=== PATIENT | male | born 1960 | race African-American/Black ===

== ENCOUNTER 2017-02-21 19:24 | Emergency (ER) | payer MEDICAID ==
[~2017-02-21] VITALS: Ht 185.4 cm; Wt 75.0 kg
[~2017-02-21 19:24] MED LIST: AMLO5TAB88 PO; ASPI-1079 PO; HYDR-4133 PO; MULT-1146 PO
[2017-02-21 20:48] LABS: EOSINOPHILS % 2.3 % (0.0-5.0); HEMATOCRIT. 28.4 % (42.0-52.0); HEMOGLOBIN. 9.7 g/dL (14.0-18.0); LYMPHOCYTES % 13.9 % (20.0-50.0); MEAN CORPUSCULAR HEMOGLOBIN 29.9 pg (28.0-32.0); MEAN CORPUSCULAR HGB CONC 34.1 g/dL (31.0-37.0); MEAN CORPUSCULAR VOLUME 87.5 fL (80.0-94.0); MEAN PLATELET VOLUME 8.8 fl (7.4-10.4); MONOCYTES % 6.6 % (2.0-8.0); NEUTROPHILS % 76.2 % (40.0-76.0); PLATELET 187 x1000/uL (130-400); RED BLOOD CELL COUNT 3.24 mill/uL (4.7-6.1); RED CELL DISTRIBUTION WIDTH 12.9 % (11.6-14.6)
[2017-02-21 20:55] LABS: INR 1.1; PARTIAL THROMBOPLASTIN TIME 27.8 sec (24.0-34.0); PROTHROMBIN TIME 11.1 sec
[2017-02-21 20:58] LABS: CALCIUM 8.8 mg/dL (8.5-10.1)
[2017-02-21 22:46] LABS: CLARITY URINE CLEAR (CLEAR); COLOR URINE RED (YELLOW); GLUCOSE URINE NEGATIVE (NEGATIVE); KETONES URINE NEGATIVE (NEGATIVE); LEUKOCYTE ESTERASE URINE 1+ (NEGATIVE); NITRITE URINE NEGATIVE (NEGATIVE); OCCULT BLOOD URINE 3+ (NEGATIVE); PH URINE 6.5 (4.5-8.0); PROTEIN URINE 1+ (NEGATIVE); SPECIFIC GRAVITY URINE 1.008 (1.005-1.030); UROBILINOGEN URINE 0.2 E.U./dL (0.2-1.0)
[2017-02-21 23:00] LABS: BACTERIA URINE TRACE; RBC URINE TNTC /hpf (0-2); SQUAMOUS EPITHELIAL CELL URINE RARE /lpf (RARE/1+)
[2017-02-22 04:00] VITALS: BP 118/69
== END 2017-02-22 04:54 | disposition home or self-care (01) ==
LOC: ER 19:24
DX: Q61.3 Polycystic kidney, unspecified (principal); R31.9 Hematuria, unspecified; I10 Essential (primary) hypertension; Z88.0 Allergy status to penicillin; Z79.82 Long term (current) use of aspirin; Z98.890 Other specified postprocedural states; Z88.8 Allergy status to other drugs, medicaments and biological substances
CPT/HCPCS: 36415; 80048; 81001; 85025; 85610; 85730; 99284; Z7610

== ENCOUNTER 2017-03-02 16:37 | Emergency (ER) | payer MEDICAID ==
[~2017-03-02] VITALS: Ht 180.3 cm; Wt 81.0 kg
[2017-03-02] MEDS ORDERED: ACETAMINOPHEN 325MG TABLET PO ONE (20:15)
[2017-03-02 23:56] VITALS: BP 140/90
== END 2017-03-02 23:57 | disposition home or self-care (01) ==
LOC: ER 16:38
DX: M79.642 Pain in left hand (principal); M25.532 Pain in left wrist; M79.632 Pain in left forearm; I12.9 Hypertensive chronic kidney disease with stage 1 through stage 4 chronic kidney disease, or unspecified chronic kidney disease; N18.9 Chronic kidney disease, unspecified; H40.9 Unspecified glaucoma; Z85.9 Personal history of malignant neoplasm, unspecified; Z88.0 Allergy status to penicillin; Z88.8 Allergy status to other drugs, medicaments and biological substances; W22.8XXA Striking against or struck by other objects, initial encounter; Y93.89 Activity, other specified; Y92.89 Other specified places as the place of occurrence of the external cause
CPT/HCPCS: 29130; 73090; 73110; 73130; 99284

== ENCOUNTER 2018-06-06 11:25 | Emergency (ER) | payer MEDICAID ==
[~2018-06-06] VITALS: Ht 172.7 cm; Wt 70.0 kg
[2018-06-06 12:38] LABS: BASOPHILS % 0.9 % (0.0-2.0); EOSINOPHILS % 1.9 % (0.0-5.0); HEMATOCRIT. 31.5 % (42.0-52.0); HEMOGLOBIN. 10.5 g/dL (14.0-18.0); LYMPHOCYTES % 17.2 % (20.0-50.0); MEAN CORPUSCULAR HEMOGLOBIN 29.7 pg (28.0-32.0); MEAN CORPUSCULAR VOLUME 88.6 fL (80.0-94.0); MEAN PLATELET VOLUME 9.2 fl (7.4-10.4); MONOCYTES % 6.3 % (2.0-8.0); NEUTROPHILS % 73.7 % (40.0-76.0); PLATELET 189 x1000/uL (130-400); RED BLOOD CELL COUNT 3.55 mill/uL (4.7-6.1); RED CELL DISTRIBUTION WIDTH 13.3 % (11.6-14.6)
[2018-06-06 13:14] VITALS: BP 136/86
== END 2018-06-06 13:26 | disposition home or self-care (01) ==
LOC: ER 11:25
DX: R53.1 Weakness (principal); I12.9 Hypertensive chronic kidney disease with stage 1 through stage 4 chronic kidney disease, or unspecified chronic kidney disease; N18.9 Chronic kidney disease, unspecified; D63.1 Anemia in chronic kidney disease; H40.9 Unspecified glaucoma; Z85.9 Personal history of malignant neoplasm, unspecified; Z88.8 Allergy status to other drugs, medicaments and biological substances; Z88.0 Allergy status to penicillin
CPT/HCPCS: 36415; 71045; 80048; 85025; 99285

== ENCOUNTER 2018-08-02 11:54 | Emergency (ER) | payer MEDICAID ==
[~2018-08-02] VITALS: Ht 182.9 cm; Wt 90.0 kg
[2018-08-02] MEDS ORDERED: FLUORESCEIN SODIUM 1MG/STRIP OP ONE (12:30)
[2018-08-02] MEDS ORDERED: TETRACAINE 0.5% OPHTH DROPS 4ML OP ONE (12:30)
[2018-08-02] MEDS ORDERED: ONDANSETRON HCL 4MG/2ML INJ IV STA (12:33)
[2018-08-02] MEDS ORDERED: MORPHINE SULFATE 4 MG/ML CPJ (NOT FOR IM USE) IV STA (12:33)
[2018-08-02 13:01] LABS: CHLORIDE 104 mEq/L (98-107)
[2018-08-02 13:06] LABS: EOSINOPHILS % 2.1 % (0.0-5.0); HEMATOCRIT. 32.2 % (42.0-52.0); HEMOGLOBIN. 10.8 g/dL (14.0-18.0); LYMPHOCYTES % 17.8 % (20.0-50.0); MEAN CORPUSCULAR HEMOGLOBIN 29.9 pg (28.0-32.0); MEAN CORPUSCULAR VOLUME 89.3 fL (80.0-94.0); MEAN PLATELET VOLUME 9.5 fl (7.4-10.4); MONOCYTES % 5.6 % (2.0-8.0); NEUTROPHILS % 73.5 % (40.0-76.0); PLATELET 172 x1000/uL (130-400); RED CELL DISTRIBUTION WIDTH 13.1 % (11.6-14.6)
[2018-08-02] MEDS ORDERED: OFLOXACIN 0.3% OPHTH SOLN 5ML LEFTEYE SCH (15:00)
[2018-08-02 20:22] VITALS: BP 129/66
== END 2018-08-02 20:43 | disposition home or self-care (01) ==
LOC: ER 11:54 → CANBEDREQ 20:52
DX: I62.00 Nontraumatic subdural hemorrhage, unspecified (principal); H10.9 Unspecified conjunctivitis; R07.2 Precordial pain; I10 Essential (primary) hypertension; H40.9 Unspecified glaucoma; Z88.0 Allergy status to penicillin; Z88.8 Allergy status to other drugs, medicaments and biological substances; Z79.82 Long term (current) use of aspirin
CPT/HCPCS: 36415; 70450; 71045; 80053; 83880; 84484; 85025; 93005; 99285; Z7610; J2270; J2405

== ENCOUNTER 2020-06-01 14:08 | Inpatient (IN) | payer MEDICAID ==
[~2020-06-01] VITALS: Ht 182.9 cm; Wt 74.8 kg
[2020-06-01] MEDS ORDERED: ONDANSETRON HCL 4MG/2ML INJ IV STA (14:35)
[2020-06-01 15:06] LABS: HEMOGLOBIN. 10.7 g/dL (14.0-18.0); MEAN CORPUSCULAR HEMOGLOBIN 30.3 pg (28.0-32.0); MEAN CORPUSCULAR VOLUME 90.9 fL (80.0-94.0); PLATELET 245 x1000/uL (130-400); RED BLOOD CELL COUNT 3.53 mill/uL (4.7-6.1)
[2020-06-01 15:11] LABS: CHLORIDE 111 mEq/L (98-107)
[2020-06-01 15:15] LABS: ETHANOL BLOOD < 10 mg/dL
[2020-06-01 15:20] LABS: PROTHROMBIN TIME 10.8 sec (9.6-11.0)
[2020-06-01 15:23] LABS: CLARITY URINE CLEAR (CLEAR); COLOR URINE YELLOW (YELLOW); KETONES URINE NEGATIVE (NEGATIVE); LEUKOCYTE ESTERASE URINE NEGATIVE (NEGATIVE); NITRITE URINE NEGATIVE (NEGATIVE); OCCULT BLOOD URINE 1+ (NEGATIVE); PH URINE 5.5 (4.5-8.0); PROTEIN URINE 2+ (NEGATIVE); SPECIFIC GRAVITY URINE 1.012 (1.005-1.030); UROBILINOGEN URINE 0.2 E.U./dL (0.2-1.0)
[2020-06-01 15:39] LABS: PLATELET ESTIMATE NORMAL
[2020-06-01 20:00] VITALS: BP 161/98
[2020-06-01 20:01] VITALS: BP 161/98
[2020-06-01] MEDS ORDERED: DIPHENHYDRAMINE 50MG/ML VIAL IV PRN (22:00)
[2020-06-01] MEDS ORDERED: MAGNESIUM/ALUMINUM HYDROXIDE/SIMETHICONE 30ML UDC PO PRN (22:00)
[2020-06-01] MEDS ORDERED: NA PHOS,M-B/NA PHOS,DI-BA ENEMA 118ML PR PRN (22:00)
[2020-06-01] MEDS ORDERED: DOCUSATE SODIUM 100MG CAPSULE PO PRN (22:00)
[2020-06-01] MEDS ORDERED: CLONIDINE 0.1MG TABLET PO PRN (22:00)
[2020-06-01] MEDS ORDERED: GUAIFENESIN 200MG/10ML SUGAR FREE UDC PO PRN (22:00)
[2020-06-01] MEDS ORDERED: ACETAMINOPHEN 325MG TABLET PO PRN (22:00)
[2020-06-01] MEDS: SODIUM CHLORIDE 0.45% 1,000 ML IV SCH (23:20)
[2020-06-01] MEDS: AMLODIPINE 10MG TABLET PO SCH (23:21)
[2020-06-01] MEDS: CEFTRIAXONE 1,000 MG in DEXTROSE 5% WATER 50 ML IV SCH (23:22)
[2020-06-02] VITALS: BP 155/92
[2020-06-02 00:54] LABS: PHOSPHORUS 6.7 mg/dL (2.5-4.9)
[2020-06-02 04:00] VITALS: BP 141/96
[2020-06-02 07:06] LABS: BASOPHILS % 0.6 % (0.0-2.0); HEMATOCRIT. 32.8 % (42.0-52.0); HEMOGLOBIN. 10.9 g/dL (14.0-18.0); LYMPHOCYTES % 10.2 % (20.0-50.0); MEAN CORPUSCULAR HEMOGLOBIN 30.3 pg (28.0-32.0); MEAN CORPUSCULAR VOLUME 91.4 fL (80.0-94.0); MEAN PLATELET VOLUME 8.4 fl (7.4-10.4); MONOCYTES % 8.8 % (2.0-8.0); NEUTROPHILS % 78.4 % (40.0-76.0); PLATELET 224 x1000/uL (130-400); RED BLOOD CELL COUNT 3.59 mill/uL (4.7-6.1); RED CELL DISTRIBUTION WIDTH 13.6 % (11.6-14.6)
[2020-06-02 07:19] LABS: CHLORIDE 111 mEq/L (98-107)
[2020-06-02 07:27] LABS: LDL CHOLESTEROL 67 mg/dL (5-100)
[2020-06-02 07:29] LABS: HDL CHOLESTEROL 44 mg/dL (40-59)
[2020-06-02 08:00] VITALS: BP 157/96
[2020-06-02 08:23] LABS: *AMPHETAMINES SCREEN URINE NEGATIVE (NEGATIVE); *BARBITURATES SCREEN URINE NEGATIVE (NEGATIVE); *BENZODIAZEPINES SCREEN URINE NEGATIVE (NEGATIVE); *COCAINE SCREEN URINE NEGATIVE (NEGATIVE); METHADONE URINE SCREEN NEGATIVE (NEGATIVE); OPIATES URINE SCREEN NEGATIVE (NEGATIVE)
[2020-06-02 08:24] LABS: CANNABINOID URINE SCREEN NEGATIVE (NEGATIVE); PHENCYCLIDINE URINE SCREEN NEGATIVE (NEGATIVE)
[2020-06-02] MEDS: AMLODIPINE 10MG TABLET PO SCH (10:11)
[2020-06-02 10:48] LABS: T4 FREE 0.86 ng/dL (0.76-1.46)
[2020-06-02] MEDS: SODIUM CHLORIDE 0.45% 1,000 ML IV SCH (11:49)
[2020-06-02 12:00] VITALS: BP 136/83
[2020-06-02] MEDS ORDERED: AMLODIPINE 5MG TABLET PO SCH (12:45)
[2020-06-02] MEDS: HYDRALAZINE HCL 100MG TABLET PO SCH ×2 (13:35→20:38)
[2020-06-02] MEDS: CALCIUM ACETATE 667MG CAPSULE PO SCH ×2 (13:35→18:07)
[2020-06-02] MEDS: ASPIRIN 81MG TABLET PO SCH (13:35)
[2020-06-02] MEDS: ONDANSETRON HCL 4MG/2ML INJ IV PRN (15:30)
[2020-06-02 16:00] VITALS: BP 128/76
[2020-06-02 20:00] VITALS: BP 128/75
[2020-06-02] MEDS: ACETAMINOPHEN 325MG TABLET PO PRN (20:37)
[2020-06-02] MEDS: CEFTRIAXONE 1,000 MG in DEXTROSE 5% WATER 50 ML IV SCH (20:38)
[2020-06-03] VITALS: BP 132/85
[2020-06-03] MEDS: SODIUM CHLORIDE 0.45% 1,000 ML IV SCH ×2 (00:19→14:25)
[2020-06-03] MEDS: ONDANSETRON HCL 4MG/2ML INJ IV PRN ×2 (00:27→08:40)
[2020-06-03 04:00] VITALS: BP 135/92
[2020-06-03 07:31] LABS: CHLORIDE 108 mEq/L (98-107)
[2020-06-03 07:33] LABS: HEMATOCRIT. 32.4 % (42.0-52.0); HEMOGLOBIN. 10.7 g/dL (14.0-18.0); MEAN CORPUSCULAR HEMOGLOBIN 29.8 pg (28.0-32.0); MEAN CORPUSCULAR VOLUME 90.5 fL (80.0-94.0); MEAN PLATELET VOLUME 8.9 fl (7.4-10.4); PLATELET 242 x1000/uL (130-400); RED BLOOD CELL COUNT 3.58 mill/uL (4.7-6.1); RED CELL DISTRIBUTION WIDTH 13.9 % (11.6-14.6)
[2020-06-03 07:38] LABS: PHOSPHORUS 5.4 mg/dL (2.5-4.9)
[2020-06-03 08:00] VITALS: BP 141/91
[2020-06-03] MEDS: CALCIUM ACETATE 667MG CAPSULE PO SCH ×3 (08:40→17:12)
[2020-06-03] MEDS: AMLODIPINE 10MG TABLET PO SCH (08:41)
[2020-06-03] MEDS: ASPIRIN 81MG TABLET PO SCH (08:41)
[2020-06-03] MEDS: HYDRALAZINE HCL 100MG TABLET PO SCH ×2 (08:42→20:45)
[2020-06-03] MEDS: ACETAMINOPHEN 325MG TABLET PO PRN ×2 (08:42→15:58)
[2020-06-03] MEDS ORDERED: CALC667C PO (10:55)
[2020-06-03] MEDS ORDERED: AMLO10TA80 PO (10:55)
[2020-06-03] MEDS ORDERED: METO5TAB2 PO (10:56)
[2020-06-03 12:00] VITALS: BP 148/96
[2020-06-03] MEDS: METOCLOPRAMIDE HCL 5MG TABLET PO SCH ×2 (12:04→17:12)
[2020-06-03 12:46] LABS: TOTAL IRON BINDING CAPACITY 216 ug/dL (250-450)
[2020-06-03 16:00] VITALS: BP 139/88
[2020-06-03 19:12] LABS: PLATELET ESTIMATE NORMAL
[2020-06-03 20:00] VITALS: BP 141/84
[2020-06-03] MEDS: CEFTRIAXONE 1,000 MG in DEXTROSE 5% WATER 50 ML IV SCH (20:46)
[2020-06-04] VITALS: BP 129/72
[2020-06-04] MEDS: ACETAMINOPHEN 325MG TABLET PO PRN (00:36)
[2020-06-04] MEDS: METOCLOPRAMIDE HCL 5MG TABLET PO SCH ×5 (00:36→21:27)
[2020-06-04] MEDS: SODIUM CHLORIDE 0.45% 1,000 ML IV SCH ×2 (03:17→16:54)
[2020-06-04 04:00] VITALS: BP 135/86
[2020-06-04 06:38] LABS: CHLORIDE 108 mEq/L (98-107)
[2020-06-04 06:43] LABS: BASOPHILS % 0.5 % (0.0-2.0); EOSINOPHILS % 0.3 % (0.0-5.0); HEMATOCRIT. 32.9 % (42.0-52.0); HEMOGLOBIN. 10.8 g/dL (14.0-18.0); LYMPHOCYTES % 8.6 % (20.0-50.0); MEAN CORPUSCULAR HEMOGLOBIN 29.7 pg (28.0-32.0); MEAN CORPUSCULAR VOLUME 90.9 fL (80.0-94.0); MEAN PLATELET VOLUME 8.8 fl (7.4-10.4); MONOCYTES % 5.1 % (2.0-8.0); NEUTROPHILS % 85.5 % (40.0-76.0); PLATELET 252 x1000/uL (130-400); RED BLOOD CELL COUNT 3.62 mill/uL (4.7-6.1); RED CELL DISTRIBUTION WIDTH 13.7 % (11.6-14.6)
[2020-06-04 06:47] LABS: PHOSPHORUS 5.3 mg/dL (2.5-4.9)
[2020-06-04 08:00] VITALS: BP 146/91
[2020-06-04] MEDS: ONDANSETRON HCL 4MG/2ML INJ IV PRN ×2 (08:06→23:58)
[2020-06-04] MEDS: CALCIUM ACETATE 667MG CAPSULE PO SCH ×3 (08:50→17:55)
[2020-06-04] MEDS: AMLODIPINE 10MG TABLET PO SCH (09:17)
[2020-06-04] MEDS: ASPIRIN 81MG TABLET PO SCH (09:17)
[2020-06-04] MEDS: HYDRALAZINE HCL 100MG TABLET PO SCH ×2 (09:17→21:28)
[2020-06-04 12:00] VITALS: BP 147/88
[2020-06-04 16:00] VITALS: BP 148/92
[2020-06-04] MEDS: SODIUM BICARBONATE 650 MG TABLET PO SCH ×2 (17:55→21:27)
[2020-06-04 20:00] VITALS: BP 149/90
[2020-06-04] MEDS: CEFTRIAXONE 1,000 MG in DEXTROSE 5% WATER 50 ML IV SCH (21:27)
[2020-06-04] MEDS: PANTOPRAZOLE SODIUM 40 MG/VIAL IV SCH (21:28)
[2020-06-04] MEDS ORDERED: LACTULOSE 20G/30ML UDC PO NR (21:30)
[2020-06-05] VITALS: BP 137/86
[2020-06-05 04:00] VITALS: BP 156/99
[2020-06-05] MEDS: SODIUM CHLORIDE 0.45% 1,000 ML IV SCH (05:35)
[2020-06-05] MEDS: METOCLOPRAMIDE HCL 5MG TABLET PO SCH ×2 (05:35→12:00)
[2020-06-05 06:47] LABS: CHLORIDE 109 mEq/L (98-107)
[2020-06-05 06:50] LABS: PARTIAL THROMBOPLASTIN TIME 30.9 sec (23.4-31.0); PROTHROMBIN TIME 10.9 sec (9.6-11.0)
[2020-06-05 06:54] LABS: PHOSPHORUS 4.7 mg/dL (2.5-4.9)
[2020-06-05 06:57] LABS: BASOPHILS % 0.8 % (0.0-2.0); EOSINOPHILS % 0.3 % (0.0-5.0); HEMATOCRIT. 31.7 % (42.0-52.0); HEMOGLOBIN. 10.3 g/dL (14.0-18.0); MEAN CORPUSCULAR HEMOGLOBIN 29.4 pg (28.0-32.0); MEAN CORPUSCULAR VOLUME 90.3 fL (80.0-94.0); MEAN PLATELET VOLUME 8.8 fl (7.4-10.4); MONOCYTES % 6.7 % (2.0-8.0); NEUTROPHILS % 84.2 % (40.0-76.0); PLATELET 232 x1000/uL (130-400); RED BLOOD CELL COUNT 3.51 mill/uL (4.7-6.1); RED CELL DISTRIBUTION WIDTH 13.8 % (11.6-14.6)
[2020-06-05 08:00] VITALS: BP 133/89
[2020-06-05] MEDS: SODIUM BICARBONATE 650 MG TABLET PO SCH ×2 (09:00→15:20)
[2020-06-05] MEDS: ASPIRIN 81MG TABLET PO SCH (09:00)
[2020-06-05] MEDS: CALCIUM ACETATE 667MG CAPSULE PO SCH ×2 (09:51→15:20)
[2020-06-05] MEDS: PANTOPRAZOLE SODIUM 40 MG/VIAL IV SCH (09:51)
[2020-06-05] MEDS: HYDRALAZINE HCL 100MG TABLET PO SCH (09:51)
[2020-06-05] MEDS: AMLODIPINE 10MG TABLET PO SCH (09:51)
[2020-06-05] MEDS ORDERED: MIDAZOLAM HCL 5 MG/5 ML VIAL ONE (11:06)
[2020-06-05] MEDS ORDERED: FENTANYL CITRATE/PF 50MCG/ML 2ML VIAL ONE (11:06)
[2020-06-05] MEDS ORDERED: MIDAZOLAM HCL 5 MG/5 ML VIAL IV ONE (11:15)
[2020-06-05] MEDS ORDERED: FENTANYL CITRATE/PF 50MCG/ML 2ML VIAL IV ONE (11:16)
[2020-06-05 12:00] VITALS: BP 106/64
[2020-06-05 16:00] VITALS: BP 120/73
[2020-06-05 17:24] VITALS: BP 120/73
[2020-06-05] MEDS ORDERED: PANT40SU MT (18:06)
[2020-06-06] MEDS ORDERED: OMEPRAZOLE 20MG CAPSULE EXTENDED RELEASE PO SCH (07:20)
== END 2020-06-05 18:35 | disposition home or self-care (01) | DRG 241 ==
LOC: ER 14:08 → 6EST 18:16 → EDBEDREQ 18:24 → EDBEDREQSVC 18:24 → ENRESERV 19:05 → 6EST 22:04
PROVIDERS: ADMIT Family Medicine; ATTEND Family Medicine
PROC: 0DB68ZX Excision of Stomach, Via Natural or Artificial Opening Endoscopic, Diagnostic (ICD-10-PCS; principal; 2020-06-05)
DX: K29.90 Gastroduodenitis, unspecified, without bleeding (principal); N17.9 Acute kidney failure, unspecified; Q61.3 Polycystic kidney, unspecified; K76.89 Other specified diseases of liver; I12.0 Hypertensive chronic kidney disease with stage 5 chronic kidney disease or end stage renal disease; D64.9 Anemia, unspecified; E03.9 Hypothyroidism, unspecified; E86.0 Dehydration; K57.90 Diverticulosis of intestine, part unspecified, without perforation or abscess without bleeding; E87.2 Acidosis; E21.3 Hyperparathyroidism, unspecified; C18.9 Malignant neoplasm of colon, unspecified; K80.20 Calculus of gallbladder without cholecystitis without obstruction; K59.04 Chronic idiopathic constipation; Z88.9 Allergy status to unspecified drugs, medicaments and biological substances; Q44.6 Cystic disease of liver; Z82.49 Family history of ischemic heart disease and other diseases of the circulatory system; Z82.71 Family history of polycystic kidney; Z88.0 Allergy status to penicillin; Z88.8 Allergy status to other drugs, medicaments and biological substances; Z79.82 Long term (current) use of aspirin; Z79.899 Other long term (current) drug therapy; Z85.038 Personal history of other malignant neoplasm of large intestine; N18.5 Chronic kidney disease, stage 5
CPT/HCPCS: 36415; 71045; 74018; 74176; 76705; 76770; 80053; 80061; 80305; 80320; 81003; 82270; 82570; 82728; 83540; 83550; 83735; 83935; 83970; 84100; 84156; 84439; 84443; 84484; 85025; 86677; 88305; 88313; 93005; 96374; 99285; C9113; J0696; J2250; J2405; J3010; J7060; J8597; G0480

== ENCOUNTER 2020-09-11 12:00 | Inpatient (IN) | payer MEDICAID ==
[~2020-09-11] VITALS: Ht 185.4 cm; Wt 69.9 kg
[~2020-09-11 12:00] MED LIST changes: +AMLO10TA80 PO; -AMLO5TAB88 PO; +CALC667C PO; -HYDR-4133 PO; +METO5TAB2 PO; +PANT40SU MT
[2020-09-11] MEDS ORDERED: ONDANSETRON HCL 4MG/2ML INJ IV STA (13:23)
[2020-09-11] MEDS ORDERED: FAMOTIDINE 20MG/2ML VIAL IV STA (13:23)
[2020-09-11] MEDS ORDERED: SODIUM CHLORIDE 0.9% 1,000 ML IV ONE (13:30)
[2020-09-11 15:09] LABS: HEMOGLOBIN. 10.7 g/dL (14.0-18.0); MEAN CORPUSCULAR VOLUME 86.5 fL (80.0-94.0); MEAN PLATELET VOLUME 10.1 fl (7.4-10.4); PLATELET 160 x1000/uL (130-400); RED CELL DISTRIBUTION WIDTH 14.4 % (11.6-14.6)
[2020-09-11 15:11] LABS: CHLORIDE 102 mEq/L (98-107)
[2020-09-11 15:28] LABS: PROTHROMBIN TIME 10.9 sec (9.6-11.0)
[2020-09-11 16:12] LABS: PLATELET ESTIMATE NORMAL
[2020-09-11] MEDS ORDERED: METRONIDAZOLE 500 MG PREMIX 100 ML IV ONE (17:30)
[2020-09-11] MEDS ORDERED: LEVOFLOXACIN 750MG PREMIX 150 ML IV ONE (17:30)
[2020-09-11] MEDS ORDERED: ZOLPIDEM TARTRATE 5MG TABLET PO PRN (18:30)
[2020-09-11] MEDS ORDERED: DOCUSATE SODIUM 100MG CAPSULE PO PRN (18:30)
[2020-09-11] MEDS ORDERED: IPRATROPIUM/ALBUTEROL 0.5-3(2.5)MG/3ML NEB NEB PRN (18:30)
[2020-09-11] MEDS ORDERED: MAGNESIUM/ALUMINUM HYDROXIDE/SIMETHICONE 30ML UDC PO PRN (18:30)
[2020-09-11] MEDS ORDERED: ACETAMINOPHEN 325MG TABLET PO PRN (18:30)
[2020-09-11] MEDS ORDERED: GUAIFENESIN 200MG/10ML SUGAR FREE UDC PO PRN (18:30)
[2020-09-11 19:54] LABS: FOLIC ACID (FOLATE) SERUM >20 ng/mL ng/mL (>5.38)
[2020-09-11] MEDS ORDERED: LEVOFLOXACIN 500MG PREMIX 100 ML IV NR (20:00)
[2020-09-11 20:05] LABS: VITAMIN B12 SERUM 1284 pg/mL (211-911)
[2020-09-11] MEDS: ONDANSETRON HCL 4MG/2ML INJ IV PRN (20:37)
[2020-09-11] MEDS: SODIUM CHLORIDE 0.9% 1,000 ML IV SCH (20:50)
[2020-09-11 22:06] VITALS: BP 128/97
[2020-09-11] MEDS: ASCORBIC ACID 500 MG TABLET PO SCH (22:37)
[2020-09-11] MEDS: ENOXAPARIN 30MG/0.3ML SYR SUBCUT SCH (22:38)
[2020-09-11] MEDS: METRONIDAZOLE 500 MG PREMIX 100 ML IV SCH (22:39)
[2020-09-12] VITALS (17 sets, daily range): BP systolic 130–189; BP diastolic 79–103
[2020-09-12 06:48] LABS: HEMATOCRIT. 31.7 % (42.0-52.0); HEMOGLOBIN. 10.6 g/dL (14.0-18.0); MEAN CORPUSCULAR HEMOGLOBIN 29.1 pg (28.0-32.0); MEAN PLATELET VOLUME 10.6 fl (7.4-10.4); PLATELET 156 x1000/uL (130-400); RED BLOOD CELL COUNT 3.65 mill/uL (4.7-6.1); RED CELL DISTRIBUTION WIDTH 14.7 % (11.6-14.6)
[2020-09-12 06:57] LABS: CHLORIDE 102 mEq/L (98-107)
[2020-09-12] MEDS: SODIUM CHLORIDE 0.9% 1,000 ML IV SCH ×2 (07:50→12:46)
[2020-09-12 08:36] LABS: PHOSPHORUS 9.6 mg/dL (2.5-4.9)
[2020-09-12] MEDS: PANTOPRAZOLE SODIUM 40 MG/VIAL IV SCH (09:47)
[2020-09-12] MEDS: TRAMADOL 50MG TABLET PO PRN ×2 (09:48→21:49)
[2020-09-12] MEDS: SEVELAMER CARBONATE 800 MG TABLET PO SCH ×3 (09:48→18:15)
[2020-09-12] MEDS: ZINC SULFATE 220 MG ( 50 ) CAPSULE PO SCH (09:49)
[2020-09-12] MEDS: ASCORBIC ACID 500 MG TABLET PO SCH ×2 (09:49→22:29)
[2020-09-12] MEDS: METRONIDAZOLE 500 MG PREMIX 100 ML IV SCH ×2 (10:00→11:32)
[2020-09-12] MEDS: FOLIC ACID/VITAMIN B COMP W-C TABLET PO SCH (12:45)
[2020-09-12 13:28] LABS: BG BASE EXCESS -13.2 mmol/L (-2.0-2.0); BG CARBOXYHEMOGLOBIN 0.3 % (0.5-1.5); BG DEOXYHEMOGLOBIN 3.1 % (0.0-5.0); BG FRACTION INSPIRED OXYGEN 21; BG HCO3 ACT 11.3 mmol/L (22.0-26.0); BG METHEMOGLOBIN 0.3 % (0.0-1.5); BG OXYGEN SATURATION 96.9 % (92.0-98.5); BG OXYHEMOGLOBIN 96.3 % (94.0-97.0); BG PH 7.308 (7.350-7.450); BG SAMPLE SITE RIGHT BRACHIAL; BG TOTAL HEMOGLOBIN 11.2 g/dL (12.0-18.0); BG VENT MODE ROOM AIR
[2020-09-12] MEDS ORDERED: LIDOCAINE HCL/EPINEPHRINE 1%-EPI 1:100,000 20 ML VIAL ONE (13:29)
[2020-09-12] MEDS ORDERED: LIDOCAINE HCL 1% 20ML VIAL (Pyxis) INJ ONE (13:29)
[2020-09-12] MEDS ORDERED: SODIUM BICARBONATE 4% (2.4MEQ) 5ML VIAL IV ONE (13:29)
[2020-09-12] MEDS ORDERED: FENTANYL CITRATE/PF 50MCG/ML 2ML VIAL ONE (14:03)
[2020-09-12] MEDS ORDERED: FENTANYL CITRATE/PF 50MCG/ML 2ML VIAL IV ONE (14:30)
[2020-09-12] MEDS ORDERED: IOHEXOL-300 50 ML BOTTLE IV ONE (14:46)
[2020-09-12 18:06] LABS: PLATELET ESTIMATE NORMAL
[2020-09-12] MEDS: ONDANSETRON HCL 4MG/2ML INJ IV PRN (21:09)
[2020-09-12] MEDS: LEVOFLOXACIN 250MG PREMIX 50ML IV SCH (22:16)
[2020-09-12] MEDS: ENOXAPARIN 30MG/0.3ML SYR SUBCUT SCH (22:32)
[2020-09-13] MEDS: METRONIDAZOLE 500 MG PREMIX 100 ML IV SCH ×3 (00:09→21:00)
[2020-09-13] MEDS: CLONIDINE 0.1MG TABLET PO PRN (00:20)
[2020-09-13 00:39] VITALS: BP 142/102
[2020-09-13 04:00] VITALS: BP 146/100
[2020-09-13 06:32] LABS: HEMATOCRIT. 31.5 % (42.0-52.0); HEMOGLOBIN. 10.7 g/dL (14.0-18.0); MEAN CORPUSCULAR HEMOGLOBIN 29.3 pg (28.0-32.0); MEAN CORPUSCULAR VOLUME 86.3 fL (80.0-94.0); MEAN PLATELET VOLUME 10.6 fl (7.4-10.4); PLATELET 159 x1000/uL (130-400); RED BLOOD CELL COUNT 3.65 mill/uL (4.7-6.1); RED CELL DISTRIBUTION WIDTH 14.5 % (11.6-14.6)
[2020-09-13 06:47] LABS: PHOSPHORUS 8.8 mg/dL (2.5-4.9)
[2020-09-13 08:00] VITALS: BP 140/99
[2020-09-13] MEDS: ZINC SULFATE 220 MG ( 50 ) CAPSULE PO SCH (08:50)
[2020-09-13] MEDS: TRAMADOL 50MG TABLET PO PRN ×2 (08:50→17:08)
[2020-09-13] MEDS: ASCORBIC ACID 500 MG TABLET PO SCH ×2 (08:50→21:00)
[2020-09-13] MEDS: FOLIC ACID/VITAMIN B COMP W-C TABLET PO SCH (08:50)
[2020-09-13] MEDS: SEVELAMER CARBONATE 800 MG TABLET PO SCH ×3 (08:50→16:55)
[2020-09-13] MEDS: PANTOPRAZOLE SODIUM 40 MG/VIAL IV SCH (08:50)
[2020-09-13] MEDS: SODIUM CHLORIDE 0.9% 1,000 ML IV SCH (09:58)
[2020-09-13] MEDS ORDERED: DIATR MEGLU/DIATRIZOATE SOLN 120ML ONE (11:44)
[2020-09-13 12:00] VITALS: BP 173/90
[2020-09-13 13:29] LABS: PLATELET ESTIMATE NORMAL
[2020-09-13 16:00] VITALS: BP 122/79
[2020-09-13] MEDS ORDERED: SODIUM CHLORIDE 0.9% 250 ML IV ONE (19:00)
[2020-09-13 20:00] VITALS: BP 154/98
[2020-09-13] MEDS: ENOXAPARIN 30MG/0.3ML SYR SUBCUT SCH (20:59)
[2020-09-14] VITALS: BP 147/99
[2020-09-14] MEDS: ONDANSETRON HCL 4MG/2ML INJ IV PRN (02:45)
[2020-09-14 04:00] VITALS: BP 145/99
[2020-09-14] MEDS: SODIUM CHLORIDE 0.9% 1,000 ML IV SCH (05:37)
[2020-09-14 05:58] LABS: HEMATOCRIT. 31.2 % (42.0-52.0); HEMOGLOBIN. 10.6 g/dL (14.0-18.0); MEAN CORPUSCULAR HEMOGLOBIN 29.3 pg (28.0-32.0); MEAN CORPUSCULAR VOLUME 86.6 fL (80.0-94.0); MEAN PLATELET VOLUME 10.7 fl (7.4-10.4); PLATELET 159 x1000/uL (130-400); RED BLOOD CELL COUNT 3.61 mill/uL (4.7-6.1); RED CELL DISTRIBUTION WIDTH 14.3 % (11.6-14.6)
[2020-09-14 06:08] LABS: CHLORIDE 104 mEq/L (98-107)
[2020-09-14 06:53] LABS: PHOSPHORUS 8.2 mg/dL (2.5-4.9)
[2020-09-14 08:00] VITALS: BP 141/98
[2020-09-14] MEDS: FOLIC ACID/VITAMIN B COMP W-C TABLET PO SCH (08:21)
[2020-09-14] MEDS: PANTOPRAZOLE SODIUM 40 MG/VIAL IV SCH (08:21)
[2020-09-14] MEDS: ASCORBIC ACID 500 MG TABLET PO SCH ×2 (08:21→20:21)
[2020-09-14] MEDS: SEVELAMER CARBONATE 800 MG TABLET PO SCH ×3 (08:21→17:00)
[2020-09-14] MEDS: METRONIDAZOLE 500 MG PREMIX 100 ML IV SCH ×2 (08:21→21:14)
[2020-09-14] MEDS: ZINC SULFATE 220 MG ( 50 ) CAPSULE PO SCH (08:21)
[2020-09-14] MEDS ORDERED: ALBUMIN HUMAN 25GM/100ML (25%) IV SCH (10:00)
[2020-09-14] MEDS: DILTIAZEM HCL 60MG TABLET PO SCH ×3 (10:27→17:00)
[2020-09-14 12:00] VITALS: BP 145/96
[2020-09-14 12:35] LABS: HEPATITIS B SURFACE ANTIGEN NEGATIVE
[2020-09-14 13:05] LABS: HEPATITIS A AB IGM NEGATIVE (NEGATIVE)
[2020-09-14 13:42] LABS: PLATELET ESTIMATE NORMAL
[2020-09-14 16:00] VITALS: BP 137/95
[2020-09-14] MEDS: TRAMADOL 50MG TABLET PO PRN (17:08)
[2020-09-14 20:00] VITALS: BP 140/90
[2020-09-14] MEDS: ENOXAPARIN 30MG/0.3ML SYR SUBCUT SCH (20:21)
[2020-09-14] MEDS: LEVOFLOXACIN 250MG PREMIX 50ML IV SCH (20:21)
[2020-09-15] VITALS: BP 129/87
[2020-09-15] MEDS: DILTIAZEM HCL 60MG TABLET PO SCH ×4 (00:11→17:02)
[2020-09-15 04:00] VITALS: BP 146/83
[2020-09-15 06:30] LABS: HEMATOCRIT. 31.1 % (42.0-52.0); HEMOGLOBIN. 10.4 g/dL (14.0-18.0); MEAN CORPUSCULAR HEMOGLOBIN 29.2 pg (28.0-32.0); MEAN CORPUSCULAR VOLUME 87.9 fL (80.0-94.0); MEAN PLATELET VOLUME 9.9 fl (7.4-10.4); PLATELET 155 x1000/uL (130-400); RED BLOOD CELL COUNT 3.54 mill/uL (4.7-6.1); RED CELL DISTRIBUTION WIDTH 14.3 % (11.6-14.6)
[2020-09-15 07:30] LABS: PHOSPHORUS 9.5 mg/dL (2.5-4.9)
[2020-09-15 08:00] VITALS: BP 129/89
[2020-09-15] MEDS: SEVELAMER CARBONATE 800 MG TABLET PO SCH ×3 (08:49→17:02)
[2020-09-15] MEDS: ZINC SULFATE 220 MG ( 50 ) CAPSULE PO SCH (08:49)
[2020-09-15] MEDS: METRONIDAZOLE 500 MG PREMIX 100 ML IV SCH ×2 (08:49→20:14)
[2020-09-15] MEDS: ASCORBIC ACID 500 MG TABLET PO SCH ×2 (08:49→20:14)
[2020-09-15] MEDS: FOLIC ACID/VITAMIN B COMP W-C TABLET PO SCH (08:49)
[2020-09-15] MEDS: PANTOPRAZOLE SODIUM 40 MG/VIAL IV SCH (08:53)
[2020-09-15] MEDS ORDERED: DESMOPRESSIN ACETATE 4MCG/ML AMP IV ONE (09:00)
[2020-09-15] MEDS: ONDANSETRON HCL 4MG/2ML INJ IV PRN ×2 (09:30→20:26)
[2020-09-15 10:13] LABS: PLATELET ESTIMATE NORMAL
[2020-09-15] MEDS ORDERED: DESMOPRESSIN ACETATE 20 MCG in SODIUM CHLORIDE 0.9% 50 ML IV SCH (11:00)
[2020-09-15 12:00] VITALS: BP 123/82
[2020-09-15 16:00] VITALS: BP 126/86
[2020-09-15 20:00] VITALS: BP 109/79
[2020-09-15] MEDS: TRAMADOL 50MG TABLET PO PRN (20:14)
[2020-09-15] MEDS: ENOXAPARIN 30MG/0.3ML SYR SUBCUT SCH (20:15)
[2020-09-16] VITALS (14 sets, daily range): BP systolic 72–99; BP diastolic 44–70
[2020-09-16] MEDS ORDERED: SODIUM CHLORIDE 0.9% 500 ML IV ONE (04:30)
[2020-09-16] MEDS: DILTIAZEM HCL 60MG TABLET PO SCH ×4 (05:00→18:07)
[2020-09-16 06:17] LABS: HEMATOCRIT. 33.5 % (42.0-52.0); MEAN CORPUSCULAR HEMOGLOBIN 28.6 pg (28.0-32.0); PLATELET 231 x1000/uL (130-400); RED BLOOD CELL COUNT 3.85 mill/uL (4.7-6.1); RED CELL DISTRIBUTION WIDTH 13.7 % (11.6-14.6)
[2020-09-16] MEDS: ZINC SULFATE 220 MG ( 50 ) CAPSULE PO SCH (08:25)
[2020-09-16] MEDS: SEVELAMER CARBONATE 800 MG TABLET PO SCH ×3 (08:25→17:23)
[2020-09-16] MEDS: FOLIC ACID/VITAMIN B COMP W-C TABLET PO SCH (08:25)
[2020-09-16] MEDS: PANTOPRAZOLE SODIUM 40 MG/VIAL IV SCH (08:25)
[2020-09-16] MEDS: ASCORBIC ACID 500 MG TABLET PO SCH ×2 (08:25→20:57)
[2020-09-16] MEDS: METRONIDAZOLE 500 MG PREMIX 100 ML IV SCH (08:34)
[2020-09-16 11:46] LABS: NUCLEATED RED BLOOD CELLS 1 /100 WBC; PLATELET ESTIMATE NORMAL
[2020-09-16] MEDS: MIDODRINE HCL 2.5MG TABLET PO SCH ×2 (13:03→17:24)
[2020-09-16] MEDS: DEXT 5%/0.9% NACL 1,000 ML IV SCH (19:06)
[2020-09-16] MEDS: ENOXAPARIN 30MG/0.3ML SYR SUBCUT SCH (20:57)
[2020-09-17] VITALS: BP 102/61
[2020-09-17 04:00] VITALS: BP 117/77
[2020-09-17] MEDS: DEXT 5%/0.9% NACL 1,000 ML IV SCH ×2 (05:09→15:20)
[2020-09-17] MEDS: DILTIAZEM HCL 60MG TABLET PO SCH ×4 (06:00→17:18)
[2020-09-17 06:16] LABS: HEMATOCRIT. 29.4 % (42.0-52.0); HEMOGLOBIN. 9.9 g/dL (14.0-18.0); MEAN CORPUSCULAR HEMOGLOBIN 29.8 pg (28.0-32.0); MEAN CORPUSCULAR VOLUME 88.8 fL (80.0-94.0); MEAN PLATELET VOLUME 9.8 fl (7.4-10.4); PLATELET 214 x1000/uL (130-400); RED BLOOD CELL COUNT 3.31 mill/uL (4.7-6.1); RED CELL DISTRIBUTION WIDTH 13.8 % (11.6-14.6)
[2020-09-17 07:01] LABS: PHOSPHORUS 4.4 mg/dL (2.5-4.9)
[2020-09-17 07:56] VITALS: BP 114/78
[2020-09-17] MEDS: FOLIC ACID/VITAMIN B COMP W-C TABLET PO SCH (09:25)
[2020-09-17] MEDS: PANTOPRAZOLE SODIUM 40 MG/VIAL IV SCH (09:25)
[2020-09-17] MEDS: ASCORBIC ACID 500 MG TABLET PO SCH ×2 (09:25→20:49)
[2020-09-17] MEDS: ONDANSETRON HCL 4MG/2ML INJ IV PRN ×2 (09:25→17:27)
[2020-09-17] MEDS: MIDODRINE HCL 2.5MG TABLET PO SCH ×3 (09:26→17:19)
[2020-09-17] MEDS: ZINC SULFATE 220 MG ( 50 ) CAPSULE PO SCH (09:29)
[2020-09-17] MEDS: SEVELAMER CARBONATE 800 MG TABLET PO SCH ×3 (09:29→17:18)
[2020-09-17 11:53] VITALS: BP 114/71
[2020-09-17 13:06] LABS: PLATELET ESTIMATE NORMAL
[2020-09-17 16:18] VITALS: BP 131/87
[2020-09-17 20:00] VITALS: BP 123/85
[2020-09-17] MEDS: ENOXAPARIN 30MG/0.3ML SYR SUBCUT SCH (20:49)
[2020-09-18] VITALS (39 sets, daily range): BP systolic 73–143; BP diastolic 53–103
[2020-09-18] MEDS: DILTIAZEM HCL 60MG TABLET PO SCH ×5 (00:15→23:27)
[2020-09-18] MEDS: DEXT 5%/0.9% NACL 1,000 ML IV SCH ×3 (00:15→16:55)
[2020-09-18 07:27] LABS: PHOSPHORUS 8.1 mg/dL (2.5-4.9)
[2020-09-18] MEDS: FOLIC ACID/VITAMIN B COMP W-C TABLET PO SCH (08:34)
[2020-09-18] MEDS: ASCORBIC ACID 500 MG TABLET PO SCH ×2 (08:34→20:18)
[2020-09-18] MEDS: SEVELAMER CARBONATE 800 MG TABLET PO SCH ×3 (08:34→16:51)
[2020-09-18] MEDS: MIDODRINE HCL 2.5MG TABLET PO SCH ×3 (08:35→16:51)
[2020-09-18] MEDS: ZINC SULFATE 220 MG ( 50 ) CAPSULE PO SCH (08:35)
[2020-09-18] MEDS: PANTOPRAZOLE SODIUM 40 MG/VIAL IV SCH (08:35)
[2020-09-18 09:37] LABS: HEMATOCRIT. 26.3 % (42.0-52.0); HEMOGLOBIN. 8.7 g/dL (14.0-18.0); MEAN CORPUSCULAR HEMOGLOBIN 29.5 pg (28.0-32.0); MEAN CORPUSCULAR VOLUME 88.9 fL (80.0-94.0); MEAN PLATELET VOLUME 9.3 fl (7.4-10.4); PLATELET 196 x1000/uL (130-400); RED BLOOD CELL COUNT 2.96 mill/uL (4.7-6.1); RED CELL DISTRIBUTION WIDTH 13.4 % (11.6-14.6)
[2020-09-18 10:37] LABS: PLATELET ESTIMATE NORMAL
[2020-09-18] MEDS ORDERED: FENTANYL CITRATE/PF 50MCG/ML 2ML VIAL ONE (11:30)
[2020-09-18] MEDS ORDERED: MIDAZOLAM HCL 2 MG/2 ML VIAL ONE ×2 (11:30→12:58)
[2020-09-18] MEDS ORDERED: ETOMIDATE 2MG/ML 10ML VIAL IV ONE (11:30)
[2020-09-18] MEDS ORDERED: LIDOCAINE HCL 1% 20ML VIAL (Pyxis) INJ ONE ×2 (11:31→15:21)
[2020-09-18] MEDS ORDERED: LEVOFLOXACIN 500MG PREMIX 100 ML IV ONE (11:34)
[2020-09-18] MEDS ORDERED: METRONIDAZOLE 500 MG PREMIX 100 ML IV ONE (11:34)
[2020-09-18] MEDS ORDERED: SUCCINYLCHOLINE CHLORIDE 200MG/10ML IV ONE (11:36)
[2020-09-18] MEDS ORDERED: ROCURONIUM BROMIDE 10MG/ML VIAL 5ML IV ONE (11:36)
[2020-09-18] MEDS ORDERED: PHENYLEPHRINE HCL 10 MG/ML 1ML (IV VIAL) IV ONE (11:59)
[2020-09-18] MEDS ORDERED: NOREPINEPHRINE BITARTRATE 1MG/ML 4ML IV ONE (12:10)
[2020-09-18] MEDS ORDERED: SODIUM BICARBONATE 8.4% 1 MEQ/ML 50ML SYR IV ONE ×2 (12:10→12:23)
[2020-09-18] MEDS ORDERED: NOREPINEPHRINE 8 MG in DEXTROSE 5% WATER 250 ML IV PRN (12:15)
[2020-09-18] MEDS ORDERED: ALBUMIN HUMAN 12.5GM/50ML (25%) IV ONE (12:43)
[2020-09-18] MEDS ORDERED: ALBUMIN HUMAN 12.5G/250ML (5%) IV ONE (12:43)
[2020-09-18 13:02] LABS: BG BASE EXCESS -1.6 mmol/L (-2.0-2.0); BG CARBOXYHEMOGLOBIN 0.2 % (0.5-1.5); BG DEOXYHEMOGLOBIN 0.9 % (0.0-5.0); BG FRACTION INSPIRED OXYGEN 100; BG HCO3 ACT 22.5 mmol/L (22.0-26.0); BG METHEMOGLOBIN 0.4 % (0.0-1.5); BG OXYGEN SATURATION 99.1 % (92.0-98.5); BG OXYHEMOGLOBIN 98.5 % (94.0-97.0); BG PCO2 35.5 mmHg (35.0-45.0); BG PO2 419.5 mmHg (75.0-100.0); BG SAMPLE SITE ALINE; BG TOTAL HEMOGLOBIN 10.8 g/dL (12.0-18.0)
[2020-09-18] MEDS ORDERED: SODIUM BICARBONATE 4% (2.4MEQ) 5ML VIAL IV ONE (15:20)
[2020-09-18 15:55] LABS: BG BASE EXCESS -4.4 mmol/L (-2.0-2.0); BG CARBOXYHEMOGLOBIN 0.3 % (0.5-1.5); BG DEOXYHEMOGLOBIN 0.7 % (0.0-5.0); BG FRACTION INSPIRED OXYGEN 100; BG HCO3 ACT 21.4 mmol/L (22.0-26.0); BG METHEMOGLOBIN 0.6 % (0.0-1.5); BG OXYGEN SATURATION 99.3 % (92.0-98.5); BG OXYHEMOGLOBIN 98.4 % (94.0-97.0); BG PCO2 42.3 mmHg (35.0-45.0); BG PH 7.321 (7.350-7.450); BG PO2 453.4 mmHg (75.0-100.0); BG SAMPLE SITE ALINE; BG TOTAL HEMOGLOBIN 9.3 g/dL (12.0-18.0); BG TOTAL RESPIRATORY RATE 20 b/min; BG VENT MODE VENT - AC
[2020-09-18] MEDS: PHENYLEPHRINE 50 MG in DEXT 5% WATER 245 ML IV PRN ×2 (16:56→23:27)
[2020-09-18] MEDS: MIDAZOLAM HCL 100 MG in DEXT 5% WATER 80 ML IV PRN (16:57)
[2020-09-18] MEDS: FENTANYL CITRATE/PF 1,000 MCG in SODIUM CHLORIDE 0.9% 80 ML IV PRN (16:57)
[2020-09-18] MEDS ORDERED: ALBUMIN HUMAN 25GM/100ML (25%) IV NR (18:45)
[2020-09-18] MEDS: IPRATROPIUM/ALBUTEROL 0.5-3(2.5)MG/3ML NEB HHN SCH (20:09)
[2020-09-18] MEDS: ENOXAPARIN 30MG/0.3ML SYR SUBCUT SCH (20:18)
[2020-09-18] MEDS: VASOPRESSIN 20 UNIT in SODIUM CHLORIDE 0.9% 99 ML IV PRN (20:20)
[2020-09-19] VITALS (66 sets, daily range): BP systolic 88–145; BP diastolic 56–106
[2020-09-19] MEDS: IPRATROPIUM/ALBUTEROL 0.5-3(2.5)MG/3ML NEB HHN SCH ×6 (00:27→20:31)
[2020-09-19] MEDS: PHENYLEPHRINE 50 MG in DEXT 5% WATER 245 ML IV PRN ×4 (04:02→18:33)
[2020-09-19] MEDS: VASOPRESSIN 20 UNIT in SODIUM CHLORIDE 0.9% 99 ML IV PRN (04:03)
[2020-09-19 05:40] LABS: HEMATOCRIT. 24.4 % (42.0-52.0); MEAN CORPUSCULAR HEMOGLOBIN 29.8 pg (28.0-32.0); MEAN CORPUSCULAR VOLUME 90.4 fL (80.0-94.0); MEAN PLATELET VOLUME 9.4 fl (7.4-10.4); PLATELET 194 x1000/uL (130-400); RED CELL DISTRIBUTION WIDTH 13.7 % (11.6-14.6)
[2020-09-19] MEDS: DILTIAZEM HCL 60MG TABLET PO SCH ×4 (06:00→23:21)
[2020-09-19] MEDS: DEXT 5%/0.9% NACL 1,000 ML IV SCH ×2 (06:21→17:04)
[2020-09-19 06:40] LABS: PHOSPHORUS 9.3 mg/dL (2.5-4.9)
[2020-09-19 07:41] LABS: PLATELET ESTIMATE NORMAL
[2020-09-19] MEDS: SEVELAMER CARBONATE 800 MG TABLET PO SCH ×3 (08:20→17:04)
[2020-09-19] MEDS: ASCORBIC ACID 500 MG TABLET PO SCH ×2 (09:00→20:32)
[2020-09-19] MEDS: MIDODRINE HCL 2.5MG TABLET PO SCH (09:00)
[2020-09-19] MEDS: PANTOPRAZOLE SODIUM 40 MG/VIAL IV SCH (09:00)
[2020-09-19] MEDS: FOLIC ACID/VITAMIN B COMP W-C TABLET PO SCH (09:00)
[2020-09-19] MEDS: ZINC SULFATE 220 MG ( 50 ) CAPSULE PO SCH (09:00)
[2020-09-19] MEDS: FENTANYL CITRATE/PF 1,000 MCG in SODIUM CHLORIDE 0.9% 80 ML IV PRN (09:23)
[2020-09-19 10:03] LABS: BG BASE EXCESS -3.3 mmol/L (-2.0-2.0); BG CARBOXYHEMOGLOBIN 0.2 % (0.5-1.5); BG DEOXYHEMOGLOBIN 0.8 % (0.0-5.0); BG FRACTION INSPIRED OXYGEN 50; BG HCO3 ACT 21.3 mmol/L (22.0-26.0); BG METHEMOGLOBIN 0.6 % (0.0-1.5); BG OXYGEN SATURATION 99.2 % (92.0-98.5); BG OXYHEMOGLOBIN 98.4 % (94.0-97.0); BG PO2 219.3 mmHg (75.0-100.0); BG SAMPLE SITE ALINE; BG TOTAL HEMOGLOBIN 7.2 g/dL (12.0-18.0); BG VENT MODE VENT - AC
[2020-09-19] MEDS: MIDODRINE HCL 5MG TABLET PO SCH ×2 (12:21→17:04)
[2020-09-19 19:06] LABS: HEMATOCRIT. 21.6 % (42.0-52.0); MEAN CORPUSCULAR HEMOGLOBIN 29.2 pg (28.0-32.0); MEAN CORPUSCULAR VOLUME 89.2 fL (80.0-94.0); MEAN PLATELET VOLUME 8.8 fl (7.4-10.4); PLATELET 169 x1000/uL (130-400); RED BLOOD CELL COUNT 2.42 mill/uL (4.7-6.1); RED CELL DISTRIBUTION WIDTH 13.6 % (11.6-14.6)
[2020-09-19 19:43] LABS: PLATELET ESTIMATE NORMAL
[2020-09-19] MEDS: ENOXAPARIN 30MG/0.3ML SYR SUBCUT SCH (20:32)
[2020-09-20] VITALS (93 sets, daily range): BP systolic 89–178; BP diastolic 52–104
[2020-09-20] MEDS: IPRATROPIUM/ALBUTEROL 0.5-3(2.5)MG/3ML NEB HHN SCH ×6 (00:16→20:29)
[2020-09-20] MEDS: DEXT 5%/0.9% NACL 1,000 ML IV SCH ×3 (03:34→22:18)
[2020-09-20] MEDS: MIDAZOLAM HCL 100 MG in DEXT 5% WATER 80 ML IV PRN (03:55)
[2020-09-20] MEDS: PHENYLEPHRINE 50 MG in DEXT 5% WATER 245 ML IV PRN (03:58)
[2020-09-20 05:29] LABS: HEMATOCRIT. 22.2 % (42.0-52.0); HEMOGLOBIN. 7.2 g/dL (14.0-18.0); MEAN CORPUSCULAR HEMOGLOBIN 29.5 pg (28.0-32.0); MEAN CORPUSCULAR VOLUME 90.3 fL (80.0-94.0); PLATELET 150 x1000/uL (130-400); RED BLOOD CELL COUNT 2.45 mill/uL (4.7-6.1); RED CELL DISTRIBUTION WIDTH 13.6 % (11.6-14.6)
[2020-09-20 05:45] LABS: PHOSPHORUS 7.2 mg/dL (2.5-4.9)
[2020-09-20] MEDS: DILTIAZEM HCL 60MG TABLET PO SCH (06:00)
[2020-09-20] MEDS: FENTANYL CITRATE/PF 1,000 MCG in SODIUM CHLORIDE 0.9% 80 ML IV PRN (06:29)
[2020-09-20 07:22] LABS: PLATELET ESTIMATE NORMAL
[2020-09-20] MEDS: ZINC SULFATE 220 MG ( 50 ) CAPSULE PO SCH (09:49)
[2020-09-20] MEDS: ASCORBIC ACID 500 MG TABLET PO SCH ×2 (09:49→20:49)
[2020-09-20] MEDS: PANTOPRAZOLE SODIUM 40 MG/VIAL IV SCH (09:49)
[2020-09-20] MEDS: SEVELAMER CARBONATE 800 MG TABLET PO SCH ×3 (09:50→18:06)
[2020-09-20] MEDS: MIDODRINE HCL 5MG TABLET PO SCH ×3 (09:50→17:00)
[2020-09-20] MEDS: FOLIC ACID/VITAMIN B COMP W-C TABLET PO SCH (09:50)
[2020-09-20] MEDS ORDERED: AMIODARONE HCL 900 MG in DEXT 5% WATER 482 ML IV PRN (10:30)
[2020-09-20 16:47] LABS: HEMATOCRIT 25.8 % (42.0-52.0); HEMOGLOBIN 8.5 g/dL (14.0-18.0)
[2020-09-20 17:02] LABS: INR 1.2; PROTHROMBIN TIME 12.5 sec (9.6-11.0)
[2020-09-20] MEDS: ENOXAPARIN 30MG/0.3ML SYR SUBCUT SCH (20:00)
[2020-09-21] VITALS (78 sets, daily range): BP systolic 121–195; BP diastolic 67–104
[2020-09-21] MEDS: IPRATROPIUM/ALBUTEROL 0.5-3(2.5)MG/3ML NEB HHN SCH ×6 (00:20→20:10)
[2020-09-21] MEDS: FENTANYL CITRATE/PF 1,000 MCG in SODIUM CHLORIDE 0.9% 80 ML IV PRN (08:18)
[2020-09-21] MEDS: PANTOPRAZOLE SODIUM 40 MG/VIAL IV SCH (08:39)
[2020-09-21] MEDS: ASCORBIC ACID 500 MG TABLET PO SCH ×2 (08:40→21:02)
[2020-09-21] MEDS: FOLIC ACID/VITAMIN B COMP W-C TABLET PO SCH (08:40)
[2020-09-21] MEDS: SEVELAMER CARBONATE 800 MG TABLET PO SCH ×3 (08:40→17:33)
[2020-09-21] MEDS: ZINC SULFATE 220 MG ( 50 ) CAPSULE PO SCH (08:40)
[2020-09-21] MEDS: MIDODRINE HCL 5MG TABLET PO SCH ×3 (08:41→17:00)
[2020-09-21] MEDS: DEXT 5%/0.9% NACL 1,000 ML IV SCH ×2 (08:41→17:34)
[2020-09-21] MEDS ORDERED: CARVEDILOL 3.125 MG TABLET PO SCH (09:00)
[2020-09-21 09:44] LABS: HEMATOCRIT. 26.9 % (42.0-52.0); HEMOGLOBIN. 8.9 g/dL (14.0-18.0); MEAN CORPUSCULAR HEMOGLOBIN 30.2 pg (28.0-32.0); MEAN PLATELET VOLUME 8.4 fl (7.4-10.4); PLATELET 116 x1000/uL (130-400); RED BLOOD CELL COUNT 2.96 mill/uL (4.7-6.1); RED CELL DISTRIBUTION WIDTH 14.1 % (11.6-14.6)
[2020-09-21] MEDS: CLONIDINE 0.1MG TABLET PO PRN (10:29)
[2020-09-21] MEDS: METOPROLOL TARTRATE 50MG TABLET PO SCH ×2 (12:21→21:00)
[2020-09-21 13:32] LABS: BG CARBOXYHEMOGLOBIN 0.3 % (0.5-1.5); BG DEOXYHEMOGLOBIN 1.7 % (0.0-5.0); BG FRACTION INSPIRED OXYGEN 40; BG HCO3 ACT 20.6 mmol/L (22.0-26.0); BG METHEMOGLOBIN 0.3 % (0.0-1.5); BG OXYGEN SATURATION 98.3 % (92.0-98.5); BG OXYHEMOGLOBIN 97.7 % (94.0-97.0); BG PCO2 35.3 mmHg (35.0-45.0); BG PH 7.383 (7.350-7.450); BG PO2 120.3 mmHg (75.0-100.0); BG TOTAL HEMOGLOBIN 9.4 g/dL (12.0-18.0); BG TOTAL RESPIRATORY RATE 13 b/min; BG VENT MODE VENT - CPAP
[2020-09-21 13:53] LABS: PLATELET ESTIMATE SLIGHTLY DECREASED
[2020-09-21] MEDS ORDERED: HYDRALAZINE 20MG/ML VIAL IV PRN (14:45)
[2020-09-21] MEDS: ACETAMINOPHEN 325MG TABLET PO PRN (17:38)
[2020-09-21] MEDS: ENOXAPARIN 30MG/0.3ML SYR SUBCUT SCH (21:00)
[2020-09-22] VITALS (21 sets, daily range): BP systolic 121–152; BP diastolic 82–110
[2020-09-22] MEDS: IPRATROPIUM/ALBUTEROL 0.5-3(2.5)MG/3ML NEB HHN SCH ×6 (00:34→21:06)
[2020-09-22] MEDS: ACETAMINOPHEN 325MG TABLET PO PRN (05:00)
[2020-09-22 05:49] LABS: HEMATOCRIT. 32.4 % (42.0-52.0); HEMOGLOBIN. 10.7 g/dL (14.0-18.0); MEAN CORPUSCULAR HEMOGLOBIN 30.6 pg (28.0-32.0); MEAN CORPUSCULAR VOLUME 92.6 fL (80.0-94.0); MEAN PLATELET VOLUME 8.1 fl (7.4-10.4); PLATELET 127 x1000/uL (130-400); RED CELL DISTRIBUTION WIDTH 14.1 % (11.6-14.6)
[2020-09-22 05:53] LABS: PHOSPHORUS 6.2 mg/dL (2.5-4.9)
[2020-09-22] MEDS ORDERED: MORPHINE SULFATE 2 MG/ML CPJ (NOT FOR IM USE) IV PRN (09:00)
[2020-09-22] MEDS: PANTOPRAZOLE SODIUM 40 MG/VIAL IV SCH (09:04)
[2020-09-22] MEDS: FOLIC ACID/VITAMIN B COMP W-C TABLET PO SCH (09:04)
[2020-09-22] MEDS: METOPROLOL TARTRATE 50MG TABLET PO SCH ×2 (09:05→20:29)
[2020-09-22] MEDS: ZINC SULFATE 220 MG ( 50 ) CAPSULE PO SCH (09:05)
[2020-09-22] MEDS: ASCORBIC ACID 500 MG TABLET PO SCH ×2 (09:05→20:29)
[2020-09-22 10:15] LABS: PLATELET ESTIMATE SLIGHTLY DECREASED
[2020-09-22] MEDS ORDERED: DEXTROSE 50% WATER 50ML SYRINGE IV NR (12:15)
[2020-09-22] MEDS ORDERED: INSULIN REGULAR (HUMULIN R) 300UNITS/3ML VIAL IV NR (12:15)
[2020-09-22] MEDS: MORPHINE SULFATE 2 MG/ML CPJ (NOT FOR IM USE) IV PRN ×2 (12:40→17:31)
[2020-09-22] MEDS: DEXT 5%/0.9% NACL 1,000 ML IV SCH (13:19)
[2020-09-22] MEDS: AMLODIPINE 2.5MG TABLET PO SCH (20:28)
[2020-09-22] MEDS: ENOXAPARIN 30MG/0.3ML SYR SUBCUT SCH (20:29)
[2020-09-23] VITALS (12 sets, daily range): BP systolic 127–156; BP diastolic 90–112
[2020-09-23] MEDS: IPRATROPIUM/ALBUTEROL 0.5-3(2.5)MG/3ML NEB HHN SCH ×6 (00:50→21:02)
[2020-09-23] MEDS: CLONIDINE 0.1MG TABLET PO PRN ×2 (03:40→10:39)
[2020-09-23 05:58] LABS: HEMATOCRIT. 29.1 % (42.0-52.0); HEMOGLOBIN. 9.4 g/dL (14.0-18.0); MEAN CORPUSCULAR HEMOGLOBIN 29.5 pg (28.0-32.0); MEAN CORPUSCULAR VOLUME 91.7 fL (80.0-94.0); MEAN PLATELET VOLUME 8.3 fl (7.4-10.4); RED BLOOD CELL COUNT 3.17 mill/uL (4.7-6.1); RED CELL DISTRIBUTION WIDTH 14.1 % (11.6-14.6)
[2020-09-23 07:48] LABS: PHOSPHORUS 7.4 mg/dL (2.5-4.9)
[2020-09-23] MEDS: METOPROLOL TARTRATE 50MG TABLET PO SCH ×2 (08:01→20:40)
[2020-09-23] MEDS: ASCORBIC ACID 500 MG TABLET PO SCH ×2 (08:01→20:40)
[2020-09-23] MEDS: ZINC SULFATE 220 MG ( 50 ) CAPSULE PO SCH (08:01)
[2020-09-23] MEDS: FOLIC ACID/VITAMIN B COMP W-C TABLET PO SCH (08:02)
[2020-09-23] MEDS: AMLODIPINE 2.5MG TABLET PO SCH (08:02)
[2020-09-23] MEDS: PANTOPRAZOLE SODIUM 40 MG/VIAL IV SCH (08:04)
[2020-09-23] MEDS: DEXT 5%/0.9% NACL 1,000 ML IV SCH (08:07)
[2020-09-23] MEDS: ENOXAPARIN 30MG/0.3ML SYR SUBCUT SCH (20:40)
[2020-09-24] VITALS (12 sets, daily range): BP systolic 128–144; BP diastolic 93–109
[2020-09-24] MEDS: IPRATROPIUM/ALBUTEROL 0.5-3(2.5)MG/3ML NEB HHN SCH ×6 (00:14→21:25)
[2020-09-24] MEDS: CLONIDINE 0.1MG TABLET PO PRN ×2 (04:03→12:23)
[2020-09-24] MEDS: DEXT 5%/0.9% NACL 1,000 ML IV SCH (06:03)
[2020-09-24 06:50] LABS: HEMATOCRIT. 28.1 % (42.0-52.0); HEMOGLOBIN. 9.2 g/dL (14.0-18.0); MEAN CORPUSCULAR HEMOGLOBIN 29.9 pg (28.0-32.0); MEAN CORPUSCULAR VOLUME 91.3 fL (80.0-94.0); MEAN PLATELET VOLUME 8.3 fl (7.4-10.4); PLATELET 135 x1000/uL (130-400); RED BLOOD CELL COUNT 3.08 mill/uL (4.7-6.1); RED CELL DISTRIBUTION WIDTH 13.8 % (11.6-14.6)
[2020-09-24] MEDS: PANTOPRAZOLE SODIUM 40 MG/VIAL IV SCH (08:11)
[2020-09-24] MEDS: AMLODIPINE 2.5MG TABLET PO SCH (08:12)
[2020-09-24] MEDS: FOLIC ACID/VITAMIN B COMP W-C TABLET PO SCH (08:13)
[2020-09-24] MEDS: ZINC SULFATE 220 MG ( 50 ) CAPSULE PO SCH (08:14)
[2020-09-24] MEDS: METOPROLOL TARTRATE 50MG TABLET PO SCH ×2 (08:14→20:46)
[2020-09-24] MEDS: ASCORBIC ACID 500 MG TABLET PO SCH ×2 (08:15→20:46)
[2020-09-24 12:57] LABS: PLATELET ESTIMATE NORMAL
[2020-09-24 12:59] LABS: PLATELET 139 x1000/uL (130-400)
[2020-09-24 16:33] LABS: PLATELET ESTIMATE NORMAL
[2020-09-24] MEDS: ENOXAPARIN 30MG/0.3ML SYR SUBCUT SCH (20:46)
[2020-09-24] MEDS ORDERED: TOTAL PARENTERAL NUTRITION 1,000 ML IV SCH (21:00)
[2020-09-25] VITALS (12 sets, daily range): BP systolic 128–155; BP diastolic 81–108
[2020-09-25] MEDS: IPRATROPIUM/ALBUTEROL 0.5-3(2.5)MG/3ML NEB HHN SCH ×6 (01:19→22:03)
[2020-09-25] MEDS: DEXT 5%/0.9% NACL 1,000 ML IV SCH (02:15)
[2020-09-25 08:15] LABS: PHOSPHORUS 2.8 mg/dL (2.5-4.9)
[2020-09-25 08:20] LABS: HEMATOCRIT. 26.9 % (42.0-52.0); HEMOGLOBIN. 8.8 g/dL (14.0-18.0); MEAN CORPUSCULAR HEMOGLOBIN 29.8 pg (28.0-32.0); MEAN PLATELET VOLUME 8.6 fl (7.4-10.4); PLATELET 135 x1000/uL (130-400); RED BLOOD CELL COUNT 2.95 mill/uL (4.7-6.1)
[2020-09-25] MEDS: FOLIC ACID/VITAMIN B COMP W-C TABLET PO SCH (10:28)
[2020-09-25] MEDS: ASCORBIC ACID 500 MG TABLET PO SCH ×2 (10:29→22:06)
[2020-09-25] MEDS: AMLODIPINE 2.5MG TABLET PO SCH (10:29)
[2020-09-25] MEDS: ZINC SULFATE 220 MG ( 50 ) CAPSULE PO SCH (10:29)
[2020-09-25] MEDS: METOPROLOL TARTRATE 50MG TABLET PO SCH ×2 (10:29→22:06)
[2020-09-25] MEDS: PANTOPRAZOLE SODIUM 40 MG/VIAL IV SCH (10:30)
[2020-09-25 16:40] LABS: PLATELET ESTIMATE NORMAL
[2020-09-25] MEDS ORDERED: TOTAL PARENTERAL NUTRITION 1,200 ML IV SCH (21:00)
[2020-09-25] MEDS: ENOXAPARIN 30MG/0.3ML SYR SUBCUT SCH (22:05)
[2020-09-26] VITALS (12 sets, daily range): BP systolic 132–165; BP diastolic 95–113
[2020-09-26] MEDS: IPRATROPIUM/ALBUTEROL 0.5-3(2.5)MG/3ML NEB HHN SCH ×6 (01:58→21:27)
[2020-09-26 06:35] LABS: HEMATOCRIT. 28.1 % (42.0-52.0); HEMOGLOBIN. 9.1 g/dL (14.0-18.0); MEAN CORPUSCULAR HEMOGLOBIN 29.7 pg (28.0-32.0); MEAN CORPUSCULAR VOLUME 91.4 fL (80.0-94.0); MEAN PLATELET VOLUME 8.5 fl (7.4-10.4); PLATELET 165 x1000/uL (130-400); RED BLOOD CELL COUNT 3.08 mill/uL (4.7-6.1); RED CELL DISTRIBUTION WIDTH 13.8 % (11.6-14.6)
[2020-09-26 06:59] LABS: PHOSPHORUS 5.5 mg/dL (2.5-4.9)
[2020-09-26] MEDS: FOLIC ACID/VITAMIN B COMP W-C TABLET PO SCH (09:58)
[2020-09-26] MEDS: ZINC SULFATE 220 MG ( 50 ) CAPSULE PO SCH (09:58)
[2020-09-26] MEDS: PANTOPRAZOLE SODIUM 40 MG/VIAL IV SCH (09:58)
[2020-09-26] MEDS: ASCORBIC ACID 500 MG TABLET PO SCH ×2 (09:58→20:40)
[2020-09-26] MEDS: METOPROLOL TARTRATE 50MG TABLET PO SCH ×2 (09:59→20:41)
[2020-09-26] MEDS: AMLODIPINE 2.5MG TABLET PO SCH (09:59)
[2020-09-26 10:48] LABS: PLATELET ESTIMATE NORMAL
[2020-09-26] MEDS ORDERED: MORPHINE SULFATE 4 MG/ML CPJ (NOT FOR IM USE) IV PRN (13:08)
[2020-09-26] MEDS: ENOXAPARIN 30MG/0.3ML SYR SUBCUT SCH (20:40)
[2020-09-26] MEDS ORDERED: TOTAL PARENTERAL NUTRITION 1,600 ML IV SCH (21:00)
[2020-09-27] VITALS (11 sets, daily range): BP systolic 133–151; BP diastolic 78–105
[2020-09-27] MEDS: IPRATROPIUM/ALBUTEROL 0.5-3(2.5)MG/3ML NEB HHN SCH ×6 (01:04→21:08)
[2020-09-27 08:19] LABS: HEMATOCRIT. 27.1 % (42.0-52.0); HEMOGLOBIN. 8.9 g/dL (14.0-18.0); MEAN CORPUSCULAR HEMOGLOBIN 29.8 pg (28.0-32.0); MEAN PLATELET VOLUME 7.7 fl (7.4-10.4); PLATELET 169 x1000/uL (130-400); RED BLOOD CELL COUNT 2.98 mill/uL (4.7-6.1); RED CELL DISTRIBUTION WIDTH 13.5 % (11.6-14.6)
[2020-09-27] MEDS: PANTOPRAZOLE SODIUM 40 MG/VIAL IV SCH (08:25)
[2020-09-27] MEDS: ZINC SULFATE 220 MG ( 50 ) CAPSULE PO SCH (08:26)
[2020-09-27] MEDS: FOLIC ACID/VITAMIN B COMP W-C TABLET PO SCH (08:26)
[2020-09-27] MEDS: METOPROLOL TARTRATE 50MG TABLET PO SCH (08:26)
[2020-09-27] MEDS: AMLODIPINE 2.5MG TABLET PO SCH (08:26)
[2020-09-27] MEDS: ASCORBIC ACID 500 MG TABLET PO SCH ×2 (08:26→20:43)
[2020-09-27 08:42] LABS: PHOSPHORUS 5.9 mg/dL (2.5-4.9)
[2020-09-27 10:48] LABS: PLATELET ESTIMATE NORMAL
[2020-09-27] MEDS: ENOXAPARIN 30MG/0.3ML SYR SUBCUT SCH (19:53)
[2020-09-27] MEDS ORDERED: TOTAL PARENTERAL NUTRITION 1,600 ML IV SCH (21:00)
[2020-09-28] VITALS (12 sets, daily range): BP systolic 130–147; BP diastolic 80–104
[2020-09-28] MEDS: METOPROLOL TARTRATE 50MG TABLET PO SCH ×3 (00:39→20:57)
[2020-09-28] MEDS: IPRATROPIUM/ALBUTEROL 0.5-3(2.5)MG/3ML NEB HHN SCH ×6 (00:45→20:15)
[2020-09-28 06:35] LABS: HEMATOCRIT. 28.8 % (42.0-52.0); HEMOGLOBIN. 9.2 g/dL (14.0-18.0); MEAN CORPUSCULAR VOLUME 90.7 fL (80.0-94.0); MEAN PLATELET VOLUME 8.2 fl (7.4-10.4); PLATELET 187 x1000/uL (130-400); RED BLOOD CELL COUNT 3.18 mill/uL (4.7-6.1); RED CELL DISTRIBUTION WIDTH 13.4 % (11.6-14.6)
[2020-09-28 06:36] LABS: PHOSPHORUS 4.5 mg/dL (2.5-4.9)
[2020-09-28] MEDS: FOLIC ACID/VITAMIN B COMP W-C TABLET PO SCH (08:45)
[2020-09-28] MEDS: ASCORBIC ACID 500 MG TABLET PO SCH ×2 (08:45→20:56)
[2020-09-28] MEDS: PANTOPRAZOLE SODIUM 40 MG/VIAL IV SCH (08:45)
[2020-09-28] MEDS: AMLODIPINE 2.5MG TABLET PO SCH (08:45)
[2020-09-28] MEDS: ZINC SULFATE 220 MG ( 50 ) CAPSULE PO SCH (08:45)
[2020-09-28 14:23] LABS: PLATELET ESTIMATE NORMAL
[2020-09-28] MEDS: ENOXAPARIN 30MG/0.3ML SYR SUBCUT SCH (20:56)
[2020-09-28] MEDS ORDERED: TOTAL PARENTERAL NUTRITION 1,600 ML IV SCH (21:00)
[2020-09-29] VITALS (12 sets, daily range): BP systolic 118–145; BP diastolic 70–100
[2020-09-29] MEDS: IPRATROPIUM/ALBUTEROL 0.5-3(2.5)MG/3ML NEB HHN SCH ×6 (00:25→20:44)
[2020-09-29] MEDS: ONDANSETRON HCL 4MG/2ML INJ IV PRN (06:54)
[2020-09-29] MEDS: ACETAMINOPHEN 325MG TABLET PO PRN ×2 (06:54→17:52)
[2020-09-29] MEDS: ASCORBIC ACID 500 MG TABLET PO SCH ×2 (08:46→20:29)
[2020-09-29] MEDS: ZINC SULFATE 220 MG ( 50 ) CAPSULE PO SCH (08:46)
[2020-09-29] MEDS: PANTOPRAZOLE SODIUM 40 MG/VIAL IV SCH (08:47)
[2020-09-29] MEDS: AMLODIPINE 2.5MG TABLET PO SCH (08:47)
[2020-09-29] MEDS: FOLIC ACID/VITAMIN B COMP W-C TABLET PO SCH (08:47)
[2020-09-29] MEDS: METOPROLOL TARTRATE 50MG TABLET PO SCH ×2 (08:47→20:29)
[2020-09-29] MEDS: ENOXAPARIN 30MG/0.3ML SYR SUBCUT SCH (20:30)
[2020-09-29] MEDS ORDERED: TOTAL PARENTERAL NUTRITION 1,600 ML IV SCH (21:00)
[2020-09-30] VITALS (13 sets, daily range): BP systolic 108–142; BP diastolic 70–96
[2020-09-30] MEDS: IPRATROPIUM/ALBUTEROL 0.5-3(2.5)MG/3ML NEB HHN SCH ×6 (04:36→20:50)
[2020-09-30 07:10] LABS: HEMATOCRIT. 25.3 % (42.0-52.0); HEMOGLOBIN. 8.2 g/dL (14.0-18.0); MEAN CORPUSCULAR HEMOGLOBIN 29.6 pg (28.0-32.0); MEAN CORPUSCULAR VOLUME 91.1 fL (80.0-94.0); MEAN PLATELET VOLUME 8.5 fl (7.4-10.4); PLATELET 214 x1000/uL (130-400); RED BLOOD CELL COUNT 2.78 mill/uL (4.7-6.1); RED CELL DISTRIBUTION WIDTH 13.5 % (11.6-14.6)
[2020-09-30 08:38] LABS: PHOSPHORUS 4.8 mg/dL (2.5-4.9)
[2020-09-30] MEDS: PANTOPRAZOLE SODIUM 40 MG/VIAL IV SCH (09:13)
[2020-09-30] MEDS: FOLIC ACID/VITAMIN B COMP W-C TABLET PO SCH (09:14)
[2020-09-30] MEDS: ZINC SULFATE 220 MG ( 50 ) CAPSULE PO SCH (09:14)
[2020-09-30] MEDS: ASCORBIC ACID 500 MG TABLET PO SCH ×2 (09:14→20:51)
[2020-09-30] MEDS: AMLODIPINE 2.5MG TABLET PO SCH (09:15)
[2020-09-30] MEDS: METOPROLOL TARTRATE 50MG TABLET PO SCH ×2 (09:15→20:51)
[2020-09-30] MEDS: ACETAMINOPHEN 325MG TABLET PO PRN (11:19)
[2020-09-30 17:49] LABS: PLATELET ESTIMATE NORMAL
[2020-09-30] MEDS: ENOXAPARIN 30MG/0.3ML SYR SUBCUT SCH (20:50)
[2020-10-01] VITALS (9 sets, daily range): BP systolic 125–144; BP diastolic 83–100
[2020-10-01] MEDS: IPRATROPIUM/ALBUTEROL 0.5-3(2.5)MG/3ML NEB HHN SCH ×6 (01:00→20:43)
[2020-10-01] MEDS: AMLODIPINE 2.5MG TABLET PO SCH (08:02)
[2020-10-01] MEDS: PANTOPRAZOLE SODIUM 40 MG/VIAL IV SCH (08:02)
[2020-10-01] MEDS: ZINC SULFATE 220 MG ( 50 ) CAPSULE PO SCH (08:02)
[2020-10-01] MEDS: FOLIC ACID/VITAMIN B COMP W-C TABLET PO SCH (08:02)
[2020-10-01] MEDS: ASCORBIC ACID 500 MG TABLET PO SCH ×2 (08:03→22:00)
[2020-10-01] MEDS: METOPROLOL TARTRATE 50MG TABLET PO SCH ×2 (08:03→22:00)
[2020-10-01] MEDS ORDERED: HYDRALAZINE 10 MG in SODIUM CHLORIDE 0.9% 49.5 ML IV PRN (11:00)
[2020-10-01] MEDS: ACETAMINOPHEN 325MG TABLET PO PRN (14:20)
[2020-10-01] MEDS: ENOXAPARIN 30MG/0.3ML SYR SUBCUT SCH (22:00)
[2020-10-02] VITALS: BP 131/92
[2020-10-02] MEDS: IPRATROPIUM/ALBUTEROL 0.5-3(2.5)MG/3ML NEB HHN SCH ×6 (00:30→20:54)
[2020-10-02 04:00] VITALS: BP 145/92
[2020-10-02 06:25] LABS: HEMATOCRIT. 26.2 % (42.0-52.0); HEMOGLOBIN. 8.7 g/dL (14.0-18.0); MEAN CORPUSCULAR HEMOGLOBIN 29.8 pg (28.0-32.0); MEAN CORPUSCULAR VOLUME 89.9 fL (80.0-94.0); MEAN PLATELET VOLUME 8.4 fl (7.4-10.4); PLATELET 292 x1000/uL (130-400); RED BLOOD CELL COUNT 2.92 mill/uL (4.7-6.1); RED CELL DISTRIBUTION WIDTH 13.4 % (11.6-14.6)
[2020-10-02 06:59] LABS: PHOSPHORUS 4.6 mg/dL (2.5-4.9)
[2020-10-02] MEDS: PANTOPRAZOLE SODIUM 40 MG/VIAL IV SCH (08:44)
[2020-10-02] MEDS: METOPROLOL TARTRATE 50MG TABLET PO SCH ×2 (08:44→23:05)
[2020-10-02] MEDS: AMLODIPINE 2.5MG TABLET PO SCH (08:45)
[2020-10-02] MEDS: ASCORBIC ACID 500 MG TABLET PO SCH ×2 (08:45→20:58)
[2020-10-02] MEDS: ZINC SULFATE 220 MG ( 50 ) CAPSULE PO SCH (08:45)
[2020-10-02] MEDS: FOLIC ACID/VITAMIN B COMP W-C TABLET PO SCH (08:45)
[2020-10-02 10:26] LABS: PLATELET ESTIMATE NORMAL
[2020-10-02 20:00] VITALS: BP 122/83
[2020-10-02] MEDS: ENOXAPARIN 30MG/0.3ML SYR SUBCUT SCH (20:59)
[2020-10-03] VITALS: BP 123/81
[2020-10-03] MEDS: IPRATROPIUM/ALBUTEROL 0.5-3(2.5)MG/3ML NEB HHN SCH ×5 (00:55→20:28)
[2020-10-03 04:00] VITALS: BP 127/90
[2020-10-03] MEDS: FOLIC ACID/VITAMIN B COMP W-C TABLET PO SCH (08:46)
[2020-10-03] MEDS: PANTOPRAZOLE SODIUM 40 MG/VIAL IV SCH (08:46)
[2020-10-03] MEDS: ZINC SULFATE 220 MG ( 50 ) CAPSULE PO SCH (08:47)
[2020-10-03] MEDS: AMLODIPINE 2.5MG TABLET PO SCH (08:48)
[2020-10-03] MEDS: METOPROLOL TARTRATE 50MG TABLET PO SCH ×2 (08:49→20:33)
[2020-10-03] MEDS: ASCORBIC ACID 500 MG TABLET PO SCH ×2 (08:49→20:33)
[2020-10-03] MEDS: ONDANSETRON HCL 4MG/2ML INJ IV PRN (15:53)
[2020-10-03] MEDS: ACETAMINOPHEN 325MG TABLET PO PRN (15:53)
[2020-10-03 20:00] VITALS: BP 112/79
[2020-10-03] MEDS: ENOXAPARIN 30MG/0.3ML SYR SUBCUT SCH (20:35)
[2020-10-04] VITALS: BP 119/85
[2020-10-04] MEDS: IPRATROPIUM/ALBUTEROL 0.5-3(2.5)MG/3ML NEB HHN SCH ×6 (00:35→21:00)
[2020-10-04 04:00] VITALS: BP 129/86
[2020-10-04] MEDS: ACETAMINOPHEN 325MG TABLET PO PRN ×2 (06:11→17:11)
[2020-10-04 08:00] VITALS: BP 125/84
[2020-10-04 08:35] LABS: BASOPHILS % 0.5 % (0.0-2.0); EOSINOPHILS % 2.5 % (0.0-5.0); HEMATOCRIT. 24.5 % (42.0-52.0); HEMOGLOBIN. 8.1 g/dL (14.0-18.0); LYMPHOCYTES % 7.3 % (20.0-50.0); MEAN CORPUSCULAR HEMOGLOBIN 29.9 pg (28.0-32.0); MEAN CORPUSCULAR VOLUME 90.6 fL (80.0-94.0); MEAN PLATELET VOLUME 8.2 fl (7.4-10.4); MONOCYTES % 8.4 % (2.0-8.0); NEUTROPHILS % 81.3 % (40.0-76.0); PLATELET 340 x1000/uL (130-400); RED CELL DISTRIBUTION WIDTH 13.7 % (11.6-14.6)
[2020-10-04 08:50] LABS: PHOSPHORUS 4.5 mg/dL (2.5-4.9)
[2020-10-04] MEDS: ASCORBIC ACID 500 MG TABLET PO SCH ×2 (08:52→21:53)
[2020-10-04] MEDS: ZINC SULFATE 220 MG ( 50 ) CAPSULE PO SCH (08:52)
[2020-10-04] MEDS: PANTOPRAZOLE SODIUM 40 MG/VIAL IV SCH (08:52)
[2020-10-04] MEDS: FOLIC ACID/VITAMIN B COMP W-C TABLET PO SCH (08:52)
[2020-10-04] MEDS: METOPROLOL TARTRATE 50MG TABLET PO SCH ×2 (08:54→21:53)
[2020-10-04] MEDS: AMLODIPINE 2.5MG TABLET PO SCH (08:55)
[2020-10-04 12:00] VITALS: BP 134/91
[2020-10-04 16:00] VITALS: BP 132/93
[2020-10-04 20:00] VITALS: BP 113/79
[2020-10-04] MEDS: ENOXAPARIN 30MG/0.3ML SYR SUBCUT SCH (21:55)
[2020-10-05] VITALS: BP 120/85
[2020-10-05 04:00] VITALS: BP 126/79
[2020-10-05] MEDS: IPRATROPIUM/ALBUTEROL 0.5-3(2.5)MG/3ML NEB HHN SCH ×5 (04:31→21:12)
[2020-10-05 08:00] VITALS: BP 134/85
[2020-10-05] MEDS: AMLODIPINE 2.5MG TABLET PO SCH (10:20)
[2020-10-05] MEDS: ASCORBIC ACID 500 MG TABLET PO SCH ×2 (10:20→22:23)
[2020-10-05] MEDS: FOLIC ACID/VITAMIN B COMP W-C TABLET PO SCH (10:20)
[2020-10-05] MEDS: ZINC SULFATE 220 MG ( 50 ) CAPSULE PO SCH (10:20)
[2020-10-05] MEDS: PANTOPRAZOLE SODIUM 40 MG/VIAL IV SCH (10:21)
[2020-10-05] MEDS: METOPROLOL TARTRATE 50MG TABLET PO SCH ×2 (10:21→22:22)
[2020-10-05 12:00] VITALS: BP 131/86
[2020-10-05 16:00] VITALS: BP 134/92
[2020-10-05] MEDS: ACETAMINOPHEN 325MG TABLET PO PRN (18:14)
[2020-10-05 20:00] VITALS: BP 128/87
[2020-10-05] MEDS: ENOXAPARIN 30MG/0.3ML SYR SUBCUT SCH (22:22)
[2020-10-06] VITALS: BP 129/89
[2020-10-06] MEDS: IPRATROPIUM/ALBUTEROL 0.5-3(2.5)MG/3ML NEB HHN SCH ×6 (00:49→21:05)
[2020-10-06 04:00] VITALS: BP 141/91
[2020-10-06 08:00] VITALS: BP_SYST 132; BP_SYST 142; BP_DIAS 80; BP_DIAS 86
[2020-10-06] MEDS: FOLIC ACID/VITAMIN B COMP W-C TABLET PO SCH (08:29)
[2020-10-06] MEDS: ZINC SULFATE 220 MG ( 50 ) CAPSULE PO SCH (08:30)
[2020-10-06] MEDS: AMLODIPINE 2.5MG TABLET PO SCH (08:30)
[2020-10-06] MEDS: METOPROLOL TARTRATE 50MG TABLET PO SCH ×2 (08:30→23:00)
[2020-10-06] MEDS: ASCORBIC ACID 500 MG TABLET PO SCH (08:30)
[2020-10-06] MEDS: PANTOPRAZOLE SODIUM 40 MG/VIAL IV SCH (08:32)
[2020-10-06] MEDS: ACETAMINOPHEN 325MG TABLET PO PRN (09:48)
[2020-10-06 12:00] VITALS: BP 140/90
[2020-10-06 16:00] VITALS: BP 130/90
[2020-10-06 20:00] VITALS: BP 128/84
[2020-10-06] MEDS: ENOXAPARIN 30MG/0.3ML SYR SUBCUT SCH (22:00)
[2020-10-07] VITALS: BP 134/92
[2020-10-07] MEDS: IPRATROPIUM/ALBUTEROL 0.5-3(2.5)MG/3ML NEB HHN SCH ×5 (00:47→21:10)
[2020-10-07 04:00] VITALS: BP 135/92
[2020-10-07 07:05] LABS: HEMATOCRIT. 25.9 % (42.0-52.0); HEMOGLOBIN. 8.3 g/dL (14.0-18.0); MEAN CORPUSCULAR HEMOGLOBIN 29.1 pg (28.0-32.0); MEAN CORPUSCULAR VOLUME 91.3 fL (80.0-94.0); MEAN PLATELET VOLUME 8.3 fl (7.4-10.4); PLATELET 427 x1000/uL (130-400); RED BLOOD CELL COUNT 2.84 mill/uL (4.7-6.1); RED CELL DISTRIBUTION WIDTH 14.1 % (11.6-14.6)
[2020-10-07 07:11] LABS: PHOSPHORUS 4.6 mg/dL (2.5-4.9)
[2020-10-07] MEDS: ACETAMINOPHEN 325MG TABLET PO PRN (07:36)
[2020-10-07 08:00] VITALS: BP 145/96
[2020-10-07] MEDS: FOLIC ACID/VITAMIN B COMP W-C TABLET PO SCH (08:48)
[2020-10-07] MEDS: ZINC SULFATE 220 MG ( 50 ) CAPSULE PO SCH (08:48)
[2020-10-07] MEDS: AMLODIPINE 2.5MG TABLET PO SCH (08:49)
[2020-10-07] MEDS: PANTOPRAZOLE SODIUM 40 MG/VIAL IV SCH (08:49)
[2020-10-07] MEDS: METOPROLOL TARTRATE 50MG TABLET PO SCH ×2 (08:49→23:52)
[2020-10-07 13:25] LABS: PLATELET ESTIMATE INCREASED
[2020-10-07 16:00] VITALS: BP 147/98
[2020-10-07 20:00] VITALS: BP 139/95
[2020-10-07] MEDS: ENOXAPARIN 30MG/0.3ML SYR SUBCUT SCH (23:48)
[2020-10-07] MEDS: ASCORBIC ACID 500 MG TABLET PO SCH (23:51)
[2020-10-08] VITALS: BP 135/94
[2020-10-08 04:00] VITALS: BP 139/92
[2020-10-08 07:27] LABS: HEMOGLOBIN. 8.1 g/dL (14.0-18.0); MEAN CORPUSCULAR HEMOGLOBIN 29.6 pg (28.0-32.0); MEAN CORPUSCULAR VOLUME 90.7 fL (80.0-94.0); MEAN PLATELET VOLUME 8.7 fl (7.4-10.4); PLATELET 443 x1000/uL (130-400); RED BLOOD CELL COUNT 2.75 mill/uL (4.7-6.1); RED CELL DISTRIBUTION WIDTH 13.9 % (11.6-14.6)
[2020-10-08 07:32] LABS: PHOSPHORUS 3.1 mg/dL (2.5-4.9)
[2020-10-08] MEDS: IPRATROPIUM/ALBUTEROL 0.5-3(2.5)MG/3ML NEB HHN SCH ×4 (07:58→20:57)
[2020-10-08 08:00] VITALS: BP_SYST 127; BP_SYST 137; BP_DIAS 82; BP_DIAS 95
[2020-10-08] MEDS: PANTOPRAZOLE SODIUM 40 MG/VIAL IV SCH ×2 (09:00→09:04)
[2020-10-08] MEDS: ASCORBIC ACID 500 MG TABLET PO SCH ×2 (09:04→20:58)
[2020-10-08] MEDS: AMLODIPINE 2.5MG TABLET PO SCH (09:04)
[2020-10-08] MEDS: ZINC SULFATE 220 MG ( 50 ) CAPSULE PO SCH (09:04)
[2020-10-08] MEDS: FOLIC ACID/VITAMIN B COMP W-C TABLET PO SCH (09:05)
[2020-10-08] MEDS: METOPROLOL TARTRATE 50MG TABLET PO SCH ×2 (09:07→20:58)
[2020-10-08 12:00] VITALS: BP 127/82
[2020-10-08 16:00] VITALS: BP 126/85
[2020-10-08 20:00] VITALS: BP 131/90
[2020-10-08] MEDS: ENOXAPARIN 30MG/0.3ML SYR SUBCUT SCH (20:57)
[2020-10-08 21:01] LABS: PLATELET ESTIMATE INCREASED
[2020-10-09] VITALS: BP 127/57
[2020-10-09] MEDS: IPRATROPIUM/ALBUTEROL 0.5-3(2.5)MG/3ML NEB HHN SCH ×7 (00:29→23:48)
[2020-10-09 04:00] VITALS: BP 119/62
[2020-10-09 07:18] LABS: HEMATOCRIT. 25.6 % (42.0-52.0); HEMOGLOBIN. 8.3 g/dL (14.0-18.0); MEAN CORPUSCULAR HEMOGLOBIN 29.4 pg (28.0-32.0); MEAN CORPUSCULAR VOLUME 90.9 fL (80.0-94.0); MEAN PLATELET VOLUME 8.5 fl (7.4-10.4); PLATELET 427 x1000/uL (130-400); RED BLOOD CELL COUNT 2.82 mill/uL (4.7-6.1); RED CELL DISTRIBUTION WIDTH 14.3 % (11.6-14.6)
[2020-10-09 07:45] LABS: PHOSPHORUS 3.6 mg/dL (2.5-4.9)
[2020-10-09 08:00] VITALS: BP 134/96
[2020-10-09] MEDS: ZINC SULFATE 220 MG ( 50 ) CAPSULE PO SCH (08:38)
[2020-10-09] MEDS: FOLIC ACID/VITAMIN B COMP W-C TABLET PO SCH (08:38)
[2020-10-09] MEDS: ASCORBIC ACID 500 MG TABLET PO SCH ×2 (08:38→20:44)
[2020-10-09] MEDS: PANTOPRAZOLE SODIUM 40 MG/VIAL IV SCH (08:38)
[2020-10-09] MEDS: AMLODIPINE 2.5MG TABLET PO SCH (08:39)
[2020-10-09] MEDS: METOPROLOL TARTRATE 50MG TABLET PO SCH ×2 (08:39→20:44)
[2020-10-09] MEDS: ACETAMINOPHEN 325MG TABLET PO PRN (17:57)
[2020-10-09 20:00] VITALS: BP 132/85
[2020-10-09] MEDS: ENOXAPARIN 30MG/0.3ML SYR SUBCUT SCH (20:44)
[2020-10-09] MEDS ORDERED: EPOETIN ALFA 10000UNITS/ML VIAL SUBCUT SCH (21:00)
[2020-10-09 21:21] LABS: PLATELET ESTIMATE INCREASED
[2020-10-10] VITALS: BP 135/86
[2020-10-10] MEDS: IPRATROPIUM/ALBUTEROL 0.5-3(2.5)MG/3ML NEB HHN SCH ×5 (03:06→21:00)
[2020-10-10 04:00] VITALS: BP 141/87
[2020-10-10 06:47] LABS: HEMATOCRIT. 24.3 % (42.0-52.0); MEAN CORPUSCULAR HEMOGLOBIN 29.8 pg (28.0-32.0); MEAN PLATELET VOLUME 8.4 fl (7.4-10.4); PLATELET 380 x1000/uL (130-400); RED BLOOD CELL COUNT 2.67 mill/uL (4.7-6.1); RED CELL DISTRIBUTION WIDTH 14.6 % (11.6-14.6)
[2020-10-10 07:05] LABS: PHOSPHORUS 2.9 mg/dL (2.5-4.9)
[2020-10-10] MEDS: PANTOPRAZOLE SODIUM 40 MG/VIAL IV SCH (09:00)
[2020-10-10] MEDS: ZINC SULFATE 220 MG ( 50 ) CAPSULE PO SCH (09:09)
[2020-10-10] MEDS: FOLIC ACID/VITAMIN B COMP W-C TABLET PO SCH (09:09)
[2020-10-10] MEDS: AMLODIPINE 2.5MG TABLET PO SCH (09:10)
[2020-10-10] MEDS: METOPROLOL TARTRATE 50MG TABLET PO SCH ×2 (09:10→20:18)
[2020-10-10 11:19] LABS: PLATELET ESTIMATE NORMAL
[2020-10-10 17:36] LABS: HEMOGLOBIN. 7.8 g/dL (14.0-18.0); MEAN CORPUSCULAR HEMOGLOBIN 29.3 pg (28.0-32.0); MEAN CORPUSCULAR VOLUME 90.9 fL (80.0-94.0); MEAN PLATELET VOLUME 8.3 fl (7.4-10.4); PLATELET 386 x1000/uL (130-400); RED BLOOD CELL COUNT 2.64 mill/uL (4.7-6.1); RED CELL DISTRIBUTION WIDTH 14.4 % (11.6-14.6)
[2020-10-10 17:51] LABS: PHOSPHORUS 3.1 mg/dL (2.5-4.9)
[2020-10-10 18:07] LABS: PLATELET ESTIMATE NORMAL
[2020-10-10 20:00] VITALS: BP 139/91
[2020-10-10] MEDS: ENOXAPARIN 30MG/0.3ML SYR SUBCUT SCH (20:20)
[2020-10-11] VITALS: BP 118/86
[2020-10-11] MEDS: IPRATROPIUM/ALBUTEROL 0.5-3(2.5)MG/3ML NEB HHN SCH ×4 (01:35→20:29)
[2020-10-11 04:00] VITALS: BP 123/86
[2020-10-11 08:00] VITALS: BP 135/99
[2020-10-11] MEDS: METOPROLOL TARTRATE 50MG TABLET PO SCH ×2 (08:59→20:06)
[2020-10-11] MEDS: AMLODIPINE 2.5MG TABLET PO SCH (09:00)
[2020-10-11 12:00] VITALS: BP 131/90
[2020-10-11 16:00] VITALS: BP 134/92
[2020-10-11 20:00] VITALS: BP 137/95
[2020-10-11] MEDS: ENOXAPARIN 30MG/0.3ML SYR SUBCUT SCH (20:06)
[2020-10-11] MEDS: EPOETIN ALFA-EPBX 10,000 UNIT/ML VIAL SUBCUT SCH (20:07)
[2020-10-12] VITALS: BP 124/91
[2020-10-12] MEDS: IPRATROPIUM/ALBUTEROL 0.5-3(2.5)MG/3ML NEB HHN SCH ×6 (00:35→21:37)
[2020-10-12 04:00] VITALS: BP 132/99
[2020-10-12 07:22] LABS: HEMATOCRIT. 23.3 % (42.0-52.0); HEMOGLOBIN. 7.6 g/dL (14.0-18.0); MEAN CORPUSCULAR HEMOGLOBIN 29.5 pg (28.0-32.0); MEAN CORPUSCULAR VOLUME 89.8 fL (80.0-94.0); MEAN PLATELET VOLUME 8.8 fl (7.4-10.4); PLATELET 350 x1000/uL (130-400); RED BLOOD CELL COUNT 2.59 mill/uL (4.7-6.1); RED CELL DISTRIBUTION WIDTH 14.3 % (11.6-14.6)
[2020-10-12 08:00] VITALS: BP 127/91
[2020-10-12] MEDS: AMLODIPINE 2.5MG TABLET PO SCH (09:14)
[2020-10-12] MEDS: METOPROLOL TARTRATE 50MG TABLET PO SCH ×2 (09:15→20:16)
[2020-10-12 12:00] VITALS: BP 127/86
[2020-10-12 16:00] VITALS: BP 129/89
[2020-10-12 20:00] VITALS: BP 133/98
[2020-10-12] MEDS: ENOXAPARIN 30MG/0.3ML SYR SUBCUT SCH (20:15)
[2020-10-12 22:34] LABS: PLATELET ESTIMATE NORMAL
[2020-10-13] VITALS: BP 129/89
[2020-10-13] MEDS: IPRATROPIUM/ALBUTEROL 0.5-3(2.5)MG/3ML NEB HHN SCH ×6 (01:51→20:43)
[2020-10-13 04:00] VITALS: BP 118/88
[2020-10-13 08:00] VITALS: BP 131/81
[2020-10-13] MEDS: AMLODIPINE 2.5MG TABLET PO SCH (09:23)
[2020-10-13] MEDS: METOPROLOL TARTRATE 50MG TABLET PO SCH ×2 (09:23→21:22)
[2020-10-13 12:00] VITALS: BP 118/79
[2020-10-13] MEDS: FERROUS SULFATE 325MG TABLET PO SCH ×2 (13:18→16:55)
[2020-10-13 16:00] VITALS: BP 106/56
[2020-10-13] MEDS: ENOXAPARIN 30MG/0.3ML SYR SUBCUT SCH (21:23)
[2020-10-13 22:43] VITALS: BP 126/90
[2020-10-14] MEDS: IPRATROPIUM/ALBUTEROL 0.5-3(2.5)MG/3ML NEB HHN SCH ×6 (01:03→21:12)
[2020-10-14 01:33] VITALS: BP 141/99
[2020-10-14 07:37] LABS: HEMATOCRIT. 24.2 % (42.0-52.0); HEMOGLOBIN. 7.8 g/dL (14.0-18.0); MEAN CORPUSCULAR HEMOGLOBIN 29.5 pg (28.0-32.0); MEAN CORPUSCULAR VOLUME 91.1 fL (80.0-94.0); MEAN PLATELET VOLUME 8.8 fl (7.4-10.4); PLATELET 344 x1000/uL (130-400); RED BLOOD CELL COUNT 2.65 mill/uL (4.7-6.1); RED CELL DISTRIBUTION WIDTH 14.3 % (11.6-14.6)
[2020-10-14 08:00] VITALS: BP 128/87
[2020-10-14 08:20] LABS: PHOSPHORUS 4.3 mg/dL (2.5-4.9)
[2020-10-14] MEDS: FERROUS SULFATE 325MG TABLET PO SCH ×3 (09:46→18:48)
[2020-10-14] MEDS: METOPROLOL TARTRATE 50MG TABLET PO SCH ×2 (09:46→20:45)
[2020-10-14] MEDS: AMLODIPINE 2.5MG TABLET PO SCH (09:46)
[2020-10-14 12:00] VITALS: BP 133/90
[2020-10-14 13:52] LABS: PLATELET ESTIMATE NORMAL
[2020-10-14 16:00] VITALS: BP 133/92
[2020-10-14] MEDS: ENOXAPARIN 30MG/0.3ML SYR SUBCUT SCH (20:44)
[2020-10-14] MEDS: EPOETIN ALFA-EPBX 10,000 UNIT/ML VIAL SUBCUT SCH (20:45)
[2020-10-14 21:02] VITALS: BP 145/100
[2020-10-14 21:04] VITALS: BP 145/100
[2020-10-15 00:30] VITALS: BP 73/38
[2020-10-15] MEDS: IPRATROPIUM/ALBUTEROL 0.5-3(2.5)MG/3ML NEB HHN SCH ×6 (01:10→21:13)
[2020-10-15 04:00] VITALS: BP 133/98
[2020-10-15 05:58] LABS: HEMATOCRIT. 23.9 % (42.0-52.0); HEMOGLOBIN. 7.8 g/dL (14.0-18.0); MEAN CORPUSCULAR HEMOGLOBIN 29.6 pg (28.0-32.0); MEAN CORPUSCULAR VOLUME 90.6 fL (80.0-94.0); MEAN PLATELET VOLUME 9.3 fl (7.4-10.4); PLATELET 372 x1000/uL (130-400); RED BLOOD CELL COUNT 2.64 mill/uL (4.7-6.1); RED CELL DISTRIBUTION WIDTH 14.6 % (11.6-14.6)
[2020-10-15 06:25] LABS: PHOSPHORUS 4.6 mg/dL (2.5-4.9)
[2020-10-15 08:00] VITALS: BP 139/100
[2020-10-15] MEDS: AMLODIPINE 2.5MG TABLET PO SCH (09:25)
[2020-10-15] MEDS: METOPROLOL TARTRATE 50MG TABLET PO SCH ×2 (09:25→20:21)
[2020-10-15] MEDS: FERROUS SULFATE 325MG TABLET PO SCH ×3 (09:25→17:30)
[2020-10-15 12:00] VITALS: BP 136/91
[2020-10-15 16:00] VITALS: BP 124/80
[2020-10-15 18:18] LABS: PLATELET ESTIMATE NORMAL
[2020-10-15 20:00] VITALS: BP 134/90
[2020-10-15] MEDS: ENOXAPARIN 30MG/0.3ML SYR SUBCUT SCH (20:21)
[2020-10-16] VITALS: BP 135/89
[2020-10-16] MEDS: IPRATROPIUM/ALBUTEROL 0.5-3(2.5)MG/3ML NEB HHN SCH ×4 (00:52→13:04)
[2020-10-16 04:00] VITALS: BP 129/88
[2020-10-16 08:00] VITALS: BP 146/98
[2020-10-16] MEDS: FERROUS SULFATE 325MG TABLET PO SCH ×3 (09:43→17:25)
[2020-10-16] MEDS: METOPROLOL TARTRATE 50MG TABLET PO SCH ×2 (09:43→20:53)
[2020-10-16] MEDS: AMLODIPINE 2.5MG TABLET PO SCH (09:43)
[2020-10-16 12:00] VITALS: BP 136/96
[2020-10-16 20:00] VITALS: BP 139/98
[2020-10-16] MEDS: ENOXAPARIN 30MG/0.3ML SYR SUBCUT SCH (20:52)
[2020-10-17] VITALS: BP 149/93
[2020-10-17 04:00] VITALS: BP 137/81
[2020-10-17 07:45] LABS: HEMATOCRIT. 22.4 % (42.0-52.0); HEMOGLOBIN. 7.4 g/dL (14.0-18.0); MEAN CORPUSCULAR HEMOGLOBIN 29.8 pg (28.0-32.0); MEAN CORPUSCULAR VOLUME 90.9 fL (80.0-94.0); MEAN PLATELET VOLUME 8.3 fl (7.4-10.4); PLATELET 384 x1000/uL (130-400); RED BLOOD CELL COUNT 2.47 mill/uL (4.7-6.1); RED CELL DISTRIBUTION WIDTH 14.6 % (11.6-14.6)
[2020-10-17 08:00] VITALS: BP 132/95
[2020-10-17 08:23] LABS: PHOSPHORUS 4.2 mg/dL (2.5-4.9)
[2020-10-17] MEDS ORDERED: HEPARIN SODIUM 1,000 UNIT/1ML VIAL IV SCH (08:45)
[2020-10-17] MEDS: METOPROLOL TARTRATE 50MG TABLET PO SCH ×2 (09:00→20:41)
[2020-10-17] MEDS: AMLODIPINE 2.5MG TABLET PO SCH (09:00)
[2020-10-17] MEDS: FERROUS SULFATE 325MG TABLET PO SCH ×3 (09:16→17:38)
[2020-10-17] MEDS: IPRATROPIUM/ALBUTEROL 0.5-3(2.5)MG/3ML NEB HHN SCH (09:39)
[2020-10-17 12:00] VITALS: BP 135/66
[2020-10-17 15:03] LABS: PLATELET ESTIMATE NORMAL
[2020-10-17 16:00] VITALS: BP 135/88
[2020-10-17 20:00] VITALS: BP 126/88
[2020-10-17] MEDS: ENOXAPARIN 30MG/0.3ML SYR SUBCUT SCH (20:40)
[2020-10-18] VITALS: BP 129/88
[2020-10-18 04:00] VITALS: BP 149/95
[2020-10-18 07:55] LABS: HEMATOCRIT. 23.4 % (42.0-52.0); HEMOGLOBIN. 7.6 g/dL (14.0-18.0); MEAN CORPUSCULAR HEMOGLOBIN 29.6 pg (28.0-32.0); MEAN CORPUSCULAR VOLUME 91.2 fL (80.0-94.0); MEAN PLATELET VOLUME 8.3 fl (7.4-10.4); PLATELET 380 x1000/uL (130-400); RED BLOOD CELL COUNT 2.56 mill/uL (4.7-6.1)
[2020-10-18 08:00] VITALS: BP 140/92
[2020-10-18] MEDS: FERROUS SULFATE 325MG TABLET PO SCH ×3 (08:14→18:02)
[2020-10-18] MEDS: METOPROLOL TARTRATE 50MG TABLET PO SCH ×2 (08:15→21:42)
[2020-10-18] MEDS: AMLODIPINE 2.5MG TABLET PO SCH (08:15)
[2020-10-18 08:31] LABS: PLATELET ESTIMATE NORMAL
[2020-10-18 12:00] VITALS: BP 129/87
[2020-10-18 16:00] VITALS: BP 146/90
[2020-10-18 20:00] VITALS: BP 140/90
[2020-10-18] MEDS ORDERED: EPOETIN ALFA-EPBX 10,000 UNIT/ML VIAL SUBCUT SCH (21:00)
[2020-10-19] VITALS: BP 136/90
[2020-10-19] MEDS: ENOXAPARIN 30MG/0.3ML SYR SUBCUT SCH ×2 (00:54→20:20)
[2020-10-19 04:00] VITALS: BP 137/100
[2020-10-19 08:00] VITALS: BP 144/98
[2020-10-19] MEDS: FERROUS SULFATE 325MG TABLET PO SCH ×3 (08:53→17:51)
[2020-10-19] MEDS: METOPROLOL TARTRATE 50MG TABLET PO SCH (08:53)
[2020-10-19] MEDS: AMLODIPINE 2.5MG TABLET PO SCH (08:54)
[2020-10-19 09:35] LABS: BASOPHILS % 1.1 % (0.0-2.0); EOSINOPHILS % 1.2 % (0.0-5.0); HEMATOCRIT. 22.9 % (42.0-52.0); HEMOGLOBIN. 7.6 g/dL (14.0-18.0); LYMPHOCYTES % 9.6 % (20.0-50.0); MEAN CORPUSCULAR HEMOGLOBIN 30.2 pg (28.0-32.0); MEAN CORPUSCULAR VOLUME 90.4 fL (80.0-94.0); MEAN PLATELET VOLUME 7.8 fl (7.4-10.4); MONOCYTES % 4.8 % (2.0-8.0); NEUTROPHILS % 83.3 % (40.0-76.0); PLATELET 372 x1000/uL (130-400); RED BLOOD CELL COUNT 2.53 mill/uL (4.7-6.1); RED CELL DISTRIBUTION WIDTH 14.5 % (11.6-14.6)
[2020-10-19 09:46] LABS: PHOSPHORUS 3.5 mg/dL (2.5-4.9)
[2020-10-19] MEDS ORDERED: HEPARIN SODIUM 1,000 UNIT/1ML VIAL IV NR (10:00)
[2020-10-19 12:00] VITALS: BP 127/80
[2020-10-19 16:00] VITALS: BP 132/91
[2020-10-19 20:00] VITALS: BP 133/89
[2020-10-20] VITALS: BP 128/81
[2020-10-20 04:00] VITALS: BP 134/93
[2020-10-20 06:26] LABS: PROTHROMBIN TIME 10.9 sec (9.6-11.0)
[2020-10-20 06:27] LABS: BASOPHILS % 0.8 % (0.0-2.0); EOSINOPHILS % 1.1 % (0.0-5.0); HEMATOCRIT. 22.9 % (42.0-52.0); HEMOGLOBIN. 7.4 g/dL (14.0-18.0); LYMPHOCYTES % 9.1 % (20.0-50.0); MEAN CORPUSCULAR HEMOGLOBIN 29.5 pg (28.0-32.0); MEAN CORPUSCULAR VOLUME 91.1 fL (80.0-94.0); MONOCYTES % 7.3 % (2.0-8.0); NEUTROPHILS % 81.7 % (40.0-76.0); PLATELET 342 x1000/uL (130-400); RED BLOOD CELL COUNT 2.51 mill/uL (4.7-6.1)
[2020-10-20 06:34] LABS: CHLORIDE 106 mEq/L (98-107)
[2020-10-20 06:41] LABS: PHOSPHORUS 3.2 mg/dL (2.5-4.9)
[2020-10-20 08:00] VITALS: BP 138/88
[2020-10-20] MEDS: FERROUS SULFATE 325MG TABLET PO SCH ×3 (08:32→17:28)
[2020-10-20] MEDS ORDERED: AMLODIPINE 5MG TABLET PO SCH (09:00)
[2020-10-20 12:00] VITALS: BP 127/86
[2020-10-20 16:00] VITALS: BP 130/85
[2020-10-20 20:00] VITALS: BP 132/86
[2020-10-20] MEDS: ENOXAPARIN 30MG/0.3ML SYR SUBCUT SCH (21:29)
[2020-10-21] VITALS: BP 140/96
[2020-10-21 04:00] VITALS: BP 143/98
[2020-10-21 07:57] LABS: PHOSPHORUS 3.7 mg/dL (2.5-4.9)
[2020-10-21 08:00] VITALS: BP 146/93
[2020-10-21 08:05] LABS: EOSINOPHILS % 1.3 % (0.0-5.0); HEMATOCRIT. 24.5 % (42.0-52.0); HEMOGLOBIN. 8.1 g/dL (14.0-18.0); LYMPHOCYTES % 8.7 % (20.0-50.0); MEAN PLATELET VOLUME 8.7 fl (7.4-10.4); MONOCYTES % 6.3 % (2.0-8.0); NEUTROPHILS % 82.7 % (40.0-76.0); PLATELET 354 x1000/uL (130-400); RED CELL DISTRIBUTION WIDTH 15.1 % (11.6-14.6)
[2020-10-21] MEDS: FERROUS SULFATE 325MG TABLET PO SCH ×3 (09:01→16:54)
[2020-10-21 12:00] VITALS: BP 131/87
[2020-10-21 16:00] VITALS: BP 135/90
[2020-10-21 20:00] VITALS: BP 142/94
[2020-10-21] MEDS: ENOXAPARIN 30MG/0.3ML SYR SUBCUT SCH (21:07)
[2020-10-22] VITALS: BP 145/99
[2020-10-22 04:00] VITALS: BP 152/95
[2020-10-22 06:43] LABS: BASOPHILS % 1.2 % (0.0-2.0); EOSINOPHILS % 1.2 % (0.0-5.0); HEMATOCRIT. 24.2 % (42.0-52.0); HEMOGLOBIN. 8.3 g/dL (14.0-18.0); MEAN CORPUSCULAR HEMOGLOBIN 30.9 pg (28.0-32.0); MEAN CORPUSCULAR VOLUME 90.5 fL (80.0-94.0); MEAN PLATELET VOLUME 8.1 fl (7.4-10.4); MONOCYTES % 3.9 % (2.0-8.0); NEUTROPHILS % 85.7 % (40.0-76.0); PLATELET 351 x1000/uL (130-400); RED BLOOD CELL COUNT 2.68 mill/uL (4.7-6.1); RED CELL DISTRIBUTION WIDTH 15.6 % (11.6-14.6)
[2020-10-22 07:07] LABS: PHOSPHORUS 4.1 mg/dL (2.5-4.9)
[2020-10-22 07:20] LABS: HEPATITIS B SURFACE ANTIGEN NEGATIVE
[2020-10-22 07:50] LABS: HEPATITIS A AB IGM NEGATIVE (NEGATIVE)
[2020-10-22 08:00] VITALS: BP 131/95
[2020-10-22] MEDS: FERROUS SULFATE 325MG TABLET PO SCH ×3 (08:46→17:04)
[2020-10-22 12:00] VITALS: BP 139/89
[2020-10-22 16:00] VITALS: BP 137/97
[2020-10-22 20:00] VITALS: BP 144/90
[2020-10-22] MEDS: ENOXAPARIN 30MG/0.3ML SYR SUBCUT SCH (20:42)
[2020-10-22] MEDS ORDERED: EPOETIN ALFA-EPBX 10,000 UNIT/ML VIAL SUBCUT SCH (21:00)
[2020-10-23] VITALS: BP 154/97
[2020-10-23 04:00] VITALS: BP_SYST 140; BP_SYST 164; BP_DIAS 66; BP_DIAS 96
[2020-10-23 07:13] LABS: BASOPHILS % 1.1 % (0.0-2.0); EOSINOPHILS % 2.6 % (0.0-5.0); HEMATOCRIT. 23.2 % (42.0-52.0); HEMOGLOBIN. 7.8 g/dL (14.0-18.0); LYMPHOCYTES % 9.5 % (20.0-50.0); MEAN CORPUSCULAR HEMOGLOBIN 30.2 pg (28.0-32.0); MEAN CORPUSCULAR VOLUME 90.5 fL (80.0-94.0); MONOCYTES % 7.6 % (2.0-8.0); NEUTROPHILS % 79.2 % (40.0-76.0); PLATELET 324 x1000/uL (130-400); RED BLOOD CELL COUNT 2.57 mill/uL (4.7-6.1); RED CELL DISTRIBUTION WIDTH 15.3 % (11.6-14.6)
[2020-10-23 08:00] VITALS: BP 108/70
[2020-10-23] MEDS: FERROUS SULFATE 325MG TABLET PO SCH ×2 (09:37→13:39)
[2020-10-23 12:00] VITALS: BP 136/85
[2020-10-23 15:39] VITALS: BP 136/85
[2020-10-23 16:00] VITALS: BP 128/86
[2020-10-23] MEDS ORDERED: EPOETIN ALFA-EPBX 10,000 UNIT/ML VIAL SUBCUT SCH (21:00)
== END 2020-10-23 18:34 | DRG 710 ==
LOC: ER 12:00 → 6WST 18:07 → EDBEDREQTM 18:09 → EDBEDREQ 18:09 → ENRESERV 20:54 → CVICU 09-18 14:36 → 3WST 09-22 18:27 → 6EST 10-01 10:51
PROVIDERS: ADMIT Internal Medicine; ATTEND Internal Medicine
PROC: 0JH63XZ Insertion of Tunneled Vascular Access Device into Chest Subcutaneous Tissue and Fascia, Percutaneous Approach (ICD-10-PCS; 2020-09-12)
PROC: 02HV33Z Insertion of Infusion Device into Superior Vena Cava, Percutaneous Approach (ICD-10-PCS; 2020-09-12)
PROC: B5181ZA Fluoroscopy of Superior Vena Cava using Low Osmolar Contrast, Guidance (ICD-10-PCS; 2020-09-12)
PROC: B548ZZA Ultrasonography of Superior Vena Cava, Guidance (ICD-10-PCS; 2020-09-12)
PROC: B5181ZZ Fluoroscopy of Superior Vena Cava using Low Osmolar Contrast (ICD-10-PCS; 2020-09-12)
PROC: 5A1D70Z Performance of Urinary Filtration, Intermittent, Less than 6 Hours Per Day (ICD-10-PCS; 2020-09-12)
PROC: 5A1D70Z Performance of Urinary Filtration, Intermittent, Less than 6 Hours Per Day (ICD-10-PCS; 2020-09-14)
PROC: 5A1D70Z Performance of Urinary Filtration, Intermittent, Less than 6 Hours Per Day (ICD-10-PCS; 2020-09-15)
PROC: 5A1D70Z Performance of Urinary Filtration, Intermittent, Less than 6 Hours Per Day (ICD-10-PCS; 2020-09-16)
PROC: 0D1N0Z4 Bypass Sigmoid Colon to Cutaneous, Open Approach (ICD-10-PCS; principal; 2020-09-18)
PROC: 0DBE0ZZ Excision of Large Intestine, Open Approach (ICD-10-PCS; 2020-09-18)
PROC: 5A1945Z Respiratory Ventilation, 24-96 Consecutive Hours (ICD-10-PCS; 2020-09-18)
PROC: 5A1D70Z Performance of Urinary Filtration, Intermittent, Less than 6 Hours Per Day (ICD-10-PCS; 2020-09-18)
PROC: 30233N1 Transfusion of Nonautologous Red Blood Cells into Peripheral Vein, Percutaneous Approach (ICD-10-PCS; 2020-09-19)
PROC: 02HV33Z Insertion of Infusion Device into Superior Vena Cava, Percutaneous Approach (ICD-10-PCS; 2020-09-19)
PROC: B548ZZA Ultrasonography of Superior Vena Cava, Guidance (ICD-10-PCS; 2020-09-19)
PROC: 5A1D70Z Performance of Urinary Filtration, Intermittent, Less than 6 Hours Per Day (ICD-10-PCS; 2020-09-20)
PROC: 5A1D70Z Performance of Urinary Filtration, Intermittent, Less than 6 Hours Per Day (ICD-10-PCS; 2020-09-22)
PROC: 5A1D70Z Performance of Urinary Filtration, Intermittent, Less than 6 Hours Per Day (ICD-10-PCS; 2020-09-24)
PROC: 0D9670Z Drainage of Stomach with Drainage Device, Via Natural or Artificial Opening (ICD-10-PCS; 2020-09-25)
PROC: 5A1D70Z Performance of Urinary Filtration, Intermittent, Less than 6 Hours Per Day (ICD-10-PCS; 2020-09-27)
PROC: 5A1D70Z Performance of Urinary Filtration, Intermittent, Less than 6 Hours Per Day (ICD-10-PCS; 2020-09-29)
PROC: 5A1D70Z Performance of Urinary Filtration, Intermittent, Less than 6 Hours Per Day (ICD-10-PCS; 2020-10-02)
PROC: 5A1D70Z Performance of Urinary Filtration, Intermittent, Less than 6 Hours Per Day (ICD-10-PCS; 2020-10-03)
PROC: 5A1D70Z Performance of Urinary Filtration, Intermittent, Less than 6 Hours Per Day (ICD-10-PCS; 2020-10-06)
PROC: 5A1D70Z Performance of Urinary Filtration, Intermittent, Less than 6 Hours Per Day (ICD-10-PCS; 2020-10-08)
PROC: 5A1D70Z Performance of Urinary Filtration, Intermittent, Less than 6 Hours Per Day (ICD-10-PCS; 2020-10-15)
PROC: 5A1D70Z Performance of Urinary Filtration, Intermittent, Less than 6 Hours Per Day (ICD-10-PCS; 2020-10-16)
PROC: 5A1D70Z Performance of Urinary Filtration, Intermittent, Less than 6 Hours Per Day (ICD-10-PCS; 2020-10-18)
PROC: 5A1D70Z Performance of Urinary Filtration, Intermittent, Less than 6 Hours Per Day (ICD-10-PCS; 2020-10-21)
DX: A41.9 Sepsis, unspecified organism (principal); J96.00 Acute respiratory failure, unspecified whether with hypoxia or hypercapnia; R65.21 Severe sepsis with septic shock; N17.0 Acute kidney failure with tubular necrosis; K52.9 Noninfective gastroenteritis and colitis, unspecified; D63.8 Anemia in other chronic diseases classified elsewhere; E83.39 Other disorders of phosphorus metabolism; I12.0 Hypertensive chronic kidney disease with stage 5 chronic kidney disease or end stage renal disease; E87.2 Acidosis; K57.20 Diverticulitis of large intestine with perforation and abscess without bleeding; K56.600 Partial intestinal obstruction, unspecified as to cause; J18.9 Pneumonia, unspecified organism; D62 Acute posthemorrhagic anemia; E03.9 Hypothyroidism, unspecified; E83.41 Hypermagnesemia; E87.5 Hyperkalemia; E86.0 Dehydration; E86.1 Hypovolemia; I31.3 Pericardial effusion (noninflammatory); N25.81 Secondary hyperparathyroidism of renal origin; K56.7 Ileus, unspecified; K65.0 Generalized (acute) peritonitis; Z20.828 Contact with and (suspected) exposure to other viral communicable diseases; N18.6 End stage renal disease; R26.9 Unspecified abnormalities of gait and mobility; Q61.2 Polycystic kidney, adult type; Z85.038 Personal history of other malignant neoplasm of large intestine; Z91.19 Patient's noncompliance with other medical treatment and regimen; Z99.2 Dependence on renal dialysis; Z91.15 Patient's noncompliance with renal dialysis; Z82.49 Family history of ischemic heart disease and other diseases of the circulatory system; Z88.0 Allergy status to penicillin; Z88.8 Allergy status to other drugs, medicaments and biological substances; Z79.899 Other long term (current) drug therapy; Z68.20 Body mass index [BMI] 20.0-20.9, adult; R57.0 Cardiogenic shock; E44.0 Moderate protein-calorie malnutrition
CPT/HCPCS: 36415; 36558; 36600; 71045; 74018; 74176; 74250; 76937; 77001; 80048; 80053; 80061; 80076; 82270; 82375; 82378; 82550; 82607; 82746; 82805; 83036; 83540; 83550; 83605; 83735; 84100; 84132; 84134; 85014; 85018; 85025; 85049; 85384; 86301; 86705; 86706; 86709; 86803; 86850; 86900; 86920; 87070; 87340; 87426; 88305; 88311; 92610; 93005; 93306; 93308; 93970; 97110; 97162; 97164; 97166; 97168; 97530; 97535; 99152; 99153; 99291; C1725; C1750; C1769; C9113; J0282; J0330; J0885; J1642; J1644; J1650; J1956; J2250; J2270; J2370; J2405; J2597; J3010; J3490; J7030; J7040; J7042; J7050; J7060; P9016; P9041; P9047; Q9963; Q9967; G0500

== ENCOUNTER 2020-12-08 13:25 | Inpatient (IN) | payer MEDICAID ==
[~2020-12-08] VITALS: Ht 185.4 cm; Wt 63.5 kg
[2020-12-08] MEDS ORDERED: ONDANSETRON HCL 4MG/2ML INJ IV STA (14:48)
[2020-12-08] MEDS ORDERED: MORPHINE SULFATE 4 MG/ML CPJ (NOT FOR IM USE) IV STA (14:48)
[2020-12-08] MEDS ORDERED: SODIUM CHLORIDE 0.9% 1,000 ML IV ONE (15:00)
[2020-12-08 15:30] LABS: BASOPHILS % 1.2 % (0.0-2.0); EOSINOPHILS % 2.2 % (0.0-5.0); HEMATOCRIT. 35.3 % (42.0-52.0); HEMOGLOBIN. 11.5 g/dL (14.0-18.0); LYMPHOCYTES % 10.1 % (20.0-50.0); MEAN CORPUSCULAR HEMOGLOBIN 30.8 pg (28.0-32.0); MEAN CORPUSCULAR VOLUME 94.3 fL (80.0-94.0); MEAN PLATELET VOLUME 7.9 fl (7.4-10.4); NEUTROPHILS % 80.5 % (40.0-76.0); PLATELET 243 x1000/uL (130-400); RED BLOOD CELL COUNT 3.75 mill/uL (4.7-6.1); RED CELL DISTRIBUTION WIDTH 16.3 % (11.6-14.6)
[2020-12-08 15:36] LABS: CHLORIDE 105 mEq/L (98-107)
[2020-12-08 15:40] LABS: PROTHROMBIN TIME 10.6 sec (9.6-11.0)
[2020-12-08] MEDS ORDERED: SODIUM BICARBONATE 8.4% 1 MEQ/ML 50ML SYR IV ONE (16:00)
[2020-12-08] MEDS ORDERED: DEXTROSE 50% WATER 50ML SYRINGE IV ONE (16:00)
[2020-12-08] MEDS ORDERED: INSULIN REGULAR (HUMULIN R) 300UNITS/3ML VIAL IV ONE (16:00)
[2020-12-08] MEDS ORDERED: ALBUTEROL (0.083%) 2.5MG/3ML NEB HHN ONE (16:00)
[2020-12-08 16:05] LABS: CLARITY URINE CLEAR (CLEAR); COLOR URINE YELLOW (YELLOW); KETONES URINE NEGATIVE (NEGATIVE); LEUKOCYTE ESTERASE URINE NEGATIVE (NEGATIVE); NITRITE URINE NEGATIVE (NEGATIVE); OCCULT BLOOD URINE TRACE (NEGATIVE); PH URINE 6.5 (4.5-8.0); PROTEIN URINE 2+ (NEGATIVE); SPECIFIC GRAVITY URINE 1.013 (1.005-1.030); UROBILINOGEN URINE 0.2 E.U./dL (0.2-1.0)
[2020-12-08] MEDS ORDERED: METRONIDAZOLE 500 MG PREMIX 100 ML IV ONE (17:00)
[2020-12-08] MEDS ORDERED: TRAMADOL 50MG TABLET PO PRN (18:15)
[2020-12-08] MEDS ORDERED: DIPHENHYDRAMINE 50MG/ML VIAL IV PRN (18:15)
[2020-12-08] MEDS ORDERED: MAGNESIUM/ALUMINUM HYDROXIDE/SIMETHICONE 30ML UDC PO PRN (18:15)
[2020-12-08] MEDS ORDERED: GUAIFENESIN 200MG/10ML SUGAR FREE UDC PO PRN (18:15)
[2020-12-08] MEDS ORDERED: IPRATROPIUM/ALBUTEROL 0.5-3(2.5)MG/3ML NEB NEB PRN (18:15)
[2020-12-08] MEDS ORDERED: ONDANSETRON HCL 4MG/2ML INJ IV PRN (18:15)
[2020-12-08] MEDS ORDERED: ACETAMINOPHEN 325MG TABLET PO PRN ×2 (18:15)
[2020-12-08] MEDS ORDERED: ZOLPIDEM TARTRATE 5MG TABLET PO PRN (18:15)
[2020-12-08] MEDS ORDERED: DOCUSATE SODIUM 100MG CAPSULE PO PRN (18:15)
[2020-12-08] MEDS ORDERED: NITROGLYCERIN 0.4MG TABLET SL SL PRN (18:15)
[2020-12-08] MEDS ORDERED: SODIUM POLYSTYRENE SULFONATE 15 G/60 ML BOT PO NR (20:00)
[2020-12-08] MEDS: ENOXAPARIN 30MG/0.3ML SYR SUBCUT SCH (20:57)
[2020-12-08] MEDS: FAMOTIDINE 20MG TABLET PO SCH (21:00)
[2020-12-08] MEDS: ASCORBIC ACID 500 MG TABLET PO SCH (21:00)
[2020-12-08] MEDS: SUCRALFATE 1 G/10 ML UDC PO SCH (21:00)
[2020-12-09 00:30] LABS: CREATINE KINASE 109 IU/L (39-308)
[2020-12-09 00:31] LABS: CREATINE KINASE MB FRACTION 1.9 ng/mL (0.5-3.6)
[2020-12-09 05:18] LABS: BASOPHILS % 0.8 % (0.0-2.0); EOSINOPHILS % 2.7 % (0.0-5.0); HEMATOCRIT. 28.8 % (42.0-52.0); HEMOGLOBIN. 9.5 g/dL (14.0-18.0); LYMPHOCYTES % 15.4 % (20.0-50.0); MEAN CORPUSCULAR VOLUME 94.1 fL (80.0-94.0); MEAN PLATELET VOLUME 8.1 fl (7.4-10.4); MONOCYTES % 8.6 % (2.0-8.0); NEUTROPHILS % 72.5 % (40.0-76.0); PLATELET 203 x1000/uL (130-400); RED BLOOD CELL COUNT 3.07 mill/uL (4.7-6.1); RED CELL DISTRIBUTION WIDTH 16.1 % (11.6-14.6)
[2020-12-09 05:46] LABS: CHLORIDE 112 mEq/L (98-107)
[2020-12-09 05:54] LABS: AMYLASE 435 IU/L (25-115)
[2020-12-09 05:57] LABS: CREATINE KINASE 63 IU/L (39-308)
[2020-12-09 05:58] LABS: CREATINE KINASE MB FRACTION 1.7 ng/mL (0.5-3.6)
[2020-12-09 06:32] LABS: PHOSPHORUS 8.1 mg/dL (2.5-4.9)
[2020-12-09] MEDS: SUCRALFATE 1 G/10 ML UDC PO SCH (08:09)
[2020-12-09] MEDS: SEVELAMER CARBONATE 800 MG TABLET PO SCH (08:10)
[2020-12-09] MEDS: ASPIRIN 325MG EC TABLET PO SCH (09:09)
[2020-12-09] MEDS: AMLODIPINE 10MG TABLET PO SCH (09:10)
[2020-12-09] MEDS: ASCORBIC ACID 500 MG TABLET PO SCH ×2 (09:10→21:50)
[2020-12-09] MEDS: CHOLECALCIFEROL (D3) 1000 UNIT TABLET PO SCH (09:50)
[2020-12-09 20:00] VITALS: BP 138/82
[2020-12-09] MEDS ORDERED: EPOETIN ALFA-EPBX 10,000 UNIT/ML VIAL SUBCUT SCH (21:00)
[2020-12-09] MEDS: ENOXAPARIN 30MG/0.3ML SYR SUBCUT SCH (21:49)
[2020-12-09] MEDS: FAMOTIDINE 20MG TABLET PO SCH (21:50)
[2020-12-10 04:23] VITALS: BP 126/82
[2020-12-10 06:04] LABS: EOSINOPHILS % 5.1 % (0.0-5.0); HEMATOCRIT. 30.5 % (42.0-52.0); HEMOGLOBIN. 10.2 g/dL (14.0-18.0); LYMPHOCYTES % 17.4 % (20.0-50.0); MEAN CORPUSCULAR HEMOGLOBIN 31.2 pg (28.0-32.0); MEAN CORPUSCULAR VOLUME 93.6 fL (80.0-94.0); MEAN PLATELET VOLUME 8.3 fl (7.4-10.4); MONOCYTES % 8.9 % (2.0-8.0); NEUTROPHILS % 67.6 % (40.0-76.0); PLATELET 214 x1000/uL (130-400); RED BLOOD CELL COUNT 3.26 mill/uL (4.7-6.1); RED CELL DISTRIBUTION WIDTH 15.6 % (11.6-14.6)
[2020-12-10 06:30] LABS: PHOSPHORUS 6.5 mg/dL (2.5-4.9)
[2020-12-10] MEDS: SUCRALFATE 1 G/10 ML UDC PO SCH ×5 (07:53→20:57)
[2020-12-10] MEDS: CALCIUM ACETATE 667MG CAPSULE PO SCH ×4 (07:53→17:13)
[2020-12-10] MEDS: SEVELAMER CARBONATE 800 MG TABLET PO SCH ×4 (07:54→17:14)
[2020-12-10 08:00] VITALS: BP 130/84
[2020-12-10 08:17] VITALS: BP 124/81
[2020-12-10] MEDS: CHOLECALCIFEROL (D3) 1000 UNIT TABLET PO SCH (08:58)
[2020-12-10] MEDS: ASPIRIN 325MG EC TABLET PO SCH (08:59)
[2020-12-10] MEDS: AMLODIPINE 10MG TABLET PO SCH (08:59)
[2020-12-10] MEDS: ASCORBIC ACID 500 MG TABLET PO SCH ×2 (08:59→20:49)
[2020-12-10 12:00] VITALS: BP 124/84
[2020-12-10 16:00] VITALS: BP 105/70
[2020-12-10 20:00] VITALS: BP 132/87
[2020-12-10] MEDS: ENOXAPARIN 30MG/0.3ML SYR SUBCUT SCH (20:49)
[2020-12-10] MEDS: FAMOTIDINE 20MG TABLET PO SCH (20:49)
[2020-12-11] VITALS: BP 126/88
[2020-12-11 04:00] VITALS: BP 132/88
[2020-12-11 06:02] LABS: AMYLASE 255 IU/L (25-115)
[2020-12-11] MEDS: CALCIUM ACETATE 667MG CAPSULE PO SCH ×2 (07:40→12:40)
[2020-12-11 09:32] VITALS: BP 154/82
[2020-12-11] MEDS: SUCRALFATE 1 G/10 ML UDC PO SCH ×2 (09:34→14:36)
[2020-12-11] MEDS: AMLODIPINE 10MG TABLET PO SCH (09:34)
[2020-12-11] MEDS: ASPIRIN 325MG EC TABLET PO SCH (09:34)
[2020-12-11] MEDS: ASCORBIC ACID 500 MG TABLET PO SCH (09:34)
[2020-12-11] MEDS: SEVELAMER CARBONATE 800 MG TABLET PO SCH ×2 (09:34→14:36)
[2020-12-11] MEDS ORDERED: HEPARIN SODIUM 1,000 UNIT/1ML VIAL IV ONE (12:45)
[2020-12-11] MEDS: CHOLECALCIFEROL (D3) 1000 UNIT TABLET PO SCH (14:36)
== END 2020-12-11 18:15 | disposition home or self-care (01) | DRG 282 ==
LOC: ER 13:25 → MICUSO 17:39 → 8WST 12-09 18:16
PROVIDERS: ADMIT Internal Medicine; ATTEND Internal Medicine
PROC: 5A1D70Z Performance of Urinary Filtration, Intermittent, Less than 6 Hours Per Day (ICD-10-PCS; 2020-12-09)
PROC: 5A1D70Z Performance of Urinary Filtration, Intermittent, Less than 6 Hours Per Day (ICD-10-PCS; principal; 2020-12-10)
DX: K85.90 Acute pancreatitis without necrosis or infection, unspecified (principal); N18.6 End stage renal disease; E44.0 Moderate protein-calorie malnutrition; I12.0 Hypertensive chronic kidney disease with stage 5 chronic kidney disease or end stage renal disease; E87.5 Hyperkalemia; K57.92 Diverticulitis of intestine, part unspecified, without perforation or abscess without bleeding; D63.8 Anemia in other chronic diseases classified elsewhere; N25.81 Secondary hyperparathyroidism of renal origin; Q61.2 Polycystic kidney, adult type; Z85.038 Personal history of other malignant neoplasm of large intestine; Z90.49 Acquired absence of other specified parts of digestive tract; Z99.2 Dependence on renal dialysis; Z68.1 Body mass index [BMI] 19.9 or less, adult
CPT/HCPCS: 36415; 71045; 74176; 80048; 80053; 80061; 81003; 82150; 82550; 82553; 83036; 83735; 84100; 84484; 85025; 87015; 87045; 87427; 87449; 87493; 93005; 93970; 94640; 96374; 99285; J0885; J1644; J1650; J1815; J2270; J2405; J3490

== ENCOUNTER 2020-12-18 00:39 | Emergency (ER) | payer MEDICAID ==
[~2020-12-18] VITALS: Ht 177.8 cm; Wt 68.0 kg
[2020-12-18] MEDS ORDERED: MORPHINE SULFATE 4 MG/ML CPJ (NOT FOR IM USE) IV STA (01:12)
[2020-12-18] MEDS ORDERED: ONDANSETRON HCL 4MG/2ML INJ IV STA (01:12)
[2020-12-18 01:52] LABS: BASOPHILS % 0.8 % (0.0-2.0); EOSINOPHILS % 3.7 % (0.0-5.0); HEMATOCRIT. 33.9 % (42.0-52.0); HEMOGLOBIN. 10.9 g/dL (14.0-18.0); LYMPHOCYTES % 14.6 % (20.0-50.0); MEAN CORPUSCULAR HEMOGLOBIN 29.7 pg (28.0-32.0); MEAN CORPUSCULAR VOLUME 92.8 fL (80.0-94.0); MEAN PLATELET VOLUME 7.7 fl (7.4-10.4); MONOCYTES % 10.6 % (2.0-8.0); NEUTROPHILS % 70.3 % (40.0-76.0); PLATELET 285 x1000/uL (130-400); RED BLOOD CELL COUNT 3.65 mill/uL (4.7-6.1); RED CELL DISTRIBUTION WIDTH 16.1 % (11.6-14.6)
[2020-12-18 01:55] LABS: CHLORIDE 109 mEq/L (98-107)
[2020-12-18 03:26] VITALS: BP 148/94
[2020-12-18] MEDS ORDERED: HYDROCODONE/ACETAMINOPHEN 10/325MG TABLET PO ONE (03:45)
== END 2020-12-18 03:50 | disposition home or self-care (01) ==
LOC: ER 00:53
DX: K94.09 Other complications of colostomy (principal); G89.29 Other chronic pain; K85.90 Acute pancreatitis without necrosis or infection, unspecified; R19.7 Diarrhea, unspecified; I12.0 Hypertensive chronic kidney disease with stage 5 chronic kidney disease or end stage renal disease; N18.6 End stage renal disease; H40.9 Unspecified glaucoma; Z88.0 Allergy status to penicillin; Z88.8 Allergy status to other drugs, medicaments and biological substances; Z79.82 Long term (current) use of aspirin; Z99.2 Dependence on renal dialysis; Y83.3 Surgical operation with formation of external stoma as the cause of abnormal reaction of the patient, or of later complication, without mention of misadventure at the time of the procedure; Y92.018 Other place in single-family (private) house as the place of occurrence of the external cause
CPT/HCPCS: 36415; 80053; 83690; 84484; 85025; 93005; 96374; 96375; 99284; J2270; J2405

== ENCOUNTER 2020-12-20 01:44 | Emergency (ER) | payer MEDICAID ==
[~2020-12-20] VITALS: Ht 182.9 cm; Wt 69.0 kg
[2020-12-20 04:02] VITALS: BP 137/78
[2020-12-21] MEDS ORDERED: [UNRECOGNIZED DRUG - CODE] MC (16:38)
[2020-12-21] MEDS ORDERED: COLO-487 MC (16:38)
== END 2020-12-20 05:41 | disposition home or self-care (01) ==
LOC: ER 01:44
DX: S63.502A Unspecified sprain of left wrist, initial encounter (principal); I12.0 Hypertensive chronic kidney disease with stage 5 chronic kidney disease or end stage renal disease; M79.642 Pain in left hand; N18.6 End stage renal disease; Z99.2 Dependence on renal dialysis; Z87.891 Personal history of nicotine dependence; Z79.82 Long term (current) use of aspirin; Z79.899 Other long term (current) drug therapy; Z88.0 Allergy status to penicillin; Z93.3 Colostomy status; W18.39XA Other fall on same level, initial encounter; Y93.89 Activity, other specified; Y92.89 Other specified places as the place of occurrence of the external cause; Y99.8 Other external cause status
CPT/HCPCS: 73110; 93005; 99283

== ENCOUNTER 2020-12-21 12:28 | Emergency (ER) | payer MEDICAID ==
[~2020-12-21] VITALS: Ht 180.3 cm; Wt 75.0 kg
[2020-12-21 14:07] LABS: EOSINOPHILS % 2.8 % (0.0-5.0); HEMOGLOBIN. 10.8 g/dL (14.0-18.0); LYMPHOCYTES % 13.2 % (20.0-50.0); MEAN CORPUSCULAR HEMOGLOBIN 30.3 pg (28.0-32.0); MEAN CORPUSCULAR VOLUME 92.7 fL (80.0-94.0); MONOCYTES % 11.5 % (2.0-8.0); NEUTROPHILS % 71.5 % (40.0-76.0); PLATELET 275 x1000/uL (130-400); RED BLOOD CELL COUNT 3.56 mill/uL (4.7-6.1); RED CELL DISTRIBUTION WIDTH 15.7 % (11.6-14.6)
[2020-12-21 14:16] LABS: CHLORIDE 101 mEq/L (98-107)
[2020-12-21 14:17] LABS: PROTHROMBIN TIME 10.7 sec (9.6-11.0)
[2020-12-21 15:40] LABS: CLARITY URINE CLEAR (CLEAR); COLOR URINE YELLOW (YELLOW); KETONES URINE NEGATIVE (NEGATIVE); LEUKOCYTE ESTERASE URINE TRACE (NEGATIVE); NITRITE URINE NEGATIVE (NEGATIVE); OCCULT BLOOD URINE NEGATIVE (NEGATIVE); PH URINE 7.5 (4.5-8.0); PROTEIN URINE 2+ (NEGATIVE); SPECIFIC GRAVITY URINE 1.011 (1.005-1.030); UROBILINOGEN URINE 0.2 E.U./dL (0.2-1.0)
[2020-12-21] MEDS ORDERED: [UNRECOGNIZED DRUG - CODE] MC (16:38)
[2020-12-21] MEDS ORDERED: COLO-487 MC (16:38)
[2020-12-21 16:40] VITALS: BP 121/81
== END 2020-12-21 16:55 | disposition home or self-care (01) ==
LOC: ER 12:28
DX: K94.09 Other complications of colostomy (principal); I12.0 Hypertensive chronic kidney disease with stage 5 chronic kidney disease or end stage renal disease; N18.6 End stage renal disease; Z99.2 Dependence on renal dialysis; Z88.0 Allergy status to penicillin; Z79.82 Long term (current) use of aspirin; Z88.8 Allergy status to other drugs, medicaments and biological substances; Y83.3 Surgical operation with formation of external stoma as the cause of abnormal reaction of the patient, or of later complication, without mention of misadventure at the time of the procedure; Y92.018 Other place in single-family (private) house as the place of occurrence of the external cause
CPT/HCPCS: 36415; 80053; 81003; 84484; 85025; 93005; 99284

== ENCOUNTER 2020-12-23 02:29 | Inpatient (IN) | payer MEDICAID ==
[~2020-12-23] VITALS: Ht 182.9 cm; Wt 63.0 kg
[~2020-12-23 02:29] MED LIST changes: +COLO-487 MC; +[UNRECOGNIZED DRUG - CODE] MC
[2020-12-23 04:48] LABS: BASOPHILS % 0.8 % (0.0-2.0); EOSINOPHILS % 1.5 % (0.0-5.0); HEMATOCRIT. 33.5 % (42.0-52.0); HEMOGLOBIN. 10.6 g/dL (14.0-18.0); LYMPHOCYTES % 9.5 % (20.0-50.0); MEAN CORPUSCULAR HEMOGLOBIN 29.6 pg (28.0-32.0); MEAN CORPUSCULAR VOLUME 93.4 fL (80.0-94.0); MEAN PLATELET VOLUME 8.1 fl (7.4-10.4); NEUTROPHILS % 80.2 % (40.0-76.0); PLATELET 250 x1000/uL (130-400); RED BLOOD CELL COUNT 3.59 mill/uL (4.7-6.1); RED CELL DISTRIBUTION WIDTH 15.6 % (11.6-14.6)
[2020-12-23 04:57] LABS: CHLORIDE 108 mEq/L (98-107)
[2020-12-23 05:03] LABS: PROTHROMBIN TIME 10.7 sec (9.6-11.0)
[2020-12-23 05:29] LABS: CLARITY URINE CLEAR (CLEAR); COLOR URINE YELLOW (YELLOW); KETONES URINE NEGATIVE (NEGATIVE); LEUKOCYTE ESTERASE URINE TRACE (NEGATIVE); NITRITE URINE NEGATIVE (NEGATIVE); OCCULT BLOOD URINE NEGATIVE (NEGATIVE); PH URINE 7.5 (4.5-8.0); PROTEIN URINE 2+ (NEGATIVE); SPECIFIC GRAVITY URINE 1.013 (1.005-1.030); UROBILINOGEN URINE 0.2 E.U./dL (0.2-1.0)
[2020-12-23] MEDS ORDERED: INSULIN REGULAR (HUMULIN R) 300UNITS/3ML VIAL IV ONE (07:45)
[2020-12-23] MEDS ORDERED: DEXTROSE 50% WATER 50ML SYRINGE IV ONE (07:45)
[2020-12-23] MEDS ORDERED: SODIUM POLYSTYRENE SULFONATE 15 G/60 ML BOT PO ONE (07:45)
[2020-12-23] MEDS ORDERED: CALCIUM CHLORIDE 1GM/10ML SYR IV ONE (07:45)
[2020-12-23] MEDS ORDERED: SODIUM BICARBONATE 8.4% 1 MEQ/ML 50ML SYR IV ONE (07:45)
[2020-12-23] MEDS ORDERED: ALBUTEROL (0.083%) 2.5MG/3ML NEB HHN ONE (07:45)
[2020-12-23 16:05] VITALS: BP 144/92
[2020-12-23] MEDS ORDERED: ACETAMINOPHEN 325MG TABLET PO PRN ×2 (18:45)
[2020-12-23] MEDS ORDERED: ONDANSETRON HCL 4MG/2ML INJ IV PRN (18:45)
[2020-12-23] MEDS ORDERED: CLONIDINE 0.1MG TABLET PO PRN (18:45)
[2020-12-23] MEDS ORDERED: DIPHENHYDRAMINE 50MG/ML VIAL IV PRN (18:45)
[2020-12-23] MEDS ORDERED: GUAIFENESIN 200MG/10ML SUGAR FREE UDC PO PRN (18:45)
[2020-12-23 20:00] VITALS: BP 155/100
[2020-12-23] MEDS ORDERED: ENOXAPARIN 40MG/0.4ML SYR SUBCUT SCH (20:30)
[2020-12-23] MEDS ORDERED: ZOLPIDEM TARTRATE 5MG TABLET PO PRN (21:00)
[2020-12-23] MEDS: FAMOTIDINE 20MG TABLET PO SCH (21:31)
[2020-12-23] MEDS: SODIUM CHLORIDE 0.9% INJ 3ML FLUSH IVF SCH (22:00)
[2020-12-24] VITALS: BP 154/85
[2020-12-24 04:00] VITALS: BP 126/84
[2020-12-24] MEDS: SODIUM CHLORIDE 0.9% INJ 3ML FLUSH IVF SCH ×3 (05:50→22:00)
[2020-12-24 08:00] VITALS: BP 152/98
[2020-12-24 12:00] VITALS: BP 120/83
[2020-12-24 16:00] VITALS: BP 138/90
[2020-12-24 20:00] VITALS: BP 128/84
[2020-12-24] MEDS ORDERED: ENOXAPARIN 30MG/0.3ML SYR SUBCUT SCH (20:00)
[2020-12-25] VITALS: BP 129/92
[2020-12-25] MEDS: FAMOTIDINE 20MG TABLET PO SCH (01:41)
[2020-12-25 04:00] VITALS: BP 125/89
[2020-12-25 13:09] LABS: BASOPHILS % 1.1 % (0.0-2.0); EOSINOPHILS % 2.7 % (0.0-5.0); HEMATOCRIT. 33.4 % (42.0-52.0); HEMOGLOBIN. 10.9 g/dL (14.0-18.0); LYMPHOCYTES % 15.6 % (20.0-50.0); MEAN CORPUSCULAR HEMOGLOBIN 29.8 pg (28.0-32.0); MEAN CORPUSCULAR VOLUME 91.6 fL (80.0-94.0); MEAN PLATELET VOLUME 8.7 fl (7.4-10.4); MONOCYTES % 6.4 % (2.0-8.0); NEUTROPHILS % 74.2 % (40.0-76.0); PLATELET 227 x1000/uL (130-400); RED BLOOD CELL COUNT 3.65 mill/uL (4.7-6.1); RED CELL DISTRIBUTION WIDTH 15.4 % (11.6-14.6)
[2020-12-25 16:11] VITALS: BP 141/83
== END 2020-12-25 17:30 | disposition home or self-care (01) | DRG 252 ==
LOC: ER 02:29 → 5WST 09:35 → ENRESERV 14:48
PROVIDERS: ADMIT Internal Medicine; ATTEND Internal Medicine
PROC: 5A1D70Z Performance of Urinary Filtration, Intermittent, Less than 6 Hours Per Day (ICD-10-PCS; principal; 2020-12-23)
PROC: 5A1D70Z Performance of Urinary Filtration, Intermittent, Less than 6 Hours Per Day (ICD-10-PCS; 2020-12-25)
DX: K94.09 Other complications of colostomy (principal); E03.9 Hypothyroidism, unspecified; E78.00 Pure hypercholesterolemia, unspecified; E87.5 Hyperkalemia; I12.0 Hypertensive chronic kidney disease with stage 5 chronic kidney disease or end stage renal disease; Y83.8 Other surgical procedures as the cause of abnormal reaction of the patient, or of later complication, without mention of misadventure at the time of the procedure; Y82.8 Other medical devices associated with adverse incidents; N18.6 End stage renal disease; C18.9 Malignant neoplasm of colon, unspecified; K57.92 Diverticulitis of intestine, part unspecified, without perforation or abscess without bleeding; K86.1 Other chronic pancreatitis; D64.9 Anemia, unspecified; E46 Unspecified protein-calorie malnutrition; N25.81 Secondary hyperparathyroidism of renal origin; Z79.82 Long term (current) use of aspirin; Z79.899 Other long term (current) drug therapy; Z87.891 Personal history of nicotine dependence; Z85.038 Personal history of other malignant neoplasm of large intestine; Q61.2 Polycystic kidney, adult type; Z82.71 Family history of polycystic kidney; Z68.1 Body mass index [BMI] 19.9 or less, adult; Z99.2 Dependence on renal dialysis; M47.9 Spondylosis, unspecified
CPT/HCPCS: 36415; 74176; 80048; 80053; 81003; 82962; 84443; 85025; 96374; 99291; J1650; J1815; J3490

== ENCOUNTER 2020-12-31 00:10 | Emergency (ER) | payer MEDICAID ==
[~2020-12-31] VITALS: Ht 188 cm; Wt 77.0 kg
[2020-12-31] MEDS ORDERED: FAMOTIDINE 20MG/2ML VIAL IV STA (00:49)
[2020-12-31] MEDS ORDERED: MORPHINE SULFATE 4 MG/ML CPJ (NOT FOR IM USE) IV STA (00:49)
[2020-12-31] MEDS ORDERED: ONDANSETRON HCL 4MG/2ML INJ IV STA (00:49)
[2020-12-31] MEDS ORDERED: SODIUM CHLORIDE 0.9% 1,000 ML IV ONE (01:00)
[2020-12-31 01:11] LABS: EOSINOPHILS % 2.5 % (0.0-5.0); HEMATOCRIT. 31.1 % (42.0-52.0); HEMOGLOBIN. 10.1 g/dL (14.0-18.0); MEAN CORPUSCULAR VOLUME 92.6 fL (80.0-94.0); MEAN PLATELET VOLUME 8.5 fl (7.4-10.4); MONOCYTES % 8.5 % (2.0-8.0); PLATELET 242 x1000/uL (130-400); RED BLOOD CELL COUNT 3.36 mill/uL (4.7-6.1); RED CELL DISTRIBUTION WIDTH 15.7 % (11.6-14.6)
[2020-12-31 01:29] LABS: CHLORIDE 105 mEq/L (98-107)
[2020-12-31 03:00] LABS: CLARITY URINE CLEAR (CLEAR); COLOR URINE YELLOW (YELLOW); KETONES URINE NEGATIVE (NEGATIVE); LEUKOCYTE ESTERASE URINE NEGATIVE (NEGATIVE); NITRITE URINE NEGATIVE (NEGATIVE); OCCULT BLOOD URINE TRACE (NEGATIVE); PH URINE 7.5 (4.5-8.0); PROTEIN URINE 2+ (NEGATIVE); SPECIFIC GRAVITY URINE 1.009 (1.005-1.030); UROBILINOGEN URINE 0.2 E.U./dL (0.2-1.0)
[2020-12-31 07:23] VITALS: BP 146/89
== END 2020-12-31 07:35 | disposition home or self-care (01) ==
LOC: ER 00:10
DX: R10.9 Unspecified abdominal pain (principal); I10 Essential (primary) hypertension; Z88.0 Allergy status to penicillin; Z88.8 Allergy status to other drugs, medicaments and biological substances; Z79.82 Long term (current) use of aspirin; Z79.899 Other long term (current) drug therapy; Z93.3 Colostomy status
CPT/HCPCS: 36415; 71045; 74176; 80053; 81003; 83605; 83690; 85025; 93005; 96361; 96374; 96375; 99285; J2270; J2405; J3490; J7030; Z7610

== ENCOUNTER 2021-01-04 08:14 | Inpatient (IN) | payer MEDICAID ==
[~2021-01-04] VITALS: Ht 182.9 cm; Wt 68.5 kg
[2021-01-04] MEDS ORDERED: ONDANSETRON HCL 4MG/2ML INJ IV STA (08:43)
[2021-01-04] MEDS ORDERED: MORPHINE SULFATE 4 MG/ML CPJ (NOT FOR IM USE) IV STA (08:43)
[2021-01-04] MEDS ORDERED: SODIUM CHLORIDE 0.9% 1,000 ML IV ONE (08:45)
[2021-01-04 08:54] LABS: BASOPHILS % 0.8 % (0.0-2.0); HEMATOCRIT. 31.6 % (42.0-52.0); HEMOGLOBIN. 10.5 g/dL (14.0-18.0); LYMPHOCYTES % 11.7 % (20.0-50.0); MEAN CORPUSCULAR HEMOGLOBIN 30.1 pg (28.0-32.0); MEAN CORPUSCULAR VOLUME 90.9 fL (80.0-94.0); MEAN PLATELET VOLUME 7.9 fl (7.4-10.4); NEUTROPHILS % 75.5 % (40.0-76.0); PLATELET 222 x1000/uL (130-400); RED BLOOD CELL COUNT 3.47 mill/uL (4.7-6.1); RED CELL DISTRIBUTION WIDTH 15.3 % (11.6-14.6)
[2021-01-04 09:10] LABS: CHLORIDE 102 mEq/L (98-107)
[2021-01-04 09:12] LABS: PROTHROMBIN TIME 10.8 sec (9.6-11.0)
[2021-01-04 16:00] VITALS: BP 142/92
[2021-01-04] MEDS ORDERED: CLONIDINE 0.1MG TABLET PO PRN (16:45)
[2021-01-04] MEDS ORDERED: DIPHENHYDRAMINE 50MG/ML VIAL IV PRN (16:45)
[2021-01-04] MEDS ORDERED: IPRATROPIUM/ALBUTEROL 0.5-3(2.5)MG/3ML NEB HHN PRN (16:45)
[2021-01-04] MEDS ORDERED: HYDRALAZINE 20MG/ML VIAL IV PRN (16:45)
[2021-01-04] MEDS ORDERED: ONDANSETRON HCL 4MG/2ML INJ IV PRN (16:45)
[2021-01-04] MEDS ORDERED: ACETAMINOPHEN 325MG TABLET PO PRN ×2 (16:45)
[2021-01-04] MEDS ORDERED: LEVO25TA2 MT (16:54)
[2021-01-04] MEDS ORDERED: HYDR-4133 PO (16:54)
[2021-01-04 17:20] VITALS: BP 115/57
[2021-01-04 20:00] VITALS: BP 129/86
[2021-01-04] MEDS ORDERED: ZOLPIDEM TARTRATE 5MG TABLET PO PRN (20:00)
[2021-01-04] MEDS: SODIUM CHLORIDE 0.9% INJ 3ML FLUSH IVF SCH (20:30)
[2021-01-04] MEDS: FAMOTIDINE 20MG/2ML VIAL IV SCH (20:30)
[2021-01-05] VITALS: BP 122/74
[2021-01-05 04:00] VITALS: BP 133/82
[2021-01-05] MEDS: SODIUM CHLORIDE 0.9% INJ 3ML FLUSH IVF SCH ×2 (06:07→15:09)
[2021-01-05 06:55] LABS: BASOPHILS % 1.1 % (0.0-2.0); EOSINOPHILS % 3.2 % (0.0-5.0); HEMATOCRIT. 30.4 % (42.0-52.0); LYMPHOCYTES % 18.5 % (20.0-50.0); MEAN CORPUSCULAR HEMOGLOBIN 29.8 pg (28.0-32.0); MEAN CORPUSCULAR VOLUME 90.4 fL (80.0-94.0); MEAN PLATELET VOLUME 9.3 fl (7.4-10.4); MONOCYTES % 9.1 % (2.0-8.0); NEUTROPHILS % 68.1 % (40.0-76.0); PLATELET 218 x1000/uL (130-400); RED BLOOD CELL COUNT 3.37 mill/uL (4.7-6.1); RED CELL DISTRIBUTION WIDTH 15.1 % (11.6-14.6)
[2021-01-05 08:00] VITALS: BP 128/83
[2021-01-05] MEDS: FAMOTIDINE 20MG/2ML VIAL IV SCH (09:04)
[2021-01-05 12:00] VITALS: BP 113/70
[2021-01-05 16:00] VITALS: BP 97/64
[2021-01-05 16:47] VITALS: BP 97/64
== END 2021-01-05 18:50 | disposition home or self-care (01) | DRG 252 ==
LOC: ER 08:22 → 5WST 13:06 → ENRESERV 13:52
PROVIDERS: ADMIT Internal Medicine; ATTEND Internal Medicine
PROC: 5A1D70Z Performance of Urinary Filtration, Intermittent, Less than 6 Hours Per Day (ICD-10-PCS; principal; 2021-01-04)
PROC: 5A1D70Z Performance of Urinary Filtration, Intermittent, Less than 6 Hours Per Day (ICD-10-PCS; 2021-01-05)
DX: K94.03 Colostomy malfunction (principal); K57.92 Diverticulitis of intestine, part unspecified, without perforation or abscess without bleeding; K76.9 Liver disease, unspecified; C18.9 Malignant neoplasm of colon, unspecified; D64.9 Anemia, unspecified; E03.9 Hypothyroidism, unspecified; E46 Unspecified protein-calorie malnutrition; E78.00 Pure hypercholesterolemia, unspecified; I31.3 Pericardial effusion (noninflammatory); K86.1 Other chronic pancreatitis; N18.6 End stage renal disease; N20.0 Calculus of kidney; N25.81 Secondary hyperparathyroidism of renal origin; Q61.2 Polycystic kidney, adult type; Z82.71 Family history of polycystic kidney; Z85.038 Personal history of other malignant neoplasm of large intestine; Z99.2 Dependence on renal dialysis; Z88.0 Allergy status to penicillin; Z88.8 Allergy status to other drugs, medicaments and biological substances; Z68.20 Body mass index [BMI] 20.0-20.9, adult; E11.22 Type 2 diabetes mellitus with diabetic chronic kidney disease; I50.33 Acute on chronic diastolic (congestive) heart failure; I13.2 Hypertensive heart and chronic kidney disease with heart failure and with stage 5 chronic kidney disease, or end stage renal disease
CPT/HCPCS: 36415; 74176; 80048; 80053; 85025; 93005; 99285; J2270; J2405; J3490; J7030

== ENCOUNTER 2021-01-16 07:40 | Inpatient (IN) | payer MEDICAID ==
[~2021-01-16] VITALS: Ht 185.4 cm; Wt 61.2 kg
[~2021-01-16 07:40] MED LIST changes: +HYDR-4133 PO; +LEVO25TA2 MT
[2021-01-16 08:22] LABS: BASOPHILS % 0.6 % (0.0-2.0); EOSINOPHILS % 2.2 % (0.0-5.0); HEMATOCRIT. 31.1 % (42.0-52.0); HEMOGLOBIN. 10.1 g/dL (14.0-18.0); LYMPHOCYTES % 11.8 % (20.0-50.0); MEAN CORPUSCULAR HEMOGLOBIN 29.8 pg (28.0-32.0); MEAN CORPUSCULAR VOLUME 91.2 fL (80.0-94.0); MEAN PLATELET VOLUME 8.1 fl (7.4-10.4); MONOCYTES % 10.4 % (2.0-8.0); PLATELET 214 x1000/uL (130-400); RED BLOOD CELL COUNT 3.41 mill/uL (4.7-6.1); RED CELL DISTRIBUTION WIDTH 15.5 % (11.6-14.6)
[2021-01-16 08:25] LABS: CHLORIDE 101 mEq/L (98-107)
[2021-01-16] MEDS ORDERED: ONDANSETRON HCL 4MG/2ML INJ IV ONE (12:15)
[2021-01-16] MEDS ORDERED: ACETAMINOPHEN 325MG TABLET PO PRN (14:00)
[2021-01-16] MEDS ORDERED: ONDANSETRON HCL 4MG/2ML INJ IV PRN (14:00)
[2021-01-16] MEDS ORDERED: DIPHENHYDRAMINE 50MG/ML VIAL IV PRN (14:00)
[2021-01-16] MEDS ORDERED: HYDROCODONE/ACETAMINOPHEN 5/325MG TABLET PO PRN (14:00)
[2021-01-16] MEDS ORDERED: MORPHINE SULFATE 2 MG/ML CPJ (NOT FOR IM USE) IV PRN (14:00)
[2021-01-16] MEDS ORDERED: DOCUSATE SODIUM 100MG CAPSULE PO PRN (14:00)
[2021-01-16] MEDS ORDERED: NITROGLYCERIN 0.4MG TABLET SL SL PRN (14:00)
[2021-01-16] MEDS ORDERED: GUAIFENESIN 200MG/10ML SUGAR FREE UDC PO PRN (14:00)
[2021-01-16] MEDS ORDERED: CLONIDINE 0.1MG TABLET PO PRN (14:00)
[2021-01-16] MEDS ORDERED: MAGNESIUM/ALUMINUM HYDROXIDE/SIMETHICONE 30ML UDC PO PRN (14:00)
[2021-01-16] MEDS: AMLODIPINE 10MG TABLET PO SCH (15:00)
[2021-01-16 16:00] VITALS: BP 118/63
[2021-01-16 18:23] VITALS: BP 118/83
[2021-01-16] MEDS ORDERED: PNEUMOCOCCAL 23-VAL P-SAC VAC 0.5 ML IM ONE (19:30)
[2021-01-16 20:00] VITALS: BP 111/59
[2021-01-17] VITALS: BP 121/71
[2021-01-17 04:00] VITALS: BP 105/78
[2021-01-17 06:11] LABS: CHLORIDE 101 mEq/L (98-107)
[2021-01-17 06:20] LABS: LDL CHOLESTEROL 82 mg/dL (5-100)
[2021-01-17 06:22] LABS: HDL CHOLESTEROL 52 mg/dL (40-59)
[2021-01-17 06:36] LABS: BASOPHILS % 0.9 % (0.0-2.0); EOSINOPHILS % 2.3 % (0.0-5.0); HEMATOCRIT. 31.7 % (42.0-52.0); HEMOGLOBIN. 10.5 g/dL (14.0-18.0); LYMPHOCYTES % 16.9 % (20.0-50.0); MEAN CORPUSCULAR HEMOGLOBIN 29.8 pg (28.0-32.0); MEAN CORPUSCULAR VOLUME 90.2 fL (80.0-94.0); MEAN PLATELET VOLUME 9.2 fl (7.4-10.4); MONOCYTES % 8.5 % (2.0-8.0); NEUTROPHILS % 71.4 % (40.0-76.0); PLATELET 215 x1000/uL (130-400); RED BLOOD CELL COUNT 3.52 mill/uL (4.7-6.1); RED CELL DISTRIBUTION WIDTH 15.3 % (11.6-14.6)
[2021-01-17 08:00] VITALS: BP 121/69
[2021-01-17] MEDS ORDERED: ASPIRIN 81MG EC TABLET PO SCH (09:00)
[2021-01-17] MEDS: AMLODIPINE 10MG TABLET PO SCH (09:35)
[2021-01-17 12:00] VITALS: BP 106/62
[2021-01-17 16:00] VITALS: BP 115/60
== END 2021-01-17 18:30 | disposition home or self-care (01) | DRG 203 ==
LOC: ER 07:45 → 8WST 12:30 → ENRESERV 15:42
PROVIDERS: ADMIT Hospitalist; ATTEND Hospitalist
DX: R07.89 Other chest pain (principal); I13.2 Hypertensive heart and chronic kidney disease with heart failure and with stage 5 chronic kidney disease, or end stage renal disease; N18.6 End stage renal disease; I50.33 Acute on chronic diastolic (congestive) heart failure; N25.81 Secondary hyperparathyroidism of renal origin; E11.22 Type 2 diabetes mellitus with diabetic chronic kidney disease; Z99.2 Dependence on renal dialysis; Z93.3 Colostomy status; Z88.8 Allergy status to other drugs, medicaments and biological substances; Z88.0 Allergy status to penicillin; Z79.899 Other long term (current) drug therapy; Z85.038 Personal history of other malignant neoplasm of large intestine
CPT/HCPCS: 36415; 71045; 80053; 80061; 82962; 83880; 84484; 85025; 93005; 93970; 99285; J2405

== ENCOUNTER 2021-01-22 18:33 | Emergency (ER) | payer MEDICAID ==
[~2021-01-22] VITALS: Ht 185.4 cm; Wt 68.0 kg
[2021-01-22 20:00] VITALS: BP 132/90
== END 2021-01-22 20:03 | disposition home or self-care (01) ==
LOC: ER 18:33
DX: Z43.3 Encounter for attention to colostomy (principal); I12.0 Hypertensive chronic kidney disease with stage 5 chronic kidney disease or end stage renal disease; E11.22 Type 2 diabetes mellitus with diabetic chronic kidney disease; N18.6 End stage renal disease; Z99.2 Dependence on renal dialysis; Z88.0 Allergy status to penicillin; Z88.8 Allergy status to other drugs, medicaments and biological substances; Z79.82 Long term (current) use of aspirin
CPT/HCPCS: 99281

== ENCOUNTER 2021-01-23 05:37 | Emergency (ER) | payer MEDICAID ==
[~2021-01-23] VITALS: Ht 185.4 cm; Wt 67.0 kg
[2021-01-23] MEDS ORDERED: MORPHINE SULFATE 4 MG/ML CPJ (NOT FOR IM USE) IV STA (05:52)
[2021-01-23] MEDS ORDERED: SODIUM CHLORIDE 0.9% 1,000 ML IV ONE (06:00)
[2021-01-23] MEDS ORDERED: SODIUM CHLORIDE 0.9% 500 ML IV ONE (06:15)
[2021-01-23 06:26] LABS: BASOPHILS % 0.9 % (0.0-2.0); EOSINOPHILS % 4.6 % (0.0-5.0); HEMATOCRIT. 29.9 % (42.0-52.0); HEMOGLOBIN. 9.9 g/dL (14.0-18.0); LYMPHOCYTES % 13.4 % (20.0-50.0); MEAN CORPUSCULAR HEMOGLOBIN 30.1 pg (28.0-32.0); MEAN CORPUSCULAR VOLUME 91.1 fL (80.0-94.0); MEAN PLATELET VOLUME 7.9 fl (7.4-10.4); MONOCYTES % 10.8 % (2.0-8.0); NEUTROPHILS % 70.3 % (40.0-76.0); PLATELET 200 x1000/uL (130-400); RED BLOOD CELL COUNT 3.28 mill/uL (4.7-6.1)
[2021-01-23 06:30] LABS: CHLORIDE 103 mEq/L (98-107)
[2021-01-23 07:01] LABS: PROTHROMBIN TIME 10.6 sec (9.6-11.0)
[2021-01-23 10:24] VITALS: BP 128/70
== END 2021-01-23 10:31 | disposition home or self-care (01) ==
LOC: ER 05:37
DX: R53.1 Weakness (principal); R42 Dizziness and giddiness; R07.89 Other chest pain; I12.0 Hypertensive chronic kidney disease with stage 5 chronic kidney disease or end stage renal disease; N18.6 End stage renal disease; D63.1 Anemia in chronic kidney disease; Z99.2 Dependence on renal dialysis; Z86.19 Personal history of other infectious and parasitic diseases; Z93.3 Colostomy status; Z79.82 Long term (current) use of aspirin; Z88.0 Allergy status to penicillin
CPT/HCPCS: 36415; 71045; 74176; 80053; 83690; 83880; 84484; 85025; 85610; 93005; 99285; J7030; J7040

== ENCOUNTER 2021-02-03 13:46 | Inpatient (IN) | payer MEDICAID ==
[~2021-02-03] VITALS: Ht 185.4 cm; Wt 63.5 kg
[2021-02-03] MEDS ORDERED: MORPHINE SULFATE 4 MG/ML CPJ (NOT FOR IM USE) IV STA (14:24)
[2021-02-03] MEDS ORDERED: ONDANSETRON HCL 4MG/2ML INJ IV STA (14:24)
[2021-02-03] MEDS ORDERED: SODIUM CHLORIDE 0.9% 1,000 ML IV ONE (14:30)
[2021-02-03 15:04] LABS: HEMATOCRIT. 34.4 % (42.0-52.0); HEMOGLOBIN. 11.4 g/dL (14.0-18.0); MEAN CORPUSCULAR HEMOGLOBIN 29.4 pg (28.0-32.0); MEAN CORPUSCULAR VOLUME 88.4 fL (80.0-94.0); MEAN PLATELET VOLUME 8.2 fl (7.4-10.4); PLATELET 175 x1000/uL (130-400); RED BLOOD CELL COUNT 3.89 mill/uL (4.7-6.1)
[2021-02-03 15:09] LABS: CHLORIDE 93 mEq/L (98-107)
[2021-02-03 16:01] LABS: PLATELET ESTIMATE NORMAL
[2021-02-03 22:46] LABS: CLARITY URINE CLEAR (CLEAR); COLOR URINE YELLOW (YELLOW); KETONES URINE NEGATIVE (NEGATIVE); LEUKOCYTE ESTERASE URINE 2+ (NEGATIVE); NITRITE URINE NEGATIVE (NEGATIVE); OCCULT BLOOD URINE 2+ (NEGATIVE); PH URINE 6.5 (4.5-8.0); PROTEIN URINE 3+ (NEGATIVE); SPECIFIC GRAVITY URINE 1.018 (1.005-1.030); UROBILINOGEN URINE 0.2 E.U./dL (0.2-1.0)
[2021-02-04] VITALS: BP 131/91
[2021-02-04] MEDS: ACETAMINOPHEN 325MG TABLET PO PRN ×3 (00:35→23:33)
[2021-02-04] MEDS: MORPHINE SULFATE 2 MG/ML CPJ (NOT FOR IM USE) IV PRN ×2 (00:36→10:03)
[2021-02-04] MEDS ORDERED: SODIUM CHLORIDE 0.9% 1,000 ML IV SCH (01:00)
[2021-02-04] MEDS ORDERED: PIPERACILLIN/TAZOBACTAM 3.375 G/VIAL IV SCH ×2 (03:00→14:00)
[2021-02-04 04:00] VITALS: BP 118/78
[2021-02-04] MEDS ORDERED: VANCOMYCIN 1 G PREMIX 200 ML IV NR (04:00)
[2021-02-04 05:59] LABS: HEMATOCRIT 30.6 % (42.0-52.0); HEMOGLOBIN 10.3 g/dL (14.0-18.0); MEAN CORPUSCULAR HEMOGLOBIN 30.1 pg (28.0-32.0); MEAN CORPUSCULAR VOLUME 89.6 fL (80.0-94.0); PLATELET 155 x1000/uL (130-400); RED BLOOD CELL COUNT 3.42 mill/uL (4.7-6.1); RED CELL DISTRIBUTION WIDTH 14.8 % (11.6-14.6)
[2021-02-04 06:18] LABS: CHLORIDE 97 mEq/L (98-107)
[2021-02-04 06:28] LABS: AMYLASE 150 IU/L (25-115)
[2021-02-04 08:00] VITALS: BP 114/84
[2021-02-04] MEDS ORDERED: MAGNESIUM HYDROXIDE 400MG/5ML 30ML UDC PO PRN (11:15)
[2021-02-04] MEDS ORDERED: SENNOSIDES/DOCUSATE SOD 8.6/50MG TABLET PO PRN (11:15)
[2021-02-04] MEDS ORDERED: DOCUSATE SODIUM 100MG CAPSULE PO PRN (11:15)
[2021-02-04 12:00] VITALS: BP 111/73
[2021-02-04] MEDS: CEFEPIME 1,000 MG in DEXTROSE 5% WATER 50 ML IV SCH (14:10)
[2021-02-04 16:00] VITALS: BP 90/48
[2021-02-04 17:40] LABS: T4 FREE 0.97 ng/dL (0.76-1.46)
[2021-02-04 20:00] VITALS: BP 103/76
[2021-02-04] MEDS ORDERED: CEFEPIME HCL 1000MG/VIAL INJ IM SCH (21:00)
[2021-02-04] MEDS: HEPARIN 5000 UNITS/ML VIAL SUBCUT SCH (21:23)
[2021-02-05] VITALS: BP 126/87
[2021-02-05 04:00] VITALS: BP 122/83
[2021-02-05 06:57] LABS: HEMATOCRIT. 31.1 % (42.0-52.0); HEMOGLOBIN. 10.3 g/dL (14.0-18.0); MEAN CORPUSCULAR HEMOGLOBIN 29.6 pg (28.0-32.0); MEAN CORPUSCULAR VOLUME 89.4 fL (80.0-94.0); PLATELET 164 x1000/uL (130-400); RED BLOOD CELL COUNT 3.48 mill/uL (4.7-6.1); RED CELL DISTRIBUTION WIDTH 15.3 % (11.6-14.6)
[2021-02-05 08:00] VITALS: BP 125/82
[2021-02-05] MEDS: HEPARIN 5000 UNITS/ML VIAL SUBCUT SCH ×2 (09:14→20:47)
[2021-02-05] MEDS: ACETAMINOPHEN 325MG TABLET PO PRN (09:35)
[2021-02-05 11:48] LABS: PLATELET ESTIMATE NORMAL
[2021-02-05 12:00] VITALS: BP 119/80
[2021-02-05] MEDS ORDERED: VANCOMYCIN 500 MG PREMIX 100 ML IV SCH (14:00)
[2021-02-05] MEDS: CEFEPIME 1,000 MG in DEXTROSE 5% WATER 50 ML IV SCH (15:25)
[2021-02-05 16:00] VITALS: BP 122/86
[2021-02-05 20:00] VITALS: BP 122/87
[2021-02-05] MEDS: ONDANSETRON HCL 4MG/2ML INJ IV PRN (20:55)
[2021-02-05] MEDS: MORPHINE SULFATE 2 MG/ML CPJ (NOT FOR IM USE) IV PRN (20:57)
[2021-02-06] VITALS: BP 120/81
[2021-02-06] MEDS: ACETAMINOPHEN 325MG TABLET PO PRN (03:07)
[2021-02-06 08:00] VITALS: BP 120/80
[2021-02-06] MEDS: HEPARIN 5000 UNITS/ML VIAL SUBCUT SCH ×2 (08:14→20:10)
[2021-02-06 09:13] LABS: HEMATOCRIT. 30.2 % (42.0-52.0); HEMOGLOBIN. 9.9 g/dL (14.0-18.0); MEAN CORPUSCULAR HEMOGLOBIN 28.7 pg (28.0-32.0); MEAN PLATELET VOLUME 8.7 fl (7.4-10.4); PLATELET 174 x1000/uL (130-400); RED BLOOD CELL COUNT 3.43 mill/uL (4.7-6.1); RED CELL DISTRIBUTION WIDTH 14.9 % (11.6-14.6)
[2021-02-06 11:59] LABS: PLATELET ESTIMATE NORMAL
[2021-02-06 12:00] VITALS: BP 105/66
[2021-02-06] MEDS ORDERED: VANCOMYCIN 500 MG PREMIX 100 ML IV SCH (13:00)
[2021-02-06 16:00] VITALS: BP 102/69
[2021-02-06 20:00] VITALS: BP 104/65
[2021-02-07] VITALS: BP 117/73
[2021-02-07 04:00] VITALS: BP 127/89
[2021-02-07] MEDS: MORPHINE SULFATE 2 MG/ML CPJ (NOT FOR IM USE) IV PRN (06:21)
[2021-02-07 06:58] LABS: HEMATOCRIT. 31.5 % (42.0-52.0); HEMOGLOBIN. 10.3 g/dL (14.0-18.0); MEAN CORPUSCULAR HEMOGLOBIN 29.4 pg (28.0-32.0); MEAN CORPUSCULAR VOLUME 89.9 fL (80.0-94.0); MEAN PLATELET VOLUME 8.2 fl (7.4-10.4); PLATELET 189 x1000/uL (130-400)
[2021-02-07 08:00] VITALS: BP 119/61
[2021-02-07] MEDS: HEPARIN 5000 UNITS/ML VIAL SUBCUT SCH ×2 (09:00→21:06)
[2021-02-07 12:00] VITALS: BP 122/87
[2021-02-07 12:02] LABS: PLATELET ESTIMATE NORMAL
[2021-02-07] MEDS ORDERED: LIDOCAINE HCL 1% 20ML VIAL (Pyxis) INJ ONE (13:00)
[2021-02-07 16:00] VITALS: BP 126/80
[2021-02-07 20:00] VITALS: BP 131/83
[2021-02-08] VITALS (7 sets, daily range): BP systolic 107–141; BP diastolic 67–88
[2021-02-08 08:03] LABS: HEMOGLOBIN. 10.1 g/dL (14.0-18.0); MEAN CORPUSCULAR HEMOGLOBIN 28.9 pg (28.0-32.0); MEAN CORPUSCULAR VOLUME 88.7 fL (80.0-94.0); MEAN PLATELET VOLUME 8.5 fl (7.4-10.4); PLATELET 209 x1000/uL (130-400); RED CELL DISTRIBUTION WIDTH 14.7 % (11.6-14.6)
[2021-02-08] MEDS: HEPARIN 5000 UNITS/ML VIAL SUBCUT SCH ×2 (09:00→20:57)
[2021-02-08] MEDS: MORPHINE SULFATE 2 MG/ML CPJ (NOT FOR IM USE) IV PRN ×2 (15:23→20:56)
[2021-02-08 18:44] LABS: PLATELET ESTIMATE NORMAL
[2021-02-09 04:00] VITALS: BP 125/78
[2021-02-09 06:48] LABS: HEMOGLOBIN. 9.5 g/dL (14.0-18.0); MEAN CORPUSCULAR HEMOGLOBIN 29.3 pg (28.0-32.0); MEAN CORPUSCULAR VOLUME 89.4 fL (80.0-94.0); MEAN PLATELET VOLUME 8.2 fl (7.4-10.4); PLATELET 237 x1000/uL (130-400); RED BLOOD CELL COUNT 3.25 mill/uL (4.7-6.1); RED CELL DISTRIBUTION WIDTH 14.6 % (11.6-14.6)
[2021-02-09 08:00] VITALS: BP 115/65
[2021-02-09] MEDS: HEPARIN 5000 UNITS/ML VIAL SUBCUT SCH ×2 (09:00→20:00)
[2021-02-09 12:00] VITALS: BP 124/82
[2021-02-09] MEDS ORDERED: VANCOMYCIN 500 MG PREMIX 100 ML IV NR (15:00)
[2021-02-09 16:00] VITALS: BP 132/86
[2021-02-09 20:40] VITALS: BP 113/69
[2021-02-09 21:25] LABS: PLATELET ESTIMATE NORMAL
[2021-02-10] VITALS: BP 125/82
[2021-02-10 00:07] VITALS: BP 125/82
[2021-02-10 04:00] VITALS: BP 126/88
[2021-02-10] MEDS: HEPARIN 5000 UNITS/ML VIAL SUBCUT SCH ×2 (09:00→22:06)
[2021-02-10 09:22] LABS: HEMATOCRIT. 29.9 % (42.0-52.0); HEMOGLOBIN. 9.7 g/dL (14.0-18.0); MEAN CORPUSCULAR HEMOGLOBIN 28.9 pg (28.0-32.0); MEAN CORPUSCULAR VOLUME 89.2 fL (80.0-94.0); MEAN PLATELET VOLUME 8.1 fl (7.4-10.4); PLATELET 345 x1000/uL (130-400); RED BLOOD CELL COUNT 3.35 mill/uL (4.7-6.1); RED CELL DISTRIBUTION WIDTH 14.5 % (11.6-14.6)
[2021-02-10 09:33] LABS: PROTHROMBIN TIME 11.1 sec (9.6-11.0)
[2021-02-10] MEDS ORDERED: LIDOCAINE HCL 1% 20ML VIAL (Pyxis) INJ ONE (10:13)
[2021-02-10] MEDS ORDERED: HEPARIN 1000 UNITS/ML 10ML ONE (10:13)
[2021-02-10] MEDS ORDERED: IOHEXOL-300 50 ML BOTTLE IV ONE (11:06)
[2021-02-10 11:48] LABS: PLATELET ESTIMATE NORMAL
[2021-02-10 12:00] VITALS: BP 130/83
[2021-02-10] MEDS: ONDANSETRON HCL 4MG/2ML INJ IV PRN ×3 (12:15→23:19)
[2021-02-10] MEDS: ACETAMINOPHEN 325MG TABLET PO PRN ×3 (12:16→22:08)
[2021-02-10 20:00] VITALS: BP 117/78
[2021-02-10] MEDS: EPOETIN ALFA-EPBX 4,000 UNIT/ML VIAL SUBCUT SCH (22:08)
[2021-02-11] VITALS: BP 123/81
[2021-02-11 04:00] VITALS: BP 104/71
[2021-02-11 08:00] VITALS: BP 133/78
[2021-02-11] MEDS: HEPARIN 5000 UNITS/ML VIAL SUBCUT SCH ×2 (09:12→21:42)
[2021-02-11 12:00] VITALS: BP 124/71
[2021-02-11] MEDS: ACETAMINOPHEN 325MG TABLET PO PRN (12:16)
[2021-02-11 12:47] LABS: HEMATOCRIT. 31.6 % (42.0-52.0); HEMOGLOBIN. 9.9 g/dL (14.0-18.0); MEAN CORPUSCULAR HEMOGLOBIN 29.4 pg (28.0-32.0); MEAN PLATELET VOLUME 8.1 fl (7.4-10.4); PLATELET 331 x1000/uL (130-400); RED BLOOD CELL COUNT 3.36 mill/uL (4.7-6.1)
[2021-02-11 14:55] LABS: PLATELET ESTIMATE NORMAL
[2021-02-11 16:00] VITALS: BP 116/74
[2021-02-11 20:00] VITALS: BP 100/67
[2021-02-12] VITALS: BP 137/85
[2021-02-12 04:00] VITALS: BP 130/80
[2021-02-12] MEDS: ONDANSETRON HCL 4MG/2ML INJ IV PRN ×2 (05:03→15:18)
[2021-02-12 08:00] VITALS: BP 140/85
[2021-02-12 08:45] LABS: HEMOGLOBIN. 9.2 g/dL (14.0-18.0); MEAN CORPUSCULAR HEMOGLOBIN 29.8 pg (28.0-32.0); MEAN CORPUSCULAR VOLUME 91.2 fL (80.0-94.0); MEAN PLATELET VOLUME 7.5 fl (7.4-10.4); PLATELET 360 x1000/uL (130-400); RED BLOOD CELL COUNT 3.07 mill/uL (4.7-6.1); RED CELL DISTRIBUTION WIDTH 14.6 % (11.6-14.6)
[2021-02-12] MEDS: HEPARIN 5000 UNITS/ML VIAL SUBCUT SCH ×2 (08:45→20:54)
[2021-02-12 12:00] VITALS: BP 122/65
[2021-02-12] MEDS: ACETAMINOPHEN 325MG TABLET PO PRN (15:18)
[2021-02-12 16:00] VITALS: BP 126/86
[2021-02-12] MEDS ORDERED: VANCOMYCIN 500 MG PREMIX 100 ML IV NR (18:00)
[2021-02-12 20:00] VITALS: BP 128/82
[2021-02-12] MEDS: EPOETIN ALFA-EPBX 4,000 UNIT/ML VIAL SUBCUT SCH (20:53)
[2021-02-12 22:39] LABS: PLATELET ESTIMATE NORMAL
[2021-02-13] VITALS: BP 130/76
[2021-02-13] MEDS: ACETAMINOPHEN 325MG TABLET PO PRN ×3 (02:57→22:39)
[2021-02-13 04:00] VITALS: BP 113/68
[2021-02-13 07:20] LABS: HEMATOCRIT. 28.8 % (42.0-52.0); HEMOGLOBIN. 9.3 g/dL (14.0-18.0); MEAN CORPUSCULAR HEMOGLOBIN 29.8 pg (28.0-32.0); MEAN CORPUSCULAR VOLUME 91.7 fL (80.0-94.0); MEAN PLATELET VOLUME 8.5 fl (7.4-10.4); PLATELET 383 x1000/uL (130-400); RED BLOOD CELL COUNT 3.14 mill/uL (4.7-6.1); RED CELL DISTRIBUTION WIDTH 14.7 % (11.6-14.6)
[2021-02-13 08:00] VITALS: BP 115/82
[2021-02-13] MEDS: HEPARIN 5000 UNITS/ML VIAL SUBCUT SCH ×2 (08:43→21:19)
[2021-02-13 10:05] LABS: PLATELET ESTIMATE NORMAL
[2021-02-13] MEDS: ONDANSETRON HCL 4MG/2ML INJ IV PRN (11:09)
[2021-02-13 12:00] VITALS: BP 89/64
[2021-02-13 16:00] VITALS: BP 120/73
[2021-02-13 20:00] VITALS: BP 122/71
[2021-02-14] VITALS: BP 130/84
[2021-02-14 04:00] VITALS: BP 130/80
[2021-02-14] MEDS: ACETAMINOPHEN 325MG TABLET PO PRN ×2 (06:18→18:33)
[2021-02-14 08:00] VITALS: BP 132/75
[2021-02-14 08:01] LABS: HEMATOCRIT. 29.7 % (42.0-52.0); HEMOGLOBIN. 9.4 g/dL (14.0-18.0); MEAN CORPUSCULAR HEMOGLOBIN 29.1 pg (28.0-32.0); MEAN CORPUSCULAR VOLUME 91.8 fL (80.0-94.0); PLATELET 450 x1000/uL (130-400); RED BLOOD CELL COUNT 3.23 mill/uL (4.7-6.1); RED CELL DISTRIBUTION WIDTH 14.9 % (11.6-14.6)
[2021-02-14 08:11] LABS: CHLORIDE 99 mEq/L (98-107)
[2021-02-14 08:20] LABS: AMYLASE 129 IU/L (25-115)
[2021-02-14] MEDS: HEPARIN 5000 UNITS/ML VIAL SUBCUT SCH (09:03)
[2021-02-14] MEDS: ONDANSETRON HCL 4MG/2ML INJ IV PRN (09:49)
[2021-02-14 12:00] VITALS: BP 131/87
[2021-02-14 16:00] VITALS: BP 141/90
[2021-02-14] MEDS ORDERED: VANCOMYCIN 500 MG PREMIX 100 ML IV SCH (18:00)
[2021-02-15] VITALS: BP 124/84
[2021-02-15] MEDS: HEPARIN 5000 UNITS/ML VIAL SUBCUT SCH ×3 (00:08→20:49)
[2021-02-15] MEDS: EPOETIN ALFA-EPBX 4,000 UNIT/ML VIAL SUBCUT SCH (00:08)
[2021-02-15 00:33] LABS: PLATELET ESTIMATE SLIGHTLY INCREASED
[2021-02-15 04:00] VITALS: BP 121/82
[2021-02-15] MEDS: ACETAMINOPHEN 325MG TABLET PO PRN ×3 (04:46→20:19)
[2021-02-15 07:51] LABS: HEMATOCRIT. 30.4 % (42.0-52.0); HEMOGLOBIN. 9.8 g/dL (14.0-18.0); MEAN CORPUSCULAR HEMOGLOBIN 29.5 pg (28.0-32.0); MEAN CORPUSCULAR VOLUME 91.8 fL (80.0-94.0); MEAN PLATELET VOLUME 8.6 fl (7.4-10.4); PLATELET 391 x1000/uL (130-400); RED BLOOD CELL COUNT 3.31 mill/uL (4.7-6.1); RED CELL DISTRIBUTION WIDTH 14.7 % (11.6-14.6)
[2021-02-15 08:00] VITALS: BP 122/86
[2021-02-15] MEDS ORDERED: IOHEXOL-300 100 ML BOTTLE ONE (10:37)
[2021-02-15 12:00] VITALS: BP 125/81
[2021-02-15 13:50] LABS: PLATELET ESTIMATE NORMAL
[2021-02-15 16:00] VITALS: BP 115/76
[2021-02-15 20:00] VITALS: BP 102/66
[2021-02-15] MEDS: ONDANSETRON HCL 4MG/2ML INJ IV PRN (20:48)
[2021-02-16] VITALS: BP 103/71
[2021-02-16 04:00] VITALS: BP 120/79
[2021-02-16 06:24] LABS: HEMATOCRIT. 29.4 % (42.0-52.0); HEMOGLOBIN. 9.2 g/dL (14.0-18.0); MEAN CORPUSCULAR HEMOGLOBIN 28.7 pg (28.0-32.0); MEAN CORPUSCULAR VOLUME 91.1 fL (80.0-94.0); PLATELET 426 x1000/uL (130-400); RED BLOOD CELL COUNT 3.22 mill/uL (4.7-6.1)
[2021-02-16 08:00] VITALS: BP 104/77
[2021-02-16] MEDS: HEPARIN 5000 UNITS/ML VIAL SUBCUT SCH ×2 (08:34→20:50)
[2021-02-16 10:50] LABS: PLATELET ESTIMATE INCREASED
[2021-02-16 12:00] VITALS: BP 113/80
[2021-02-16] MEDS ORDERED: VANCOMYCIN 500 MG PREMIX 100 ML IV SCH (12:00)
[2021-02-16 16:00] VITALS: BP 99/60
[2021-02-16 20:00] VITALS: BP 112/72
[2021-02-17] VITALS (7 sets, daily range): BP systolic 104–121; BP diastolic 62–82
[2021-02-17] MEDS: ONDANSETRON HCL 4MG/2ML INJ IV PRN ×2 (04:12→11:30)
[2021-02-17] MEDS: ACETAMINOPHEN 325MG TABLET PO PRN ×2 (04:12→11:30)
[2021-02-17 07:27] LABS: AMYLASE 170 IU/L (25-115)
[2021-02-17] MEDS: HEPARIN 5000 UNITS/ML VIAL SUBCUT SCH ×2 (08:48→21:00)
[2021-02-17 16:49] LABS: BASOPHILS % 0.7 % (0.0-2.0); EOSINOPHILS % 1.1 % (0.0-5.0); HEMATOCRIT. 25.9 % (42.0-52.0); HEMOGLOBIN. 8.5 g/dL (14.0-18.0); LYMPHOCYTES % 7.1 % (20.0-50.0); MEAN CORPUSCULAR HEMOGLOBIN 30.6 pg (28.0-32.0); MEAN CORPUSCULAR VOLUME 93.3 fL (80.0-94.0); MONOCYTES % 6.2 % (2.0-8.0); NEUTROPHILS % 84.9 % (40.0-76.0); PLATELET 375 x1000/uL (130-400); RED BLOOD CELL COUNT 2.78 mill/uL (4.7-6.1); RED CELL DISTRIBUTION WIDTH 14.7 % (11.6-14.6)
[2021-02-17] MEDS: LOPERAMIDE HCL 2MG CAPSULE PO PRN (22:26)
[2021-02-18] VITALS: BP 114/75
[2021-02-18 04:00] VITALS: BP 128/86
[2021-02-18 08:00] VITALS: BP 125/88
[2021-02-18] MEDS: HEPARIN 5000 UNITS/ML VIAL SUBCUT SCH ×2 (09:00→23:01)
[2021-02-18] MEDS: ONDANSETRON HCL 4MG/2ML INJ IV PRN (09:07)
[2021-02-18] MEDS: ACETAMINOPHEN 325MG TABLET PO PRN ×2 (09:08→18:55)
[2021-02-18 12:04] VITALS: BP 119/79
[2021-02-18 15:57] LABS: HEMATOCRIT. 25.9 % (42.0-52.0); HEMOGLOBIN. 8.5 g/dL (14.0-18.0); MEAN CORPUSCULAR HEMOGLOBIN 30.2 pg (28.0-32.0); MEAN PLATELET VOLUME 7.6 fl (7.4-10.4); PLATELET 368 x1000/uL (130-400); RED BLOOD CELL COUNT 2.81 mill/uL (4.7-6.1); RED CELL DISTRIBUTION WIDTH 14.8 % (11.6-14.6)
[2021-02-18 16:13] VITALS: BP 119/76
[2021-02-18 17:55] LABS: PLATELET ESTIMATE NORMAL
[2021-02-18] MEDS ORDERED: VANCOMYCIN 500 MG PREMIX 100 ML IV NR (18:00)
[2021-02-18 20:00] VITALS: BP 115/76
[2021-02-19] VITALS: BP 122/82
[2021-02-19] MEDS: LOPERAMIDE HCL 2MG CAPSULE PO PRN (02:07)
[2021-02-19 04:00] VITALS: BP 126/87
[2021-02-19 06:10] LABS: BASOPHILS % 0.9 % (0.0-2.0); EOSINOPHILS % 1.1 % (0.0-5.0); HEMATOCRIT. 28.9 % (42.0-52.0); HEMOGLOBIN. 9.1 g/dL (14.0-18.0); LYMPHOCYTES % 7.1 % (20.0-50.0); MEAN CORPUSCULAR HEMOGLOBIN 29.3 pg (28.0-32.0); MEAN CORPUSCULAR VOLUME 93.1 fL (80.0-94.0); MEAN PLATELET VOLUME 7.3 fl (7.4-10.4); MONOCYTES % 6.2 % (2.0-8.0); NEUTROPHILS % 84.7 % (40.0-76.0); PLATELET 418 x1000/uL (130-400); RED CELL DISTRIBUTION WIDTH 15.5 % (11.6-14.6)
[2021-02-19 08:00] VITALS: BP 123/80
[2021-02-19] MEDS: HEPARIN 5000 UNITS/ML VIAL SUBCUT SCH (09:35)
[2021-02-19 12:00] VITALS: BP 130/86
[2021-02-19 14:37] VITALS: BP 130/95
[2021-02-19] MEDS: ONDANSETRON HCL 4MG/2ML INJ IV PRN (16:20)
[2021-02-19] MEDS: ACETAMINOPHEN 325MG TABLET PO PRN (16:21)
== END 2021-02-19 17:00 | DRG 721 ==
LOC: ER 13:46 → 5WST 17:13 → ENRESERV 21:53
PROVIDERS: ADMIT Family Medicine Adult Medicine; ATTEND Family Medicine Adult Medicine
PROC: 5A1D70Z Performance of Urinary Filtration, Intermittent, Less than 6 Hours Per Day (ICD-10-PCS; 2021-02-04)
PROC: 5A1D70Z Performance of Urinary Filtration, Intermittent, Less than 6 Hours Per Day (ICD-10-PCS; 2021-02-05)
PROC: 0JPT3XZ Removal of Tunneled Vascular Access Device from Trunk Subcutaneous Tissue and Fascia, Percutaneous Approach (ICD-10-PCS; principal; 2021-02-07)
PROC: 05PYX3Z Removal of Infusion Device from Upper Vein, External Approach (ICD-10-PCS; 2021-02-07)
PROC: 5A1D70Z Performance of Urinary Filtration, Intermittent, Less than 6 Hours Per Day (ICD-10-PCS; 2021-02-09)
PROC: 02HV33Z Insertion of Infusion Device into Superior Vena Cava, Percutaneous Approach (ICD-10-PCS; 2021-02-10)
PROC: B5181ZA Fluoroscopy of Superior Vena Cava using Low Osmolar Contrast, Guidance (ICD-10-PCS; 2021-02-10)
PROC: 5A1D70Z Performance of Urinary Filtration, Intermittent, Less than 6 Hours Per Day (ICD-10-PCS; 2021-02-11)
PROC: 5A1D70Z Performance of Urinary Filtration, Intermittent, Less than 6 Hours Per Day (ICD-10-PCS; 2021-02-13)
PROC: 5A1D70Z Performance of Urinary Filtration, Intermittent, Less than 6 Hours Per Day (ICD-10-PCS; 2021-02-15)
PROC: 5A1D70Z Performance of Urinary Filtration, Intermittent, Less than 6 Hours Per Day (ICD-10-PCS; 2021-02-18)
DX: T80.211A Bloodstream infection due to central venous catheter, initial encounter (principal); A41.02 Sepsis due to Methicillin resistant Staphylococcus aureus; I33.0 Acute and subacute infective endocarditis; G93.41 Metabolic encephalopathy; K85.90 Acute pancreatitis without necrosis or infection, unspecified; E44.0 Moderate protein-calorie malnutrition; K81.0 Acute cholecystitis; I12.0 Hypertensive chronic kidney disease with stage 5 chronic kidney disease or end stage renal disease; E87.8 Other disorders of electrolyte and fluid balance, not elsewhere classified; K86.3 Pseudocyst of pancreas; I31.3 Pericardial effusion (noninflammatory); Y83.8 Other surgical procedures as the cause of abnormal reaction of the patient, or of later complication, without mention of misadventure at the time of the procedure; Y92.89 Other specified places as the place of occurrence of the external cause; N18.6 End stage renal disease; K86.1 Other chronic pancreatitis; R65.20 Severe sepsis without septic shock; K75.9 Inflammatory liver disease, unspecified; K59.00 Constipation, unspecified; G89.29 Other chronic pain; D64.9 Anemia, unspecified; E03.9 Hypothyroidism, unspecified; E87.1 Hypo-osmolality and hyponatremia; E87.5 Hyperkalemia; F40.240 Claustrophobia; N28.81 Hypertrophy of kidney; R16.0 Hepatomegaly, not elsewhere classified; R73.9 Hyperglycemia, unspecified; K57.92 Diverticulitis of intestine, part unspecified, without perforation or abscess without bleeding; N25.81 Secondary hyperparathyroidism of renal origin; N39.0 Urinary tract infection, site not specified; D73.4 Cyst of spleen; Z20.822 Contact with and (suspected) exposure to COVID-19; K81.9 Cholecystitis, unspecified; R62.7 Adult failure to thrive; Z79.899 Other long term (current) drug therapy; Q44.6 Cystic disease of liver; Q61.3 Polycystic kidney, unspecified; Z85.038 Personal history of other malignant neoplasm of large intestine; Z87.891 Personal history of nicotine dependence; Z93.3 Colostomy status; Z99.2 Dependence on renal dialysis; Q61.2 Polycystic kidney, adult type; Z88.0 Allergy status to penicillin; Z88.8 Allergy status to other drugs, medicaments and biological substances; Z68.1 Body mass index [BMI] 19.9 or less, adult
CPT/HCPCS: 36415; 36556; 36589; 71045; 74177; 76700; 76937; 77001; 78227; 78806; 80048; 80053; 80061; 80076; 80202; 81003; 82150; 82962; 83605; 83735; 84145; 84439; 84443; 84480; 84484; 85025; 85027; 87077; 87186; 87426; 93005; 93306; 97162; 97166; 97535; 99285; A9537; A9547; C1752; C1769; C1887; C1893; J0692; J0885; J1644; J2270; J2405; J3370; J3490; J7030; J7060; Q9967

== ENCOUNTER 2021-02-27 04:21 | Emergency (ER) | payer MEDICAID ==
[~2021-02-27] VITALS: Ht 185.4 cm; Wt 73.0 kg
[2021-02-27 05:02] LABS: BASOPHILS % 0.8 % (0.0-2.0); EOSINOPHILS % 2.3 % (0.0-5.0); HEMOGLOBIN. 8.1 g/dL (14.0-18.0); LYMPHOCYTES % 11.5 % (20.0-50.0); MEAN CORPUSCULAR HEMOGLOBIN 29.5 pg (28.0-32.0); MEAN CORPUSCULAR VOLUME 91.5 fL (80.0-94.0); MEAN PLATELET VOLUME 7.2 fl (7.4-10.4); MONOCYTES % 8.4 % (2.0-8.0); PLATELET 297 x1000/uL (130-400); RED BLOOD CELL COUNT 2.73 mill/uL (4.7-6.1)
[2021-02-27 05:06] LABS: CHLORIDE 98 mEq/L (98-107)
[2021-02-27] MEDS ORDERED: FUROSEMIDE 20MG/2ML VIAL IVP ONE (05:30)
[2021-02-27] MEDS ORDERED: CALCIUM GLUCONATE 100MG/ML 10ML VIAL IV ONE (05:30)
[2021-02-27 08:38] VITALS: BP 128/72
== END 2021-02-27 08:47 | disposition home or self-care (01) ==
LOC: ER 04:21
DX: K21.9 Gastro-esophageal reflux disease without esophagitis (principal); I12.0 Hypertensive chronic kidney disease with stage 5 chronic kidney disease or end stage renal disease; N18.6 End stage renal disease; H40.9 Unspecified glaucoma; Z99.2 Dependence on renal dialysis; Z93.3 Colostomy status; Z79.82 Long term (current) use of aspirin; Z88.8 Allergy status to other drugs, medicaments and biological substances; Z88.0 Allergy status to penicillin
CPT/HCPCS: 36415; 71045; 80053; 83880; 84484; 85025; 93005; 96374; 96375; 99285; J0610; J1940; Z7610

== ENCOUNTER 2021-02-27 10:16 | Inpatient (IN) | payer MEDICAID ==
[~2021-02-27] VITALS: Ht 185.4 cm; Wt 72.6 kg
[2021-02-27] MEDS ORDERED: HYDROCODONE/ACETAMINOPHEN 5/325MG TABLET PO STA (10:47)
[2021-02-27] MEDS ORDERED: PANTOPRAZOLE 40MG DR TABLET PO ONE (11:00)
[2021-02-27 11:19] LABS: CHLORIDE 99 mEq/L (98-107)
[2021-02-27 11:30] LABS: BASOPHILS % 1.4 % (0.0-2.0); EOSINOPHILS % 2.4 % (0.0-5.0); LYMPHOCYTES % 14.3 % (20.0-50.0); MEAN CORPUSCULAR HEMOGLOBIN 30.1 pg (28.0-32.0); MEAN CORPUSCULAR VOLUME 90.1 fL (80.0-94.0); MEAN PLATELET VOLUME 7.5 fl (7.4-10.4); MONOCYTES % 9.8 % (2.0-8.0); NEUTROPHILS % 72.1 % (40.0-76.0); PLATELET 322 x1000/uL (130-400); RED BLOOD CELL COUNT 2.67 mill/uL (4.7-6.1); RED CELL DISTRIBUTION WIDTH 14.9 % (11.6-14.6)
[2021-02-27 12:00] LABS: CLARITY URINE CLEAR (CLEAR); COLOR URINE YELLOW (YELLOW); KETONES URINE NEGATIVE (NEGATIVE); LEUKOCYTE ESTERASE URINE 1+ (NEGATIVE); NITRITE URINE NEGATIVE (NEGATIVE); OCCULT BLOOD URINE 2+ (NEGATIVE); PH URINE 7.5 (4.5-8.0); PROTEIN URINE 1+ (NEGATIVE); SPECIFIC GRAVITY URINE 1.006 (1.005-1.030); UROBILINOGEN URINE 0.2 E.U./dL (0.2-1.0)
[2021-02-27] MEDS ORDERED: IOHEXOL-300 100 ML BOTTLE ONE (13:09)
[2021-02-27] MEDS ORDERED: LEVOFLOXACIN 750MG PREMIX 150 ML IV ONE (13:45)
[2021-02-27] MEDS ORDERED: MAGNESIUM/ALUMINUM HYDROXIDE/SIMETHICONE 30ML UDC PO PRN (15:30)
[2021-02-27] MEDS ORDERED: CLONIDINE 0.1MG TABLET PO PRN (15:30)
[2021-02-27] MEDS ORDERED: HYDROMORPHONE HCL/PF 2MG/ML CPJ IV PRN (15:30)
[2021-02-27] MEDS ORDERED: DIPHENHYDRAMINE 50MG/ML VIAL IV PRN (15:30)
[2021-02-27] MEDS ORDERED: VANCOMYCIN 1 G PREMIX 200 ML IV NR (16:00)
[2021-02-27] MEDS: AMLODIPINE 10MG TABLET PO SCH (16:13)
[2021-02-27] MEDS: LEVOTHYROXINE SODIUM 25MCG TABLET PO SCH (16:14)
[2021-02-27] MEDS: CALCIUM ACETATE 667MG CAPSULE PO SCH (17:30)
[2021-02-27] MEDS: METOCLOPRAMIDE HCL 5MG TABLET PO SCH (19:15)
[2021-02-27 22:50] VITALS: BP 114/69
[2021-02-28] MEDS: METOCLOPRAMIDE HCL 5MG TABLET PO SCH ×4 (00:33→18:05)
[2021-02-28] MEDS: LEVOTHYROXINE SODIUM 25MCG TABLET PO SCH (06:08)
[2021-02-28 07:11] LABS: HEMATOCRIT. 23.6 % (42.0-52.0); HEMOGLOBIN. 7.8 g/dL (14.0-18.0); LYMPHOCYTES % 8.2 % (20.0-50.0); MEAN CORPUSCULAR HEMOGLOBIN 30.2 pg (28.0-32.0); MEAN CORPUSCULAR VOLUME 91.1 fL (80.0-94.0); MEAN PLATELET VOLUME 7.9 fl (7.4-10.4); MONOCYTES % 8.4 % (2.0-8.0); NEUTROPHILS % 80.4 % (40.0-76.0); PLATELET 323 x1000/uL (130-400); RED BLOOD CELL COUNT 2.59 mill/uL (4.7-6.1); RED CELL DISTRIBUTION WIDTH 14.9 % (11.6-14.6)
[2021-02-28 07:32] LABS: CHLORIDE 102 mEq/L (98-107)
[2021-02-28] MEDS: CALCIUM ACETATE 667MG CAPSULE PO SCH ×3 (07:40→18:05)
[2021-02-28 08:00] VITALS: BP 125/72
[2021-02-28] MEDS: AMLODIPINE 10MG TABLET PO SCH (08:55)
[2021-02-28 12:00] VITALS: BP 120/80
[2021-02-28 16:00] VITALS: BP 121/69
[2021-02-28 20:00] VITALS: BP 105/61
[2021-02-28] MEDS: EPOETIN ALFA-EPBX 10,000 UNIT/ML VIAL SUBCUT SCH (20:36)
[2021-03-01] VITALS: BP 101/64
[2021-03-01] MEDS: METOCLOPRAMIDE HCL 5MG TABLET PO SCH ×4 (00:32→18:48)
[2021-03-01 01:14] VITALS: BP 101/64
[2021-03-01] MEDS: ACETAMINOPHEN 325MG TABLET PO PRN ×2 (05:12→15:19)
[2021-03-01] MEDS: LEVOTHYROXINE SODIUM 25MCG TABLET PO SCH (06:03)
[2021-03-01 08:00] VITALS: BP 110/72
[2021-03-01] MEDS: CALCIUM ACETATE 667MG CAPSULE PO SCH ×3 (08:40→18:48)
[2021-03-01] MEDS: AMLODIPINE 10MG TABLET PO SCH (08:41)
[2021-03-01 11:33] LABS: BASOPHILS % 0.4 % (0.0-2.0); EOSINOPHILS % 1.8 % (0.0-5.0); HEMATOCRIT. 24.6 % (42.0-52.0); HEMOGLOBIN. 8.1 g/dL (14.0-18.0); LYMPHOCYTES % 12.3 % (20.0-50.0); MEAN CORPUSCULAR HEMOGLOBIN 29.8 pg (28.0-32.0); MEAN PLATELET VOLUME 7.2 fl (7.4-10.4); MONOCYTES % 8.9 % (2.0-8.0); NEUTROPHILS % 76.6 % (40.0-76.0); PLATELET 319 x1000/uL (130-400); RED BLOOD CELL COUNT 2.73 mill/uL (4.7-6.1); RED CELL DISTRIBUTION WIDTH 14.7 % (11.6-14.6)
[2021-03-01 12:00] VITALS: BP 109/69
[2021-03-01 16:00] VITALS: BP 110/76
[2021-03-01 20:00] VITALS: BP 125/80
[2021-03-02] VITALS: BP 111/69
[2021-03-02] MEDS: METOCLOPRAMIDE HCL 5MG TABLET PO SCH ×4 (01:02→19:04)
[2021-03-02 04:00] VITALS: BP 110/70
[2021-03-02] MEDS: LEVOTHYROXINE SODIUM 25MCG TABLET PO SCH (06:38)
[2021-03-02 08:00] VITALS: BP 128/78
[2021-03-02] MEDS: CALCIUM ACETATE 667MG CAPSULE PO SCH ×3 (08:57→19:04)
[2021-03-02] MEDS: AMLODIPINE 10MG TABLET PO SCH (08:58)
[2021-03-02] MEDS: ACETAMINOPHEN 325MG TABLET PO PRN (11:49)
[2021-03-02 12:00] VITALS: BP 126/80
[2021-03-02] MEDS ORDERED: ALTEPLASE 2MG/VIAL ITC NR (15:00)
[2021-03-02] MEDS: ONDANSETRON HCL 4MG/2ML INJ IV PRN (15:51)
[2021-03-02 16:00] VITALS: BP 131/79
[2021-03-02] MEDS ORDERED: VANCOMYCIN 500 MG PREMIX 100 ML IV SCH ×2 (16:00→20:00)
[2021-03-02 20:00] VITALS: BP_SYST 116; BP_SYST 121; BP_SYST 125; BP_DIAS 78; BP_DIAS 81; BP_DIAS 85
[2021-03-03] MEDS: METOCLOPRAMIDE HCL 5MG TABLET PO SCH ×4 (00:06→17:23)
[2021-03-03 04:00] VITALS: BP 122/69
[2021-03-03] MEDS: LEVOTHYROXINE SODIUM 25MCG TABLET PO SCH (06:18)
[2021-03-03 08:00] VITALS: BP 127/90
[2021-03-03] MEDS: AMLODIPINE 10MG TABLET PO SCH (09:49)
[2021-03-03] MEDS: CALCIUM ACETATE 667MG CAPSULE PO SCH ×3 (09:49→17:23)
[2021-03-03 12:00] VITALS: BP 123/84
[2021-03-03 16:00] VITALS: BP 97/66
[2021-03-03 16:27] LABS: INR 1.1; PROTHROMBIN TIME 11.4 sec (9.6-11.0)
[2021-03-03 20:00] VITALS: BP_SYST 111; BP_SYST 112; BP_SYST 123; BP_DIAS 78; BP_DIAS 80; BP_DIAS 81
[2021-03-03] MEDS: EPOETIN ALFA-EPBX 10,000 UNIT/ML VIAL SUBCUT SCH (21:38)
[2021-03-03] MEDS: ONDANSETRON HCL 4MG/2ML INJ IV PRN (22:37)
[2021-03-04] VITALS (25 sets, daily range): BP systolic 97–159; BP diastolic 59–97
[2021-03-04] MEDS: METOCLOPRAMIDE HCL 5MG TABLET PO SCH ×4 (00:24→17:48)
[2021-03-04] MEDS: LEVOTHYROXINE SODIUM 25MCG TABLET PO SCH (06:33)
[2021-03-04] MEDS ORDERED: HEPARIN 1000 UNITS/ML 10ML ONE (08:40)
[2021-03-04] MEDS ORDERED: LIDOCAINE HCL 1% 20ML VIAL (Pyxis) INJ ONE (08:41)
[2021-03-04] MEDS: AMLODIPINE 10MG TABLET PO SCH (09:00)
[2021-03-04] MEDS ORDERED: FENTANYL CITRATE/PF 50MCG/ML 2ML VIAL ONE (09:18)
[2021-03-04] MEDS ORDERED: FENTANYL CITRATE/PF 50MCG/ML 2ML VIAL IV ONE (09:45)
[2021-03-04] MEDS: CALCIUM ACETATE 667MG CAPSULE PO SCH ×3 (10:26→17:48)
[2021-03-04] MEDS: ACETAMINOPHEN 325MG TABLET PO PRN ×2 (12:18→17:48)
== END 2021-03-04 19:10 | DRG 282 ==
LOC: ER 10:16 → 8WST 15:05 → EDBEDREQ 15:08 → EDBEDREQTM 15:08 → ENRESERV 20:42
PROVIDERS: ADMIT Hospitalist; ATTEND Hospitalist
PROC: 5A1D70Z Performance of Urinary Filtration, Intermittent, Less than 6 Hours Per Day (ICD-10-PCS; 2021-02-27)
PROC: 5A1D70Z Performance of Urinary Filtration, Intermittent, Less than 6 Hours Per Day (ICD-10-PCS; 2021-03-01)
PROC: 5A1D70Z Performance of Urinary Filtration, Intermittent, Less than 6 Hours Per Day (ICD-10-PCS; 2021-03-03)
PROC: 0JH63XZ Insertion of Tunneled Vascular Access Device into Chest Subcutaneous Tissue and Fascia, Percutaneous Approach (ICD-10-PCS; principal; 2021-03-04)
PROC: 02H633Z Insertion of Infusion Device into Right Atrium, Percutaneous Approach (ICD-10-PCS; 2021-03-04)
PROC: B5181ZA Fluoroscopy of Superior Vena Cava using Low Osmolar Contrast, Guidance (ICD-10-PCS; 2021-03-04)
DX: K85.90 Acute pancreatitis without necrosis or infection, unspecified (principal); I33.0 Acute and subacute infective endocarditis; I13.2 Hypertensive heart and chronic kidney disease with heart failure and with stage 5 chronic kidney disease, or end stage renal disease; E46 Unspecified protein-calorie malnutrition; N18.6 End stage renal disease; E87.5 Hyperkalemia; K57.92 Diverticulitis of intestine, part unspecified, without perforation or abscess without bleeding; K56.7 Ileus, unspecified; Q61.2 Polycystic kidney, adult type; I50.33 Acute on chronic diastolic (congestive) heart failure; K86.1 Other chronic pancreatitis; D63.1 Anemia in chronic kidney disease; E03.9 Hypothyroidism, unspecified; E21.1 Secondary hyperparathyroidism, not elsewhere classified; K76.9 Liver disease, unspecified; B95.62 Methicillin resistant Staphylococcus aureus infection as the cause of diseases classified elsewhere; N39.0 Urinary tract infection, site not specified; E05.90 Thyrotoxicosis, unspecified without thyrotoxic crisis or storm; Z86.14 Personal history of Methicillin resistant Staphylococcus aureus infection; Z90.49 Acquired absence of other specified parts of digestive tract; Z93.3 Colostomy status; Z99.2 Dependence on renal dialysis; Z88.0 Allergy status to penicillin; Z88.8 Allergy status to other drugs, medicaments and biological substances; Z68.21 Body mass index [BMI] 21.0-21.9, adult; Z20.822 Contact with and (suspected) exposure to COVID-19
CPT/HCPCS: 36415; 36558; 71045; 74177; 77001; 80048; 80053; 80202; 81003; 83880; 84484; 85025; 99285; C1750; J0885; J1170; J1644; J1956; J2405; J2997; J3010; J3370; J3490; J8597; Q9967; U0003

== ENCOUNTER 2021-06-02 09:42 | Inpatient (IN) | payer MEDICAID ==
[~2021-06-02] VITALS: Ht 185.4 cm; Wt 69.9 kg
[2021-06-02 12:46] LABS: BASOPHILS % 0.7 % (0.0-2.0); HEMATOCRIT. 30.9 % (42.0-52.0); HEMOGLOBIN. 10.4 g/dL (14.0-18.0); LYMPHOCYTES % 9.5 % (20.0-50.0); MEAN CORPUSCULAR HEMOGLOBIN 31.2 pg (28.0-32.0); MEAN CORPUSCULAR VOLUME 93.1 fL (80.0-94.0); MEAN PLATELET VOLUME 7.6 fl (7.4-10.4); MONOCYTES % 4.6 % (2.0-8.0); NEUTROPHILS % 83.2 % (40.0-76.0); PLATELET 295 x1000/uL (130-400); RED BLOOD CELL COUNT 3.32 mill/uL (4.7-6.1); RED CELL DISTRIBUTION WIDTH 14.7 % (11.6-14.6)
[2021-06-02 13:01] LABS: CHLORIDE 111 mEq/L (98-107)
[2021-06-02] MEDS ORDERED: FUROSEMIDE 100MG/10ML VIAL IV STA (13:11)
[2021-06-02] MEDS ORDERED: CALCIUM CHLORIDE 1GM/10ML SYR IV ONE (13:15)
[2021-06-02] MEDS ORDERED: DEXTROSE 50% WATER 50ML SYRINGE IV ONE (13:15)
[2021-06-02] MEDS ORDERED: SODIUM BICARBONATE 8.4% 1 MEQ/ML 50ML SYR IV ONE (13:15)
[2021-06-02] MEDS ORDERED: INSULIN REGULAR (HUMULIN R) 300UNITS/3ML VIAL IV ONE (13:15)
[2021-06-02] MEDS ORDERED: ALBUTEROL (0.083%) 2.5MG/3ML NEB HHN ONE (13:15)
[2021-06-02] MEDS ORDERED: ALBUTEROL (0.083%) 2.5MG/3ML NEB ONE (13:58)
[2021-06-02 16:57] LABS: HEPATITIS B SURFACE ANTIGEN NEGATIVE
[2021-06-02] MEDS ORDERED: ONDANSETRON HCL 4MG/2ML INJ IV STA (17:08)
[2021-06-02] MEDS ORDERED: MORPHINE SULFATE 4 MG/ML CPJ (NOT FOR IM USE) IV STA (17:08)
[2021-06-02 17:26] LABS: HEPATITIS A AB IGM NEGATIVE (NEGATIVE)
[2021-06-02] MEDS ORDERED: CLONIDINE 0.1MG TABLET PO PRN (17:45)
[2021-06-02] MEDS ORDERED: GUAIFENESIN 200MG/10ML SUGAR FREE UDC PO PRN (17:45)
[2021-06-02] MEDS ORDERED: MAGNESIUM/ALUMINUM HYDROXIDE/SIMETHICONE 30ML UDC PO PRN (17:45)
[2021-06-02] MEDS ORDERED: DOCUSATE SODIUM 100MG CAPSULE PO PRN (17:45)
[2021-06-02] MEDS ORDERED: DIPHENHYDRAMINE 50MG/ML VIAL IV PRN (17:45)
[2021-06-02] MEDS ORDERED: HYDROCODONE/ACETAMINOPHEN 5/325MG TABLET PO PRN (17:45)
[2021-06-02] MEDS ORDERED: ACETAMINOPHEN 325MG TABLET PO PRN (17:45)
[2021-06-02] MEDS ORDERED: LORAZEPAM 2MG/ML CPJ IV PRN (17:45)
[2021-06-02] MEDS: AMLODIPINE 10MG TABLET PO SCH (19:27)
[2021-06-02 22:02] VITALS: BP 160/90
[2021-06-02 22:30] VITALS: BP 160/96
[2021-06-02] MEDS: ONDANSETRON HCL 4MG/2ML INJ IV PRN (23:25)
[2021-06-03] VITALS: BP 154/93
[2021-06-03] MEDS ORDERED: CALC0.253 MT (01:31)
[2021-06-03] MEDS ORDERED: ATOR10TA69 MT (01:40)
[2021-06-03] MEDS ORDERED: FERR324T4 MT (01:44)
[2021-06-03 04:00] VITALS: BP 161/96
[2021-06-03 08:00] VITALS: BP 131/91
[2021-06-03] MEDS: ONDANSETRON HCL 4MG/2ML INJ IV PRN ×2 (09:06→17:12)
[2021-06-03] MEDS: AMLODIPINE 10MG TABLET PO SCH (09:07)
[2021-06-03 11:28] LABS: HEMOGLOBIN. 10.1 g/dL (14.0-18.0); MEAN CORPUSCULAR HEMOGLOBIN 30.1 pg (28.0-32.0); MEAN CORPUSCULAR VOLUME 92.5 fL (80.0-94.0); MEAN PLATELET VOLUME 7.5 fl (7.4-10.4); PLATELET 272 x1000/uL (130-400); RED BLOOD CELL COUNT 3.35 mill/uL (4.7-6.1); RED CELL DISTRIBUTION WIDTH 14.3 % (11.6-14.6)
[2021-06-03 11:41] LABS: CHLORIDE 104 mEq/L (98-107)
[2021-06-03 12:00] VITALS: BP 127/83
[2021-06-03] MEDS: CALCITRIOL 0.25MCG CAPSULE PO SCH (12:05)
[2021-06-03] MEDS: LEVOTHYROXINE SODIUM 25MCG TABLET PO SCH (12:05)
[2021-06-03] MEDS: METOCLOPRAMIDE HCL 5MG TABLET PO SCH ×2 (12:05→17:12)
[2021-06-03] MEDS: ATORVASTATIN CALCIUM 10MG TABLET PO SCH (12:05)
[2021-06-03] MEDS: CALCIUM ACETATE 667MG CAPSULE PO SCH ×2 (12:44→17:12)
[2021-06-03] MEDS: HYDRALAZINE HCL 10MG TABLET PO SCH (12:44)
[2021-06-03 16:00] VITALS: BP 128/88
[2021-06-03 20:00] VITALS: BP 123/88
[2021-06-03 21:06] LABS: PLATELET ESTIMATE NORMAL
[2021-06-04] VITALS: BP 136/84
[2021-06-04] MEDS: METOCLOPRAMIDE HCL 5MG TABLET PO SCH ×3 (01:56→12:31)
[2021-06-04 04:00] VITALS: BP 144/75
[2021-06-04 08:09] VITALS: BP 122/75
[2021-06-04] MEDS: CALCITRIOL 0.25MCG CAPSULE PO SCH (08:59)
[2021-06-04] MEDS: HYDRALAZINE HCL 10MG TABLET PO SCH (08:59)
[2021-06-04] MEDS: LEVOTHYROXINE SODIUM 25MCG TABLET PO SCH (08:59)
[2021-06-04] MEDS: CALCIUM ACETATE 667MG CAPSULE PO SCH ×2 (08:59→12:31)
[2021-06-04] MEDS: ATORVASTATIN CALCIUM 10MG TABLET PO SCH (08:59)
[2021-06-04] MEDS: AMLODIPINE 10MG TABLET PO SCH (08:59)
[2021-06-04 11:13] VITALS: BP 116/85
[2021-06-04 14:21] VITALS: BP 131/66
[2021-06-04 15:38] VITALS: BP 126/70
[2021-06-04] MEDS ORDERED: MIRTAZAPINE 15MG TABLET PO SCH (21:00)
== END 2021-06-04 18:40 | disposition home or self-care (01) | DRG 194 ==
LOC: ER 09:42 → ENRESERV 20:38 → 6WST 22:35
PROVIDERS: ADMIT Hospitalist; ATTEND Hospitalist
PROC: 5A1D70Z Performance of Urinary Filtration, Intermittent, Less than 6 Hours Per Day (ICD-10-PCS; principal; 2021-06-03)
DX: I13.2 Hypertensive heart and chronic kidney disease with heart failure and with stage 5 chronic kidney disease, or end stage renal disease (principal); N18.6 End stage renal disease; E87.5 Hyperkalemia; K86.1 Other chronic pancreatitis; N25.81 Secondary hyperparathyroidism of renal origin; I50.33 Acute on chronic diastolic (congestive) heart failure; E03.9 Hypothyroidism, unspecified; D64.9 Anemia, unspecified; F41.9 Anxiety disorder, unspecified; R20.0 Anesthesia of skin; F32.9 Major depressive disorder, single episode, unspecified; R51.9 Headache, unspecified; E78.5 Hyperlipidemia, unspecified; Z85.038 Personal history of other malignant neoplasm of large intestine; Z90.49 Acquired absence of other specified parts of digestive tract; Z99.2 Dependence on renal dialysis; Z87.442 Personal history of urinary calculi; Z86.14 Personal history of Methicillin resistant Staphylococcus aureus infection; Z91.19 Patient's noncompliance with other medical treatment and regimen; Z88.0 Allergy status to penicillin; Z88.8 Allergy status to other drugs, medicaments and biological substances; Z93.3 Colostomy status; Z79.899 Other long term (current) drug therapy; Z79.82 Long term (current) use of aspirin; Z87.440 Personal history of urinary (tract) infections
CPT/HCPCS: 36415; 71045; 73100; 73120; 73560; 80053; 84484; 85025; 86705; 86709; 86803; 87340; 93005; 94640; 99291; J1815; J1940; J2270; J2405; J3490; J8597

== ENCOUNTER 2021-06-08 03:29 | Inpatient (IN) | payer MEDICAID ==
[~2021-06-08] VITALS: Ht 185.4 cm; Wt 69.1 kg
[~2021-06-08 03:29] MED LIST changes: +ATOR10TA69 MT; +CALC0.253 MT; +FERR324T4 MT
[2021-06-08 04:49] LABS: BASOPHILS % 0.9 % (0.0-2.0); EOSINOPHILS % 3.8 % (0.0-5.0); HEMATOCRIT. 25.3 % (42.0-52.0); HEMOGLOBIN. 8.4 g/dL (14.0-18.0); MEAN PLATELET VOLUME 7.5 fl (7.4-10.4); MONOCYTES % 9.2 % (2.0-8.0); NEUTROPHILS % 71.1 % (40.0-76.0); PLATELET 231 x1000/uL (130-400); RED BLOOD CELL COUNT 2.73 mill/uL (4.7-6.1); RED CELL DISTRIBUTION WIDTH 14.5 % (11.6-14.6)
[2021-06-08 05:02] LABS: PROTHROMBIN TIME 10.9 sec (9.6-11.0)
[2021-06-08 05:08] LABS: PHOSPHORUS 8.6 mg/dL (2.5-4.9)
[2021-06-08 05:50] LABS: CLARITY URINE CLEAR (CLEAR); COLOR URINE YELLOW (YELLOW); KETONES URINE NEGATIVE (NEGATIVE); LEUKOCYTE ESTERASE URINE NEGATIVE (NEGATIVE); NITRITE URINE NEGATIVE (NEGATIVE); OCCULT BLOOD URINE TRACE (NEGATIVE); PH URINE 8.5 (4.5-8.0); PROTEIN URINE 2+ (NEGATIVE); UROBILINOGEN URINE 0.2 E.U./dL (0.2-1.0)
[2021-06-08] MEDS ORDERED: ONDANSETRON HCL 4MG/2ML INJ IV ONE (06:45)
[2021-06-08] MEDS ORDERED: CALCIUM GLUCONATE 1GM PREMIX 50 ML IV SCH (07:00)
[2021-06-08] MEDS ORDERED: SODIUM POLYSTYRENE SULFONATE 15 G/60 ML BOT PO SCH (07:00)
[2021-06-08] MEDS ORDERED: CALCIUM GLUCONATE 100MG/ML 10ML VIAL IV ONE (07:00)
[2021-06-08] MEDS ORDERED: ONDANSETRON HCL 4MG/2ML INJ IV PRN (16:30)
[2021-06-08] MEDS ORDERED: ACETAMINOPHEN 325MG TABLET PO PRN ×2 (16:30)
[2021-06-08] MEDS ORDERED: MAGNESIUM/ALUMINUM HYDROXIDE/SIMETHICONE 30ML UDC PO PRN (16:30)
[2021-06-08] MEDS ORDERED: GUAIFENESIN 200MG/10ML SUGAR FREE UDC PO PRN (16:30)
[2021-06-08] MEDS ORDERED: DIPHENHYDRAMINE 50MG/ML VIAL IV PRN (16:30)
[2021-06-08] MEDS ORDERED: CLONIDINE 0.1MG TABLET PO PRN (16:30)
[2021-06-08 22:05] VITALS: BP 172/104
[2021-06-08 22:16] VITALS: BP 172/104
[2021-06-08] MEDS: MIRTAZAPINE 15MG TABLET PO SCH (22:41)
[2021-06-08] MEDS: ZOLPIDEM TARTRATE 5MG TABLET PO PRN (22:41)
[2021-06-08] MEDS: FAMOTIDINE 20MG TABLET PO SCH (22:41)
[2021-06-08] MEDS: SODIUM CHLORIDE 0.9% INJ 3ML FLUSH IVF SCH (22:42)
[2021-06-08] MEDS: HYDRALAZINE HCL 25MG TABLET PO SCH (22:42)
[2021-06-09] VITALS (12 sets, daily range): BP systolic 99–162; BP diastolic 56–116
[2021-06-09 00:26] LABS: HEPATITIS B SURFACE ANTIGEN NEGATIVE
[2021-06-09 00:56] LABS: HEPATITIS A AB IGM NEGATIVE (NEGATIVE)
[2021-06-09] MEDS: SODIUM CHLORIDE 0.9% INJ 3ML FLUSH IVF SCH ×4 (06:37→21:20)
[2021-06-09] MEDS: LEVOTHYROXINE SODIUM 75MCG TABLET PO SCH (06:37)
[2021-06-09] MEDS: HYDRALAZINE HCL 25MG TABLET PO SCH ×3 (06:37→21:19)
[2021-06-09] MEDS ORDERED: EPOETIN ALFA-EPBX 10,000 UNIT/ML VIAL SUBCUT SCH (21:00)
[2021-06-09] MEDS: ZOLPIDEM TARTRATE 5MG TABLET PO PRN (21:19)
[2021-06-09] MEDS: FAMOTIDINE 20MG TABLET PO SCH (21:19)
[2021-06-09] MEDS: MIRTAZAPINE 15MG TABLET PO SCH (21:19)
[2021-06-10] VITALS (11 sets, daily range): BP systolic 121–143; BP diastolic 69–102
[2021-06-10] MEDS: HYDRALAZINE HCL 25MG TABLET PO SCH (05:54)
[2021-06-10] MEDS: LEVOTHYROXINE SODIUM 75MCG TABLET PO SCH (05:54)
[2021-06-10] MEDS: SODIUM CHLORIDE 0.9% INJ 3ML FLUSH IVF SCH (05:54)
[2021-06-10 17:26] LABS: HEPATITIS B SURFACE ANTIGEN NEGATIVE
[2021-06-10 17:54] LABS: HEPATITIS A AB IGM NEGATIVE (NEGATIVE)
== END 2021-06-10 21:01 | disposition home or self-care (01) | DRG 425 ==
LOC: ER 03:29 → MICUSO 06:46 → 3WST 20:25
PROVIDERS: ADMIT Internal Medicine; ATTEND Internal Medicine
PROC: 5A1D70Z Performance of Urinary Filtration, Intermittent, Less than 6 Hours Per Day (ICD-10-PCS; principal; 2021-06-08)
PROC: 5A1D70Z Performance of Urinary Filtration, Intermittent, Less than 6 Hours Per Day (ICD-10-PCS; 2021-06-10)
DX: E87.5 Hyperkalemia (principal); I12.0 Hypertensive chronic kidney disease with stage 5 chronic kidney disease or end stage renal disease; E83.30 Disorder of phosphorus metabolism, unspecified; K86.1 Other chronic pancreatitis; Q61.2 Polycystic kidney, adult type; E78.00 Pure hypercholesterolemia, unspecified; D64.9 Anemia, unspecified; F32.9 Major depressive disorder, single episode, unspecified; F41.9 Anxiety disorder, unspecified; E03.9 Hypothyroidism, unspecified; N18.6 End stage renal disease; Z82.71 Family history of polycystic kidney; Z85.038 Personal history of other malignant neoplasm of large intestine; Z91.19 Patient's noncompliance with other medical treatment and regimen; Z93.3 Colostomy status; Z99.2 Dependence on renal dialysis; Z88.8 Allergy status to other drugs, medicaments and biological substances; Z79.899 Other long term (current) drug therapy; Z88.0 Allergy status to penicillin
CPT/HCPCS: 36415; 71045; 80048; 80069; 81003; 84443; 85025; 86705; 86709; 86803; 87340; 93005; 99285; J0610; J0885; J1200; J2405

== ENCOUNTER 2021-06-12 20:43 | Inpatient (IN) | payer MEDICAID ==
[~2021-06-12] VITALS: Ht 185.4 cm; Wt 68.1 kg
[2021-06-12] MEDS ORDERED: ASPIRIN 81MG TABLET PO ONE (23:00)
[2021-06-13 00:40] LABS: BASOPHILS % 0.9 % (0.0-2.0); EOSINOPHILS % 2.5 % (0.0-5.0); HEMATOCRIT. 26.8 % (42.0-52.0); HEMOGLOBIN. 9.4 g/dL (14.0-18.0); LYMPHOCYTES % 15.1 % (20.0-50.0); MEAN CORPUSCULAR HEMOGLOBIN 31.5 pg (28.0-32.0); MEAN CORPUSCULAR VOLUME 89.9 fL (80.0-94.0); MEAN PLATELET VOLUME 8.7 fl (7.4-10.4); MONOCYTES % 7.4 % (2.0-8.0); NEUTROPHILS % 74.1 % (40.0-76.0); PLATELET 219 x1000/uL (130-400); RED BLOOD CELL COUNT 2.99 mill/uL (4.7-6.1); RED CELL DISTRIBUTION WIDTH 14.4 % (11.6-14.6)
[2021-06-13 00:46] LABS: CHLORIDE 99 mEq/L (98-107)
[2021-06-13 08:20] VITALS: BP 132/83
[2021-06-13 09:00] VITALS: BP 138/83
[2021-06-13] MEDS ORDERED: ACETAMINOPHEN 325MG TABLET PO PRN (09:15)
[2021-06-13] MEDS ORDERED: HYDROCODONE/ACETAMINOPHEN 5/325MG TABLET PO PRN (09:15)
[2021-06-13] MEDS ORDERED: DIPHENHYDRAMINE 50MG/ML VIAL IV PRN (09:15)
[2021-06-13] MEDS ORDERED: GUAIFENESIN 200MG/10ML SUGAR FREE UDC PO PRN (09:15)
[2021-06-13] MEDS ORDERED: MAGNESIUM/ALUMINUM HYDROXIDE/SIMETHICONE 30ML UDC PO PRN (09:15)
[2021-06-13] MEDS ORDERED: AMLODIPINE 10MG TABLET PO SCH (09:15)
[2021-06-13] MEDS ORDERED: ONDANSETRON HCL 4MG/2ML INJ IV PRN (09:15)
[2021-06-13] MEDS ORDERED: DOCUSATE SODIUM 100MG CAPSULE PO PRN (09:15)
[2021-06-13] MEDS ORDERED: CLONIDINE 0.1MG TABLET PO PRN (09:15)
[2021-06-13] MEDS ORDERED: ASPIRIN 81MG EC TABLET PO SCH (09:45)
[2021-06-13 12:00] VITALS: BP 162/78
[2021-06-13 15:43] VITALS: BP 143/66
== END 2021-06-13 18:06 | disposition home or self-care (01) | DRG 203 ==
LOC: ER 20:43 → MICUSO 06-13 03:39 → 6WST 06-13 07:46
PROVIDERS: ADMIT Hospitalist; ATTEND Hospitalist
DX: M94.0 Chondrocostal junction syndrome [Tietze] (principal); I50.33 Acute on chronic diastolic (congestive) heart failure; N18.6 End stage renal disease; D63.1 Anemia in chronic kidney disease; I13.2 Hypertensive heart and chronic kidney disease with heart failure and with stage 5 chronic kidney disease, or end stage renal disease; Z88.0 Allergy status to penicillin; Z79.82 Long term (current) use of aspirin; Z88.8 Allergy status to other drugs, medicaments and biological substances; Z79.899 Other long term (current) drug therapy; Z93.3 Colostomy status; Z82.49 Family history of ischemic heart disease and other diseases of the circulatory system; Z99.2 Dependence on renal dialysis; Z85.038 Personal history of other malignant neoplasm of large intestine
CPT/HCPCS: 36415; 71045; 80053; 83880; 84484; 85025; 93005; 99285

== ENCOUNTER 2021-07-21 18:28 | Emergency (ER) | payer MEDICAID ==
[~2021-07-21] VITALS: Ht 177.8 cm; Wt 78.0 kg
[2021-07-21] MEDS ORDERED: CYCLOBENZAPRINE 10MG TABLET PO STA (19:41)
[2021-07-21] MEDS ORDERED: ACETAMINOPHEN 325MG TABLET PO ONE (19:45)
[2021-07-21] MEDS ORDERED: LIDOCAINE 5% PATCH TOP SCH (19:45)
[2021-07-21 20:56] VITALS: BP 148/80
[2021-08-08] MEDS ORDERED: BISM262T15 PO (01:13)
== END 2021-07-21 20:56 | disposition home or self-care (01) ==
LOC: ER 18:28
DX: M54.5 Low back pain (principal); I10 Essential (primary) hypertension; H40.9 Unspecified glaucoma; Z85.9 Personal history of malignant neoplasm, unspecified; Z88.8 Allergy status to other drugs, medicaments and biological substances; Z93.3 Colostomy status; Z79.82 Long term (current) use of aspirin; Z88.0 Allergy status to penicillin
CPT/HCPCS: 99284

== ENCOUNTER 2021-09-22 23:26 | Emergency (ER) | payer MEDICAID, OTHER ==
[~2021-09-22] VITALS: Ht 185.4 cm; Wt 79.0 kg
[~2021-09-22 23:26] MED LIST changes: -ASPI-1079 PO; +BISM262T15 PO
[2021-09-23 03:23] LABS: BASOPHILS % 0.8 % (0.0-2.0); EOSINOPHILS % 2.9 % (0.0-5.0); HEMATOCRIT. 23.4 % (42.0-52.0); HEMOGLOBIN. 7.7 g/dL (14.0-18.0); LYMPHOCYTES % 19.1 % (20.0-50.0); MEAN CORPUSCULAR VOLUME 91.1 fL (80.0-94.0); MEAN PLATELET VOLUME 8.3 fl (7.4-10.4); MONOCYTES % 9.7 % (2.0-8.0); NEUTROPHILS % 67.5 % (40.0-76.0); PLATELET 186 x1000/uL (130-400); RED BLOOD CELL COUNT 2.57 mill/uL (4.7-6.1); RED CELL DISTRIBUTION WIDTH 15.3 % (11.6-14.6)
[2021-09-23 03:34] LABS: PROTHROMBIN TIME 11.1 sec (9.6-11.0)
[2021-09-23 03:42] LABS: CHLORIDE 107 mEq/L (98-107)
[2021-09-23 05:17] VITALS: BP 132/72
[2021-09-23 05:43] LABS: CLARITY URINE CLEAR (CLEAR); COLOR URINE YELLOW (YELLOW); KETONES URINE NEGATIVE (NEGATIVE); LEUKOCYTE ESTERASE URINE NEGATIVE (NEGATIVE); NITRITE URINE NEGATIVE (NEGATIVE); OCCULT BLOOD URINE 1+ (NEGATIVE); PH URINE 8.5 (4.5-8.0); PROTEIN URINE 2+ (NEGATIVE); SPECIFIC GRAVITY URINE 1.009 (1.005-1.030); UROBILINOGEN URINE 0.2 E.U./dL (0.2-1.0)
== END 2021-09-23 05:57 | disposition home or self-care (01) ==
LOC: ER 23:26
DX: R53.1 Weakness (principal); I12.0 Hypertensive chronic kidney disease with stage 5 chronic kidney disease or end stage renal disease; E11.22 Type 2 diabetes mellitus with diabetic chronic kidney disease; N18.6 End stage renal disease; Z99.2 Dependence on renal dialysis; Z79.899 Other long term (current) drug therapy; Z98.890 Other specified postprocedural states; Z88.0 Allergy status to penicillin; Z88.8 Allergy status to other drugs, medicaments and biological substances; Z20.822 Contact with and (suspected) exposure to COVID-19
CPT/HCPCS: 36415; 71045; 80053; 81003; 83880; 84484; 85025; 87426; 93005; 99285

== ENCOUNTER 2021-09-30 01:33 | Inpatient (IN) | payer MEDICAID, OTHER ==
[~2021-09-30] VITALS: Ht 182.9 cm; Wt 75.7 kg
[2021-09-30 03:15] LABS: EOSINOPHILS % 3.7 % (0.0-5.0); HEMATOCRIT. 23.1 % (42.0-52.0); HEMOGLOBIN. 7.5 g/dL (14.0-18.0); LYMPHOCYTES % 15.2 % (20.0-50.0); MEAN CORPUSCULAR HEMOGLOBIN 30.2 pg (28.0-32.0); MEAN CORPUSCULAR VOLUME 92.4 fL (80.0-94.0); MEAN PLATELET VOLUME 8.3 fl (7.4-10.4); MONOCYTES % 10.4 % (2.0-8.0); NEUTROPHILS % 69.7 % (40.0-76.0); PLATELET 191 x1000/uL (130-400); RED CELL DISTRIBUTION WIDTH 15.8 % (11.6-14.6)
[2021-09-30 03:21] LABS: CHLORIDE 107 mEq/L (98-107)
[2021-09-30 10:00] VITALS: BP 103/62
[2021-09-30 10:22] LABS: PROTHROMBIN TIME 11.1 sec (9.6-11.0)
[2021-09-30 10:26] VITALS: BP 103/62
[2021-09-30] MEDS ORDERED: LIDOCAINE HCL 1% 20ML VIAL (Pyxis) INJ ONE (10:30)
[2021-09-30 12:00] VITALS: BP 153/97
[2021-09-30] MEDS: ACETAMINOPHEN 325MG TABLET PO PRN ×2 (13:18→22:44)
[2021-09-30] MEDS: ONDANSETRON HCL 4MG/2ML INJ IV PRN ×2 (13:18→23:24)
[2021-09-30 16:00] VITALS: BP 159/92
[2021-09-30 17:32] LABS: HEPATITIS B SURFACE ANTIGEN NEGATIVE
[2021-09-30 20:00] VITALS: BP 152/90
[2021-09-30] MEDS ORDERED: EPOETIN ALFA-EPBX 10,000 UNIT/ML VIAL SUBCUT SCH (21:00)
[2021-10-01] VITALS (25 sets, daily range): BP systolic 125–175; BP diastolic 76–107
[2021-10-01] MEDS ORDERED: CLINDAMYCIN 600 MG in DEXTROSE 5% WATER 50 ML IV ONE (07:15)
[2021-10-01 07:38] LABS: BASOPHILS % 0.9 % (0.0-2.0); EOSINOPHILS % 3.2 % (0.0-5.0); HEMATOCRIT. 22.3 % (42.0-52.0); HEMOGLOBIN. 7.2 g/dL (14.0-18.0); LYMPHOCYTES % 15.9 % (20.0-50.0); MEAN CORPUSCULAR VOLUME 92.9 fL (80.0-94.0); MEAN PLATELET VOLUME 8.6 fl (7.4-10.4); MONOCYTES % 9.6 % (2.0-8.0); NEUTROPHILS % 70.4 % (40.0-76.0); PLATELET 189 x1000/uL (130-400)
[2021-10-01] MEDS ORDERED: CLINDAMYCIN 600MG PREMIX 50 ML IV NR (08:00)
[2021-10-01] MEDS ORDERED: LIDOCAINE HCL 1% 20ML VIAL (Pyxis) INJ ONE ×2 (08:17→09:32)
[2021-10-01] MEDS ORDERED: FENTANYL CITRATE/PF 50MCG/ML 2ML VIAL ONE ×2 (09:01→09:54)
[2021-10-01] MEDS ORDERED: IOHEXOL-300 50 ML BOTTLE IV ONE (09:22)
[2021-10-01] MEDS ORDERED: FENTANYL CITRATE/PF 50MCG/ML 2ML VIAL IV NR (09:45)
[2021-10-01] MEDS: AMLODIPINE 10MG TABLET PO SCH (15:57)
[2021-10-01] MEDS: METOCLOPRAMIDE HCL 5MG TABLET PO SCH ×2 (17:34→21:30)
[2021-10-01] MEDS: CALCIUM ACETATE 667MG CAPSULE PO SCH (17:35)
[2021-10-01] MEDS: ACETAMINOPHEN 325MG TABLET PO PRN (22:40)
[2021-10-02] VITALS (9 sets, daily range): BP systolic 144–159; BP diastolic 86–96
[2021-10-02] MEDS ORDERED: LEVOTHYROXINE SODIUM 25MCG TABLET PO SCH (07:20)
[2021-10-02 07:47] LABS: BASOPHILS % 0.7 % (0.0-2.0); EOSINOPHILS % 2.7 % (0.0-5.0); HEMATOCRIT. 25.1 % (42.0-52.0); HEMOGLOBIN. 8.5 g/dL (14.0-18.0); LYMPHOCYTES % 15.9 % (20.0-50.0); MEAN CORPUSCULAR HEMOGLOBIN 30.6 pg (28.0-32.0); MEAN CORPUSCULAR VOLUME 90.4 fL (80.0-94.0); MEAN PLATELET VOLUME 9.3 fl (7.4-10.4); MONOCYTES % 9.8 % (2.0-8.0); NEUTROPHILS % 70.9 % (40.0-76.0); PLATELET 177 x1000/uL (130-400); RED BLOOD CELL COUNT 2.77 mill/uL (4.7-6.1); RED CELL DISTRIBUTION WIDTH 16.3 % (11.6-14.6)
[2021-10-02] MEDS: METOCLOPRAMIDE HCL 5MG TABLET PO SCH ×3 (08:45→18:14)
[2021-10-02] MEDS: AMLODIPINE 10MG TABLET PO SCH (08:45)
[2021-10-02] MEDS: CALCIUM ACETATE 667MG CAPSULE PO SCH ×3 (08:45→18:11)
[2021-10-02] MEDS ORDERED: HYDRALAZINE HCL 10MG TABLET PO SCH (09:00)
[2021-10-02] MEDS ORDERED: ATORVASTATIN CALCIUM 10MG TABLET PEG SCH (09:00)
[2021-10-02] MEDS: ACETAMINOPHEN 325MG TABLET PO PRN (18:11)
[2021-10-03] MEDS ORDERED: CALCITRIOL 0.25MCG CAPSULE PO SCH (09:00)
== END 2021-10-02 22:10 | disposition home or self-care (01) | DRG 466 ==
LOC: ER 01:33 → 6WST 03:53 → EDBEDREQTM 04:10 → EDBEDREQ 04:10 → ENRESERV 07:23
PROVIDERS: ADMIT Internal Medicine; ATTEND Internal Medicine
PROC: 02HV33Z Insertion of Infusion Device into Superior Vena Cava, Percutaneous Approach (ICD-10-PCS; principal; 2021-09-30)
PROC: B548ZZA Ultrasonography of Superior Vena Cava, Guidance (ICD-10-PCS; 2021-09-30)
PROC: B5181ZA Fluoroscopy of Superior Vena Cava using Low Osmolar Contrast, Guidance (ICD-10-PCS; 2021-09-30)
PROC: 5A1D70Z Performance of Urinary Filtration, Intermittent, Less than 6 Hours Per Day (ICD-10-PCS; 2021-09-30)
PROC: 02HV33Z Insertion of Infusion Device into Superior Vena Cava, Percutaneous Approach (ICD-10-PCS; 2021-10-01)
PROC: B548ZZA Ultrasonography of Superior Vena Cava, Guidance (ICD-10-PCS; 2021-10-01)
PROC: 30233N1 Transfusion of Nonautologous Red Blood Cells into Peripheral Vein, Percutaneous Approach (ICD-10-PCS; 2021-10-01)
PROC: 5A1D70Z Performance of Urinary Filtration, Intermittent, Less than 6 Hours Per Day (ICD-10-PCS; 2021-10-01)
DX: T82.42XA Displacement of vascular dialysis catheter, initial encounter (principal); I12.0 Hypertensive chronic kidney disease with stage 5 chronic kidney disease or end stage renal disease; E46 Unspecified protein-calorie malnutrition; N18.6 End stage renal disease; D62 Acute posthemorrhagic anemia; Q61.2 Polycystic kidney, adult type; D64.9 Anemia, unspecified; Z20.822 Contact with and (suspected) exposure to COVID-19; K86.1 Other chronic pancreatitis; E21.1 Secondary hyperparathyroidism, not elsewhere classified; F32.9 Major depressive disorder, single episode, unspecified; F41.9 Anxiety disorder, unspecified; R74.01 Elevation of levels of liver transaminase levels; Y84.1 Kidney dialysis as the cause of abnormal reaction of the patient, or of later complication, without mention of misadventure at the time of the procedure; Z99.2 Dependence on renal dialysis; Z82.49 Family history of ischemic heart disease and other diseases of the circulatory system; Z93.3 Colostomy status; Z85.038 Personal history of other malignant neoplasm of large intestine; Z88.0 Allergy status to penicillin; Z88.8 Allergy status to other drugs, medicaments and biological substances; Y92.89 Other specified places as the place of occurrence of the external cause; Z68.22 Body mass index [BMI] 22.0-22.9, adult
CPT/HCPCS: 36415; 36556; 36558; 36589; 71045; 76937; 77001; 80048; 80053; 85025; 86705; 86709; 86803; 86850; 86900; 86920; 87340; 87426; 93005; 99152; 99153; 99285; C1750; C1752; C1769; C1887; J0885; J1642; J2405; J3010; J3490; J8597; P9016; Q9967; G0500

== ENCOUNTER 2021-10-21 02:00 | Emergency (ER) | payer MEDICAID, OTHER ==
[~2021-10-21] VITALS: Ht 180.3 cm; Wt 73.0 kg
[2021-10-21 02:07] VITALS: BP 130/50
[2021-10-21] MEDS ORDERED: ACETAMINOPHEN WITH CODEINE 300/30MG TABLET PO ONE (02:30)
[2021-10-21 03:11] LABS: BASOPHILS % 0.8 % (0.0-2.0); EOSINOPHILS % 4.1 % (0.0-5.0); HEMATOCRIT. 24.9 % (42.0-52.0); HEMOGLOBIN. 8.2 g/dL (14.0-18.0); LYMPHOCYTES % 15.2 % (20.0-50.0); MEAN CORPUSCULAR HEMOGLOBIN 30.5 pg (28.0-32.0); MEAN CORPUSCULAR VOLUME 92.4 fL (80.0-94.0); MEAN PLATELET VOLUME 7.5 fl (7.4-10.4); MONOCYTES % 9.1 % (2.0-8.0); NEUTROPHILS % 70.8 % (40.0-76.0); PLATELET 248 x1000/uL (130-400); RED CELL DISTRIBUTION WIDTH 15.7 % (11.6-14.6)
[2021-10-21 03:15] LABS: CHLORIDE 107 mEq/L (98-107)
[2021-10-21] MEDS ORDERED: T3 PO (04:02)
== END 2021-10-21 05:09 | disposition home or self-care (01) ==
LOC: ER 02:00
DX: S62.501A Fracture of unspecified phalanx of right thumb, initial encounter for closed fracture (principal); I10 Essential (primary) hypertension; Z88.8 Allergy status to other drugs, medicaments and biological substances; Z98.890 Other specified postprocedural states; Z79.899 Other long term (current) drug therapy; W01.0XXA Fall on same level from slipping, tripping and stumbling without subsequent striking against object, initial encounter; Y93.89 Activity, other specified; Y92.89 Other specified places as the place of occurrence of the external cause; Y99.8 Other external cause status
CPT/HCPCS: 29125; 36415; 73130; 80053; 85025; 93005; 99285

== ENCOUNTER 2021-12-15 00:11 | Inpatient (IN) | payer MEDICAID, OTHER ==
[~2021-12-15] VITALS: Ht 182.9 cm; Wt 72.6 kg
[~2021-12-15 00:11] MED LIST changes: +T3 PO
[2021-12-15 01:21] LABS: BASOPHILS % 1.3 % (0.0-2.0); EOSINOPHILS % 4.6 % (0.0-5.0); HEMATOCRIT. 25.7 % (42.0-52.0); HEMOGLOBIN. 8.4 g/dL (14.0-18.0); LYMPHOCYTES % 24.8 % (20.0-50.0); MEAN CORPUSCULAR HEMOGLOBIN 29.8 pg (28.0-32.0); MEAN CORPUSCULAR VOLUME 90.8 fL (80.0-94.0); MEAN PLATELET VOLUME 8.6 fl (7.4-10.4); MONOCYTES % 12.6 % (2.0-8.0); NEUTROPHILS % 56.7 % (40.0-76.0); PLATELET 216 x1000/uL (130-400); RED BLOOD CELL COUNT 2.83 mill/uL (4.7-6.1)
[2021-12-15 01:27] LABS: CHLORIDE 101 mEq/L (98-107)
[2021-12-15 02:25] LABS: CLARITY URINE CLEAR (CLEAR); COLOR URINE YELLOW (YELLOW); KETONES URINE NEGATIVE (NEGATIVE); LEUKOCYTE ESTERASE URINE NEGATIVE (NEGATIVE); NITRITE URINE NEGATIVE (NEGATIVE); OCCULT BLOOD URINE TRACE (NEGATIVE); PH URINE >=9.0 (4.5-8.0); PROTEIN URINE 3+ (NEGATIVE); SPECIFIC GRAVITY URINE 1.011 (1.005-1.030); UROBILINOGEN URINE 0.2 E.U./dL (0.2-1.0)
[2021-12-15] MEDS ORDERED: LEVOFLOXACIN 750MG PREMIX 150 ML IV STA (04:43)
[2021-12-15] MEDS ORDERED: PANTOPRAZOLE SODIUM 40 MG/VIAL IV ONE (04:45)
[2021-12-15 09:45] VITALS: BP 132/91
[2021-12-15 09:50] VITALS: BP 132/91
[2021-12-15] MEDS ORDERED: ACETAMINOPHEN 325MG TABLET PO PRN (10:15)
[2021-12-15] MEDS ORDERED: CLONIDINE 0.1MG TABLET PO PRN (10:15)
[2021-12-15] MEDS ORDERED: MAGNESIUM/ALUMINUM HYDROXIDE/SIMETHICONE 30ML UDC PO PRN (10:15)
[2021-12-15] MEDS ORDERED: ONDANSETRON HCL 4MG/2ML INJ IV PRN (10:15)
[2021-12-15] MEDS ORDERED: HYDROCODONE/ACETAMINOPHEN 5/325MG TABLET PO PRN (10:15)
[2021-12-15] MEDS ORDERED: HYDRALAZINE HCL 10MG TABLET PO SCH (11:00)
[2021-12-15] MEDS ORDERED: NALOXONE HCL 0.4MG/ML VIAL IV PRN (11:00)
[2021-12-15 12:00] VITALS: BP 158/68
[2021-12-15] MEDS: METOCLOPRAMIDE HCL 5MG TABLET PO SCH ×2 (12:00→16:44)
[2021-12-15] MEDS: CALCIUM ACETATE 667MG CAPSULE PO SCH ×2 (12:50→16:45)
[2021-12-15 14:18] LABS: HEPATITIS B SURFACE ANTIGEN NEGATIVE
[2021-12-15] MEDS: CALCITRIOL 0.25MCG CAPSULE PO SCH (14:49)
[2021-12-15] MEDS: LEVOTHYROXINE SODIUM 25MCG TABLET PO SCH (14:49)
[2021-12-15] MEDS ORDERED: GABAPENTIN 300MG CAPSULE PO SCH (16:30)
[2021-12-15 16:49] VITALS: BP 111/74
[2021-12-15 20:00] VITALS: BP 108/74
[2021-12-15] MEDS: EPOETIN ALFA-EPBX 10,000 UNIT/ML VIAL SUBCUT SCH (21:54)
[2021-12-15] MEDS: ATORVASTATIN CALCIUM 10MG TABLET PO SCH (21:55)
[2021-12-15] MEDS: HYDRALAZINE HCL 10MG TABLET PO SCH (21:55)
[2021-12-16] VITALS: BP 110/66
[2021-12-16] MEDS: METOCLOPRAMIDE HCL 5MG TABLET PO SCH ×5 (01:07→17:42)
[2021-12-16 04:00] VITALS: BP 120/81
[2021-12-16] MEDS: LEVOTHYROXINE SODIUM 25MCG TABLET PO SCH (06:50)
[2021-12-16 06:56] LABS: BASOPHILS % 0.7 % (0.0-2.0); EOSINOPHILS % 4.5 % (0.0-5.0); HEMATOCRIT. 27.6 % (42.0-52.0); HEMOGLOBIN. 9.1 g/dL (14.0-18.0); MEAN CORPUSCULAR HEMOGLOBIN 30.1 pg (28.0-32.0); MEAN CORPUSCULAR VOLUME 90.8 fL (80.0-94.0); MEAN PLATELET VOLUME 8.7 fl (7.4-10.4); MONOCYTES % 11.6 % (2.0-8.0); NEUTROPHILS % 56.2 % (40.0-76.0); PLATELET 215 x1000/uL (130-400); RED BLOOD CELL COUNT 3.04 mill/uL (4.7-6.1); RED CELL DISTRIBUTION WIDTH 14.9 % (11.6-14.6)
[2021-12-16 07:10] LABS: CHLORIDE 107 mEq/L (98-107)
[2021-12-16 07:21] LABS: FERRITIN 205 ng/mL (22-322); FOLIC ACID (FOLATE) SERUM >20 ng/mL ng/mL (>5.38)
[2021-12-16 07:22] LABS: INR 1.1; PROTHROMBIN TIME 11.8 sec (9.6-11.0)
[2021-12-16 07:25] LABS: PHOSPHORUS 7.2 mg/dL (2.5-4.9)
[2021-12-16 07:26] LABS: TOTAL IRON BINDING CAPACITY 222 ug/dL (250-450)
[2021-12-16 07:27] LABS: LDL CHOLESTEROL 82 mg/dL (5-100)
[2021-12-16 07:28] LABS: HDL CHOLESTEROL 40 mg/dL (40-59); T4 FREE 0.78 ng/dL (0.76-1.46)
[2021-12-16 07:32] LABS: VITAMIN B12 SERUM 869 pg/mL (211-911)
[2021-12-16 08:09] VITALS: BP 123/71
[2021-12-16] MEDS: GABAPENTIN 300MG CAPSULE PO SCH (08:47)
[2021-12-16] MEDS: PANTOPRAZOLE SODIUM 40 MG/VIAL IV SCH (08:47)
[2021-12-16] MEDS: AMLODIPINE 10MG TABLET PO SCH (08:48)
[2021-12-16] MEDS: CALCIUM ACETATE 667MG CAPSULE PO SCH ×4 (08:50→17:47)
[2021-12-16] MEDS: HYDRALAZINE HCL 10MG TABLET PO SCH ×2 (08:50→21:09)
[2021-12-16 12:15] VITALS: BP 120/81
[2021-12-16 16:11] VITALS: BP 108/66
[2021-12-16] MEDS: FERROUS SULFATE 325MG TABLET PO SCH ×2 (17:33→17:42)
[2021-12-16 20:00] VITALS: BP 111/71
[2021-12-16] MEDS: ATORVASTATIN CALCIUM 10MG TABLET PO SCH (21:08)
[2021-12-17] VITALS: BP 112/72
[2021-12-17] MEDS: METOCLOPRAMIDE HCL 5MG TABLET PO SCH ×4 (00:06→17:23)
[2021-12-17 04:00] VITALS: BP 107/71
[2021-12-17] MEDS: LEVOTHYROXINE SODIUM 25MCG TABLET PO SCH (06:26)
[2021-12-17 08:10] LABS: BASOPHILS % 0.9 % (0.0-2.0); EOSINOPHILS % 4.1 % (0.0-5.0); HEMATOCRIT. 26.9 % (42.0-52.0); MEAN CORPUSCULAR HEMOGLOBIN 29.9 pg (28.0-32.0); MEAN CORPUSCULAR VOLUME 89.9 fL (80.0-94.0); MEAN PLATELET VOLUME 8.9 fl (7.4-10.4); MONOCYTES % 9.2 % (2.0-8.0); NEUTROPHILS % 63.8 % (40.0-76.0); PLATELET 210 x1000/uL (130-400); RED CELL DISTRIBUTION WIDTH 14.8 % (11.6-14.6)
[2021-12-17 08:11] LABS: CHLORIDE 106 mEq/L (98-107)
[2021-12-17] MEDS: GABAPENTIN 300MG CAPSULE PO SCH (08:59)
[2021-12-17] MEDS: PANTOPRAZOLE SODIUM 40 MG/VIAL IV SCH (08:59)
[2021-12-17] MEDS: CALCITRIOL 0.25MCG CAPSULE PO SCH (08:59)
[2021-12-17] MEDS: AMLODIPINE 10MG TABLET PO SCH (09:00)
[2021-12-17] MEDS: CALCIUM ACETATE 667MG CAPSULE PO SCH ×3 (09:00→17:23)
[2021-12-17] MEDS: FERROUS SULFATE 325MG TABLET PO SCH ×2 (09:00→17:23)
[2021-12-17] MEDS: HYDRALAZINE HCL 10MG TABLET PO SCH ×2 (09:00→21:12)
[2021-12-17] MEDS: ASCORBIC ACID 500 MG TABLET PO SCH (09:00)
[2021-12-17 12:00] VITALS: BP 109/80
[2021-12-17 16:01] VITALS: BP 124/86
[2021-12-17 20:00] VITALS: BP 131/84
[2021-12-17] MEDS: ATORVASTATIN CALCIUM 10MG TABLET PO SCH (21:12)
[2021-12-17] MEDS: EPOETIN ALFA-EPBX 10,000 UNIT/ML VIAL SUBCUT SCH (21:49)
[2021-12-18] VITALS: BP 107/72
[2021-12-18] MEDS: METOCLOPRAMIDE HCL 5MG TABLET PO SCH ×2 (00:56→05:43)
[2021-12-18 04:00] VITALS: BP 116/80
[2021-12-18] MEDS: LEVOTHYROXINE SODIUM 25MCG TABLET PO SCH (05:43)
[2021-12-18 07:36] LABS: BASOPHILS % 0.7 % (0.0-2.0); EOSINOPHILS % 4.8 % (0.0-5.0); HEMATOCRIT. 25.8 % (42.0-52.0); LYMPHOCYTES % 21.6 % (20.0-50.0); MEAN CORPUSCULAR HEMOGLOBIN 31.1 pg (28.0-32.0); MEAN CORPUSCULAR VOLUME 89.4 fL (80.0-94.0); MEAN PLATELET VOLUME 9.2 fl (7.4-10.4); MONOCYTES % 8.4 % (2.0-8.0); NEUTROPHILS % 64.5 % (40.0-76.0); PLATELET 196 x1000/uL (130-400); RED BLOOD CELL COUNT 2.88 mill/uL (4.7-6.1); RED CELL DISTRIBUTION WIDTH 14.5 % (11.6-14.6)
[2021-12-18] MEDS: CALCIUM ACETATE 667MG CAPSULE PO SCH (07:50)
[2021-12-18] MEDS: GABAPENTIN 300MG CAPSULE PO SCH (08:56)
[2021-12-18] MEDS: FERROUS SULFATE 325MG TABLET PO SCH (08:56)
[2021-12-18] MEDS: AMLODIPINE 10MG TABLET PO SCH (08:57)
[2021-12-18] MEDS: PANTOPRAZOLE SODIUM 40 MG/VIAL IV SCH (08:57)
[2021-12-18] MEDS: ASCORBIC ACID 500 MG TABLET PO SCH (08:57)
[2021-12-18] MEDS: HYDRALAZINE HCL 10MG TABLET PO SCH (08:57)
[2021-12-18 09:14] VITALS: BP 136/92
== END 2021-12-18 12:55 | disposition home or self-care (01) | DRG 425 ==
LOC: ER 00:11 → MICUSO 03:39 → 6WST 09:50
PROVIDERS: ADMIT Internal Medicine; ATTEND Internal Medicine
PROC: 5A1D70Z Performance of Urinary Filtration, Intermittent, Less than 6 Hours Per Day (ICD-10-PCS; 2021-12-15)
PROC: 5A1D70Z Performance of Urinary Filtration, Intermittent, Less than 6 Hours Per Day (ICD-10-PCS; principal; 2021-12-17)
DX: E87.5 Hyperkalemia (principal); I13.2 Hypertensive heart and chronic kidney disease with heart failure and with stage 5 chronic kidney disease, or end stage renal disease; E46 Unspecified protein-calorie malnutrition; K86.3 Pseudocyst of pancreas; K92.2 Gastrointestinal hemorrhage, unspecified; N18.6 End stage renal disease; D63.8 Anemia in other chronic diseases classified elsewhere; N25.81 Secondary hyperparathyroidism of renal origin; Z20.822 Contact with and (suspected) exposure to COVID-19; I50.32 Chronic diastolic (congestive) heart failure; K86.1 Other chronic pancreatitis; R19.5 Other fecal abnormalities; E03.9 Hypothyroidism, unspecified; G89.29 Other chronic pain; Q61.2 Polycystic kidney, adult type; Z99.2 Dependence on renal dialysis; Z91.19 Patient's noncompliance with other medical treatment and regimen; Z93.3 Colostomy status; Z82.49 Family history of ischemic heart disease and other diseases of the circulatory system; Z85.038 Personal history of other malignant neoplasm of large intestine; Z88.0 Allergy status to penicillin; Z88.8 Allergy status to other drugs, medicaments and biological substances; Z87.891 Personal history of nicotine dependence; Z68.21 Body mass index [BMI] 21.0-21.9, adult
CPT/HCPCS: 36415; 71045; 80048; 80053; 80061; 80076; 81003; 82270; 82607; 82728; 82746; 83540; 83550; 83735; 84100; 84439; 85025; 85044; 86705; 86709; 86803; 87340; 87426; 93005; 93970; 97161; 99285; C9113; J0885; J1956; J8597

== ENCOUNTER 2021-12-23 04:21 | Emergency (ER) | payer MEDICAID ==
[~2021-12-23] VITALS: Ht 182.9 cm; Wt 73.0 kg
[~2021-12-23 04:21] MED LIST changes: -BISM262T15 PO
[2021-12-23 04:25] VITALS: BP 154/82
== END 2021-12-23 05:47 | disposition home or self-care (01) ==
LOC: ER 04:21
DX: Z43.3 Encounter for attention to colostomy (principal); Z88.0 Allergy status to penicillin; Z88.8 Allergy status to other drugs, medicaments and biological substances; Z79.899 Other long term (current) drug therapy
CPT/HCPCS: 99283

== ENCOUNTER 2021-12-26 15:12 | Emergency (ER) | payer MEDICAID ==
[~2021-12-26] VITALS: Ht 177.8 cm; Wt 80.0 kg
[2021-12-26] MEDS ORDERED: DIPHENHYDRAMINE 50MG CAPSULE PO ONE (15:45)
[2021-12-26 16:18] LABS: BASOPHILS % 0.7 % (0.0-2.0); EOSINOPHILS % 1.2 % (0.0-5.0); HEMATOCRIT. 26.8 % (42.0-52.0); LYMPHOCYTES % 15.9 % (20.0-50.0); MEAN CORPUSCULAR VOLUME 91.9 fL (80.0-94.0); MEAN PLATELET VOLUME 7.7 fl (7.4-10.4); MONOCYTES % 8.4 % (2.0-8.0); NEUTROPHILS % 73.8 % (40.0-76.0); PLATELET 203 x1000/uL (130-400); RED BLOOD CELL COUNT 2.92 mill/uL (4.7-6.1); RED CELL DISTRIBUTION WIDTH 14.9 % (11.6-14.6)
[2021-12-26 16:19] LABS: CHLORIDE 106 mEq/L (98-107)
[2021-12-26] MEDS ORDERED: B50 MT (17:53)
[2021-12-26] MEDS ORDERED: LORA10CA MT (17:53)
[2021-12-26 18:13] VITALS: BP 143/92
== END 2021-12-26 18:18 | disposition home or self-care (01) ==
LOC: ER 15:12
DX: T78.40XA Allergy, unspecified, initial encounter (principal); I10 Essential (primary) hypertension; Z79.899 Other long term (current) drug therapy; Z88.0 Allergy status to penicillin; Z98.890 Other specified postprocedural states; X58.XXXA Exposure to other specified factors, initial encounter
CPT/HCPCS: 36415; 71045; 80053; 85025; 93005; 99285; Z7610; Q0163

== ENCOUNTER 2021-12-30 18:45 | Inpatient (IN) | payer MEDICAID ==
[~2021-12-30] VITALS: Ht 185.4 cm; Wt 78.6 kg
[~2021-12-30 18:45] MED LIST changes: +B50 MT; +LORA10CA MT
[2021-12-30] MEDS ORDERED: SODIUM CHLORIDE 0.9% 1,000 ML IV ONE (20:30)
[2021-12-30] MEDS ORDERED: METOCLOPRAMIDE HCL 10MG/2ML VIAL IV ONE (20:30)
[2021-12-30 20:42] LABS: BASOPHILS % 1.1 % (0.0-2.0); EOSINOPHILS % 2.9 % (0.0-5.0); HEMATOCRIT. 27.4 % (42.0-52.0); HEMOGLOBIN. 9.2 g/dL (14.0-18.0); LYMPHOCYTES % 14.9 % (20.0-50.0); MEAN CORPUSCULAR HEMOGLOBIN 30.6 pg (28.0-32.0); MEAN CORPUSCULAR VOLUME 91.2 fL (80.0-94.0); MEAN PLATELET VOLUME 8.1 fl (7.4-10.4); MONOCYTES % 7.5 % (2.0-8.0); NEUTROPHILS % 73.6 % (40.0-76.0); PLATELET 189 x1000/uL (130-400); RED CELL DISTRIBUTION WIDTH 14.5 % (11.6-14.6)
[2021-12-30 20:47] LABS: CHLORIDE 102 mEq/L (98-107)
[2021-12-30 21:47] LABS: *BENZODIAZEPINES SCREEN URINE NEGATIVE (NEGATIVE); *COCAINE SCREEN URINE NEGATIVE (NEGATIVE); METHADONE URINE SCREEN NEGATIVE (NEGATIVE); OPIATES URINE SCREEN NEGATIVE (NEGATIVE)
[2021-12-30 21:48] LABS: *AMPHETAMINES SCREEN URINE NEGATIVE (NEGATIVE); *BARBITURATES SCREEN URINE NEGATIVE (NEGATIVE); CANNABINOID URINE SCREEN NEGATIVE (NEGATIVE); PHENCYCLIDINE URINE SCREEN NEGATIVE (NEGATIVE)
[2021-12-31] MEDS ORDERED: LEVOFLOXACIN 750MG PREMIX 150 ML IV SCH (00:45)
[2021-12-31] MEDS ORDERED: METOCLOPRAMIDE HCL 10MG/2ML VIAL IV SCH (02:00)
[2021-12-31] MEDS ORDERED: ONDANSETRON HCL 4MG/2ML INJ IV PRN (02:15)
[2021-12-31] MEDS ORDERED: DOCUSATE SODIUM 100MG CAPSULE PO PRN (02:15)
[2021-12-31] MEDS ORDERED: ENOXAPARIN 40MG/0.4ML SYR SUBCUT SCH (02:15)
[2021-12-31] MEDS ORDERED: CLONIDINE 0.1MG TABLET PO PRN (02:15)
[2021-12-31] MEDS ORDERED: ACETAMINOPHEN 325MG TABLET PO PRN (02:15)
[2021-12-31] MEDS ORDERED: METOCLOPRAMIDE 10MG/10 ML UDC PO PRN (02:15)
[2021-12-31] MEDS ORDERED: HYDRALAZINE 20MG/ML VIAL IV PRN (02:15)
[2021-12-31 03:52] VITALS: BP 133/96
[2021-12-31] MEDS: LEVOTHYROXINE SODIUM 25MCG TABLET PO SCH (05:46)
[2021-12-31 08:00] VITALS: BP 117/73
[2021-12-31] MEDS: AMLODIPINE 10MG TABLET PO SCH (09:55)
[2021-12-31] MEDS: HYDRALAZINE HCL 10MG TABLET PO SCH (09:55)
[2021-12-31] MEDS: ENOXAPARIN 30MG/0.3ML SYR SUBCUT SCH (09:56)
[2021-12-31 11:22] LABS: BASOPHILS % 1.2 % (0.0-2.0); EOSINOPHILS % 3.2 % (0.0-5.0); HEMATOCRIT. 28.7 % (42.0-52.0); HEMOGLOBIN. 9.7 g/dL (14.0-18.0); LYMPHOCYTES % 16.6 % (20.0-50.0); MEAN CORPUSCULAR HEMOGLOBIN 30.9 pg (28.0-32.0); MEAN CORPUSCULAR VOLUME 91.1 fL (80.0-94.0); MEAN PLATELET VOLUME 9.4 fl (7.4-10.4); MONOCYTES % 7.1 % (2.0-8.0); NEUTROPHILS % 71.9 % (40.0-76.0); PLATELET 212 x1000/uL (130-400); RED BLOOD CELL COUNT 3.15 mill/uL (4.7-6.1); RED CELL DISTRIBUTION WIDTH 14.4 % (11.6-14.6)
[2021-12-31 12:00] VITALS: BP 112/77
[2021-12-31] MEDS: IPRATROPIUM/ALBUTEROL 0.5-3(2.5)MG/3ML NEB HHN PRN ×2 (15:52→22:12)
[2021-12-31 16:30] VITALS: BP 121/88
[2021-12-31 20:00] VITALS: BP 110/72
[2021-12-31] MEDS ORDERED: FAMOTIDINE 20MG TABLET PO SCH (21:00)
[2021-12-31] MEDS ORDERED: ATORVASTATIN CALCIUM 10MG TABLET PO SCH (21:00)
[2021-12-31] MEDS ORDERED: EPOETIN ALFA-EPBX 10,000 UNIT/ML VIAL SUBCUT SCH (21:00)
[2021-12-31] MEDS: GUAIFENESIN 200MG/10ML SUGAR FREE UDC PO PRN (23:59)
[2022-01-01] VITALS: BP 119/78
[2022-01-01] MEDS: LEVOTHYROXINE SODIUM 25MCG TABLET PO SCH (06:30)
[2022-01-01] MEDS: GUAIFENESIN 200MG/10ML SUGAR FREE UDC PO PRN (06:32)
[2022-01-01 08:00] VITALS: BP 123/79
[2022-01-01] MEDS ORDERED: DEXTL PO (10:04)
[2022-01-01 10:40] LABS: EOSINOPHILS % 2.8 % (0.0-5.0); HEMATOCRIT. 25.8 % (42.0-52.0); HEMOGLOBIN. 8.8 g/dL (14.0-18.0); LYMPHOCYTES % 16.5 % (20.0-50.0); MEAN PLATELET VOLUME 8.9 fl (7.4-10.4); MONOCYTES % 6.8 % (2.0-8.0); NEUTROPHILS % 72.9 % (40.0-76.0); PLATELET 165 x1000/uL (130-400); RED BLOOD CELL COUNT 2.84 mill/uL (4.7-6.1); RED CELL DISTRIBUTION WIDTH 14.8 % (11.6-14.6)
[2022-01-01 12:00] VITALS: BP 118/76
[2022-01-01] MEDS: ENOXAPARIN 30MG/0.3ML SYR SUBCUT SCH (12:18)
[2022-01-01] MEDS: HYDRALAZINE HCL 10MG TABLET PO SCH (12:19)
[2022-01-01] MEDS: AMLODIPINE 10MG TABLET PO SCH (12:19)
[2022-01-01 14:30] VITALS: BP 118/76
[2022-01-01 18:41] LABS: HEPATITIS B SURFACE ANTIGEN NEGATIVE
== END 2022-01-01 18:33 | disposition home or self-care (01) | DRG 133 ==
LOC: ER 18:45 → MICUSO 12-31 00:47 → 8WST 12-31 04:17
PROVIDERS: ADMIT Internal Medicine; ATTEND Internal Medicine
PROC: 5A1D70Z Performance of Urinary Filtration, Intermittent, Less than 6 Hours Per Day (ICD-10-PCS; principal; 2022-01-01)
DX: J96.00 Acute respiratory failure, unspecified whether with hypoxia or hypercapnia (principal); I13.2 Hypertensive heart and chronic kidney disease with heart failure and with stage 5 chronic kidney disease, or end stage renal disease; E46 Unspecified protein-calorie malnutrition; N18.6 End stage renal disease; K57.92 Diverticulitis of intestine, part unspecified, without perforation or abscess without bleeding; Q61.2 Polycystic kidney, adult type; Q44.6 Cystic disease of liver; D64.9 Anemia, unspecified; F32.A Depression, unspecified; F41.9 Anxiety disorder, unspecified; I50.9 Heart failure, unspecified; G89.29 Other chronic pain; K86.1 Other chronic pancreatitis; E78.5 Hyperlipidemia, unspecified; E03.9 Hypothyroidism, unspecified; Z20.822 Contact with and (suspected) exposure to COVID-19; E21.1 Secondary hyperparathyroidism, not elsewhere classified; Z86.14 Personal history of Methicillin resistant Staphylococcus aureus infection; Z85.038 Personal history of other malignant neoplasm of large intestine; Z93.3 Colostomy status; Z99.2 Dependence on renal dialysis; Z88.0 Allergy status to penicillin; Z88.8 Allergy status to other drugs, medicaments and biological substances; Z79.1 Long term (current) use of non-steroidal anti-inflammatories (NSAID); Z79.899 Other long term (current) drug therapy; Z68.22 Body mass index [BMI] 22.0-22.9, adult; Z82.49 Family history of ischemic heart disease and other diseases of the circulatory system; R53.1 Weakness; T45.0X5A Adverse effect of antiallergic and antiemetic drugs, initial encounter
CPT/HCPCS: 36415; 71045; 80048; 80053; 80305; 84145; 85025; 86705; 86709; 86803; 87340; 87426; 93005; 94640; 99285; J0360; J0885; J1650; J1956; J2765; J7030

== ENCOUNTER 2022-01-13 01:57 | Emergency (ER) | payer MEDICAID ==
[~2022-01-13] VITALS: Ht 175.3 cm; Wt 81.0 kg
[~2022-01-13 01:57] MED LIST changes: -B50 MT; +DEXTL PO
[2022-01-13] MEDS ORDERED: ACETAMINOPHEN 325MG TABLET PO STA (03:33)
[2022-01-13 06:00] VITALS: BP 145/93
== END 2022-01-13 06:07 | disposition home or self-care (01) ==
LOC: ER 02:08
DX: R07.89 Other chest pain (principal); R60.9 Edema, unspecified; Z88.0 Allergy status to penicillin; Z79.899 Other long term (current) drug therapy; Z88.8 Allergy status to other drugs, medicaments and biological substances
CPT/HCPCS: 71045; 99283

== ENCOUNTER 2022-03-24 23:56 | Inpatient (IN) | payer MEDICAID ==
[~2022-03-24] VITALS: Ht 177.8 cm; Wt 79.8 kg
[2022-03-25 03:03] LABS: BASOPHILS % 1.2 % (0.0-2.0); EOSINOPHILS % 2.1 % (0.0-5.0); HEMOGLOBIN. 11.4 g/dL (14.0-18.0); LYMPHOCYTES % 11.1 % (20.0-50.0); MEAN CORPUSCULAR HEMOGLOBIN 29.7 pg (28.0-32.0); MEAN CORPUSCULAR VOLUME 91.1 fL (80.0-94.0); MEAN PLATELET VOLUME 8.5 fl (7.4-10.4); MONOCYTES % 7.4 % (2.0-8.0); NEUTROPHILS % 78.2 % (40.0-76.0); PLATELET 269 x1000/uL (130-400); RED BLOOD CELL COUNT 3.85 mill/uL (4.7-6.1)
[2022-03-25 03:07] LABS: CHLORIDE 108 mEq/L (98-107)
[2022-03-25] MEDS ORDERED: MAGNESIUM/ALUMINUM HYDROXIDE/SIMETHICONE 30ML UDC PO PRN (10:15)
[2022-03-25] MEDS ORDERED: ACETAMINOPHEN 325MG TABLET PO PRN (10:15)
[2022-03-25] MEDS ORDERED: ZOLPIDEM TARTRATE 5MG TABLET PO PRN (10:15)
[2022-03-25] MEDS ORDERED: CLONIDINE 0.1MG TABLET PO PRN (10:15)
[2022-03-25] MEDS ORDERED: DIPHENHYDRAMINE 50MG/ML VIAL IV PRN (10:15)
[2022-03-25] MEDS ORDERED: ENOXAPARIN 40MG/0.4ML SYR SUBCUT SCH (10:15)
[2022-03-25 12:00] VITALS: BP 125/90
[2022-03-25 12:30] VITALS: BP 125/90
[2022-03-25 14:00] VITALS: BP 125/90
[2022-03-25 16:00] VITALS: BP 130/89
[2022-03-25] MEDS: ENOXAPARIN 30MG/0.3ML SYR SUBCUT SCH (17:38)
[2022-03-25] MEDS: SODIUM CHLORIDE 0.9% INJ 3ML FLUSH IVF SCH ×2 (17:39→20:44)
[2022-03-25 18:00] VITALS: BP 133/82
[2022-03-25 20:11] LABS: HEPATITIS B SURFACE ANTIGEN NEGATIVE
[2022-03-25] MEDS: ATORVASTATIN CALCIUM 10MG TABLET PO SCH (20:43)
[2022-03-25] MEDS: FAMOTIDINE 20MG TABLET PO SCH (20:44)
[2022-03-25] MEDS: ACETAMINOPHEN 325MG TABLET PO PRN (21:51)
[2022-03-26] VITALS: BP 137/96
[2022-03-26 04:00] VITALS: BP 119/69
[2022-03-26] MEDS: SODIUM CHLORIDE 0.9% INJ 3ML FLUSH IVF SCH ×3 (06:00→22:17)
[2022-03-26 08:00] VITALS: BP 137/99
[2022-03-26] MEDS: LEVOTHYROXINE SODIUM 25MCG TABLET PO SCH (10:01)
[2022-03-26] MEDS: AMLODIPINE 10MG TABLET PO SCH (10:01)
[2022-03-26] MEDS: ENOXAPARIN 30MG/0.3ML SYR SUBCUT SCH (10:02)
[2022-03-26] MEDS: ACETAMINOPHEN 325MG TABLET PO PRN (10:07)
[2022-03-26 11:02] LABS: BASOPHILS % 0.9 % (0.0-2.0); EOSINOPHILS % 2.7 % (0.0-5.0); HEMATOCRIT. 33.1 % (42.0-52.0); HEMOGLOBIN. 10.9 g/dL (14.0-18.0); LYMPHOCYTES % 11.9 % (20.0-50.0); MEAN CORPUSCULAR HEMOGLOBIN 30.2 pg (28.0-32.0); MEAN CORPUSCULAR VOLUME 91.6 fL (80.0-94.0); MEAN PLATELET VOLUME 8.5 fl (7.4-10.4); MONOCYTES % 7.1 % (2.0-8.0); NEUTROPHILS % 77.4 % (40.0-76.0); PLATELET 223 x1000/uL (130-400); RED BLOOD CELL COUNT 3.62 mill/uL (4.7-6.1); RED CELL DISTRIBUTION WIDTH 16.2 % (11.6-14.6)
[2022-03-26 11:10] LABS: CHLORIDE 108 mEq/L (98-107)
[2022-03-26] MEDS: GUAIFENESIN 200MG/10ML SUGAR FREE UDC PO PRN ×2 (13:45→19:51)
[2022-03-26 16:00] VITALS: BP 137/84
[2022-03-26] MEDS: FAMOTIDINE 20MG TABLET PO SCH (19:51)
[2022-03-26] MEDS: ATORVASTATIN CALCIUM 10MG TABLET PO SCH (19:51)
[2022-03-26 20:00] VITALS: BP 133/92
[2022-03-27] VITALS: BP 119/80
[2022-03-27] MEDS: SODIUM CHLORIDE 0.9% INJ 3ML FLUSH IVF SCH ×3 (06:22→20:54)
[2022-03-27] MEDS: LEVOTHYROXINE SODIUM 25MCG TABLET PO SCH (06:45)
[2022-03-27] MEDS: GUAIFENESIN 200MG/10ML SUGAR FREE UDC PO PRN ×3 (06:45→17:19)
[2022-03-27 08:00] VITALS: BP 149/78
[2022-03-27] MEDS: AMLODIPINE 10MG TABLET PO SCH (08:20)
[2022-03-27] MEDS: ENOXAPARIN 30MG/0.3ML SYR SUBCUT SCH (10:10)
[2022-03-27 12:00] VITALS: BP 117/81
[2022-03-27 16:00] VITALS: BP 139/95
[2022-03-27] MEDS: ACETAMINOPHEN 325MG TABLET PO PRN (18:50)
[2022-03-27 20:00] VITALS: BP 119/82
[2022-03-27] MEDS: FAMOTIDINE 20MG TABLET PO SCH (20:54)
[2022-03-27] MEDS: ATORVASTATIN CALCIUM 10MG TABLET PO SCH (20:54)
[2022-03-28] VITALS (22 sets, daily range): BP systolic 109–156; BP diastolic 40–116
[2022-03-28] MEDS: LEVOTHYROXINE SODIUM 25MCG TABLET PO SCH (06:06)
[2022-03-28] MEDS: SODIUM CHLORIDE 0.9% INJ 3ML FLUSH IVF SCH ×3 (06:06→21:28)
[2022-03-28 06:45] LABS: BASOPHILS % 1.2 % (0.0-2.0); EOSINOPHILS % 3.9 % (0.0-5.0); HEMATOCRIT. 33.7 % (42.0-52.0); HEMOGLOBIN. 10.9 g/dL (14.0-18.0); LYMPHOCYTES % 12.2 % (20.0-50.0); MEAN CORPUSCULAR HEMOGLOBIN 30.3 pg (28.0-32.0); MEAN CORPUSCULAR VOLUME 93.9 fL (80.0-94.0); MEAN PLATELET VOLUME 8.9 fl (7.4-10.4); MONOCYTES % 7.9 % (2.0-8.0); NEUTROPHILS % 74.8 % (40.0-76.0); PLATELET 216 x1000/uL (130-400); RED BLOOD CELL COUNT 3.59 mill/uL (4.7-6.1); RED CELL DISTRIBUTION WIDTH 16.4 % (11.6-14.6)
[2022-03-28 06:58] LABS: CHLORIDE 109 mEq/L (98-107)
[2022-03-28] MEDS: AMLODIPINE 10MG TABLET PO SCH (09:00)
[2022-03-28] MEDS ORDERED: HEPARIN SODIUM 1,000 UNIT/1ML VIAL IV NR (12:00)
[2022-03-28] MEDS: ENOXAPARIN 30MG/0.3ML SYR SUBCUT SCH (12:06)
[2022-03-28] MEDS: ACETAMINOPHEN 325MG TABLET PO PRN ×2 (12:06→20:50)
[2022-03-28] MEDS: GUAIFENESIN 200MG/10ML SUGAR FREE UDC PO PRN ×2 (13:02→20:58)
[2022-03-28] MEDS ORDERED: DOPAMINE HCL 400 MG in DEXT 5% WATER 240 ML IV PRN (16:30)
[2022-03-28] MEDS: FAMOTIDINE 20MG TABLET PO SCH (20:50)
[2022-03-28] MEDS: ATORVASTATIN CALCIUM 10MG TABLET PO SCH (21:28)
[2022-03-29] VITALS (53 sets, daily range): BP systolic 115–171; BP diastolic 47–137
[2022-03-29] MEDS: ACETAMINOPHEN 325MG TABLET PO PRN ×2 (02:53→08:25)
[2022-03-29] MEDS: SODIUM CHLORIDE 0.9% INJ 3ML FLUSH IVF SCH ×3 (05:08→22:05)
[2022-03-29] MEDS: GUAIFENESIN 200MG/10ML SUGAR FREE UDC PO PRN ×2 (05:50→16:41)
[2022-03-29] MEDS: ONDANSETRON HCL 4MG/2ML INJ IV PRN (06:40)
[2022-03-29] MEDS: AMLODIPINE 10MG TABLET PO SCH (08:24)
[2022-03-29] MEDS: LEVOTHYROXINE SODIUM 25MCG TABLET PO SCH (08:25)
[2022-03-29] MEDS: ENOXAPARIN 30MG/0.3ML SYR SUBCUT SCH (11:10)
[2022-03-29 17:10] LABS: HEPATITIS B SURFACE ANTIGEN NEGATIVE
[2022-03-29] MEDS: ATORVASTATIN CALCIUM 10MG TABLET PO SCH (22:04)
[2022-03-29] MEDS: FAMOTIDINE 20MG TABLET PO SCH (22:04)
[2022-03-30] VITALS (40 sets, daily range): BP systolic 99–148; BP diastolic 41–111
[2022-03-30] MEDS: SODIUM CHLORIDE 0.9% INJ 3ML FLUSH IVF SCH ×3 (08:00→21:57)
[2022-03-30] MEDS: AMLODIPINE 10MG TABLET PO SCH (08:53)
[2022-03-30] MEDS: LEVOTHYROXINE SODIUM 25MCG TABLET PO SCH (08:54)
[2022-03-30] MEDS: ACETAMINOPHEN 325MG TABLET PO PRN (10:59)
[2022-03-30] MEDS: ENOXAPARIN 30MG/0.3ML SYR SUBCUT SCH (11:38)
[2022-03-30] MEDS ORDERED: GUAIFENESIN 200MG/10ML SUGAR FREE UDC PO PRN (16:30)
[2022-03-30] MEDS: ATORVASTATIN CALCIUM 10MG TABLET PO SCH (21:26)
[2022-03-30] MEDS: FAMOTIDINE 20MG TABLET PO SCH (21:26)
[2022-03-31] VITALS (36 sets, daily range): BP systolic 115–174; BP diastolic 44–127
[2022-03-31] MEDS: GUAIFENESIN 200MG/10ML SUGAR FREE UDC PO PRN ×2 (02:35→21:09)
[2022-03-31] MEDS: SODIUM CHLORIDE 0.9% INJ 3ML FLUSH IVF SCH (06:00)
[2022-03-31 06:23] LABS: PARTIAL THROMBOPLASTIN TIME 28.6 sec (23.4-31.0); PROTHROMBIN TIME 11.1 sec (9.6-11.0)
[2022-03-31 06:31] LABS: CHLORIDE 109 mEq/L (98-107)
[2022-03-31 07:42] LABS: BASOPHILS % 1.2 % (0.0-2.0); EOSINOPHILS % 2.4 % (0.0-5.0); HEMATOCRIT. 35.4 % (42.0-52.0); HEMOGLOBIN. 11.5 g/dL (14.0-18.0); LYMPHOCYTES % 10.6 % (20.0-50.0); MEAN CORPUSCULAR HEMOGLOBIN 30.2 pg (28.0-32.0); NEUTROPHILS % 79.8 % (40.0-76.0); PLATELET 202 x1000/uL (130-400); RED CELL DISTRIBUTION WIDTH 16.5 % (11.6-14.6)
[2022-03-31] MEDS: LEVOTHYROXINE SODIUM 25MCG TABLET PO SCH (07:50)
[2022-03-31] MEDS: AMLODIPINE 10MG TABLET PO SCH (09:12)
[2022-03-31 16:35] LABS: CLARITY URINE CLEAR (CLEAR); COLOR URINE YELLOW (YELLOW); KETONES URINE NEGATIVE (NEGATIVE); LEUKOCYTE ESTERASE URINE TRACE (NEGATIVE); NITRITE URINE NEGATIVE (NEGATIVE); OCCULT BLOOD URINE TRACE (NEGATIVE); PH URINE 8.5 (4.5-8.0); PROTEIN URINE 3+ (NEGATIVE); SPECIFIC GRAVITY URINE 1.011 (1.005-1.030); UROBILINOGEN URINE 0.2 E.U./dL (0.2-1.0)
[2022-03-31] MEDS ORDERED: DOCUSATE SODIUM 100MG CAPSULE PO SCH (21:00)
[2022-03-31] MEDS: FAMOTIDINE 20MG TABLET PO SCH (21:09)
[2022-03-31] MEDS: ATORVASTATIN CALCIUM 10MG TABLET PO SCH (21:09)
[2022-04-01] VITALS (63 sets, daily range): BP systolic 87–169; BP diastolic 30–111
[2022-04-01] MEDS: GUAIFENESIN 200MG/10ML SUGAR FREE UDC PO PRN ×4 (00:02→23:30)
[2022-04-01 05:53] LABS: BASOPHILS % 1.3 % (0.0-2.0); EOSINOPHILS % 2.3 % (0.0-5.0); HEMATOCRIT. 33.2 % (42.0-52.0); LYMPHOCYTES % 10.1 % (20.0-50.0); MEAN CORPUSCULAR HEMOGLOBIN 30.6 pg (28.0-32.0); MEAN CORPUSCULAR VOLUME 92.7 fL (80.0-94.0); MONOCYTES % 4.6 % (2.0-8.0); NEUTROPHILS % 81.7 % (40.0-76.0); PLATELET 208 x1000/uL (130-400); RED BLOOD CELL COUNT 3.59 mill/uL (4.7-6.1); RED CELL DISTRIBUTION WIDTH 16.1 % (11.6-14.6)
[2022-04-01 05:57] LABS: PARTIAL THROMBOPLASTIN TIME 27.4 sec (23.4-31.0); PROTHROMBIN TIME 11.2 sec (9.6-11.0)
[2022-04-01 06:03] LABS: CHLORIDE 110 mEq/L (98-107)
[2022-04-01] MEDS ORDERED: LIDOCAINE HCL/PF 1% 10 MG/ML 5ML VIAL ONE ×2 (08:20→10:14)
[2022-04-01] MEDS ORDERED: GENTAMICIN SULF 40MG/ML 2ML VIAL ONE (08:20)
[2022-04-01] MEDS ORDERED: IODIXANOL 320MG/ML 100 ML BOTTLE IV ONE ×2 (08:20→09:50)
[2022-04-01] MEDS ORDERED: FENTANYL CITRATE/PF 50MCG/ML 2ML VIAL ONE ×2 (08:21→10:57)
[2022-04-01] MEDS ORDERED: MIDAZOLAM HCL 2 MG/2 ML VIAL ONE ×2 (08:21→10:13)
[2022-04-01] MEDS ORDERED: VANCOMYCIN HCL 500 MG/VIAL ONE (08:47)
[2022-04-01] MEDS: AMLODIPINE 10MG TABLET PO SCH (09:00)
[2022-04-01] MEDS ORDERED: GENTAMICIN/NS IRRIGATION 500 ML IR ONE (09:03)
[2022-04-01] MEDS ORDERED: VANCOMYCIN 1G PREMIX 200 ML IV NR ×2 (10:00→22:00)
[2022-04-01] MEDS: LEVOTHYROXINE SODIUM 25MCG TABLET PO SCH (13:04)
[2022-04-01] MEDS: SODIUM CHLORIDE 0.9% INJ 3ML FLUSH IVF SCH ×2 (14:00→22:00)
[2022-04-01] MEDS ORDERED: NALOXONE HCL 0.4MG/ML VIAL IV PRN (15:30)
[2022-04-01] MEDS: HYDROCODONE/ACETAMINOPHEN 5/325MG TABLET PO PRN (16:58)
[2022-04-01] MEDS: ATORVASTATIN CALCIUM 10MG TABLET PO SCH (21:09)
[2022-04-01] MEDS: FAMOTIDINE 20MG TABLET PO SCH (21:09)
[2022-04-02] VITALS (58 sets, daily range): BP systolic 93–146; BP diastolic 65–99
[2022-04-02 05:57] LABS: BASOPHILS % 1.1 % (0.0-2.0); EOSINOPHILS % 3.1 % (0.0-5.0); HEMATOCRIT. 31.7 % (42.0-52.0); HEMOGLOBIN. 10.4 g/dL (14.0-18.0); LYMPHOCYTES % 11.4 % (20.0-50.0); MEAN CORPUSCULAR HEMOGLOBIN 30.3 pg (28.0-32.0); MEAN CORPUSCULAR VOLUME 91.9 fL (80.0-94.0); MEAN PLATELET VOLUME 10.1 fl (7.4-10.4); MONOCYTES % 6.1 % (2.0-8.0); NEUTROPHILS % 78.3 % (40.0-76.0); PLATELET 195 x1000/uL (130-400); RED BLOOD CELL COUNT 3.44 mill/uL (4.7-6.1); RED CELL DISTRIBUTION WIDTH 15.8 % (11.6-14.6)
[2022-04-02 06:08] LABS: CHLORIDE 107 mEq/L (98-107)
[2022-04-02 06:10] LABS: INR 1.1; PARTIAL THROMBOPLASTIN TIME 27.7 sec (23.4-31.0); PROTHROMBIN TIME 11.4 sec (9.6-11.0)
[2022-04-02] MEDS: SODIUM CHLORIDE 0.9% INJ 3ML FLUSH IVF SCH (06:22)
[2022-04-02] MEDS ORDERED: LIDOCAINE HCL/PF 1% 10 MG/ML 5ML VIAL ONE (07:32)
[2022-04-02] MEDS ORDERED: MIDAZOLAM HCL 2 MG/2 ML VIAL ONE (07:32)
[2022-04-02] MEDS ORDERED: FENTANYL CITRATE/PF 50MCG/ML 2ML VIAL ONE (07:33)
[2022-04-02] MEDS ORDERED: IODIXANOL 320MG/ML 100 ML BOTTLE IV ONE (07:33)
[2022-04-02] MEDS ORDERED: NICARDIPINE 100MCG/ML 10ML VIAL (CATH LAB) IV ONE (08:43)
[2022-04-02] MEDS ORDERED: NITROGLYCERIN 50MCG/ML 10ML VIAL (CATH LAB) IV ONE (08:43)
[2022-04-02] MEDS ORDERED: HEPARIN SODIUM 1,000 UNIT/1ML VIAL IV ONE (08:43)
[2022-04-02] MEDS ORDERED: ATROPINE SULFATE 1MG/10ML SYR IV PRN (09:30)
[2022-04-02] MEDS ORDERED: ACETAMINOPHEN 325MG TABLET PO PRN (09:30)
[2022-04-02] MEDS: LEVOTHYROXINE SODIUM 25MCG TABLET PO SCH (10:05)
[2022-04-02] MEDS: AMLODIPINE 10MG TABLET PO SCH (10:05)
[2022-04-02] MEDS: MORPHINE SULFATE 2 MG/ML CPJ (NOT FOR IM USE) IV PRN (11:13)
[2022-04-02] MEDS: ONDANSETRON HCL 4MG/2ML INJ IV PRN (12:54)
[2022-04-02 17:42] LABS: HEPATITIS B SURFACE ANTIGEN NEGATIVE
[2022-04-02] MEDS: GUAIFENESIN 200MG/10ML SUGAR FREE UDC PO PRN (20:55)
[2022-04-02] MEDS: ATORVASTATIN CALCIUM 10MG TABLET PO SCH (20:55)
[2022-04-02] MEDS: FAMOTIDINE 20MG TABLET PO SCH (20:55)
[2022-04-02] MEDS: HYDROCODONE/ACETAMINOPHEN 5/325MG TABLET PO PRN (20:59)
[2022-04-03] VITALS (34 sets, daily range): BP systolic 105–192; BP diastolic 66–126
[2022-04-03] MEDS: GUAIFENESIN 200MG/10ML SUGAR FREE UDC PO PRN (02:14)
[2022-04-03 05:19] LABS: BASOPHILS % 1.1 % (0.0-2.0); EOSINOPHILS % 2.2 % (0.0-5.0); HEMATOCRIT. 31.1 % (42.0-52.0); HEMOGLOBIN. 10.2 g/dL (14.0-18.0); LYMPHOCYTES % 11.4 % (20.0-50.0); MEAN CORPUSCULAR HEMOGLOBIN 30.2 pg (28.0-32.0); MEAN CORPUSCULAR VOLUME 92.2 fL (80.0-94.0); MEAN PLATELET VOLUME 9.9 fl (7.4-10.4); MONOCYTES % 7.6 % (2.0-8.0); NEUTROPHILS % 77.7 % (40.0-76.0); PLATELET 180 x1000/uL (130-400); RED BLOOD CELL COUNT 3.38 mill/uL (4.7-6.1); RED CELL DISTRIBUTION WIDTH 15.9 % (11.6-14.6)
[2022-04-03] MEDS: LEVOTHYROXINE SODIUM 25MCG TABLET PO SCH (07:50)
[2022-04-03] MEDS ORDERED: GENTAMICIN/NS IRRIGATION 500 ML IR ONE (07:53)
[2022-04-03] MEDS ORDERED: GENTAMICIN SULF 40MG/ML 2ML VIAL ONE (07:54)
[2022-04-03] MEDS ORDERED: LIDOCAINE HCL/PF 1% 10 MG/ML 5ML VIAL ONE ×3 (07:54→14:23)
[2022-04-03] MEDS ORDERED: VANCOMYCIN 1G PREMIX 200 ML IV NR (08:00)
[2022-04-03] MEDS ORDERED: FENTANYL CITRATE/PF 50MCG/ML 2ML VIAL ONE ×5 (08:55→14:43)
[2022-04-03] MEDS ORDERED: LIDOCAINE HCL 1% 50ML VIAL (10MG/ML) ONE (08:55)
[2022-04-03] MEDS ORDERED: PROPOFOL 200MG/20ML VIAL IV ONE (08:55)
[2022-04-03] MEDS ORDERED: MIDAZOLAM HCL 2 MG/2 ML VIAL ONE ×3 (08:56→14:19)
[2022-04-03] MEDS: AMLODIPINE 10MG TABLET PO SCH (09:00)
[2022-04-03] MEDS ORDERED: MEPERIDINE HCL/PF 25MG/ML CPJ IV PRN (09:45)
[2022-04-03] MEDS ORDERED: LABETALOL 5MG/ML SYR 20 MG/4 ML SYRINGE IV PRN (09:45)
[2022-04-03] MEDS ORDERED: HYDROMORPHONE HCL/PF 2MG/ML CPJ IV PRN (09:45)
[2022-04-03] MEDS ORDERED: ONDANSETRON HCL 4MG/2ML INJ IV PRN (09:45)
[2022-04-03] MEDS ORDERED: IOHEXOL-300 100 ML BOTTLE ONE (09:57)
[2022-04-03] MEDS ORDERED: PHENYLEPHRINE HCL 10 MG/ML 1ML (IV VIAL) IV ONE (13:16)
[2022-04-03] MEDS: MORPHINE SULFATE 2 MG/ML CPJ (NOT FOR IM USE) IV PRN ×2 (18:16→22:02)
[2022-04-03] MEDS ORDERED: VANCOMYCIN 1,750 MG in DEXT 5% WATER 500 ML IV NR (22:00)
[2022-04-03] MEDS: FAMOTIDINE 20MG TABLET PO SCH (22:03)
[2022-04-03] MEDS: CARVEDILOL 6.25 MG TABLET PO SCH (22:03)
[2022-04-03] MEDS: ATORVASTATIN CALCIUM 10MG TABLET PO SCH (22:04)
[2022-04-03] MEDS: HYDROCODONE/ACETAMINOPHEN 5/325MG TABLET PO PRN (22:25)
[2022-04-04] VITALS (45 sets, daily range): BP systolic 92–140; BP diastolic 39–91
[2022-04-04 06:42] LABS: BASOPHILS % 0.2 % (0.0-2.0); EOSINOPHILS % 0.4 % (0.0-5.0); HEMATOCRIT. 28.5 % (42.0-52.0); HEMOGLOBIN. 9.3 g/dL (14.0-18.0); LYMPHOCYTES % 7.3 % (20.0-50.0); MEAN CORPUSCULAR HEMOGLOBIN 30.1 pg (28.0-32.0); MONOCYTES % 9.5 % (2.0-8.0); NEUTROPHILS % 82.6 % (40.0-76.0); PLATELET 155 x1000/uL (130-400); RED CELL DISTRIBUTION WIDTH 16.2 % (11.6-14.6)
[2022-04-04] MEDS: ACETAMINOPHEN 325MG TABLET PO PRN (06:43)
[2022-04-04] MEDS: GUAIFENESIN 200MG/10ML SUGAR FREE UDC PO PRN ×3 (08:00→18:20)
[2022-04-04] MEDS: LEVOTHYROXINE SODIUM 25MCG TABLET PO SCH (08:00)
[2022-04-04] MEDS: CARVEDILOL 6.25 MG TABLET PO SCH ×2 (09:01→20:33)
[2022-04-04] MEDS: HYDROCODONE/ACETAMINOPHEN 5/325MG TABLET PO PRN ×2 (10:40→17:50)
[2022-04-04] MEDS: ONDANSETRON HCL 4MG/2ML INJ IV PRN (15:05)
[2022-04-04] MEDS: FAMOTIDINE 20MG TABLET PO SCH (20:33)
[2022-04-04] MEDS: ATORVASTATIN CALCIUM 10MG TABLET PO SCH (20:34)
[2022-04-05] VITALS (53 sets, daily range): BP systolic 91–139; BP diastolic 30–106
[2022-04-05] MEDS: GUAIFENESIN 200MG/10ML SUGAR FREE UDC PO PRN ×3 (00:15→17:15)
[2022-04-05] MEDS: HYDROCODONE/ACETAMINOPHEN 5/325MG TABLET PO PRN ×3 (00:55→21:58)
[2022-04-05] MEDS: ACETAMINOPHEN 325MG TABLET PO PRN (07:04)
[2022-04-05] MEDS: CARVEDILOL 6.25 MG TABLET PO SCH ×2 (09:00→21:58)
[2022-04-05] MEDS: LEVOTHYROXINE SODIUM 25MCG TABLET PO SCH (09:02)
[2022-04-05] MEDS: FAMOTIDINE 20MG TABLET PO SCH (21:56)
[2022-04-05] MEDS: ATORVASTATIN CALCIUM 10MG TABLET PO SCH (21:56)
[2022-04-05] MEDS: EPOETIN ALFA-EPBX 4,000 UNIT/ML VIAL SUBCUT SCH ×2 (21:59→22:13)
[2022-04-05] MEDS: ONDANSETRON HCL 4MG/2ML INJ IV PRN (22:01)
[2022-04-06] VITALS (27 sets, daily range): BP systolic 102–148; BP diastolic 57–104
[2022-04-06] MEDS: GUAIFENESIN 200MG/10ML SUGAR FREE UDC PO PRN ×2 (02:22→08:38)
[2022-04-06 08:32] LABS: BASOPHILS % 0.8 % (0.0-2.0); EOSINOPHILS % 4.5 % (0.0-5.0); HEMOGLOBIN. 9.4 g/dL (14.0-18.0); LYMPHOCYTES % 10.1 % (20.0-50.0); MEAN CORPUSCULAR HEMOGLOBIN 29.8 pg (28.0-32.0); MEAN CORPUSCULAR VOLUME 92.2 fL (80.0-94.0); MEAN PLATELET VOLUME 10.3 fl (7.4-10.4); MONOCYTES % 7.3 % (2.0-8.0); NEUTROPHILS % 77.3 % (40.0-76.0); PLATELET 163 x1000/uL (130-400); RED BLOOD CELL COUNT 3.15 mill/uL (4.7-6.1); RED CELL DISTRIBUTION WIDTH 15.9 % (11.6-14.6)
[2022-04-06] MEDS: LEVOTHYROXINE SODIUM 25MCG TABLET PO SCH (08:38)
[2022-04-06] MEDS: CARVEDILOL 6.25 MG TABLET PO SCH ×2 (08:38→20:51)
[2022-04-06 12:29] LABS: HEPATITIS B SURFACE ANTIGEN NEGATIVE
[2022-04-06] MEDS ORDERED: NALOXONE HCL 0.4MG/ML VIAL IV PRN (18:00)
[2022-04-06] MEDS: EPOETIN ALFA-EPBX 4,000 UNIT/ML VIAL SUBCUT SCH (20:50)
[2022-04-06] MEDS: FAMOTIDINE 20MG TABLET PO SCH (20:50)
[2022-04-06] MEDS: ATORVASTATIN CALCIUM 10MG TABLET PO SCH (20:51)
[2022-04-07] VITALS (12 sets, daily range): BP systolic 106–145; BP diastolic 69–101
[2022-04-07] MEDS: GUAIFENESIN 200MG/10ML SUGAR FREE UDC PO PRN ×3 (00:10→21:01)
[2022-04-07] MEDS: LEVOTHYROXINE SODIUM 25MCG TABLET PO SCH (08:13)
[2022-04-07] MEDS: CARVEDILOL 6.25 MG TABLET PO SCH ×2 (09:04→21:03)
[2022-04-07] MEDS: ACETAMINOPHEN 325MG TABLET PO PRN (11:58)
[2022-04-07] MEDS: EPOETIN ALFA-EPBX 4,000 UNIT/ML VIAL SUBCUT SCH (21:00)
[2022-04-07] MEDS: HYDROCODONE/ACETAMINOPHEN 5/325MG TABLET PO PRN (21:02)
[2022-04-07] MEDS: ATORVASTATIN CALCIUM 10MG TABLET PO SCH (21:03)
[2022-04-07] MEDS: FAMOTIDINE 20MG TABLET PO SCH (21:03)
[2022-04-08] VITALS (12 sets, daily range): BP systolic 104–124; BP diastolic 53–98
[2022-04-08 06:12] LABS: BASOPHILS % 0.8 % (0.0-2.0); EOSINOPHILS % 3.7 % (0.0-5.0); HEMATOCRIT. 28.7 % (42.0-52.0); HEMOGLOBIN. 9.3 g/dL (14.0-18.0); LYMPHOCYTES % 12.2 % (20.0-50.0); MEAN CORPUSCULAR HEMOGLOBIN 30.1 pg (28.0-32.0); MEAN CORPUSCULAR VOLUME 92.5 fL (80.0-94.0); MEAN PLATELET VOLUME 10.2 fl (7.4-10.4); MONOCYTES % 7.5 % (2.0-8.0); NEUTROPHILS % 75.8 % (40.0-76.0); PLATELET 164 x1000/uL (130-400); RED CELL DISTRIBUTION WIDTH 16.2 % (11.6-14.6)
[2022-04-08] MEDS ORDERED: LIDOCAINE HCL/PF 1% 10 MG/ML 5ML VIAL ONE (08:03)
[2022-04-08] MEDS: LEVOTHYROXINE SODIUM 25MCG TABLET PO SCH (08:20)
[2022-04-08] MEDS: CARVEDILOL 6.25 MG TABLET PO SCH (09:00)
[2022-04-08] MEDS: GUAIFENESIN 200MG/10ML SUGAR FREE UDC PO PRN ×2 (10:28→15:12)
[2022-04-08] MEDS: HYDROCODONE/ACETAMINOPHEN 5/325MG TABLET PO PRN (15:13)
[2022-04-08] MEDS ORDERED: CARVEDILOL 6.25 MG TABLET PO SCH (21:00)
== END 2022-04-08 19:10 | disposition home or self-care (01) | DRG 192 ==
LOC: ER 23:56 → 7WST 03-25 04:58 → CVICU 03-28 14:50 → 5EST 04-06 11:43
PROVIDERS: ADMIT Internal Medicine; ATTEND Internal Medicine
PROC: B517YZZ Fluoroscopy of Left Subclavian Vein using Other Contrast (ICD-10-PCS; principal; 2022-04-01)
PROC: B2111ZZ Fluoroscopy of Multiple Coronary Arteries using Low Osmolar Contrast (ICD-10-PCS; 2022-04-01)
PROC: B516YZZ Fluoroscopy of Right Subclavian Vein using Other Contrast (ICD-10-PCS; 2022-04-02)
PROC: 4A023N7 Measurement of Cardiac Sampling and Pressure, Left Heart, Percutaneous Approach (ICD-10-PCS; 2022-04-02)
PROC: 5A1223Z Performance of Cardiac Pacing, Continuous (ICD-10-PCS; 2022-04-02)
DX: I13.2 Hypertensive heart and chronic kidney disease with heart failure and with stage 5 chronic kidney disease, or end stage renal disease (principal); J96.01 Acute respiratory failure with hypoxia; I44.2 Atrioventricular block, complete; K56.609 Unspecified intestinal obstruction, unspecified as to partial versus complete obstruction; I42.8 Other cardiomyopathies; E46 Unspecified protein-calorie malnutrition; N18.6 End stage renal disease; C18.9 Malignant neoplasm of colon, unspecified; N25.81 Secondary hyperparathyroidism of renal origin; Q61.2 Polycystic kidney, adult type; D63.1 Anemia in chronic kidney disease; R74.01 Elevation of levels of liver transaminase levels; K86.1 Other chronic pancreatitis; I50.43 Acute on chronic combined systolic (congestive) and diastolic (congestive) heart failure; Z93.3 Colostomy status; D64.9 Anemia, unspecified; G89.29 Other chronic pain; F41.9 Anxiety disorder, unspecified; F32.A Depression, unspecified; E87.5 Hyperkalemia; Z99.2 Dependence on renal dialysis; R00.1 Bradycardia, unspecified; I07.1 Rheumatic tricuspid insufficiency; Z95.810 Presence of automatic (implantable) cardiac defibrillator
CPT/HCPCS: 33210; 33249; 36415; 36556; 36580; 71045; 75820; 75822; 77001; 80048; 80053; 80202; 81003; 83735; 83880; 84439; 84443; 84484; 85025; 86705; 86709; 86803; 87340; 87426; 93005; 93306; 93458; 94660; 99291; C1722; C1750; C1752; C1760; C1769; C1887; C1892; C1893; C1899; J0885; J1200; J1265; J1580; J1644; J1650; J2250; J2270; J2370; J2405; J2704; J3010; J3370; J3490; J7060; L1830; Q9967

== ENCOUNTER 2022-06-10 17:36 | Emergency (ER) | payer MEDICAID ==
[~2022-06-10] VITALS: Ht 182.9 cm; Wt 82.0 kg
[2022-06-10 17:43] VITALS: BP 116/83
[2022-06-10 18:22] LABS: BASOPHILS % 0.9 % (0.0-2.0); EOSINOPHILS % 2.1 % (0.0-5.0); HEMATOCRIT. 31.4 % (42.0-52.0); HEMOGLOBIN. 10.3 g/dL (14.0-18.0); LYMPHOCYTES % 11.3 % (20.0-50.0); MEAN CORPUSCULAR HEMOGLOBIN 30.5 pg (28.0-32.0); MEAN CORPUSCULAR VOLUME 93.5 fL (80.0-94.0); MEAN PLATELET VOLUME 8.3 fl (7.4-10.4); MONOCYTES % 9.1 % (2.0-8.0); NEUTROPHILS % 76.6 % (40.0-76.0); PLATELET 204 x1000/uL (130-400); RED BLOOD CELL COUNT 3.36 mill/uL (4.7-6.1); RED CELL DISTRIBUTION WIDTH 15.9 % (11.6-14.6)
[2022-06-10 18:24] LABS: CHLORIDE 105 mEq/L (98-107)
[2022-06-10 20:46] LABS: CLARITY URINE CLEAR (CLEAR); COLOR URINE YELLOW (YELLOW); KETONES URINE NEGATIVE (NEGATIVE); LEUKOCYTE ESTERASE URINE NEGATIVE (NEGATIVE); NITRITE URINE NEGATIVE (NEGATIVE); OCCULT BLOOD URINE NEGATIVE (NEGATIVE); PROTEIN URINE 3+ (NEGATIVE); SPECIFIC GRAVITY URINE 1.012 (1.005-1.030); UROBILINOGEN URINE 0.2 E.U./dL (0.2-1.0)
[2022-06-10] MEDS ORDERED: ACETAMINOPHEN 325MG TABLET PO ONE (21:00)
== END 2022-06-10 23:11 | disposition home or self-care (01) ==
LOC: ER 17:36
DX: R10.30 Lower abdominal pain, unspecified (principal); I13.11 Hypertensive heart and chronic kidney disease without heart failure, with stage 5 chronic kidney disease, or end stage renal disease; N18.6 End stage renal disease; D63.1 Anemia in chronic kidney disease; E78.00 Pure hypercholesterolemia, unspecified; Z85.038 Personal history of other malignant neoplasm of large intestine; Z99.2 Dependence on renal dialysis; Z93.3 Colostomy status; Z95.0 Presence of cardiac pacemaker; Z88.8 Allergy status to other drugs, medicaments and biological substances; Z98.890 Other specified postprocedural states; Z88.0 Allergy status to penicillin
CPT/HCPCS: 36415; 74176; 80053; 81003; 85025; 93005; 99285

== ENCOUNTER 2022-06-13 22:14 | Inpatient (IN) | payer MEDICAID ==
[~2022-06-13] VITALS: Ht 185.4 cm; Wt 74.4 kg
[2022-06-13] MEDS ORDERED: ONDANSETRON HCL 4MG/2ML INJ IV STA (23:56)
[2022-06-14] MEDS ORDERED: PIPERACILLIN/TAZ 3.375G PREMIX 50 ML IV ONE (01:15)
[2022-06-14] MEDS ORDERED: VANCOMYCIN 1G PREMIX 200 ML IV ONE (01:15)
[2022-06-14 02:03] LABS: BASOPHILS % 1.3 % (0.0-2.0); EOSINOPHILS % 2.5 % (0.0-5.0); HEMATOCRIT. 33.5 % (42.0-52.0); HEMOGLOBIN. 10.8 g/dL (14.0-18.0); LYMPHOCYTES % 12.1 % (20.0-50.0); MEAN CORPUSCULAR HEMOGLOBIN 30.2 pg (28.0-32.0); MEAN CORPUSCULAR VOLUME 93.4 fL (80.0-94.0); MEAN PLATELET VOLUME 8.7 fl (7.4-10.4); MONOCYTES % 8.3 % (2.0-8.0); NEUTROPHILS % 75.8 % (40.0-76.0); PLATELET 219 x1000/uL (130-400); RED BLOOD CELL COUNT 3.59 mill/uL (4.7-6.1); RED CELL DISTRIBUTION WIDTH 15.4 % (11.6-14.6)
[2022-06-14 02:15] LABS: CHLORIDE 104 mEq/L (98-107)
[2022-06-14] MEDS ORDERED: ONDANSETRON HCL 4MG/2ML INJ IV NR (02:30)
[2022-06-14] MEDS ORDERED: HYDROCODONE/ACETAMINOPHEN 5/325MG TABLET PO ONE (03:30)
[2022-06-14] MEDS ORDERED: DEXTROSE 50% WATER 50ML SYRINGE IV NR (03:45)
[2022-06-14] MEDS ORDERED: INSULIN REGULAR (HUMULIN R) 300UNITS/3ML VIAL IV NR (03:45)
[2022-06-14] MEDS ORDERED: SODIUM BICARBONATE 8.4% 1 MEQ/ML 50ML SYR IV NR (03:45)
[2022-06-14] MEDS ORDERED: DIPHENHYDRAMINE 50MG/ML VIAL IV PRN (10:00)
[2022-06-14] MEDS ORDERED: IPRATROPIUM/ALBUTEROL 0.5-3(2.5)MG/3ML NEB HHN PRN (10:00)
[2022-06-14] MEDS ORDERED: MORPHINE SULFATE 2 MG/ML CPJ (NOT FOR IM USE) IV PRN (10:00)
[2022-06-14] MEDS ORDERED: MAGNESIUM/ALUMINUM HYDROXIDE/SIMETHICONE 30ML UDC PO PRN (10:00)
[2022-06-14] MEDS ORDERED: HYDRALAZINE 20MG/ML VIAL IV PRN (10:00)
[2022-06-14] MEDS ORDERED: HYDROCODONE/ACETAMINOPHEN 5/325MG TABLET PO PRN (10:00)
[2022-06-14] MEDS ORDERED: CLONIDINE 0.1MG TABLET PO PRN (10:00)
[2022-06-14] MEDS ORDERED: DOCUSATE SODIUM 100MG CAPSULE PO PRN (10:00)
[2022-06-14 10:45] VITALS: BP 127/95
[2022-06-14] MEDS: GUAIFENESIN 200MG/10ML SUGAR FREE UDC PO PRN ×2 (13:11→17:55)
[2022-06-14] MEDS: ENOXAPARIN 30MG/0.3ML SYR SUBCUT SCH (13:11)
[2022-06-14] MEDS: SODIUM CHLORIDE 0.9% INJ 3ML FLUSH IVF SCH ×2 (13:12→20:53)
[2022-06-14 14:45] LABS: HEPATITIS B SURFACE ANTIGEN NEGATIVE
[2022-06-14] MEDS ORDERED: NALOXONE HCL 0.4MG/ML VIAL IV PRN (15:30)
[2022-06-14 16:00] VITALS: BP 134/95
[2022-06-14 20:00] VITALS: BP 115/81
[2022-06-15] VITALS: BP 113/80
[2022-06-15] MEDS: ONDANSETRON HCL 4MG/2ML INJ IV PRN ×2 (00:05→17:35)
[2022-06-15 04:00] VITALS: BP 118/80
[2022-06-15] MEDS: SODIUM CHLORIDE 0.9% INJ 3ML FLUSH IVF SCH ×3 (06:07→21:17)
[2022-06-15 06:44] LABS: BASOPHILS % 1.4 % (0.0-2.0); EOSINOPHILS % 1.8 % (0.0-5.0); HEMATOCRIT. 35.3 % (42.0-52.0); HEMOGLOBIN. 11.7 g/dL (14.0-18.0); LYMPHOCYTES % 8.2 % (20.0-50.0); MEAN CORPUSCULAR HEMOGLOBIN 30.7 pg (28.0-32.0); MEAN CORPUSCULAR VOLUME 92.4 fL (80.0-94.0); MEAN PLATELET VOLUME 9.2 fl (7.4-10.4); MONOCYTES % 6.9 % (2.0-8.0); NEUTROPHILS % 81.7 % (40.0-76.0); PLATELET 229 x1000/uL (130-400); RED BLOOD CELL COUNT 3.82 mill/uL (4.7-6.1); RED CELL DISTRIBUTION WIDTH 15.6 % (11.6-14.6)
[2022-06-15 07:12] LABS: CHLORIDE 102 mEq/L (98-107)
[2022-06-15 07:35] LABS: TOTAL IRON BINDING CAPACITY 344 ug/dL (250-450)
[2022-06-15 07:48] LABS: VITAMIN B12 SERUM 1170 pg/mL (211-911)
[2022-06-15 08:00] VITALS: BP 133/79
[2022-06-15 08:11] LABS: FOLIC ACID (FOLATE) SERUM > 20.00 ng/mL (>5.38)
[2022-06-15] MEDS: ENOXAPARIN 30MG/0.3ML SYR SUBCUT SCH (10:33)
[2022-06-15] MEDS: PANTOPRAZOLE SODIUM 40 MG/VIAL IV SCH (10:33)
[2022-06-15 11:56] LABS: FERRITIN 257 ng/mL (22-322)
[2022-06-15 11:57] LABS: CARCINO EMBRYONIC ANTIGEN 1.8 ng/ml
[2022-06-15 12:00] VITALS: BP 119/71
[2022-06-15 16:00] VITALS: BP 140/64
[2022-06-15] MEDS: ASCORBIC ACID 500 MG TABLET PO SCH (17:35)
[2022-06-15] MEDS: FERROUS SULFATE 325MG TABLET PO SCH (17:35)
[2022-06-15] MEDS: ACETAMINOPHEN 325MG TABLET PO PRN (17:36)
[2022-06-15 20:00] VITALS: BP 129/68
[2022-06-16] VITALS (7 sets, daily range): BP systolic 109–140; BP diastolic 77–92
[2022-06-16] MEDS: SODIUM CHLORIDE 0.9% INJ 3ML FLUSH IVF SCH ×2 (06:09→14:00)
[2022-06-16 06:31] LABS: BASOPHILS % 1.2 % (0.0-2.0); HEMATOCRIT. 34.7 % (42.0-52.0); HEMOGLOBIN. 11.1 g/dL (14.0-18.0); LYMPHOCYTES % 8.9 % (20.0-50.0); MEAN CORPUSCULAR HEMOGLOBIN 30.5 pg (28.0-32.0); MEAN PLATELET VOLUME 8.9 fl (7.4-10.4); MONOCYTES % 6.4 % (2.0-8.0); NEUTROPHILS % 80.5 % (40.0-76.0); PLATELET 202 x1000/uL (130-400); RED BLOOD CELL COUNT 3.65 mill/uL (4.7-6.1)
[2022-06-16 07:30] LABS: CHLORIDE 105 mEq/L (98-107)
[2022-06-16] MEDS: ASCORBIC ACID 500 MG TABLET PO SCH ×2 (07:50→18:51)
[2022-06-16] MEDS: FERROUS SULFATE 325MG TABLET PO SCH ×2 (07:50→18:51)
[2022-06-16] MEDS: PANTOPRAZOLE SODIUM 40 MG/VIAL IV SCH (09:00)
[2022-06-16] MEDS: ENOXAPARIN 30MG/0.3ML SYR SUBCUT SCH (12:29)
[2022-06-16] MEDS: ACETAMINOPHEN 325MG TABLET PO PRN (17:36)
== END 2022-06-16 21:15 | disposition home or self-care (01) | DRG 425 ==
LOC: ER 22:14 → 6WST 06-14 03:36 → ENRESERV 06-14 07:15
PROVIDERS: ADMIT Internal Medicine; ATTEND Internal Medicine
PROC: 5A1D70Z Performance of Urinary Filtration, Intermittent, Less than 6 Hours Per Day (ICD-10-PCS; principal; 2022-06-15)
DX: E87.5 Hyperkalemia (principal); I12.0 Hypertensive chronic kidney disease with stage 5 chronic kidney disease or end stage renal disease; J18.9 Pneumonia, unspecified organism; E46 Unspecified protein-calorie malnutrition; N18.6 End stage renal disease; D63.1 Anemia in chronic kidney disease; N25.81 Secondary hyperparathyroidism of renal origin; H54.8 Legal blindness, as defined in USA; Z20.822 Contact with and (suspected) exposure to COVID-19; K86.1 Other chronic pancreatitis; E78.00 Pure hypercholesterolemia, unspecified; R74.01 Elevation of levels of liver transaminase levels; Q44.6 Cystic disease of liver; Q61.2 Polycystic kidney, adult type; E21.3 Hyperparathyroidism, unspecified; G89.29 Other chronic pain; F41.9 Anxiety disorder, unspecified; F32.A Depression, unspecified; Z95.810 Presence of automatic (implantable) cardiac defibrillator; Z99.2 Dependence on renal dialysis; Z82.49 Family history of ischemic heart disease and other diseases of the circulatory system; Z88.0 Allergy status to penicillin; Z93.3 Colostomy status; Z68.21 Body mass index [BMI] 21.0-21.9, adult; Z85.038 Personal history of other malignant neoplasm of large intestine; Z91.15 Patient's noncompliance with renal dialysis; Z79.899 Other long term (current) drug therapy; Z86.14 Personal history of Methicillin resistant Staphylococcus aureus infection; Z90.49 Acquired absence of other specified parts of digestive tract
CPT/HCPCS: 36415; 71045; 74176; 76700; 80048; 80053; 80076; 82248; 82378; 82607; 82728; 82746; 83540; 83550; 83605; 85025; 86301; 86705; 86709; 86803; 87340; 87426; 93005; 93970; 99291; C9113; C9803; J1650; J1815; J2405; J2543; J3370; J3490

== ENCOUNTER 2022-07-02 02:39 | Inpatient (IN) | payer MEDICAID ==
[~2022-07-02] VITALS: Ht 185.4 cm; Wt 78.1 kg
[2022-07-02] MEDS ORDERED: ACETAMINOPHEN 325MG TABLET PO STA (03:49)
[2022-07-02 04:28] LABS: CHLORIDE 108 mEq/L (98-107)
[2022-07-02 04:29] LABS: EOSINOPHILS % 1.9 % (0.0-5.0); HEMATOCRIT. 34.3 % (42.0-52.0); HEMOGLOBIN. 11.1 g/dL (14.0-18.0); LYMPHOCYTES % 10.1 % (20.0-50.0); MEAN CORPUSCULAR HEMOGLOBIN 30.8 pg (28.0-32.0); MEAN PLATELET VOLUME 8.8 fl (7.4-10.4); MONOCYTES % 8.4 % (2.0-8.0); NEUTROPHILS % 78.6 % (40.0-76.0); PLATELET 204 x1000/uL (130-400); RED BLOOD CELL COUNT 3.61 mill/uL (4.7-6.1); RED CELL DISTRIBUTION WIDTH 16.1 % (11.6-14.6)
[2022-07-02 04:35] LABS: ETHANOL BLOOD < 10 mg/dL
[2022-07-02] MEDS ORDERED: ASPIRIN 325MG EC TABLET PO SCH (07:30)
[2022-07-02] MEDS ORDERED: ENOXAPARIN 60MG/0.6ML SYR SUBCUT SCH (07:30)
[2022-07-02] MEDS ORDERED: ONDANSETRON HCL 4MG/2ML INJ IV SCH (07:30)
[2022-07-02] MEDS ORDERED: ONDANSETRON HCL 4MG/2ML INJ IV PRN (12:00)
[2022-07-02] MEDS: PANTOPRAZOLE 40MG DR TABLET PO SCH (12:00)
[2022-07-02] MEDS: METOCLOPRAMIDE HCL 5MG TABLET PO SCH ×2 (12:00→18:00)
[2022-07-02] MEDS ORDERED: TRAMADOL 50MG TABLET PO PRN (12:00)
[2022-07-02] MEDS ORDERED: HYDROCODONE/ACETAMINOPHEN 5/325MG TABLET PO PRN (12:00)
[2022-07-02] MEDS ORDERED: CLONIDINE 0.1MG TABLET PO PRN (12:00)
[2022-07-02] MEDS ORDERED: DIPHENHYDRAMINE 50MG/ML VIAL IV PRN (12:00)
[2022-07-02] MEDS ORDERED: DOCUSATE SODIUM 100MG CAPSULE PO PRN (12:00)
[2022-07-02] MEDS ORDERED: GUAIFENESIN 200MG/10ML SUGAR FREE UDC PO PRN (12:00)
[2022-07-02] MEDS ORDERED: ACETAMINOPHEN 325MG TABLET PO PRN (12:00)
[2022-07-02] MEDS ORDERED: MAGNESIUM/ALUMINUM HYDROXIDE/SIMETHICONE 30ML UDC PO PRN (12:00)
[2022-07-02] MEDS ORDERED: ENOXAPARIN 30MG/0.3ML SYR SUBCUT SCH (13:00)
[2022-07-02] MEDS: CALCIUM ACETATE 667MG CAPSULE PO SCH ×2 (13:00→18:00)
[2022-07-02] MEDS: FERROUS SULFATE 300MG/5ML UDC PO SCH ×2 (13:00→18:00)
[2022-07-02 15:13] LABS: TOTAL IRON BINDING CAPACITY 253 ug/dL (250-450)
[2022-07-02 15:20] LABS: HEPATITIS B SURFACE ANTIGEN NEGATIVE
[2022-07-02 15:32] VITALS: BP 98/67
[2022-07-02 15:35] VITALS: BP 98/67
[2022-07-02 15:54] LABS: FERRITIN 297 ng/mL (22-322)
[2022-07-02 16:09] LABS: VITAMIN B12 SERUM 1116 pg/mL (211-911)
[2022-07-02 16:11] LABS: FOLIC ACID (FOLATE) SERUM > 20.00 ng/mL (>5.38)
[2022-07-02 18:00] VITALS: BP 121/75
[2022-07-02 19:47] VITALS: BP 108/53
[2022-07-02] MEDS ORDERED: NALOXONE HCL 0.4MG/ML VIAL IV PRN (20:15)
[2022-07-02] MEDS ORDERED: HYDR-4133 PO (21:00)
[2022-07-02] MEDS ORDERED: XALAO EACHEYE (21:01)
[2022-07-02] MEDS ORDERED: BRIM.2 BOTHEYE (21:02)
[2022-07-02] MEDS ORDERED: DORZ10DR9 EACHEYE (21:02)
[2022-07-02] MEDS ORDERED: CALC667T2 PO (21:04)
[2022-07-02 21:41] VITALS: BP 105/75
[2022-07-02 23:41] VITALS: BP 105/77
[2022-07-03] VITALS (7 sets, daily range): BP systolic 103–119; BP diastolic 61–85
[2022-07-03] MEDS: METOCLOPRAMIDE HCL 5MG TABLET PO SCH ×3 (00:09→13:31)
[2022-07-03 04:55] LABS: CLARITY URINE CLEAR (CLEAR); COLOR URINE YELLOW (YELLOW); KETONES URINE NEGATIVE (NEGATIVE); LEUKOCYTE ESTERASE URINE TRACE (NEGATIVE); NITRITE URINE NEGATIVE (NEGATIVE); OCCULT BLOOD URINE NEGATIVE (NEGATIVE); PH URINE 7.5 (4.5-8.0); PROTEIN URINE 3+ (NEGATIVE); SPECIFIC GRAVITY URINE 1.012 (1.005-1.030); UROBILINOGEN URINE 0.2 E.U./dL (0.2-1.0)
[2022-07-03 05:11] LABS: *AMPHETAMINES SCREEN URINE NEGATIVE (NEGATIVE); *BARBITURATES SCREEN URINE NEGATIVE (NEGATIVE); *BENZODIAZEPINES SCREEN URINE NEGATIVE (NEGATIVE); *COCAINE SCREEN URINE NEGATIVE (NEGATIVE); CANNABINOID URINE SCREEN NEGATIVE (NEGATIVE); METHADONE URINE SCREEN NEGATIVE (NEGATIVE); OPIATES URINE SCREEN NEGATIVE (NEGATIVE); PHENCYCLIDINE URINE SCREEN NEGATIVE (NEGATIVE)
[2022-07-03] MEDS: PANTOPRAZOLE 40MG DR TABLET PO SCH (06:50)
[2022-07-03] MEDS: CALCIUM ACETATE 667MG CAPSULE PO SCH ×2 (08:58→13:30)
[2022-07-03] MEDS: FERROUS SULFATE 300MG/5ML UDC PO SCH ×2 (08:59→13:30)
[2022-07-03] MEDS ORDERED: ENOXAPARIN 30MG/0.3ML SYR SUBCUT SCH (09:00)
[2022-07-03] MEDS ORDERED: LEVOTHYROXINE SODIUM 25MCG TABLET PO SCH (09:00)
[2022-07-03] MEDS ORDERED: ASCORBIC ACID 500 MG TABLET PO SCH (09:00)
[2022-07-03] MEDS ORDERED: ATORVASTATIN CALCIUM 10MG TABLET PO SCH (09:00)
[2022-07-03] MEDS ORDERED: AMLODIPINE 10MG TABLET PO SCH (09:00)
[2022-07-03] MEDS ORDERED: HYDRALAZINE HCL 10MG TABLET PO SCH (09:00)
[2022-07-03] MEDS ORDERED: CALCITRIOL 0.25MCG CAPSULE PO SCH (09:00)
[2022-07-03] MEDS ORDERED: LORATADINE 10MG TABLET PO SCH (09:00)
[2022-07-03] MEDS ORDERED: FERROUS SULFATE 325MG TABLET PO SCH (09:00)
== END 2022-07-03 16:23 | disposition home or self-care (01) | DRG 252 ==
LOC: ER 02:39 → 5EST 11:23 → EDBEDREQTM 11:29 → EDBEDREQ 11:29 → ENRESERV 12:02 → ER 14:24
PROVIDERS: ADMIT Hospitalist; ATTEND Hospitalist
PROC: 5A1D70Z Performance of Urinary Filtration, Intermittent, Less than 6 Hours Per Day (ICD-10-PCS; principal; 2022-07-02)
DX: K94.03 Colostomy malfunction (principal); I50.23 Acute on chronic systolic (congestive) heart failure; E43 Unspecified severe protein-calorie malnutrition; N18.6 End stage renal disease; N25.81 Secondary hyperparathyroidism of renal origin; D63.1 Anemia in chronic kidney disease; Q44.6 Cystic disease of liver; I13.2 Hypertensive heart and chronic kidney disease with heart failure and with stage 5 chronic kidney disease, or end stage renal disease; F32.A Depression, unspecified; E78.00 Pure hypercholesterolemia, unspecified; H40.9 Unspecified glaucoma; E87.5 Hyperkalemia; K86.1 Other chronic pancreatitis; D64.9 Anemia, unspecified; F41.9 Anxiety disorder, unspecified; G89.29 Other chronic pain; Z88.0 Allergy status to penicillin; Z88.8 Allergy status to other drugs, medicaments and biological substances; Z68.22 Body mass index [BMI] 22.0-22.9, adult; Z99.2 Dependence on renal dialysis; Z79.899 Other long term (current) drug therapy; Z95.810 Presence of automatic (implantable) cardiac defibrillator; Z90.49 Acquired absence of other specified parts of digestive tract; Z82.49 Family history of ischemic heart disease and other diseases of the circulatory system; Z85.038 Personal history of other malignant neoplasm of large intestine; Z86.14 Personal history of Methicillin resistant Staphylococcus aureus infection; Z92.21 Personal history of antineoplastic chemotherapy
CPT/HCPCS: 36415; 71045; 74176; 80053; 80305; 80320; 81003; 82270; 82378; 82607; 82728; 82746; 83540; 83550; 83880; 84484; 85025; 85044; 86301; 86705; 86709; 86803; 87340; 93005; 99291; J1650; J2405; J8597; G0480

== ENCOUNTER 2022-08-20 01:33 | Emergency (ER) | payer MEDICAID ==
[~2022-08-20] VITALS: Ht 175.3 cm; Wt 70.0 kg
[~2022-08-20 01:33] MED LIST changes: -AMLO10TA80 PO; +ASPI-1160 PO; +BRIM.2 BOTHEYE; -CALC667C PO; +CALC667T2 PO; -COLO-487 MC; -DEXTL PO; +DORZ10DR9 EACHEYE; +LOSA25TA3 PO; -T3 PO; +XALAO EACHEYE; -[UNRECOGNIZED DRUG - CODE] MC
[2022-08-20 01:56] VITALS: BP 141/111
== END 2022-08-20 04:44 | disposition home or self-care (01) ==
LOC: ER 01:47
DX: Z04.89 Encounter for examination and observation for other specified reasons (principal); I13.11 Hypertensive heart and chronic kidney disease without heart failure, with stage 5 chronic kidney disease, or end stage renal disease; N18.6 End stage renal disease; E78.00 Pure hypercholesterolemia, unspecified; Z85.9 Personal history of malignant neoplasm, unspecified; Z99.2 Dependence on renal dialysis; Z93.3 Colostomy status; Z95.0 Presence of cardiac pacemaker; Z88.8 Allergy status to other drugs, medicaments and biological substances; Z79.01 Long term (current) use of anticoagulants; Z88.0 Allergy status to penicillin
CPT/HCPCS: 99283

== ENCOUNTER 2022-10-14 17:56 | Emergency (ER) | payer MEDICAID ==
[~2022-10-14] VITALS: Ht 182.9 cm; Wt 82.0 kg
[2022-10-14 18:02] VITALS: BP 110/74
== END 2022-10-14 18:58 | disposition left against medical advice (07) ==
LOC: ER 18:05
DX: Z53.21 Procedure and treatment not carried out due to patient leaving prior to being seen by health care provider (principal)

== ENCOUNTER 2022-11-27 16:55 | Inpatient (IN) | payer MEDICAID ==
[~2022-11-27] VITALS: Ht 177.8 cm; Wt 82.1 kg
[2022-11-27] MEDS ORDERED: MORPHINE SULFATE 4 MG/ML CPJ (NOT FOR IM USE) IV STA (18:30)
[2022-11-27] MEDS ORDERED: ONDANSETRON HCL 4MG/2ML INJ IV STA (18:30)
[2022-11-27] MEDS ORDERED: SODIUM CHLORIDE 0.9% 1,000 ML IV ONE (18:30)
[2022-11-27 19:04] LABS: BASOPHILS % 0.5 % (0.0-2.0); EOSINOPHILS % 1.5 % (0.0-5.0); HEMATOCRIT. 31.8 % (42.0-52.0); HEMOGLOBIN. 10.6 g/dL (14.0-18.0); LYMPHOCYTES % 7.7 % (20.0-50.0); MEAN CORPUSCULAR HEMOGLOBIN 31.9 pg (28.0-32.0); MEAN CORPUSCULAR VOLUME 95.4 fL (80.0-94.0); MEAN PLATELET VOLUME 8.1 fl (7.4-10.4); NEUTROPHILS % 82.3 % (40.0-76.0); PLATELET 222 x1000/uL (130-400); RED BLOOD CELL COUNT 3.33 mill/uL (4.7-6.1); RED CELL DISTRIBUTION WIDTH 15.7 % (11.6-14.6)
[2022-11-27 19:08] LABS: INR 1.1; PARTIAL THROMBOPLASTIN TIME 25.4 sec (23.4-31.0); PROTHROMBIN TIME 11.5 sec (9.6-11.0)
[2022-11-27 19:10] LABS: CHLORIDE 101 mEq/L (98-107)
[2022-11-27] MEDS ORDERED: MORPHINE SULFATE 4 MG/ML CPJ (NOT FOR IM USE) IV NR (20:15)
[2022-11-27] MEDS ORDERED: ONDANSETRON HCL 4MG/2ML INJ IV NR (20:15)
[2022-11-27] MEDS ORDERED: ASPIRIN 325MG EC TABLET PO ONE (21:15)
[2022-11-27] MEDS ORDERED: ONDANSETRON HCL 4MG/2ML INJ IV PRN (23:30)
[2022-11-27] MEDS ORDERED: ACETAMINOPHEN 325MG TABLET PO PRN ×2 (23:30)
[2022-11-27] MEDS ORDERED: IPRATROPIUM BROMIDE (0.02%) 0.5MG/2.5ML NEB HHN PRN (23:30)
[2022-11-27] MEDS ORDERED: ALBUTEROL (0.083%) 2.5MG/3ML NEB HHN PRN (23:30)
[2022-11-27] MEDS ORDERED: CLONIDINE 0.1MG TABLET PO PRN (23:30)
[2022-11-27] MEDS ORDERED: DOCUSATE SODIUM 100MG CAPSULE PO PRN (23:30)
[2022-11-27] MEDS ORDERED: NALOXONE HCL 0.4MG/ML VIAL IV PRN (23:30)
[2022-11-27] MEDS ORDERED: GUAIFENESIN 200MG/10ML SUGAR FREE UDC PO PRN (23:30)
[2022-11-27] MEDS ORDERED: IPRATROPIUM/ALBUTEROL 0.5-3(2.5)MG/3ML NEB HHN PRN (23:30)
[2022-11-28] VITALS (13 sets, daily range): BP systolic 97–147; BP diastolic 58–96
[2022-11-28] MEDS ORDERED: HYDRALAZINE HCL 10MG TABLET PO PRN (02:30)
[2022-11-28 03:23] LABS: CREATINE KINASE MB FRACTION 6.6 ng/mL (0.5-3.6)
[2022-11-28] MEDS: LEVOTHYROXINE SODIUM 25MCG TABLET PO SCH (06:30)
[2022-11-28 06:37] LABS: BASOPHILS % 0.8 % (0.0-2.0); EOSINOPHILS % 1.2 % (0.0-5.0); HEMOGLOBIN. 11.6 g/dL (14.0-18.0); LYMPHOCYTES % 10.6 % (20.0-50.0); MEAN CORPUSCULAR HEMOGLOBIN 32.2 pg (28.0-32.0); MEAN CORPUSCULAR VOLUME 97.4 fL (80.0-94.0); MEAN PLATELET VOLUME 8.4 fl (7.4-10.4); MONOCYTES % 7.1 % (2.0-8.0); NEUTROPHILS % 80.3 % (40.0-76.0); PLATELET 252 x1000/uL (130-400); RED CELL DISTRIBUTION WIDTH 15.9 % (11.6-14.6)
[2022-11-28 06:40] LABS: CHLORIDE 102 mEq/L (98-107)
[2022-11-28 07:04] LABS: CREATINE KINASE MB FRACTION 6.9 ng/mL (0.5-3.6)
[2022-11-28 07:05] LABS: HDL CHOLESTEROL 46 mg/dL (40-59); LDL CHOLESTEROL 90 mg/dL (5-100); T4 FREE 0.92 ng/dL (0.76-1.46)
[2022-11-28] MEDS ORDERED: HYDRALAZINE HCL 10MG TABLET PO SCH ×2 (09:00)
[2022-11-28] MEDS: FAMOTIDINE 20MG/2ML VIAL IV SCH (09:00)
[2022-11-28] MEDS: BRIMONIDINE 0.2% OPHTH DROPS 5ML BOTHEYE SCH ×2 (09:00→20:02)
[2022-11-28] MEDS: ATORVASTATIN CALCIUM 10MG TABLET PO SCH (09:00)
[2022-11-28] MEDS: DORZOLAM/TIMOLOL 2.23/0.68% OPHTH DROPS 10ML EACHEYE SCH ×2 (09:00→20:03)
[2022-11-28] MEDS: ENOXAPARIN 30MG/0.3ML SYR SUBCUT SCH (09:00)
[2022-11-28] MEDS: ASPIRIN 81MG TABLET PO SCH (10:39)
[2022-11-28] MEDS ORDERED: SODIUM CHLORIDE 0.9% 500 ML IV PRN (11:15)
[2022-11-28 13:36] LABS: CREATINE KINASE MB FRACTION 7.9 ng/mL (0.5-3.6)
[2022-11-28 13:52] LABS: HEPATITIS B SURFACE ANTIGEN NEGATIVE
[2022-11-28] MEDS: LATANOPROST 0.005% OPHTH DROPS 2.5ML EACHEYE SCH (20:37)
[2022-11-28] MEDS: HYDROCODONE/ACETAMINOPHEN 5/325MG TABLET PO PRN (22:04)
[2022-11-29 00:07] VITALS: BP 108/81
[2022-11-29] MEDS: GUAIFENESIN-DM 200MG-20MG/10ML UDC PO PRN ×3 (00:31→18:19)
[2022-11-29 04:01] VITALS: BP 110/80
[2022-11-29] MEDS: LEVOTHYROXINE SODIUM 25MCG TABLET PO SCH (06:40)
[2022-11-29 06:51] LABS: HEMATOCRIT. 31.2 % (42.0-52.0); HEMOGLOBIN. 10.5 g/dL (14.0-18.0); MEAN CORPUSCULAR HEMOGLOBIN 32.3 pg (28.0-32.0); MEAN CORPUSCULAR VOLUME 96.1 fL (80.0-94.0); MEAN PLATELET VOLUME 8.6 fl (7.4-10.4); PLATELET 230 x1000/uL (130-400); RED BLOOD CELL COUNT 3.25 mill/uL (4.7-6.1); RED CELL DISTRIBUTION WIDTH 15.3 % (11.6-14.6)
[2022-11-29 07:05] LABS: PHOSPHORUS 6.8 mg/dL (2.5-4.9)
[2022-11-29 08:00] VITALS: BP 109/77
[2022-11-29] MEDS: FAMOTIDINE 20MG/2ML VIAL IV SCH (09:14)
[2022-11-29] MEDS: ENOXAPARIN 30MG/0.3ML SYR SUBCUT SCH (09:15)
[2022-11-29] MEDS: BRIMONIDINE 0.2% OPHTH DROPS 5ML BOTHEYE SCH ×2 (09:16→18:19)
[2022-11-29] MEDS: DORZOLAM/TIMOLOL 2.23/0.68% OPHTH DROPS 10ML EACHEYE SCH ×2 (09:16→18:19)
[2022-11-29] MEDS: ASPIRIN 81MG TABLET PO SCH (09:16)
[2022-11-29] MEDS: ATORVASTATIN CALCIUM 10MG TABLET PO SCH (09:16)
[2022-11-29 12:00] VITALS: BP 106/91
[2022-11-29 12:03] LABS: PLATELET ESTIMATE NORMAL
[2022-11-29] MEDS: CARVEDILOL 3.125 MG TABLET PO SCH ×2 (12:27→21:00)
[2022-11-29 16:00] VITALS: BP 97/70
[2022-11-29 20:00] VITALS: BP 94/68
[2022-11-29] MEDS: LATANOPROST 0.005% OPHTH DROPS 2.5ML EACHEYE SCH (20:47)
[2022-11-30] VITALS (28 sets, daily range): BP systolic 92–125; BP diastolic 31–94
[2022-11-30] MEDS: LEVOTHYROXINE SODIUM 25MCG TABLET PO SCH (06:36)
[2022-11-30] MEDS: GUAIFENESIN-DM 200MG-20MG/10ML UDC PO PRN ×2 (06:47→14:42)
[2022-11-30 06:49] LABS: INR 1.1; PARTIAL THROMBOPLASTIN TIME 27.7 sec (23.4-31.0); PROTHROMBIN TIME 11.6 sec (9.6-11.0)
[2022-11-30 06:54] LABS: EOSINOPHILS % 2.5 % (0.0-5.0); HEMATOCRIT. 30.7 % (42.0-52.0); HEMOGLOBIN. 10.4 g/dL (14.0-18.0); LYMPHOCYTES % 7.7 % (20.0-50.0); MEAN CORPUSCULAR HEMOGLOBIN 32.6 pg (28.0-32.0); MEAN CORPUSCULAR VOLUME 95.9 fL (80.0-94.0); MEAN PLATELET VOLUME 8.8 fl (7.4-10.4); MONOCYTES % 9.4 % (2.0-8.0); NEUTROPHILS % 79.4 % (40.0-76.0); PLATELET 210 x1000/uL (130-400); RED CELL DISTRIBUTION WIDTH 15.3 % (11.6-14.6)
[2022-11-30] MEDS ORDERED: CLINDAMYCIN 600 MG in DEXTROSE 5% WATER 50 ML IV ONE (07:00)
[2022-11-30] MEDS ORDERED: CLINDAMYCIN 600MG PREMIX 50 ML IV NR (07:15)
[2022-11-30] MEDS ORDERED: LIDOCAINE HCL 1% 10 MG/ML 10ML VIAL ONE ×2 (07:25→09:19)
[2022-11-30] MEDS ORDERED: IOHEXOL-300 50 ML BOTTLE IV ONE (07:25)
[2022-11-30 08:02] LABS: PHOSPHORUS 7.5 mg/dL (2.5-4.9)
[2022-11-30] MEDS: CARVEDILOL 3.125 MG TABLET PO SCH (09:00)
[2022-11-30] MEDS ORDERED: CALCITRIOL 0.25MCG CAPSULE PO SCH (09:00)
[2022-11-30] MEDS ORDERED: FENTANYL CITRATE/PF 50MCG/ML 2ML VIAL ONE (09:07)
[2022-11-30] MEDS ORDERED: FENTANYL CITRATE/PF 50MCG/ML 2ML VIAL IV NR (09:30)
[2022-11-30] MEDS: ASPIRIN 81MG TABLET PO SCH (10:06)
[2022-11-30] MEDS: ENOXAPARIN 30MG/0.3ML SYR SUBCUT SCH (10:06)
[2022-11-30] MEDS: ATORVASTATIN CALCIUM 10MG TABLET PO SCH (10:07)
[2022-11-30] MEDS: FAMOTIDINE 20MG/2ML VIAL IV SCH (10:07)
[2022-11-30] MEDS: DORZOLAM/TIMOLOL 2.23/0.68% OPHTH DROPS 10ML EACHEYE SCH (10:08)
[2022-11-30] MEDS: BRIMONIDINE 0.2% OPHTH DROPS 5ML BOTHEYE SCH (10:08)
[2022-11-30] MEDS ORDERED: COR3 PO (12:45)
[2022-11-30] MEDS: HYDROCODONE/ACETAMINOPHEN 5/325MG TABLET PO PRN (14:42)
[2022-12-01] MEDS ORDERED: FAMOTIDINE 20MG TABLET PO SCH (09:00)
== END 2022-11-30 17:14 | disposition home or self-care (01) | DRG 425 ==
LOC: ER 16:59 → MICUSO 22:21 → EDBEDREQ 22:39 → EDBEDREQTM 22:39 → 3WST 11-28 10:41
PROVIDERS: ADMIT Internal Medicine; ATTEND Internal Medicine
PROC: 5A1D70Z Performance of Urinary Filtration, Intermittent, Less than 6 Hours Per Day (ICD-10-PCS; principal; 2022-11-28)
PROC: 5A1D70Z Performance of Urinary Filtration, Intermittent, Less than 6 Hours Per Day (ICD-10-PCS; 2022-11-30)
PROC: 02HV33Z Insertion of Infusion Device into Superior Vena Cava, Percutaneous Approach (ICD-10-PCS; 2022-11-30)
PROC: B518ZZA Fluoroscopy of Superior Vena Cava, Guidance (ICD-10-PCS; 2022-11-30)
DX: E87.70 Fluid overload, unspecified (principal); I21.4 Non-ST elevation (NSTEMI) myocardial infarction; I50.43 Acute on chronic combined systolic (congestive) and diastolic (congestive) heart failure; K56.609 Unspecified intestinal obstruction, unspecified as to partial versus complete obstruction; E44.0 Moderate protein-calorie malnutrition; I27.20 Pulmonary hypertension, unspecified; N18.6 End stage renal disease; D63.1 Anemia in chronic kidney disease; K57.80 Diverticulitis of intestine, part unspecified, with perforation and abscess without bleeding; I13.2 Hypertensive heart and chronic kidney disease with heart failure and with stage 5 chronic kidney disease, or end stage renal disease; I25.10 Atherosclerotic heart disease of native coronary artery without angina pectoris; Z20.822 Contact with and (suspected) exposure to COVID-19; I48.91 Unspecified atrial fibrillation; F32.A Depression, unspecified; F41.9 Anxiety disorder, unspecified; K86.1 Other chronic pancreatitis; E03.9 Hypothyroidism, unspecified; E78.00 Pure hypercholesterolemia, unspecified; G89.29 Other chronic pain; H26.9 Unspecified cataract; I08.1 Rheumatic disorders of both mitral and tricuspid valves; K76.9 Liver disease, unspecified; N25.81 Secondary hyperparathyroidism of renal origin; Z68.26 Body mass index [BMI] 26.0-26.9, adult; Q44.6 Cystic disease of liver; Z99.2 Dependence on renal dialysis; Z85.038 Personal history of other malignant neoplasm of large intestine; Z95.810 Presence of automatic (implantable) cardiac defibrillator; Z93.3 Colostomy status; Z90.49 Acquired absence of other specified parts of digestive tract; Z88.0 Allergy status to penicillin; Z86.14 Personal history of Methicillin resistant Staphylococcus aureus infection; Z82.49 Family history of ischemic heart disease and other diseases of the circulatory system; Z79.899 Other long term (current) drug therapy; Z91.15 Patient's noncompliance with renal dialysis
CPT/HCPCS: 36415; 36558; 71045; 74176; 77001; 80048; 80053; 80061; 82550; 82553; 83735; 83880; 84100; 84439; 84443; 84481; 84484; 85025; 86705; 86709; 86803; 86850; 86900; 87340; 87426; 90935; 93005; 93970; 99152; 99153; 99291; C1750; C1769; J1642; J1650; J2270; J2405; J3010; J3490; J7030; Q9967; G0500

== ENCOUNTER 2023-01-01 09:53 | Inpatient (IN) | payer MEDICAID ==
[~2023-01-01] VITALS: Ht 177.8 cm; Wt 81.6 kg
[~2023-01-01 09:53] MED LIST changes: +COR3 PO
[2023-01-01 12:52] LABS: HEMATOCRIT. 31.9 % (42.0-52.0); HEMOGLOBIN. 10.6 g/dL (14.0-18.0); MEAN CORPUSCULAR HEMOGLOBIN 32.1 pg (28.0-32.0); MEAN CORPUSCULAR VOLUME 96.9 fL (80.0-94.0); PLATELET 231 x1000/uL (130-400); RED CELL DISTRIBUTION WIDTH 15.5 % (11.6-14.6)
[2023-01-01 13:01] LABS: CHLORIDE 100 mEq/L (98-107)
[2023-01-01 13:26] LABS: PLATELET ESTIMATE NORMAL
[2023-01-01] MEDS ORDERED: PIPERACILLIN/TAZ 3.375G PREMIX 50 ML IV ONE (15:15)
[2023-01-01] MEDS ORDERED: VANCOMYCIN 1G PREMIX 200 ML IV ONE (15:15)
[2023-01-01] MEDS ORDERED: DIPHENHYDRAMINE 50MG/ML VIAL IV PRN (18:15)
[2023-01-01] MEDS ORDERED: MAGNESIUM/ALUMINUM HYDROXIDE/SIMETHICONE 30ML UDC PO PRN (18:15)
[2023-01-01] MEDS ORDERED: GUAIFENESIN 200MG/10ML SUGAR FREE UDC PO PRN (18:15)
[2023-01-01] MEDS ORDERED: IPRATROPIUM/ALBUTEROL 0.5-3(2.5)MG/3ML NEB HHN PRN (18:15)
[2023-01-01] MEDS ORDERED: CLONIDINE 0.1MG TABLET PO PRN (18:15)
[2023-01-01] MEDS ORDERED: DOCUSATE SODIUM 100MG CAPSULE PO PRN (18:15)
[2023-01-01] MEDS ORDERED: ACETAMINOPHEN 325MG TABLET PO PRN ×2 (18:15)
[2023-01-01] MEDS ORDERED: NALOXONE HCL 0.4MG/ML VIAL IV PRN (18:30)
[2023-01-01] MEDS ORDERED: CEFTRIAXONE 1 G PREMIX 50 ML IV SCH (18:30)
[2023-01-01 19:36] LABS: FOLIC ACID (FOLATE) SERUM >20 ng/mL ng/mL (>5.38); VITAMIN B12 SERUM 1355 pg/mL (211-911)
[2023-01-01 19:49] LABS: FERRITIN 535 ng/mL (22-322)
[2023-01-01] MEDS ORDERED: AZITHROMYCIN 500 MG in DEXT 5% WATER 250 ML IV SCH (20:00)
[2023-01-01] MEDS: LATANOPROST 0.005% OPHTH DROPS 2.5ML EACHEYE SCH (21:00)
[2023-01-01] MEDS: ATORVASTATIN CALCIUM 10MG TABLET PO SCH (23:24)
[2023-01-01] MEDS: ENOXAPARIN 30MG/0.3ML SYR SUBCUT SCH (23:24)
[2023-01-01] MEDS: CARVEDILOL 3.125 MG TABLET PO SCH (23:25)
[2023-01-01 23:56] LABS: HEPATITIS B SURFACE ANTIGEN NEGATIVE
[2023-01-02] VITALS (15 sets, daily range): BP systolic 95–122; BP diastolic 45–83
[2023-01-02] MEDS: METOCLOPRAMIDE HCL 5MG TABLET PO SCH (06:00)
[2023-01-02] MEDS: HYDROCODONE/ACETAMINOPHEN 5/325MG TABLET PO PRN ×2 (06:02→12:51)
[2023-01-02] MEDS: ONDANSETRON HCL 4MG/2ML INJ IV PRN (06:03)
[2023-01-02 06:43] LABS: BASOPHILS % 1.1 % (0.0-2.0); EOSINOPHILS % 1.1 % (0.0-5.0); HEMATOCRIT. 28.7 % (42.0-52.0); HEMOGLOBIN. 9.6 g/dL (14.0-18.0); LYMPHOCYTES % 7.5 % (20.0-50.0); MEAN CORPUSCULAR HEMOGLOBIN 31.9 pg (28.0-32.0); MEAN CORPUSCULAR VOLUME 95.8 fL (80.0-94.0); MEAN PLATELET VOLUME 8.9 fl (7.4-10.4); MONOCYTES % 10.9 % (2.0-8.0); NEUTROPHILS % 79.4 % (40.0-76.0); PLATELET 191 x1000/uL (130-400); RED BLOOD CELL COUNT 2.99 mill/uL (4.7-6.1); RED CELL DISTRIBUTION WIDTH 15.4 % (11.6-14.6)
[2023-01-02 06:59] LABS: CHLORIDE 99 mEq/L (98-107)
[2023-01-02 07:06] LABS: CREATINE KINASE MB FRACTION 5.2 ng/mL (0.5-3.6)
[2023-01-02 07:11] LABS: HDL CHOLESTEROL 47 mg/dL (40-59); LDL CHOLESTEROL 63 mg/dL (5-100)
[2023-01-02] MEDS: PANTOPRAZOLE SODIUM 40 MG/VIAL IV SCH (09:38)
[2023-01-02] MEDS: LEVOTHYROXINE SODIUM 25MCG TABLET PO SCH (09:39)
[2023-01-02] MEDS: ASPIRIN 81MG EC TABLET PO SCH (09:39)
[2023-01-02] MEDS: LOSARTAN POTASSIUM 25 MG TABLET PO SCH (09:39)
[2023-01-02] MEDS: BRIMONIDINE 0.2% OPHTH DROPS 5ML BOTHEYE SCH ×2 (12:50→17:40)
[2023-01-02] MEDS: DORZOLAM/TIMOLOL 2.23/0.68% OPHTH DROPS 10ML EACHEYE SCH ×2 (12:50→17:40)
[2023-01-02] MEDS: CARVEDILOL 3.125 MG TABLET PO SCH ×2 (12:51→20:51)
[2023-01-02] MEDS ORDERED: IPRATROPIUM BROMIDE (0.02%) 0.5MG/2.5ML NEB HHN PRN (15:15)
[2023-01-02] MEDS ORDERED: ALBUTEROL (0.083%) 2.5MG/3ML NEB HHN PRN (15:15)
[2023-01-02] MEDS: AZITHROMYCIN 500 MG in DEXT 5% WATER 250 ML IV SCH (17:39)
[2023-01-02] MEDS: CEFTRIAXONE 1,000 MG in DEXTROSE 5% WATER 50 ML IV SCH (17:39)
[2023-01-02 18:21] LABS: CREATINE KINASE MB FRACTION 5.8 ng/mL (0.5-3.6)
[2023-01-02] MEDS: ATORVASTATIN CALCIUM 10MG TABLET PO SCH (20:50)
[2023-01-02] MEDS: ENOXAPARIN 30MG/0.3ML SYR SUBCUT SCH (20:50)
[2023-01-02] MEDS: LATANOPROST 0.005% OPHTH DROPS 2.5ML EACHEYE SCH (21:00)
[2023-01-03] VITALS (15 sets, daily range): BP systolic 91–120; BP diastolic 60–82
[2023-01-03] MEDS: METOCLOPRAMIDE HCL 5MG TABLET PO SCH ×4 (05:38→18:03)
[2023-01-03 07:15] LABS: BASOPHILS % 1.3 % (0.0-2.0); EOSINOPHILS % 2.8 % (0.0-5.0); LYMPHOCYTES % 10.2 % (20.0-50.0); MEAN CORPUSCULAR HEMOGLOBIN 32.2 pg (28.0-32.0); MEAN CORPUSCULAR VOLUME 96.2 fL (80.0-94.0); MEAN PLATELET VOLUME 9.3 fl (7.4-10.4); NEUTROPHILS % 74.7 % (40.0-76.0); PLATELET 182 x1000/uL (130-400); RED BLOOD CELL COUNT 2.81 mill/uL (4.7-6.1); RED CELL DISTRIBUTION WIDTH 15.4 % (11.6-14.6)
[2023-01-03 07:47] LABS: CHLORIDE 101 mEq/L (98-107)
[2023-01-03 08:01] LABS: PHOSPHORUS 6.1 mg/dL (2.5-4.9)
[2023-01-03] MEDS: DORZOLAM/TIMOLOL 2.23/0.68% OPHTH DROPS 10ML EACHEYE SCH ×2 (09:17→18:03)
[2023-01-03] MEDS: PANTOPRAZOLE SODIUM 40 MG/VIAL IV SCH (09:17)
[2023-01-03] MEDS: BRIMONIDINE 0.2% OPHTH DROPS 5ML BOTHEYE SCH ×2 (09:17→18:03)
[2023-01-03] MEDS: ASPIRIN 81MG EC TABLET PO SCH (09:18)
[2023-01-03] MEDS: CARVEDILOL 3.125 MG TABLET PO SCH ×2 (09:21→21:19)
[2023-01-03] MEDS: LOSARTAN POTASSIUM 25 MG TABLET PO SCH (09:21)
[2023-01-03] MEDS: LEVOTHYROXINE SODIUM 25MCG TABLET PO SCH (09:21)
[2023-01-03] MEDS: AZITHROMYCIN 500 MG in DEXT 5% WATER 250 ML IV SCH (18:03)
[2023-01-03] MEDS: CEFTRIAXONE 1,000 MG in DEXTROSE 5% WATER 50 ML IV SCH (18:03)
[2023-01-03] MEDS: HYDROCODONE/ACETAMINOPHEN 5/325MG TABLET PO PRN (18:58)
[2023-01-03] MEDS: ONDANSETRON HCL 4MG/2ML INJ IV PRN (21:18)
[2023-01-03] MEDS: ATORVASTATIN CALCIUM 10MG TABLET PO SCH (21:19)
[2023-01-03] MEDS: ENOXAPARIN 30MG/0.3ML SYR SUBCUT SCH (21:20)
[2023-01-04] VITALS: BP 97/65
[2023-01-04] MEDS: LATANOPROST 0.005% OPHTH DROPS 2.5ML EACHEYE SCH (00:38)
[2023-01-04] MEDS: METOCLOPRAMIDE HCL 5MG TABLET PO SCH ×4 (00:38→17:48)
[2023-01-04 04:00] VITALS: BP 111/80
[2023-01-04 06:58] LABS: BASOPHILS % 1.2 % (0.0-2.0); EOSINOPHILS % 3.7 % (0.0-5.0); HEMOGLOBIN. 9.1 g/dL (14.0-18.0); LYMPHOCYTES % 11.3 % (20.0-50.0); MEAN CORPUSCULAR HEMOGLOBIN 32.4 pg (28.0-32.0); MEAN CORPUSCULAR VOLUME 96.4 fL (80.0-94.0); MEAN PLATELET VOLUME 9.2 fl (7.4-10.4); MONOCYTES % 10.7 % (2.0-8.0); NEUTROPHILS % 73.1 % (40.0-76.0); PLATELET 188 x1000/uL (130-400); RED BLOOD CELL COUNT 2.81 mill/uL (4.7-6.1); RED CELL DISTRIBUTION WIDTH 15.4 % (11.6-14.6)
[2023-01-04 07:42] LABS: CHLORIDE 104 mEq/L (98-107)
[2023-01-04 08:00] VITALS: BP 100/73
[2023-01-04] MEDS: PANTOPRAZOLE SODIUM 40 MG/VIAL IV SCH (08:54)
[2023-01-04] MEDS: BRIMONIDINE 0.2% OPHTH DROPS 5ML BOTHEYE SCH ×2 (08:54→17:50)
[2023-01-04] MEDS: DORZOLAM/TIMOLOL 2.23/0.68% OPHTH DROPS 10ML EACHEYE SCH ×2 (08:55→17:50)
[2023-01-04] MEDS: LOSARTAN POTASSIUM 25 MG TABLET PO SCH (08:55)
[2023-01-04] MEDS: CARVEDILOL 3.125 MG TABLET PO SCH (08:55)
[2023-01-04] MEDS: LEVOTHYROXINE SODIUM 25MCG TABLET PO SCH (08:55)
[2023-01-04] MEDS: ASPIRIN 81MG EC TABLET PO SCH (08:57)
[2023-01-04 12:00] VITALS: BP 104/70
[2023-01-04 16:21] VITALS: BP 104/70
[2023-01-04] MEDS: CEFTRIAXONE 1,000 MG in DEXTROSE 5% WATER 50 ML IV SCH (17:00)
[2023-01-04] MEDS ORDERED: AMOX1TAB15 PO (21:13)
[2023-01-04] MEDS ORDERED: AZIT500T8 PO (21:13)
== END 2023-01-04 19:00 | disposition home or self-care (01) | DRG 139 ==
LOC: ER 09:53 → 7WST 16:08 → EDBEDREQTM 16:17 → EDBEDREQ 16:17
PROVIDERS: ADMIT Internal Medicine; ATTEND Internal Medicine
PROC: 5A1D70Z Performance of Urinary Filtration, Intermittent, Less than 6 Hours Per Day (ICD-10-PCS; principal; 2023-01-02)
PROC: 5A1D70Z Performance of Urinary Filtration, Intermittent, Less than 6 Hours Per Day (ICD-10-PCS; 2023-01-03)
DX: J18.9 Pneumonia, unspecified organism (principal); I13.2 Hypertensive heart and chronic kidney disease with heart failure and with stage 5 chronic kidney disease, or end stage renal disease; K56.609 Unspecified intestinal obstruction, unspecified as to partial versus complete obstruction; I24.8 Other forms of acute ischemic heart disease; I27.20 Pulmonary hypertension, unspecified; E46 Unspecified protein-calorie malnutrition; D63.1 Anemia in chronic kidney disease; N18.6 End stage renal disease; K57.80 Diverticulitis of intestine, part unspecified, with perforation and abscess without bleeding; Q44.6 Cystic disease of liver; R18.8 Other ascites; Z99.2 Dependence on renal dialysis; I50.22 Chronic systolic (congestive) heart failure; Z20.822 Contact with and (suspected) exposure to COVID-19; E03.9 Hypothyroidism, unspecified; E78.00 Pure hypercholesterolemia, unspecified; H26.9 Unspecified cataract; I48.91 Unspecified atrial fibrillation; K86.1 Other chronic pancreatitis; N25.81 Secondary hyperparathyroidism of renal origin; F32.A Depression, unspecified; F41.9 Anxiety disorder, unspecified; G89.29 Other chronic pain; H40.9 Unspecified glaucoma; R74.01 Elevation of levels of liver transaminase levels; K57.92 Diverticulitis of intestine, part unspecified, without perforation or abscess without bleeding; Z93.3 Colostomy status; Z88.0 Allergy status to penicillin; Z95.810 Presence of automatic (implantable) cardiac defibrillator; Z85.038 Personal history of other malignant neoplasm of large intestine; Z79.82 Long term (current) use of aspirin; Z79.899 Other long term (current) drug therapy; Z86.14 Personal history of Methicillin resistant Staphylococcus aureus infection; Z68.25 Body mass index [BMI] 25.0-25.9, adult
CPT/HCPCS: 36415; 71045; 80048; 80053; 80061; 82550; 82553; 82607; 82728; 82746; 83540; 83550; 83735; 83880; 84100; 84145; 84436; 84443; 84484; 85025; 85379; 86705; 86709; 86803; 87340; 90935; 93005; 93306; 93970; 99285; C9113; J0456; J0696; J1200; J1650; J2405; J3370; J7060; J8597

== ENCOUNTER 2023-01-21 12:49 | Inpatient (IN) | payer MEDICAID ==
[~2023-01-21] VITALS: Ht 182.9 cm; Wt 78.3 kg
[~2023-01-21 12:49] MED LIST changes: +AMOX1TAB15 PO; +AZIT500T8 PO
[2023-01-21 15:23] LABS: BASOPHILS % 0.9 % (0.0-2.0); EOSINOPHILS % 1.6 % (0.0-5.0); HEMATOCRIT. 26.1 % (42.0-52.0); HEMOGLOBIN. 8.9 g/dL (14.0-18.0); LYMPHOCYTES % 10.3 % (20.0-50.0); MEAN CORPUSCULAR HEMOGLOBIN 32.9 pg (28.0-32.0); MEAN CORPUSCULAR VOLUME 96.1 fL (80.0-94.0); MEAN PLATELET VOLUME 8.2 fl (7.4-10.4); NEUTROPHILS % 76.2 % (40.0-76.0); PLATELET 209 x1000/uL (130-400); RED BLOOD CELL COUNT 2.72 mill/uL (4.7-6.1); RED CELL DISTRIBUTION WIDTH 14.6 % (11.6-14.6)
[2023-01-21 15:33] LABS: CHLORIDE 102 mEq/L (98-107)
[2023-01-21] MEDS ORDERED: INSULIN REGULAR (HUMULIN R) 300UNITS/3ML VIAL IV NR (18:32)
[2023-01-21] MEDS ORDERED: CALCIUM CHLORIDE 1,000 MG in DEXT 5% WATER 90 ML IV ONE (18:45)
[2023-01-21] MEDS ORDERED: SODIUM POLYSTYRENE SULFONATE 15 G/60 ML BOT PO ONE (18:45)
[2023-01-21] MEDS ORDERED: DEXTROSE 50% WATER 50ML SYRINGE IV ONE (18:45)
[2023-01-21] MEDS ORDERED: IPRATROPIUM/ALBUTEROL 0.5-3(2.5)MG/3ML NEB NEB PRN (19:00)
[2023-01-21] MEDS ORDERED: ZOLPIDEM TARTRATE 5MG TABLET PO PRN (19:00)
[2023-01-21] MEDS ORDERED: ACETAMINOPHEN 325MG TABLET PO PRN (19:00)
[2023-01-21] MEDS ORDERED: CLONIDINE 0.1MG TABLET PO PRN (19:00)
[2023-01-21] MEDS ORDERED: DOCUSATE SODIUM 100MG CAPSULE PO PRN (19:00)
[2023-01-21] MEDS ORDERED: MAGNESIUM/ALUMINUM HYDROXIDE/SIMETHICONE 30ML UDC PO PRN (19:00)
[2023-01-21] MEDS ORDERED: NITROGLYCERIN 0.4MG TABLET SL SL PRN (19:00)
[2023-01-21] MEDS ORDERED: DEXTROSE 50% WATER 50ML SYRINGE IV NR (19:45)
[2023-01-21 20:08] LABS: T4 FREE 0.85 ng/dL (0.76-1.46)
[2023-01-21 20:26] LABS: VITAMIN B12 SERUM 1162 pg/mL (211-911)
[2023-01-21] MEDS: ENOXAPARIN 30MG/0.3ML SYR SUBCUT SCH (20:29)
[2023-01-21 20:33] LABS: FOLIC ACID (FOLATE) SERUM > 20.00 ng/mL (>5.38)
[2023-01-21 21:15] VITALS: BP 131/84
[2023-01-21] MEDS: ATORVASTATIN CALCIUM 10MG TABLET PO SCH (21:57)
[2023-01-22] VITALS (22 sets, daily range): BP systolic 98–141; BP diastolic 60–98
[2023-01-22 00:44] LABS: CREATINE KINASE 182 IU/L (39-308); CREATINE KINASE MB FRACTION 6.2 ng/mL (0.5-3.6)
[2023-01-22 03:34] LABS: HEPATITIS B SURFACE ANTIGEN NEGATIVE
[2023-01-22 05:52] LABS: BASOPHILS % 0.7 % (0.0-2.0); EOSINOPHILS % 2.1 % (0.0-5.0); HEMATOCRIT. 26.1 % (42.0-52.0); HEMOGLOBIN. 8.7 g/dL (14.0-18.0); LYMPHOCYTES % 10.6 % (20.0-50.0); MEAN CORPUSCULAR HEMOGLOBIN 32.1 pg (28.0-32.0); MEAN PLATELET VOLUME 9.7 fl (7.4-10.4); NEUTROPHILS % 77.6 % (40.0-76.0); PLATELET 211 x1000/uL (130-400); RED BLOOD CELL COUNT 2.72 mill/uL (4.7-6.1); RED CELL DISTRIBUTION WIDTH 14.8 % (11.6-14.6)
[2023-01-22 06:16] LABS: CHLORIDE 100 mEq/L (98-107)
[2023-01-22 06:30] LABS: CREATINE KINASE 202 IU/L (39-308); CREATINE KINASE MB FRACTION 6.8 ng/mL (0.5-3.6)
[2023-01-22 06:42] LABS: PHOSPHORUS 8.2 mg/dL (2.5-4.9)
[2023-01-22] MEDS ORDERED: CLINDAMYCIN 600MG PREMIX 50 ML IV SCH (07:00)
[2023-01-22 08:44] LABS: INR 1.1; PROTHROMBIN TIME 11.6 sec (9.6-11.0)
[2023-01-22] MEDS: FAMOTIDINE 20MG TABLET PO SCH (09:43)
[2023-01-22] MEDS: ASPIRIN 81MG EC TABLET PO SCH (09:43)
[2023-01-22] MEDS: SEVELAMER CARBONATE 800 MG TABLET PO SCH ×3 (09:43→17:27)
[2023-01-22] MEDS ORDERED: LIDOCAINE HCL 1% 10 MG/ML 10ML VIAL ONE ×2 (10:39→11:39)
[2023-01-22] MEDS: ONDANSETRON HCL 4MG/2ML INJ IV PRN (17:27)
[2023-01-22] MEDS: ACETAMINOPHEN 325MG TABLET PO PRN ×2 (17:28→23:10)
[2023-01-22] MEDS: ENOXAPARIN 30MG/0.3ML SYR SUBCUT SCH (19:57)
[2023-01-22] MEDS: ATORVASTATIN CALCIUM 10MG TABLET PO SCH (20:10)
[2023-01-22] MEDS ORDERED: IPRATROPIUM BROMIDE (0.02%) 0.5MG/2.5ML NEB HHN PRN (21:15)
[2023-01-22] MEDS ORDERED: ALBUTEROL (0.083%) 2.5MG/3ML NEB HHN PRN (21:15)
[2023-01-23] VITALS (15 sets, daily range): BP systolic 99–133; BP diastolic 5–89
[2023-01-23] MEDS: GUAIFENESIN 200MG/10ML SUGAR FREE UDC PO PRN ×2 (06:13→17:28)
[2023-01-23] MEDS: ASPIRIN 81MG EC TABLET PO SCH (08:25)
[2023-01-23] MEDS: SEVELAMER CARBONATE 800 MG TABLET PO SCH ×3 (08:25→17:12)
[2023-01-23] MEDS: FAMOTIDINE 20MG TABLET PO SCH (08:25)
[2023-01-23] MEDS: ONDANSETRON HCL 4MG/2ML INJ IV PRN (17:12)
[2023-01-23] MEDS: ACETAMINOPHEN 325MG TABLET PO PRN (17:13)
[2023-01-23] MEDS ORDERED: EPOETIN ALFA-EPBX 4,000 UNIT/ML VIAL SUBCUT SCH (21:00)
[2023-01-23] MEDS: ATORVASTATIN CALCIUM 10MG TABLET PO SCH (21:23)
[2023-01-23] MEDS: ENOXAPARIN 30MG/0.3ML SYR SUBCUT SCH (21:23)
[2023-01-24] VITALS: BP 112/75
[2023-01-24] MEDS: ACETAMINOPHEN 325MG TABLET PO PRN (03:40)
[2023-01-24 04:00] VITALS: BP 119/77
[2023-01-24 07:52] VITALS: BP 119/62
[2023-01-24] MEDS: SEVELAMER CARBONATE 800 MG TABLET PO SCH ×2 (08:27→12:41)
[2023-01-24] MEDS: ASPIRIN 81MG EC TABLET PO SCH (08:27)
[2023-01-24] MEDS: FAMOTIDINE 20MG TABLET PO SCH (08:27)
[2023-01-24 10:53] VITALS: BP_SYST 108; BP_SYST 119; BP_DIAS 62; BP_DIAS 69
[2023-01-24 12:07] VITALS: BP 108/69
== END 2023-01-24 16:40 | disposition home or self-care (01) | DRG 206 ==
LOC: ER 12:49 → 7WST 19:00 → ENRESERV 19:19
PROVIDERS: ADMIT Internal Medicine; ATTEND Internal Medicine
PROC: 5A1D70Z Performance of Urinary Filtration, Intermittent, Less than 6 Hours Per Day (ICD-10-PCS; 2023-01-21)
PROC: 0JHL3XZ Insertion of Tunneled Vascular Access Device into Right Upper Leg Subcutaneous Tissue and Fascia, Percutaneous Approach (ICD-10-PCS; principal; 2023-01-22)
PROC: 06H033Z Insertion of Infusion Device into Inferior Vena Cava, Percutaneous Approach (ICD-10-PCS; 2023-01-22)
PROC: B5191ZA Fluoroscopy of Inferior Vena Cava using Low Osmolar Contrast, Guidance (ICD-10-PCS; 2023-01-22)
PROC: B549ZZA Ultrasonography of Inferior Vena Cava, Guidance (ICD-10-PCS; 2023-01-22)
PROC: 5A1D70Z Performance of Urinary Filtration, Intermittent, Less than 6 Hours Per Day (ICD-10-PCS; 2023-01-23)
DX: T82.838A Hemorrhage due to vascular prosthetic devices, implants and grafts, initial encounter (principal); I50.43 Acute on chronic combined systolic (congestive) and diastolic (congestive) heart failure; I31.39 Other pericardial effusion (noninflammatory); I27.20 Pulmonary hypertension, unspecified; E46 Unspecified protein-calorie malnutrition; D63.8 Anemia in other chronic diseases classified elsewhere; D62 Acute posthemorrhagic anemia; N18.6 End stage renal disease; R18.8 Other ascites; I13.2 Hypertensive heart and chronic kidney disease with heart failure and with stage 5 chronic kidney disease, or end stage renal disease; N25.81 Secondary hyperparathyroidism of renal origin; K86.1 Other chronic pancreatitis; I07.1 Rheumatic tricuspid insufficiency; D53.9 Nutritional anemia, unspecified; F32.A Depression, unspecified; R53.81 Other malaise; Y84.1 Kidney dialysis as the cause of abnormal reaction of the patient, or of later complication, without mention of misadventure at the time of the procedure; F41.9 Anxiety disorder, unspecified; Q44.6 Cystic disease of liver; Q61.2 Polycystic kidney, adult type; Z88.0 Allergy status to penicillin; Z99.2 Dependence on renal dialysis; Z93.3 Colostomy status; Z68.23 Body mass index [BMI] 23.0-23.9, adult; Z88.8 Allergy status to other drugs, medicaments and biological substances; Z79.82 Long term (current) use of aspirin; Z86.14 Personal history of Methicillin resistant Staphylococcus aureus infection; Z95.810 Presence of automatic (implantable) cardiac defibrillator; Y92.89 Other specified places as the place of occurrence of the external cause
CPT/HCPCS: 36415; 36558; 71045; 76937; 77001; 80053; 80061; 82550; 82553; 82607; 82746; 83036; 83540; 83550; 83735; 83880; 84100; 84145; 84439; 84443; 84484; 85025; 86705; 86709; 86803; 87340; 90935; 93005; 93970; 99291; C1750; C1769; C1887; J0885; J1642; J1650; J2405; J3490; J7060

== ENCOUNTER 2023-03-09 15:10 | Inpatient (IN) | payer MEDICAID ==
[~2023-03-09] VITALS: Ht 185.4 cm; Wt 82.2 kg
[~2023-03-09 15:10] MED LIST changes: +BRIM.2; -BRIM.2 BOTHEYE
[2023-03-09 16:37] LABS: BASOPHILS % 0.9 % (0.0-2.0); EOSINOPHILS % 1.4 % (0.0-5.0); HEMATOCRIT. 29.6 % (42.0-52.0); LYMPHOCYTES % 11.4 % (20.0-50.0); MEAN CORPUSCULAR HEMOGLOBIN 32.4 pg (28.0-32.0); MEAN CORPUSCULAR VOLUME 95.4 fL (80.0-94.0); MEAN PLATELET VOLUME 8.5 fl (7.4-10.4); MONOCYTES % 11.3 % (2.0-8.0); PLATELET 200 x1000/uL (130-400); RED CELL DISTRIBUTION WIDTH 14.4 % (11.6-14.6)
[2023-03-09 16:47] LABS: INR 1.1; PARTIAL THROMBOPLASTIN TIME 25.4 sec (23.4-31.0); PROTHROMBIN TIME 11.8 sec (9.6-11.0)
[2023-03-09 16:52] LABS: CHLORIDE 102 mEq/L (98-107)
[2023-03-09] MEDS ORDERED: IPRATROPIUM/ALBUTEROL 0.5-3(2.5)MG/3ML NEB NEB PRN (20:15)
[2023-03-09] MEDS ORDERED: ACETAMINOPHEN 325MG TABLET PO PRN (20:15)
[2023-03-09] MEDS ORDERED: CLONIDINE 0.1MG TABLET PO PRN (20:15)
[2023-03-09] MEDS: HYDRALAZINE HCL 10MG TABLET PO SCH (21:00)
[2023-03-09] MEDS: LATANOPROST 0.005% OPHTH DROPS 2.5ML EACHEYE SCH (21:00)
[2023-03-09] MEDS: DORZOLAM/TIMOLOL 2.23/0.68% OPHTH DROPS 10ML EACHEYE SCH (21:00)
[2023-03-09] MEDS: ACETAMINOPHEN 325MG TABLET PO PRN (22:11)
[2023-03-10] VITALS (18 sets, daily range): BP systolic 105–137; BP diastolic 65–95
[2023-03-10] MEDS: ATORVASTATIN CALCIUM 10MG TABLET PO SCH ×2 (00:14→21:36)
[2023-03-10 00:32] LABS: CREATINE KINASE MB FRACTION 8.8 ng/mL (0.5-3.6)
[2023-03-10] MEDS ORDERED: DEXTROSE 50% WATER 50ML SYRINGE IV PRN (00:45)
[2023-03-10 02:38] LABS: PHOSPHORUS 7.9 mg/dL (2.5-4.9)
[2023-03-10 02:47] LABS: FERRITIN 350 ng/mL (22-322)
[2023-03-10 02:49] LABS: VITAMIN B12 SERUM 1355 pg/mL (211-911)
[2023-03-10 02:51] LABS: FOLIC ACID (FOLATE) SERUM > 20.00 ng/mL (>5.38)
[2023-03-10 03:00] LABS: HEPATITIS B SURFACE ANTIGEN NEGATIVE
[2023-03-10] MEDS ORDERED: AMLO5TAB4 PO (03:50)
[2023-03-10] MEDS: ACETAMINOPHEN 325MG TABLET PO PRN ×2 (03:55→21:37)
[2023-03-10] MEDS: BLOOD SUGAR DIAGNOSTIC STRIP TEST SCH ×4 (07:00→21:36)
[2023-03-10] MEDS: LEVOTHYROXINE SODIUM 25MCG TABLET PO SCH (07:00)
[2023-03-10] MEDS ORDERED: LIDOCAINE HCL 1% 10 MG/ML 10ML VIAL ONE ×2 (07:39→09:52)
[2023-03-10] MEDS: DORZOLAM/TIMOLOL 2.23/0.68% OPHTH DROPS 10ML EACHEYE SCH ×2 (09:00→22:46)
[2023-03-10] MEDS: FOLIC ACID/VITAMIN B COMP W-C TABLET PO SCH (09:00)
[2023-03-10] MEDS: HYDRALAZINE HCL 10MG TABLET PO SCH ×4 (09:00→21:36)
[2023-03-10] MEDS: FERROUS SULFATE 325MG TABLET PO SCH (09:00)
[2023-03-10] MEDS: AMLODIPINE 10MG TABLET PO SCH (09:00)
[2023-03-10] MEDS: PANTOPRAZOLE SODIUM 40 MG/VIAL IV SCH (09:00)
[2023-03-10] MEDS: SEVELAMER CARBONATE 800 MG TABLET PO SCH ×3 (09:45→17:00)
[2023-03-10] MEDS ORDERED: IOHEXOL-300 50 ML BOTTLE IV ONE (09:45)
[2023-03-10 09:50] LABS: BASOPHILS % 1.3 % (0.0-2.0); EOSINOPHILS % 2.1 % (0.0-5.0); HEMOGLOBIN. 10.4 g/dL (14.0-18.0); LYMPHOCYTES % 9.4 % (20.0-50.0); MEAN CORPUSCULAR HEMOGLOBIN 31.9 pg (28.0-32.0); MEAN CORPUSCULAR VOLUME 95.5 fL (80.0-94.0); MEAN PLATELET VOLUME 9.8 fl (7.4-10.4); MONOCYTES % 9.1 % (2.0-8.0); NEUTROPHILS % 78.1 % (40.0-76.0); PLATELET 212 x1000/uL (130-400); RED BLOOD CELL COUNT 3.24 mill/uL (4.7-6.1); RED CELL DISTRIBUTION WIDTH 14.8 % (11.6-14.6)
[2023-03-10 10:03] LABS: CHLORIDE 101 mEq/L (98-107)
[2023-03-10 10:17] LABS: HDL CHOLESTEROL 40 mg/dL (40-59); LDL CHOLESTEROL 87 mg/dL (5-100)
[2023-03-10] MEDS: FUROSEMIDE 40MG/4ML VIAL IVP SCH (16:56)
[2023-03-10] MEDS: LATANOPROST 0.005% OPHTH DROPS 2.5ML EACHEYE SCH (22:46)
[2023-03-11] VITALS (7 sets, daily range): BP systolic 109–125; BP diastolic 68–71
[2023-03-11] MEDS ORDERED: GUAIFENESIN 200MG/10ML SUGAR FREE UDC PO NR (05:45)
[2023-03-11] MEDS: FUROSEMIDE 40MG/4ML VIAL IVP SCH ×2 (06:51→17:48)
[2023-03-11] MEDS: LEVOTHYROXINE SODIUM 25MCG TABLET PO SCH (06:52)
[2023-03-11] MEDS: BLOOD SUGAR DIAGNOSTIC STRIP TEST SCH ×4 (06:52→21:00)
[2023-03-11] MEDS: SEVELAMER CARBONATE 800 MG TABLET PO SCH ×3 (09:22→17:49)
[2023-03-11] MEDS: FERROUS SULFATE 325MG TABLET PO SCH (09:22)
[2023-03-11] MEDS: DORZOLAM/TIMOLOL 2.23/0.68% OPHTH DROPS 10ML EACHEYE SCH ×2 (09:22→22:15)
[2023-03-11] MEDS: AMLODIPINE 10MG TABLET PO SCH (09:22)
[2023-03-11] MEDS: HYDRALAZINE HCL 10MG TABLET PO SCH ×4 (09:26→22:17)
[2023-03-11] MEDS: FOLIC ACID/VITAMIN B COMP W-C TABLET PO SCH (12:21)
[2023-03-11] MEDS: PANTOPRAZOLE SODIUM 40 MG/VIAL IV SCH (12:21)
[2023-03-11] MEDS ORDERED: ONDANSETRON HCL 4MG/2ML INJ IV PRN (15:45)
[2023-03-11] MEDS: GUAIFENESIN/CODEINE 200-20MG/10ML UDC PO PRN ×2 (15:56→22:22)
[2023-03-11] MEDS: LATANOPROST 0.005% OPHTH DROPS 2.5ML EACHEYE SCH (22:15)
[2023-03-11] MEDS: ATORVASTATIN CALCIUM 10MG TABLET PO SCH (22:15)
[2023-03-12] VITALS (10 sets, daily range): BP systolic 100–135; BP diastolic 64–82
[2023-03-12] MEDS: GUAIFENESIN/CODEINE 200-20MG/10ML UDC PO PRN (05:23)
[2023-03-12] MEDS: LEVOTHYROXINE SODIUM 25MCG TABLET PO SCH (06:20)
[2023-03-12] MEDS: FUROSEMIDE 40MG/4ML VIAL IVP SCH (06:20)
[2023-03-12] MEDS: BLOOD SUGAR DIAGNOSTIC STRIP TEST SCH ×3 (06:20→17:10)
[2023-03-12] MEDS: DORZOLAM/TIMOLOL 2.23/0.68% OPHTH DROPS 10ML EACHEYE SCH (08:03)
[2023-03-12] MEDS: FERROUS SULFATE 325MG TABLET PO SCH (08:03)
[2023-03-12] MEDS: SEVELAMER CARBONATE 800 MG TABLET PO SCH ×2 (08:03→12:48)
[2023-03-12] MEDS: PANTOPRAZOLE SODIUM 40 MG/VIAL IV SCH (08:04)
[2023-03-12] MEDS: HYDRALAZINE HCL 10MG TABLET PO SCH ×2 (08:07→12:40)
[2023-03-12] MEDS: FOLIC ACID/VITAMIN B COMP W-C TABLET PO SCH (08:07)
[2023-03-12] MEDS: AMLODIPINE 10MG TABLET PO SCH (08:07)
== END 2023-03-12 18:10 | disposition home or self-care (01) | DRG 466 ==
LOC: ER 15:10 → MICUSO 22:10 → 8WST 22:45
PROVIDERS: ADMIT Hospitalist; ATTEND Hospitalist
PROC: 02H633Z Insertion of Infusion Device into Right Atrium, Percutaneous Approach (ICD-10-PCS; 2023-03-09)
PROC: 0JH63XZ Insertion of Tunneled Vascular Access Device into Chest Subcutaneous Tissue and Fascia, Percutaneous Approach (ICD-10-PCS; principal; 2023-03-10)
PROC: B518YZA Fluoroscopy of Superior Vena Cava using Other Contrast, Guidance (ICD-10-PCS; 2023-03-10)
PROC: 02HV33Z Insertion of Infusion Device into Superior Vena Cava, Percutaneous Approach (ICD-10-PCS; 2023-03-10)
PROC: 5A1D70Z Performance of Urinary Filtration, Intermittent, Less than 6 Hours Per Day (ICD-10-PCS; 2023-03-10)
PROC: 5A1D70Z Performance of Urinary Filtration, Intermittent, Less than 6 Hours Per Day (ICD-10-PCS; 2023-03-11)
DX: T82.41XA Breakdown (mechanical) of vascular dialysis catheter, initial encounter (principal); N18.6 End stage renal disease; I50.21 Acute systolic (congestive) heart failure; J90 Pleural effusion, not elsewhere classified; E46 Unspecified protein-calorie malnutrition; D63.1 Anemia in chronic kidney disease; K57.92 Diverticulitis of intestine, part unspecified, without perforation or abscess without bleeding; R18.8 Other ascites; Q61.3 Polycystic kidney, unspecified; N25.81 Secondary hyperparathyroidism of renal origin; C18.9 Malignant neoplasm of colon, unspecified; Y71.2 Prosthetic and other implants, materials and accessory cardiovascular devices associated with adverse incidents; Z68.23 Body mass index [BMI] 23.0-23.9, adult; I13.2 Hypertensive heart and chronic kidney disease with heart failure and with stage 5 chronic kidney disease, or end stage renal disease; E03.9 Hypothyroidism, unspecified; E78.2 Mixed hyperlipidemia; Z99.2 Dependence on renal dialysis; H40.9 Unspecified glaucoma; F32.A Depression, unspecified; F41.9 Anxiety disorder, unspecified; G89.29 Other chronic pain; D53.9 Nutritional anemia, unspecified; K86.1 Other chronic pancreatitis; Q44.6 Cystic disease of liver; Q61.2 Polycystic kidney, adult type; Z86.14 Personal history of Methicillin resistant Staphylococcus aureus infection; Z88.0 Allergy status to penicillin; Z93.3 Colostomy status; Z95.810 Presence of automatic (implantable) cardiac defibrillator
CPT/HCPCS: 36415; 36558; 71045; 76700; 77001; 80053; 80061; 82150; 82550; 82553; 82607; 82728; 82746; 82962; 83036; 83540; 83550; 83735; 83880; 84100; 84439; 84443; 84484; 85025; 86705; 86709; 86803; 86850; 86900; 87340; 90935; 93005; 97116; 97162; 97166; 99285; C1750; C1769; C9113; J1642; J1940; J2405; J3490; Q9967

== ENCOUNTER 2023-06-12 14:22 | Emergency (ER) | payer MEDICAID ==
[~2023-06-12] VITALS: Ht 182.9 cm; Wt 79.0 kg
[~2023-06-12 14:22] MED LIST changes: -AMOX1TAB15 PO; -AZIT500T8 PO; -HYDR-4133 PO
[2023-06-12 14:28] VITALS: O2SAT 100
[2023-06-12 15:03] LABS: BASOPHILS % 0.8 % (0.0-2.0); EOSINOPHILS % 1.9 % (0.0-5.0); HEMATOCRIT. 32.4 % (42.0-52.0); HEMOGLOBIN. 10.6 g/dL (14.0-18.0); MEAN CORPUSCULAR HEMOGLOBIN 31.3 pg (28.0-32.0); MEAN CORPUSCULAR HGB CONC 32.8 g/dL (31.0-37.0); MEAN CORPUSCULAR VOLUME 95.6 fL (80.0-94.0); MEAN PLATELET VOLUME 8.5 fl (7.4-10.4); MONOCYTES % 11.2 % (2.0-8.0); NEUTROPHILS % 77.1 % (40.0-76.0); PLATELET 169 x1000/uL (130-400); RED BLOOD CELL COUNT 3.39 mill/uL (4.7-6.1); RED CELL DISTRIBUTION WIDTH 16.6 % (11.6-14.6)
[2023-06-12 15:09] LABS: CHLORIDE 99 mEq/L (98-107); INDEX HEMOLYSI 1 (1-3); INDEX ICTERIC 1 (1-4); INDEX LIPEMIC 1 (1-3); POTASSIUM 3.7 mEq/L (3.5-5.1); SODIUM 137 mEq/L (136-145)
[2023-06-12 15:11] LABS: INR 1.1; PROTHROMBIN TIME 11.4 sec (9.6-11.0)
[2023-06-12 15:22] LABS: ALANINE AMINOTRANSFERASE 48 IU/L (13-61); ALBUMIN 2.8 g/dL (3.4-5.0); ASPARTATE AMINOTRANSFERASE 42 IU/L (15-37); BILIRUBIN TOTAL 0.4 mg/dL (0.1-1.0); CALCIUM 8.8 mg/dL (8.5-10.1); CARBON DIOXIDE 29 mEq/L (21-32); GLUCOSE 107 mg/dL (70-105); PROTEIN TOTAL 7.4 g/dL (6.0-8.3); UREA NITROGEN BLOOD 57 mg/dL (7-21)
[2023-06-12 15:31] LABS: CREATININE 6.5 mg/dL (0.6-1.3)
[2023-06-12 16:26] VITALS: BP 132/68; PULSE 91; RESP 16; TEMP 98.3
== END 2023-06-12 16:27 | disposition home or self-care (01) ==
LOC: ER 14:32
DX: T83.018A Breakdown (mechanical) of other urinary catheter, initial encounter (principal); E78.00 Pure hypercholesterolemia, unspecified; Z95.0 Presence of cardiac pacemaker; X58.XXXA Exposure to other specified factors, initial encounter
CPT/HCPCS: 36415; 71045; 80053; 85025; 93005; 99285

== ENCOUNTER 2023-06-15 13:28 | Inpatient (IN) | payer MEDICAID ==
[~2023-06-15] VITALS: Ht 185.4 cm; Wt 82.6 kg
[2023-06-15] MEDS ORDERED: LIDOCAINE HCL 1% 10 MG/ML 10ML VIAL ONE (14:22)
[2023-06-15] MEDS ORDERED: HEPARIN 1000 UNITS/ML 10ML ONE (14:23)
[2023-06-15 14:42] LABS: EOSINOPHILS % 1.1 % (0.0-5.0); HEMATOCRIT. 32.9 % (42.0-52.0); HEMOGLOBIN. 10.6 g/dL (14.0-18.0); LYMPHOCYTES % 7.2 % (20.0-50.0); MEAN CORPUSCULAR HEMOGLOBIN 30.8 pg (28.0-32.0); MEAN CORPUSCULAR HGB CONC 32.1 g/dL (31.0-37.0); MEAN CORPUSCULAR VOLUME 95.9 fL (80.0-94.0); MEAN PLATELET VOLUME 8.6 fl (7.4-10.4); MONOCYTES % 7.5 % (2.0-8.0); NEUTROPHILS % 83.2 % (40.0-76.0); PLATELET 190 x1000/uL (130-400); RED BLOOD CELL COUNT 3.43 mill/uL (4.7-6.1); RED CELL DISTRIBUTION WIDTH 16.5 % (11.6-14.6); WHITE BLOOD COUNT 7.4 x1000/uL (4.5-11.0)
[2023-06-15 15:18] LABS: CHLORIDE 102 mEq/L (98-107); INDEX HEMOLYSI 1 (1-3); INDEX ICTERIC 1 (1-4); INDEX LIPEMIC 1 (1-3); POTASSIUM 4.6 mEq/L (3.5-5.1); SODIUM 136 mEq/L (136-145)
[2023-06-15 15:20] LABS: INR 1.1; PARTIAL THROMBOPLASTIN TIME 28.5 sec (23.4-31.0); PROTHROMBIN TIME 11.4 sec (9.6-11.0)
[2023-06-15 15:35] LABS: ALANINE AMINOTRANSFERASE 41 IU/L (13-61); ALBUMIN 2.8 g/dL (3.4-5.0); ASPARTATE AMINOTRANSFERASE 33 IU/L (15-37); BILIRUBIN TOTAL 0.5 mg/dL (0.1-1.0); CARBON DIOXIDE 24 mEq/L (21-32); GLUCOSE 91 mg/dL (70-105); PROTEIN TOTAL 7.3 g/dL (6.0-8.3)
[2023-06-15 15:39] LABS: UREA NITROGEN BLOOD 97 mg/dL (7-21)
[2023-06-15 15:40] LABS: CREATININE 9.6 mg/dL (0.6-1.3); TROPONIN I HIGH SENSITIVITY 127 ng/L (<78)
[2023-06-15 15:44] LABS: NT PRO B-TYPE NATRIURETIC PEP 153397 pg/mL (5-125)
[2023-06-15] MEDS ORDERED: ASPIRIN 81MG TABLET PO ONE (16:30)
[2023-06-15] MEDS ORDERED: IPRATROPIUM/ALBUTEROL 0.5-3(2.5)MG/3ML NEB HHN PRN (18:30)
[2023-06-15] MEDS ORDERED: CEFTRIAXONE 1GM PREMIX 50 ML IV SCH (18:30)
[2023-06-15] MEDS ORDERED: CLONIDINE 0.1MG TABLET PO PRN (18:30)
[2023-06-15] MEDS ORDERED: ACETAMINOPHEN 325MG TABLET PO PRN (18:30)
[2023-06-15] MEDS ORDERED: LORAZEPAM 0.5MG TABLET PO PRN (18:30)
[2023-06-15] MEDS ORDERED: CEFTRIAXONE 1,000 MG in DEXTROSE 5% WATER 50 ML IV SCH (19:30)
[2023-06-15 19:41] LABS: HEPATITIS B SURFACE ANTIGEN NEGATIVE
[2023-06-15] MEDS ORDERED: AZITHROMYCIN 500 MG in DEXT 5% WATER 250 ML IV SCH (20:00)
[2023-06-15 20:08] LABS: HEPATITIS B CORE AB IGM NEGATIVE; HEPATITIS C VIR.AB 0.17 INDEXVAL (0.00-0.80)
[2023-06-15 20:10] LABS: HEPATITIS A AB IGM NEGATIVE (NEGATIVE)
[2023-06-15 22:36] LABS: TROPONIN I HIGH SENSITIVITY 129 ng/L (<78)
[2023-06-15] MEDS: ONDANSETRON HCL 4MG/2ML INJ IV PRN (23:32)
[2023-06-16] VITALS (16 sets, daily range): BP systolic 96–122; BP diastolic 54–80; PULSE 79–100; RESP 16–24; TEMP 97.1–98; O2SAT 96
[2023-06-16] MEDS: HYDROCODONE/ACETAMINOPHEN 5/325MG TABLET PO PRN (00:17)
[2023-06-16 10:01] LABS: HEMATOCRIT. 33.6 % (42.0-52.0); HEMOGLOBIN. 11.2 g/dL (14.0-18.0); MEAN CORPUSCULAR HEMOGLOBIN 31.2 pg (28.0-32.0); MEAN CORPUSCULAR HGB CONC 33.2 g/dL (31.0-37.0); MEAN CORPUSCULAR VOLUME 93.8 fL (80.0-94.0); MEAN PLATELET VOLUME 8.9 fl (7.4-10.4); PLATELET 196 x1000/uL (130-400); RED BLOOD CELL COUNT 3.58 mill/uL (4.7-6.1); RED CELL DISTRIBUTION WIDTH 16.4 % (11.6-14.6); WHITE BLOOD COUNT 7.8 x1000/uL (4.5-11.0)
[2023-06-16 10:07] LABS: DIFFERENTIAL COMMENT 1
[2023-06-16 12:18] LABS: CALCIUM 8.7 mg/dL (8.5-10.1); POTASSIUM 4.3 mEq/L (3.5-5.1)
[2023-06-16 14:28] LABS: CREATININE 7.9 mg/dL (0.6-1.3)
[2023-06-16 15:56] LABS: ANISOCYTOSIS 1+; PLATELET ESTIMATE NORMAL
[2023-06-16] MEDS ORDERED: NALOXONE HCL 0.4MG/ML VIAL IV PRN (18:30)
[2023-06-17] VITALS (14 sets, daily range): BP systolic 95–118; BP diastolic 52–89; PULSE 65–97; RESP 18–24; TEMP 96.6–98.8; O2SAT 97
[2023-06-17 06:39] LABS: HEMATOCRIT. 33.3 % (42.0-52.0); HEMOGLOBIN. 10.9 g/dL (14.0-18.0); MEAN CORPUSCULAR HEMOGLOBIN 31.6 pg (28.0-32.0); MEAN CORPUSCULAR HGB CONC 32.6 g/dL (31.0-37.0); MEAN CORPUSCULAR VOLUME 96.9 fL (80.0-94.0); PLATELET 179 x1000/uL (130-400); RED BLOOD CELL COUNT 3.44 mill/uL (4.7-6.1); WHITE BLOOD COUNT 7.7 x1000/uL (4.5-11.0)
[2023-06-17 06:47] LABS: DIFFERENTIAL COMMENT 1
[2023-06-17] MEDS: ACETAMINOPHEN 325MG TABLET PO PRN (07:00)
[2023-06-17 07:14] LABS: POTASSIUM 4.4 mEq/L (3.5-5.1)
[2023-06-17 07:21] LABS: CALCIUM 8.5 mg/dL (8.5-10.1)
[2023-06-17 07:33] LABS: CREATININE 9.1 mg/dL (0.6-1.3)
[2023-06-17 13:09] LABS: PLATELET ESTIMATE NORMAL
[2023-06-17] MEDS: ONDANSETRON HCL 4MG/2ML INJ IV PRN (18:43)
[2023-06-17] MEDS: IPRATROPIUM/ALBUTEROL 0.5-3(2.5)MG/3ML NEB HHN SCH (20:47)
[2023-06-17] MEDS: HEPARIN 5000 UNITS/ML VIAL SUBCUT SCH (21:00)
[2023-06-18] VITALS (13 sets, daily range): BP systolic 109–121; BP diastolic 69–79; PULSE 68–99; RESP 16–22; TEMP 96.6–98.6; O2SAT 94–99
[2023-06-18] MEDS: IPRATROPIUM/ALBUTEROL 0.5-3(2.5)MG/3ML NEB HHN SCH ×7 (00:20→21:00)
[2023-06-18] MEDS: ACETAMINOPHEN 325MG TABLET PO PRN (08:30)
[2023-06-18] MEDS: HEPARIN 5000 UNITS/ML VIAL SUBCUT SCH ×2 (08:31→21:05)
[2023-06-18 10:38] LABS: HEMATOCRIT. 35.5 % (42.0-52.0); HEMOGLOBIN. 11.6 g/dL (14.0-18.0); MEAN CORPUSCULAR HGB CONC 32.7 g/dL (31.0-37.0); MEAN CORPUSCULAR VOLUME 97.9 fL (80.0-94.0); MEAN PLATELET VOLUME 9.8 fl (7.4-10.4); PLATELET 171 x1000/uL (130-400); RED BLOOD CELL COUNT 3.63 mill/uL (4.7-6.1)
[2023-06-18 10:48] LABS: DIFFERENTIAL COMMENT 1
[2023-06-18 10:54] LABS: CALCIUM 8.9 mg/dL (8.5-10.1)
[2023-06-18 11:04] LABS: POTASSIUM 5.4 mEq/L (3.5-5.1)
[2023-06-18 11:05] LABS: CREATININE 7.7 mg/dL (0.6-1.3)
[2023-06-18] MEDS ORDERED: LIDOCAINE HCL 1% 10 MG/ML 10ML VIAL ONE (13:04)
[2023-06-18] MEDS ORDERED: CLINDAMYCIN 600MG PREMIX 50 ML IV NR (13:30)
[2023-06-18] MEDS: HYDROCODONE/ACETAMINOPHEN 5/325MG TABLET PO PRN ×2 (13:49→21:04)
[2023-06-18] MEDS: ONDANSETRON HCL 4MG/2ML INJ IV PRN (21:05)
[2023-06-19] VITALS (21 sets, daily range): BP systolic 98–118; BP diastolic 50–92; PULSE 73–113; RESP 16–35; TEMP 97.1–98.1; O2SAT 96–98
[2023-06-19] MEDS: IPRATROPIUM/ALBUTEROL 0.5-3(2.5)MG/3ML NEB HHN SCH ×4 (00:29→14:41)
[2023-06-19] MEDS: HYDROCODONE/ACETAMINOPHEN 5/325MG TABLET PO PRN (07:27)
[2023-06-19 07:40] LABS: PLATELET ESTIMATE NORMAL
[2023-06-19 07:42] LABS: ANISOCYTOSIS 1+
[2023-06-19] MEDS: HEPARIN 5000 UNITS/ML VIAL SUBCUT SCH (07:58)
[2023-06-19] MEDS ORDERED: FENTANYL CITRATE/PF 50MCG/ML 2ML VIAL ONE (09:26)
[2023-06-19] MEDS ORDERED: LIDOCAINE HCL/EPINEPHRINE 1%-EPI 1:100,000 20 ML VIAL ONE (09:26)
[2023-06-19 13:31] LABS: HEPATITIS B SURFACE ANTIGEN NEGATIVE
[2023-06-19 13:59] LABS: HEPATITIS B CORE AB IGM NEGATIVE; HEPATITIS C VIR.AB 0.16 INDEXVAL (0.00-0.80)
[2023-06-19 14:01] LABS: HEPATITIS A AB IGM NEGATIVE (NEGATIVE)
== END 2023-06-19 16:15 | disposition home or self-care (01) | DRG 466 ==
LOC: ER 13:28 → 7WST 16:50 → EDBEDREQ 17:09 → EDBEDREQTM 17:09
PROVIDERS: ADMIT Family Medicine Adult Medicine; ATTEND Family Medicine Adult Medicine
PROC: B54BZZA Ultrasonography of Right Lower Extremity Veins, Guidance (ICD-10-PCS; 2023-06-15)
PROC: 06HY33Z Insertion of Infusion Device into Lower Vein, Percutaneous Approach (ICD-10-PCS; 2023-06-15)
PROC: 5A1D70Z Performance of Urinary Filtration, Intermittent, Less than 6 Hours Per Day (ICD-10-PCS; 2023-06-16)
PROC: 5A1D70Z Performance of Urinary Filtration, Intermittent, Less than 6 Hours Per Day (ICD-10-PCS; 2023-06-17)
PROC: 0JH63XZ Insertion of Tunneled Vascular Access Device into Chest Subcutaneous Tissue and Fascia, Percutaneous Approach (ICD-10-PCS; principal; 2023-06-18)
PROC: 06H033Z Insertion of Infusion Device into Inferior Vena Cava, Percutaneous Approach (ICD-10-PCS; 2023-06-18)
PROC: B5191ZA Fluoroscopy of Inferior Vena Cava using Low Osmolar Contrast, Guidance (ICD-10-PCS; 2023-06-18)
PROC: B549ZZA Ultrasonography of Inferior Vena Cava, Guidance (ICD-10-PCS; 2023-06-18)
PROC: 06PY33Z Removal of Infusion Device from Lower Vein, Percutaneous Approach (ICD-10-PCS; 2023-06-19)
PROC: 5A1D70Z Performance of Urinary Filtration, Intermittent, Less than 6 Hours Per Day (ICD-10-PCS; 2023-06-19)
DX: T82.42XA Displacement of vascular dialysis catheter, initial encounter (principal); N18.6 End stage renal disease; J96.01 Acute respiratory failure with hypoxia; I21.A1 Myocardial infarction type 2; I50.23 Acute on chronic systolic (congestive) heart failure; E46 Unspecified protein-calorie malnutrition; N25.81 Secondary hyperparathyroidism of renal origin; Q44.6 Cystic disease of liver; I13.2 Hypertensive heart and chronic kidney disease with heart failure and with stage 5 chronic kidney disease, or end stage renal disease; E78.00 Pure hypercholesterolemia, unspecified; F32.A Depression, unspecified; F41.9 Anxiety disorder, unspecified; G89.29 Other chronic pain; K86.1 Other chronic pancreatitis; D64.9 Anemia, unspecified; Q61.2 Polycystic kidney, adult type; Z95.810 Presence of automatic (implantable) cardiac defibrillator; Z85.038 Personal history of other malignant neoplasm of large intestine; Z86.74 Personal history of sudden cardiac arrest; Z86.14 Personal history of Methicillin resistant Staphylococcus aureus infection; Z99.2 Dependence on renal dialysis; Z88.0 Allergy status to penicillin; Z93.3 Colostomy status; Y84.8 Other medical procedures as the cause of abnormal reaction of the patient, or of later complication, without mention of misadventure at the time of the procedure; Y92.89 Other specified places as the place of occurrence of the external cause; Z68.24 Body mass index [BMI] 24.0-24.9, adult
CPT/HCPCS: 36415; 36556; 36558; 36589; 71045; 76937; 77001; 80048; 80053; 83880; 84145; 84484; 85025; 86705; 86709; 86803; 86850; 86900; 87340; 90935; 93005; 94640; 99285; C1750; C1752; C1769; J0456; J0696; J1642; J1644; J2405; J3010; J3490; J7060

== ENCOUNTER 2023-09-08 13:47 | Inpatient (IN) | payer MEDICAID ==
[~2023-09-08] VITALS: Ht 172.7 cm; Wt 79.0 kg
[~2023-09-08 13:47] MED LIST changes: +AMLO10TA80 PO; +HYDR-4133 PO; +LOSA-412 PO; -LOSA25TA3 PO; +METO-396 PO; +TORS20TA4 PO
[2023-09-08] MEDS ORDERED: ONDANSETRON HCL 4MG/2ML INJ IV STA (13:54)
[2023-09-08] MEDS ORDERED: MORPHINE SULFATE 4 MG/ML CPJ (NOT FOR IM USE) IV STA (13:54)
[2023-09-08 14:44] LABS: BASOPHILS % 0.8 % (0.0-2.0); EOSINOPHILS % 1.9 % (0.0-5.0); HEMATOCRIT. 30.5 % (42.0-52.0); HEMOGLOBIN. 9.9 g/dL (14.0-18.0); LYMPHOCYTES % 10.3 % (20.0-50.0); MEAN CORPUSCULAR HEMOGLOBIN 31.4 pg (28.0-32.0); MEAN CORPUSCULAR HGB CONC 32.6 g/dL (31.0-37.0); MEAN CORPUSCULAR VOLUME 96.3 fL (80.0-94.0); MEAN PLATELET VOLUME 8.1 fl (7.4-10.4); PLATELET 180 x1000/uL (130-400); RED BLOOD CELL COUNT 3.17 mill/uL (4.7-6.1); RED CELL DISTRIBUTION WIDTH 15.9 % (11.6-14.6); WHITE BLOOD COUNT 5.5 x1000/uL (4.5-11.0)
[2023-09-08] MEDS ORDERED: ONDANSETRON HCL 4MG/2ML INJ IV NR (15:50)
[2023-09-08 15:52] LABS: ALANINE AMINOTRANSFERASE 36 IU/L (13-61); ALBUMIN 2.8 g/dL (3.4-5.0); ASPARTATE AMINOTRANSFERASE 27 IU/L (15-37); BILIRUBIN TOTAL 0.5 mg/dL (0.1-1.0); CALCIUM 9.4 mg/dL (8.5-10.1); CARBON DIOXIDE 28 mEq/L (21-32); CHLORIDE 103 mEq/L (98-107); GLUCOSE 84 mg/dL (70-105); INDEX HEMOLYSI 1 (1-3); INDEX ICTERIC 1 (1-4); INDEX LIPEMIC 1 (1-3); POTASSIUM 4.5 mEq/L (3.5-5.1); PROTEIN TOTAL 7.3 g/dL (6.0-8.3); SODIUM 140 mEq/L (136-145); UREA NITROGEN BLOOD 57 mg/dL (7-21)
[2023-09-08] MEDS: MORPHINE SULFATE 4 MG/ML CPJ (NOT FOR IM USE) IV NR ×3 (15:56→15:59)
[2023-09-08 16:31] LABS: CREATININE 6.7 mg/dL (0.6-1.3)
[2023-09-08 16:32] LABS: TROPONIN I HIGH SENSITIVITY 105 ng/L (<78)
[2023-09-08] MEDS ORDERED: AZITHROMYCIN 500MG/250ML 250 ML IV ONE (17:00)
[2023-09-08] MEDS ORDERED: CEFTRIAXONE 1GM PREMIX 50 ML IV ONE (17:00)
[2023-09-08] MEDS ORDERED: MORPHINE SULFATE 4 MG/ML CPJ (NOT FOR IM USE) IV NR (18:45)
[2023-09-08] MEDS ORDERED: ONDANSETRON HCL 4MG/2ML INJ IV ONE (19:00)
[2023-09-08] MEDS ORDERED: DOCUSATE SODIUM 100MG CAPSULE PO PRN (20:30)
[2023-09-08] MEDS ORDERED: MAGNESIUM/ALUMINUM HYDROXIDE/SIMETHICONE 30ML UDC PO PRN (20:30)
[2023-09-08] MEDS ORDERED: NA PHOS,M-B/NA PHOS,DI-BA ENEMA 118ML PR PRN (20:30)
[2023-09-08] MEDS ORDERED: ONDANSETRON HCL 4MG/2ML INJ IV PRN (20:30)
[2023-09-08] MEDS ORDERED: IPRATROPIUM/ALBUTEROL 0.5-3(2.5)MG/3ML NEB HHN PRN (20:30)
[2023-09-08] MEDS ORDERED: CLONIDINE 0.1MG TABLET PO PRN (20:30)
[2023-09-08] MEDS ORDERED: GUAIFENESIN 200MG/10ML SUGAR FREE UDC PO PRN (20:30)
[2023-09-08] MEDS ORDERED: KETOROLAC 15MG/ML VIAL IV PRN (20:30)
[2023-09-08] MEDS ORDERED: ACETAMINOPHEN 325MG TABLET PO PRN ×2 (20:30)
[2023-09-08] MEDS: PANTOPRAZOLE SODIUM 40 MG/VIAL IV SCH (21:37)
[2023-09-08 21:45] VITALS: BP 104/74; PULSE 85; PULSE 86; RESP 18; TEMP 97.3
[2023-09-08 21:59] LABS: LACTIC ACID 2.8 mmol/L (0.4-2.0); TROPONIN I HIGH SENSITIVITY 111 ng/L (<78)
[2023-09-08 22:30] LABS: T4 FREE 0.8 ng/dL (0.76-1.46); THYROID STIMULATING HORMONE 7.7 uIU/mL (0.36-3.74)
[2023-09-09] VITALS (9 sets, daily range): BP systolic 89–116; BP diastolic 48–81; PULSE 72–94; RESP 14–18; TEMP 90.8–98.4
[2023-09-09] MEDS ORDERED: NITROGLYCERIN 0.4MG TABLET SL SL PRN (00:45)
[2023-09-09] MEDS ORDERED: NALOXONE HCL 0.4MG/ML VIAL IV PRN (01:00)
[2023-09-09] MEDS: LIDOCAINE 5% PATCH TOP SCH ×2 (01:30→09:20)
[2023-09-09] MEDS: HYDROCODONE/ACETAMINOPHEN 5/325MG TABLET PO PRN ×2 (03:14→12:18)
[2023-09-09 06:15] LABS: BASOPHILS % 0.4 % (0.0-2.0); HEMATOCRIT. 33.1 % (42.0-52.0); HEMOGLOBIN. 10.8 g/dL (14.0-18.0); LYMPHOCYTES % 7.4 % (20.0-50.0); MEAN CORPUSCULAR HEMOGLOBIN 31.5 pg (28.0-32.0); MEAN CORPUSCULAR HGB CONC 32.6 g/dL (31.0-37.0); MEAN CORPUSCULAR VOLUME 96.4 fL (80.0-94.0); MONOCYTES % 8.1 % (2.0-8.0); NEUTROPHILS % 83.1 % (40.0-76.0); PLATELET 189 x1000/uL (130-400); RED BLOOD CELL COUNT 3.43 mill/uL (4.7-6.1); RED CELL DISTRIBUTION WIDTH 16.4 % (11.6-14.6); WHITE BLOOD COUNT 7.8 x1000/uL (4.5-11.0)
[2023-09-09 06:34] LABS: CHLORIDE 102 mEq/L (98-107); INDEX HEMOLYSI 1 (1-3); INDEX ICTERIC 1 (1-4); INDEX LIPEMIC 1 (1-3); POTASSIUM 5.1 mEq/L (3.5-5.1); SODIUM 136 mEq/L (136-145)
[2023-09-09 07:00] LABS: ALANINE AMINOTRANSFERASE 37 IU/L (13-61); ALBUMIN 2.9 g/dL (3.4-5.0); ASPARTATE AMINOTRANSFERASE 29 IU/L (15-37); BILIRUBIN TOTAL 0.6 mg/dL (0.1-1.0); CALCIUM 8.9 mg/dL (8.5-10.1); CARBON DIOXIDE 24 mEq/L (21-32); CREATINE KINASE MB FRACTION 5.3 ng/mL (0.5-3.6); GLUCOSE 65 mg/dL (70-105); LACTATE DEHYDROGENASE 256 IU/L (100-240); PROTEIN TOTAL 7.3 g/dL (6.0-8.3); UREA NITROGEN BLOOD 63 mg/dL (7-21)
[2023-09-09 07:02] LABS: CREATININE 7.3 mg/dL (0.6-1.3)
[2023-09-09] MEDS: METOPROLOL SUCCINATE 50MG ER TABLET PO SCH (09:00)
[2023-09-09] MEDS ORDERED: ENOXAPARIN 30MG/0.3ML SYR SUBCUT SCH (09:00)
[2023-09-09] MEDS: LOSARTAN 25 MG TABLET PO SCH (09:00)
[2023-09-09] MEDS: LEVOTHYROXINE SODIUM 25MCG TABLET PO SCH (09:19)
[2023-09-09] MEDS: BUMETANIDE 1MG TABLET PO SCH (09:20)
[2023-09-09] MEDS ORDERED: LIDOCAINE 5% PATCH TOP SCH (12:15)
[2023-09-09] MEDS ORDERED: ENOXAPARIN 60MG/0.6ML SYR SUBCUT NR (18:00)
[2023-09-09] MEDS: PANTOPRAZOLE SODIUM 40 MG/VIAL IV SCH (20:33)
[2023-09-09 22:08] LABS: TROPONIN I HIGH SENSITIVITY 94 ng/L (<78)
[2023-09-10] VITALS: BP 92/64; PULSE 86; RESP 18; TEMP 96.4
[2023-09-10] MEDS: HYDROCODONE/ACETAMINOPHEN 5/325MG TABLET PO PRN (03:20)
[2023-09-10 04:00] VITALS: BP 110/75; PULSE 89; RESP 22; TEMP 97.4
[2023-09-10 07:29] LABS: BASOPHILS % 1.8 % (0.0-2.0); EOSINOPHILS % 2.5 % (0.0-5.0); HEMATOCRIT. 31.6 % (42.0-52.0); HEMOGLOBIN. 10.5 g/dL (14.0-18.0); MEAN CORPUSCULAR HEMOGLOBIN 31.9 pg (28.0-32.0); MEAN CORPUSCULAR HGB CONC 33.2 g/dL (31.0-37.0); MONOCYTES % 9.9 % (2.0-8.0); NEUTROPHILS % 74.8 % (40.0-76.0); PLATELET 172 x1000/uL (130-400); RED BLOOD CELL COUNT 3.29 mill/uL (4.7-6.1); RED CELL DISTRIBUTION WIDTH 16.2 % (11.6-14.6); WHITE BLOOD COUNT 5.7 x1000/uL (4.5-11.0)
[2023-09-10 07:42] LABS: POTASSIUM 5.2 mEq/L (3.5-5.1)
[2023-09-10 07:50] LABS: CALCIUM 8.6 mg/dL (8.5-10.1)
[2023-09-10 08:00] VITALS: BP 99/68; PULSE 88; RESP 18; TEMP 97.4
[2023-09-10] MEDS: LOSARTAN 25 MG TABLET PO SCH (09:00)
[2023-09-10] MEDS: METOPROLOL SUCCINATE 50MG ER TABLET PO SCH (09:00)
[2023-09-10] MEDS: BUMETANIDE 1MG TABLET PO SCH (09:01)
[2023-09-10] MEDS: LEVOTHYROXINE SODIUM 25MCG TABLET PO SCH (09:01)
[2023-09-10] MEDS: LIDOCAINE 5% PATCH TOP SCH (09:02)
[2023-09-10 09:19] LABS: INR 1.1; PROTHROMBIN TIME 11.8 sec (9.6-11.0)
[2023-09-10] MEDS ORDERED: APIX2.5T MT (11:49)
[2023-09-10] MEDS ORDERED: FAMO-135 PO (11:49)
[2023-09-10 12:00] VITALS: BP 93/65; PULSE 90; RESP 17; TEMP 97.5
[2023-09-10] MEDS ORDERED: ENOXAPARIN 80MG/0.8ML SYR SUBCUT SCH (12:00)
[2023-09-10 16:00] VITALS: BP 96/68; PULSE 78; RESP 18; TEMP 96.6
[2023-09-10 18:41] VITALS: BP 99/67; PULSE 98; TEMP 98.1; O2SAT 98
[2023-09-10 21:21] LABS: CLARITY URINE CLEAR (CLEAR); COLOR URINE YELLOW (YELLOW); GLUCOSE URINE NEGATIVE (NEGATIVE); KETONES URINE NEGATIVE (NEGATIVE); LEUKOCYTE ESTERASE URINE 1+ (NEGATIVE); NITRITE URINE NEGATIVE (NEGATIVE); OCCULT BLOOD URINE 1+ (NEGATIVE); PROTEIN URINE 2+ (NEGATIVE); SPECIFIC GRAVITY URINE 1.013 (1.005-1.030); UROBILINOGEN URINE 0.2 E.U./dL (0.2-1.0)
[2023-09-10 21:24] LABS: SQUAMOUS EPITHELIAL CELL URINE NONE SEEN /lpf (RARE/1+); YEAST URINE NONE SEEN
[2023-09-10 21:43] LABS: *AMPHETAMINES SCREEN URINE NEGATIVE (NEGATIVE); *BARBITURATES SCREEN URINE NEGATIVE (NEGATIVE); *BENZODIAZEPINES SCREEN URINE NEGATIVE (NEGATIVE); *COCAINE SCREEN URINE NEGATIVE (NEGATIVE); CANNABINOID URINE SCREEN NEGATIVE (NEGATIVE); ECSTASY MDMA SCREEN URINE NEGATIVE (NEGATIVE); METHADONE URINE SCREEN NEGATIVE (NEGATIVE); OPIATES URINE SCREEN PRESUMTIVE POSITIVE (NEGATIVE); PHENCYCLIDINE URINE SCREEN NEGATIVE (NEGATIVE)
[2023-09-10 21:53] LABS: RBC URINE 0-2 /hpf (0-2)
[2023-09-10 21:56] LABS: BACTERIA URINE TRACE
[2023-09-12 15:29] LABS: HEPATITIS B SURFACE ANTIGEN NEGATIVE (Negative)
[2023-09-13 18:23] LABS: HEPATITIS A AB IGM NEGATIVE (NEGATIVE); HEPATITIS B CORE AB IGM NEGATIVE (Negative); HEPATITIS C AB NON REACTIVE (Neg) (Negative)
== END 2023-09-10 21:37 | disposition home or self-care (01) | DRG 135 ==
LOC: ER 13:47 → EDBEDREQ 16:57 → 7WST 20:48
PROVIDERS: ADMIT Internal Medicine; ATTEND Internal Medicine
PROC: 5A1D70Z Performance of Urinary Filtration, Intermittent, Less than 6 Hours Per Day (ICD-10-PCS; principal; 2023-09-09)
PROC: 5A1D70Z Performance of Urinary Filtration, Intermittent, Less than 6 Hours Per Day (ICD-10-PCS; 2023-09-10)
DX: S22.43XA Multiple fractures of ribs, bilateral, initial encounter for closed fracture (principal); I50.23 Acute on chronic systolic (congestive) heart failure; I42.0 Dilated cardiomyopathy; E46 Unspecified protein-calorie malnutrition; I82.411 Acute embolism and thrombosis of right femoral vein; N18.6 End stage renal disease; D63.1 Anemia in chronic kidney disease; R18.8 Other ascites; E11.51 Type 2 diabetes mellitus with diabetic peripheral angiopathy without gangrene; J90 Pleural effusion, not elsewhere classified; Z99.2 Dependence on renal dialysis; E03.9 Hypothyroidism, unspecified; Q61.2 Polycystic kidney, adult type; N25.81 Secondary hyperparathyroidism of renal origin; E78.00 Pure hypercholesterolemia, unspecified; F32.A Depression, unspecified; F41.9 Anxiety disorder, unspecified; G89.29 Other chronic pain; H40.9 Unspecified glaucoma; K59.00 Constipation, unspecified; I13.2 Hypertensive heart and chronic kidney disease with heart failure and with stage 5 chronic kidney disease, or end stage renal disease; D64.9 Anemia, unspecified; Z68.26 Body mass index [BMI] 26.0-26.9, adult; K57.92 Diverticulitis of intestine, part unspecified, without perforation or abscess without bleeding; X58.XXXA Exposure to other specified factors, initial encounter; K86.1 Other chronic pancreatitis; Q44.6 Cystic disease of liver; Z79.82 Long term (current) use of aspirin; Z79.899 Other long term (current) drug therapy; Z85.038 Personal history of other malignant neoplasm of large intestine; Z86.14 Personal history of Methicillin resistant Staphylococcus aureus infection; Z88.0 Allergy status to penicillin; Z91.81 History of falling; Z93.3 Colostomy status; Z95.810 Presence of automatic (implantable) cardiac defibrillator
CPT/HCPCS: 36415; 71045; 71111; 71250; 74018; 76705; 80048; 80053; 80305; 81003; 82553; 82962; 83036; 83605; 83615; 83880; 84145; 84439; 84443; 84484; 85025; 85379; 86705; 86709; 87340; 90935; 93005; 93923; 93970; 99285; C1893; C9113; J0456; J0696; J1650; J2270; J2405

== ENCOUNTER 2023-12-17 19:42 | Emergency (ER) | payer MEDICAID ==
[~2023-12-17] VITALS: Ht 185.4 cm; Wt 77.0 kg
[~2023-12-17 19:42] MED LIST changes: -AMLO10TA80 PO; +APIX2.5T PO; -ASPI-1160 PO; +ASPI-1406 PO; -ATOR10TA69 MT; +ATOR10TA69 PO; -BRIM.2; +BRIM15DR8 LEFTEYE; +BUSP5TAB3 PO; -CALC0.253 MT; +CALC0.253 PO; +CALC667C PO; -CALC667T2 PO; -COR3 PO; -DORZ10DR9 EACHEYE; +DORZ10DR9 LEFTEYE; +DOXY100C5 MT; -FERR324T4 MT; +FERR325T6 PO; +HYDR-4133 MT; -HYDR-4133 PO; +LATA2.5D14 LEFTEYE; +LEVO-65 MT; -LEVO25TA2 MT; +LEVO25TA7 PO; -LORA10CA MT; -LOSA-412 PO; -METO5TAB2 PO; -MULT-1146 PO; +NEPVIT PO; -PANT40SU MT; +SPIR25TA6 PO; -XALAO EACHEYE
[2023-12-17 20:12] VITALS: TEMP 98.5; O2SAT 97
[2023-12-18 00:59] VITALS: BP 148/85; PULSE 82; RESP 16
== END 2023-12-18 01:00 | disposition home or self-care (01) ==
LOC: ER 19:42
DX: Z93.3 Colostomy status (principal); I48.91 Unspecified atrial fibrillation; E78.00 Pure hypercholesterolemia, unspecified; I10 Essential (primary) hypertension; Z99.2 Dependence on renal dialysis; Z95.0 Presence of cardiac pacemaker; Z79.899 Other long term (current) drug therapy
CPT/HCPCS: 99281

== ENCOUNTER 2024-01-28 15:27 | Inpatient (IN) | payer MEDICAID ==
[~2024-01-28] VITALS: Ht 185.4 cm; Wt 78.5 kg
[~2024-01-28 15:27] MED LIST changes: -DOXY100C5 MT; +HYDR-2988 MT; -HYDR-4133 MT; -LEVO-65 MT
[2024-01-28] MEDS: ACETAMINOPHEN 325MG TABLET PO NR (20:45)
[2024-01-28] MEDS: MORPHINE SULFATE 4 MG/ML INJ (FOR IV/IM USE) IV ONE (22:30)
[2024-01-28 23:34] LABS: EOSINOPHILS % 1.2 % (0.0-5.0); HEMATOCRIT. 30.1 % (42.0-52.0); LYMPHOCYTES % 6.4 % (20.0-50.0); MEAN CORPUSCULAR HEMOGLOBIN 31.7 pg (28.0-32.0); MEAN CORPUSCULAR HGB CONC 33.4 g/dL (31.0-37.0); MEAN CORPUSCULAR VOLUME 94.8 fL (80.0-94.0); MEAN PLATELET VOLUME 9.3 fl (7.4-10.4); MONOCYTES % 11.7 % (2.0-8.0); NEUTROPHILS % 79.7 % (40.0-76.0); PLATELET 144 x1000/uL (130-400); RED BLOOD CELL COUNT 3.17 mill/uL (4.7-6.1); RED CELL DISTRIBUTION WIDTH 17.8 % (11.6-14.6); WHITE BLOOD COUNT 6.7 x1000/uL (4.5-11.0)
[2024-01-28 23:49] LABS: ALANINE AMINOTRANSFERASE 50 IU/L (10-49); ALBUMIN 3.7 g/dL (3.2-4.8); ASPARTATE AMINOTRANSFERASE 63 IU/L (<34); BILIRUBIN TOTAL 0.3 mg/dL (0.1-1.0); CALCIUM 8.2 mg/dL (8.7-10.4); CARBON DIOXIDE 28 mEq/L (21-32); CHLORIDE 102 mEq/L (98-107); DIFFERENTIAL COMMENT 1; GLUCOSE 101 mg/dL (70-105); POTASSIUM 4.4 mEq/L (3.5-5.1); PROTEIN TOTAL 7.5 g/dL (6.0-8.3); SODIUM 138 mEq/L (136-145); UREA NITROGEN BLOOD 60 mg/dL (9-23)
[2024-01-29] VITALS (7 sets, daily range): BP systolic 11–134; BP diastolic 68–83; PULSE 72–82; RESP 18–20; TEMP 96.4–98.1
[2024-01-29 00:03] LABS: CREATININE 6.1 mg/dL (0.6-1.3)
[2024-01-29] MEDS: HYDROCODONE/ACETAMINOPHEN 10/325MG TABLET PO PRN (02:10)
[2024-01-29] MEDS: APIXABAN 2.5 MG TABLET PO SCH (08:37)
[2024-01-29] MEDS: ASPIRIN 81MG TABLET PO SCH (08:37)
[2024-01-29] MEDS: BUSPIRONE HCL 5MG TABLET PO SCH (08:37)
[2024-01-29] MEDS: CALCIUM ACETATE 667MG CAPSULE PO SCH (08:37)
[2024-01-29] MEDS: FOLIC ACID/VITAMIN B COMP W-C TABLET PO SCH (08:37)
[2024-01-29] MEDS: HYDRALAZINE HCL 10MG TABLET PO SCH (09:30)
[2024-01-29] MEDS: METOPROLOL SUCCINATE 50MG ER TABLET PO SCH (09:30)
[2024-01-29] MEDS: DORZOLAM/TIMOLOL 2.23/0.68% OPHTH DROPS 10ML LEFTEYE SCH (11:00)
[2024-01-29] MEDS: BRIMONIDINE 0.2% OPHTH DROPS 5ML LEFTEYE SCH (14:00)
[2024-01-29] MEDS ORDERED: NALOXONE HCL 0.4MG/ML VIAL IV PRN (18:15)
[2024-01-29] MEDS: LATANOPROST 0.005% OPHTH DROPS 2.5ML LEFTEYE SCH (21:00)
[2024-01-29] MEDS ORDERED: PNEUMOCOCCAL 23-VAL P-SAC VAC 0.5 ML IM ONE (21:00)
[2024-01-29] MEDS ORDERED: INFLUENZA VACCINE 05/PF 0.5 ML SYRINGE IM ONE (21:00)
[2024-01-29] MEDS: ATORVASTATIN CALCIUM 10MG TABLET PO SCH (22:04)
[2024-01-30] VITALS (15 sets, daily range): BP systolic 110–131; BP diastolic 74–88; PULSE 75–94; RESP 15–19; TEMP 96.4–98.2
[2024-01-30 07:47] LABS: HEPATITIS A AB IGM NEGATIVE (Negative); HEPATITIS B CORE AB IGM NEGATIVE (Negative); HEPATITIS B SURFACE ANTIGEN NEGATIVE (Negative); HEPATITIS C AB NON REACTIVE (Neg) (Negative)
[2024-01-30] MEDS: ONDANSETRON HCL 4MG/2ML INJ IV PRN (17:19)
[2024-01-31] VITALS: BP 123/92; PULSE 82; RESP 18; TEMP 96.9
[2024-01-31 04:00] VITALS: BP 127/70; PULSE 81; RESP 18; TEMP 96.2
[2024-01-31 08:00] VITALS: BP 125/88; PULSE 91; RESP 19; TEMP 98.1
[2024-01-31] MEDS: CALCITRIOL 0.25MCG CAPSULE PO SCH (08:31)
[2024-01-31 12:00] VITALS: BP 132/82; PULSE 88; RESP 19; TEMP 98.1
[2024-01-31 16:00] VITALS: BP 120/88; PULSE 80; RESP 19; TEMP 98.1
[2024-01-31 20:00] VITALS: BP 131/75; PULSE 85; RESP 20; TEMP 96.6
[2024-02-01] VITALS (13 sets, daily range): BP systolic 109–138; BP diastolic 71–95; PULSE 48–88; RESP 16–22; TEMP 96.8–98.9
[2024-02-01] MEDS: LACTULOSE 20G/30ML UDC PO NR (16:00)
[2024-02-02] VITALS: BP_SYST 119; BP_SYST 142; BP_DIAS 88; BP_DIAS 89; PULSE 86; PULSE 95; RESP 17; RESP 20; TEMP 97.5; TEMP 98.3
[2024-02-02 04:00] VITALS: BP 119/88; PULSE 86; RESP 17; TEMP 97.5
[2024-02-02 08:00] VITALS: BP 115/83; PULSE 83; RESP 20; TEMP 97.5
[2024-02-02 12:00] VITALS: BP 115/78; PULSE 74; RESP 20; TEMP 97.7
[2024-02-02 15:40] VITALS: BP 115/78; PULSE 74; TEMP 97.8; O2SAT 97
[2024-02-02 20:00] VITALS: BP 114/71; PULSE 65; RESP 16; TEMP 97.5
[2024-02-04] MEDS ORDERED: LEVO50TA8 PO (15:12)
== END 2024-02-02 21:05 | disposition home or self-care (01) | DRG 351 ==
LOC: ER 15:27 → 6EST 01-29 01:04
PROVIDERS: ADMIT Internal Medicine; ATTEND Internal Medicine
PROC: 5A1D70Z Performance of Urinary Filtration, Intermittent, Less than 6 Hours Per Day (ICD-10-PCS; principal; 2024-01-30)
PROC: 5A1D70Z Performance of Urinary Filtration, Intermittent, Less than 6 Hours Per Day (ICD-10-PCS; 2024-02-01)
DX: M25.551 Pain in right hip (principal); J90 Pleural effusion, not elsewhere classified; E46 Unspecified protein-calorie malnutrition; I87.1 Compression of vein; N18.6 End stage renal disease; R18.8 Other ascites; D63.1 Anemia in chronic kidney disease; K57.92 Diverticulitis of intestine, part unspecified, without perforation or abscess without bleeding; C18.9 Malignant neoplasm of colon, unspecified; N25.81 Secondary hyperparathyroidism of renal origin; F41.9 Anxiety disorder, unspecified; G89.29 Other chronic pain; K43.5 Parastomal hernia without obstruction or gangrene; K86.1 Other chronic pancreatitis; Q61.2 Polycystic kidney, adult type; Z99.2 Dependence on renal dialysis; E78.00 Pure hypercholesterolemia, unspecified; F32.A Depression, unspecified; I48.91 Unspecified atrial fibrillation; Z86.14 Personal history of Methicillin resistant Staphylococcus aureus infection; Z88.0 Allergy status to penicillin; Z88.8 Allergy status to other drugs, medicaments and biological substances; Z93.3 Colostomy status; Z95.810 Presence of automatic (implantable) cardiac defibrillator; Z90.49 Acquired absence of other specified parts of digestive tract; Z68.22 Body mass index [BMI] 22.0-22.9, adult; W07.XXXA Fall from chair, initial encounter; Y93.89 Activity, other specified; Y92.89 Other specified places as the place of occurrence of the external cause; Y99.8 Other external cause status; I15.1 Hypertension secondary to other renal disorders
CPT/HCPCS: 36415; 73552; 74018; 74176; 80053; 85025; 86705; 86709; 87340; 90686; 90732; 90935; 97162; 97166; 97530; 97535; 99285; J2405

== ENCOUNTER 2024-07-15 02:23 | Emergency (ER) | payer MEDICAID ==
[~2024-07-15] VITALS: Ht 182.9 cm; Wt 81.0 kg
[~2024-07-15 02:23] MED LIST changes: +FOLI0.8T53 PO; +LEVO50TA8 PO; -NEPVIT PO
[2024-07-15 02:25] VITALS: O2SAT 100
[2024-07-15 04:41] LABS: BASOPHILS % 0.9 % (0.0-2.0); EOSINOPHILS % 1.2 % (0.0-5.0); HEMATOCRIT. 33.9 % (42.0-52.0); HEMOGLOBIN. 10.9 g/dL (14.0-18.0); LYMPHOCYTES % 7.3 % (20.0-50.0); MEAN CORPUSCULAR HGB CONC 32.2 g/dL (31.0-37.0); MEAN CORPUSCULAR VOLUME 96.1 fL (80.0-94.0); MEAN PLATELET VOLUME 8.2 fl (7.4-10.4); MONOCYTES % 9.6 % (2.0-8.0); PLATELET 198 x1000/uL (130-400); RED BLOOD CELL COUNT 3.53 mill/uL (4.7-6.1); WHITE BLOOD COUNT 7.5 x1000/uL (4.5-11.0)
[2024-07-15 04:43] LABS: CHLORIDE 101 mEq/L (98-107); POTASSIUM 4.5 mEq/L (3.5-5.1); SODIUM 136 mEq/L (136-145)
[2024-07-15 04:44] LABS: CALCIUM 9.2 mg/dL (8.7-10.4); CARBON DIOXIDE 25 mEq/L (21-32)
[2024-07-15 04:49] LABS: GLUCOSE 71 mg/dL (70-105); UREA NITROGEN BLOOD 50 mg/dL (9-23)
[2024-07-15 04:51] LABS: ALANINE AMINOTRANSFERASE 38 IU/L (10-49); ALBUMIN 4.1 g/dL (3.2-4.8); ASPARTATE AMINOTRANSFERASE 50 IU/L (<34); BILIRUBIN DIRECT 0.2 mg/dL (<=3.0); BILIRUBIN TOTAL 0.3 mg/dL (0.1-1.0); PROTEIN TOTAL 8.2 g/dL (6.0-8.3)
[2024-07-15 05:22] LABS: CREATININE 5.9 mg/dL (0.6-1.3); ETHANOL BLOOD < 10 mg/dL (<10)
[2024-07-15] MEDS: SODIUM CHLORIDE 0.9% 1,000 ML IV ONE (07:03)
[2024-07-15] MEDS: ONDANSETRON HCL 4MG/2ML INJ IV STA (07:03)
[2024-07-15 08:59] VITALS: BP 128/81; PULSE 79; RESP 14; TEMP 36.78072; O2SAT 98
== END 2024-07-15 09:22 | disposition admitted as inpatient to this hospital (09) ==
LOC: ER 02:23 → EDBEDREQ 05:06 → EDBEDREQTM 05:06 → ER 09:22
DX: R10.9 Unspecified abdominal pain (principal); I12.0 Hypertensive chronic kidney disease with stage 5 chronic kidney disease or end stage renal disease; I25.2 Old myocardial infarction; N18.6 End stage renal disease; E11.22 Type 2 diabetes mellitus with diabetic chronic kidney disease; Z99.2 Dependence on renal dialysis; Z98.890 Other specified postprocedural states; Z88.0 Allergy status to penicillin; Z88.8 Allergy status to other drugs, medicaments and biological substances; Z79.899 Other long term (current) drug therapy
CPT/HCPCS: 80076; 80048; 80320; 83605; 83690; 85025; 36415; 74176; 96360; 99284; J7030; Z7610; G0480